=== PATIENT | male | born 1950 | race Caucasian/White ===

== ENCOUNTER 2017-07-04 05:55 | Inpatient (IN) | payer MEDICARE, BC ==
[2017-07-04] MEDS ORDERED: Albuterol/Ipratropium 3.0-0.5 MG/3 ML Neb Soln ONE (06:02)
[2017-07-04] MEDS ORDERED: methylPREDNISolone Sodium Succinate 125 MG/2 ML SDV ONE (06:06)
[2017-07-04] MEDS ORDERED: Albuterol/Ipratropium 3.0-0.5 MG/3 ML Neb Soln NEB PRN (06:07)
[2017-07-04] MEDS ORDERED: Piperacillin/Tazobactam 4.5 GM Vial ONE (06:15)
[2017-07-04] MEDS ORDERED: Vancomycin 1 GM SDV ONE (06:15)
[2017-07-04] MEDS: methylPREDNISolone Sodium Succinate 125 MG/2 ML SDV IV ONE ×2 (06:15→08:27)
[2017-07-04] MEDS ORDERED: Piperacillin/Tazobactam 4.5 GM in Sodium Chloride 0.9% 100 ML IV SCH (06:15)
[2017-07-04] MEDS ORDERED: Sodium Chloride 0.9% 1,000 ML IV STA (06:16)
[2017-07-04] MEDS ORDERED: Acetaminophen 500 MG Tab ONE (06:16)
--- NOTE | 2017-07-04 06:18 | EDM.PDOC ---
ED HPI GENERAL MEDICAL PROBLEM - General Chief Complaint: Respiratory Problem Stated Complaint: MEDICAL Time Seen by Provider: 07/04/17 06:07 Source of Information: Reports: Patient History Limitations: Reports: Altered Mental Status, Respiratory Distress - History of Present Illness INITIAL COMMENTS - FREE TEXT/NARRATIVE: 67 years old male patient with past medical history of emphysema, CHF, diabetes , hypertension and other medical problem. Patient drove himself to the ER. He was on respiratory distress on arrival. History limited by respiratory distress. Patient stated that he has been fighting a bug since Tuesday. Cough, productive. Fever and chills. He had a temp of 101.8 on arrival. Denies any chest pain. Denies any head injury or trauma. Never been a smoker. Denies any abdominal pain diarrhea or constipation. Denies any urinary symptoms. Generalized Pain Score (Numeric/FACES): 10 - Related Data Allergies Allergy/AdvReac Type Severity Reaction Status Date / Time No Known Allergies Allergy Verified 11/06/13 11:24 Home Meds: Home Meds ARIPiprazole [Abilify] 5 mg PO DAILY 08/23/14 [History] Arformoterol [Brovana] 1 dose NEB BID 08/23/14 [History] Aspirin [Halfprin] 81 mg PO DAILY 08/23/14 [History] Cholecalciferol (Vitamin D3) [Vitamin D-3] 2,000 unit PO DAILY 08/23/14 [History ] Cyclobenzaprine [Flexeril] 10 mg PO TID PRN 08/23/14 [History] Escitalopram [Lexapro] 20 mg PO DAILY 08/23/14 [History] Folic Acid 1 mg PO DAILY 08/23/14 [History] Furosemide [Lasix] 120 mg PO DAILY 08/23/14 [History] Hydrocodone/Acetaminophen [Vicodin 5-300 mg Tablet] 5 - 300 each PO BID PRN 01/30 [History] Insulin Glarg,Human.Rec.Analog [LantUS] 50 unit SUBCUT DAILY 08/23/14 [History] Insulin Lispro [HumaLOG] 90 units SUBCUT DAILY 08/23/14 [History] Omeprazole 40 mg PO DAILY 08/23/14 [History] Ramipril [Altace] 10 mg PO DAILY 08/23/14 [History] Spironolactone [Aldactone] 25 mg PO DAILY 08/23/14 [History] Tamsulosin [Tamsulosin 24 Hr] 0.4 mg PO DAILY 08/23/14 [History] Temazepam [Restoril] 15 - 30 mg PO BEDTIME PRN 08/23/14 [History] Tiotropium [Spiriva] 18 mcg INH DAILY 08/23/14 [History] Vitamin B Complex 1 each PO DAILY 08/23/14 [History] atorvaSTATin [Lipitor] 2 mg PO BEDTIME 08/23/14 [History] traZODone 100 mg PO BEDTIME 08/23/14 [History] ED ROS GENERAL - Review of Systems Review Of Systems: ROS reveals no pertinent complaints other than HPI. Constitutional: Reports: Fever, Chills Respiratory: Reports: Cough ED EXAM, GENERAL - Physical Exam Exam: See Below Exam Limited By: No Limitations (Skin ET is a 1 ASHIA) General Appearance: Lethargic, Severe Distress Eye Exam: Bilateral Eye: EOMI, Normal Inspection, PERRL Nose: Normal Inspection, Nasal Flaring Head: Atraumatic, Normocephalic Neck: Normal Inspection, Supple, Non-Tender, Full Range of Motion Respiratory/Chest: Respiratory Distress, Decreased Breath Sounds, Crackles, Rhonchi, Wheezing, Accessory Muscle Use, Retractions, Prolonged Expiration Cardiovascular: Normal Peripheral Pulses, No Murmur, Tachycardia GI/Abdominal: Normal Bowel Sounds, Soft, Non-Tender, No Organomegaly, No Distention, No Abnormal Bruit, No Mass, Other (Abdominal scar from previous surgery). No: Distended, Guarding, Rebound, Tender, Hernia, Mass Back Exam: Normal Inspection, Full Range of Motion, NT Extremities: Normal Inspection, Normal Range of Motion, Non-Tender, Normal Capillary Refill, Pedal Edema Neurological: Alert, Oriented, CN II-XII Intact, Normal Cognition, No Motor/ Sensory Deficits Psychiatric: Anxious Skin Exam: Warm, Dry, Intact, Normal Color, No Rash Course - Vital Signs Last Recorded V/S: Last Vital Signs Temp 39.2 C H 07/04/17 06:00 Pulse 88 07/04/17 06:41 Resp 31 H 07/04/17 06:41 BP 104/64 07/04/17 06:41 Pulse Ox 88 L 07/04/17 06:41 - Orders/Labs/Meds Orders: Active Orders 24 hr Category Date Time Status EKG Documentation Completion [RC] ASDIRECTED Care 07/04/17 06:16 Active RT Aerosol Therapy [RC] ASDIRECTED Care 07/04/17 06:08 Active Chest 1V Frontal [CR] Stat Exams 07/04/17 07:15 Taken Chest 1V Frontal [CR] Urgent Exams 07/04/17 06:09 Taken CULTURE BLOOD [BC] Routine Lab 07/04/17 06:43 Received CULTURE BLOOD [BC] Routine Lab 07/04/17 06:43 Received UA W/MICROSCOPIC [URIN] Stat Lab 07/04/17 07:56 Ordered Albuterol/Ipratropium [DuoNeb 3.0-0.5 MG/3 ML] Med 07/04/17 06:07 Active 3 ml NEB Q1H PRN HYDROmorphone [Dilaudid] Med 07/04/17 08:10 Once 0.5 mg .ROUTE .STK-MED ONE Levofloxacin/Dextrose 5%-Water [Levaquin in D5W 750 MG/ Med 07/04/17 07:30 Active 150 ML] 750 mg Premix Bag 1 bag IV ONETIME Norepinephrine [Levophed] 4 mg Med 07/04/17 07:15 Active Dextrose 5% in Water 246 ml IV TITRATE Piperacillin/Tazobactam [Zosyn] 4.5 gm Med 07/04/17 06:15 Active Sodium Chloride 0.9% [Normal Saline] 100 ml IV Q6H Blood Culture x2 Reflex Set [OM.PC] Urgent Oth 07/04/17 06:09 Ordered EKG 12 Lead [EK] Urgent Ther 07/04/17 06:16 Ordered Medication Orders Albuterol/Ipratropium (Duoneb 3.0-0.5 Mg/3 Ml) 3 ml NEB Q1H PRN PRN Reason: Shortness of Breath Last Admin: 07/04/17 06:05 Dose: 3 ml Piperacillin Sod/Tazobactam (Sod 4.5 gm/ Sodium Chloride) 100 mls @ 200 mls/hr IV Q6H YOAN Last Admin: 07/04/17 06:54 Dose: 200 mls/hr Norepinephrine Bitartrate 4 mg (/ Dextrose/Water) 250 mls @ 7.5 mls/hr IV TITRATE YOAN; 2 MCG/MIN PRN Reason: Protocol Levofloxacin/Dextrose 750 mg/ (Premix) 150 mls @ 100 mls/hr IV ONETIME ONE Stop: 07/04/17 08:59 Labs: Laboratory Tests 07/04/17 07/04/17 07/04/17 Range/Units 06:09 06:18 06:18 WBC 9.0 (4.5-11.0) K/uL RBC 4.86 (4.30-5.90) M/uL Hgb 13.4 (12.0-15.0) g/dL Hct 43.0 (40.0-54.0) % MCV 89 (80-98) fL MCH 28 (27-31) pg MCHC 31 L (32-36) % Plt Count 377 (150-400) K/uL Neut % (Auto) 59 (36-66) % Lymph % (Auto) 23 L (24-44) % [place] % (Auto) 17 H (2-6) % Eos % (Auto) 0 L (2-4) % Baso % (Auto) 0 (0-1) % Puncture Site Rt radial ABG pH 7.395 (7.350-7.450) ABG pCO2 61.4 H (35.0-42.0) mmHg ABG pO2 67.0 L (75.0-100.0) mmHg ABG HCO3 36.8 H (22.0-26.0) mmol/L ABG Total CO2 32.7 H (23.0-27.0) mmol/L ABG O2 Saturation 92.9 L (95.0-98.0) % ABG O2 Content 17.4 (15.0-23.0) %vol ABG Base Excess 9.9 mm/L ABG Hemoglobin 13.6 (13.5-18.0) g/dL ABG Oxyhemoglobin 90.7 % ABG Carboxyhemoglobin 1.6 (0.0-1.6) % ABG Methemoglobin 0.8 % Jesús Test Passed O2 Delivery Device Bipap Oxygen Flow Rate L Sodium 142 (140-148) mmol/L Potassium 4.4 (3.6-5.2) mmol/L Chloride 98 L (100-108) mmol/L Carbon Dioxide 38 H (21-32) mmol/L Anion Gap 10.4 (5.0-14.0) mmol/L BUN 41 H (7-18) mg/dL Creatinine 2.8 H D (0.8-1.3) mg/dL Est Cr Clr Drug Dosing TNP Estimated GFR (MDRD) 23 L (>60) Glucose 110 H (74-106) mg/dL Lactic Acid (0.4-2.0) mmol/L Calcium 9.2 (8.5-10.1) mg/dL Magnesium 2.2 (1.8-2.4) mg/dL Total Bilirubin 0.6 (0.2-1.0) mg/dL AST 73 H (15-37) U/L ALT 47 (12-78) U/L Alkaline Phosphatase 216 H (46-116) U/L Troponin I 0.149 H* (0.000-0.056) ng/mL NT-Pro-B Natriuret Pep (5-125) pg/mL Total Protein 7.3 (6.4-8.2) g/dL Albumin 2.9 L (3.4-5.0) g/dL Globulin 4.4 H (2.3-3.5) g/dL Albumin/Globulin Ratio 0.7 L (1.2-2.2) 07/04/17 07/04/17 07/04/17 Range/Units 06:18 06:43 06:50 WBC (4.5-11.0) K/uL RBC (4.30-5.90) M/uL Hgb (12.0-15.0) g/dL Hct (40.0-54.0) % MCV (80-98) fL MCH (27-31) pg MCHC (32-36) % Plt Count (150-400) K/uL Neut % (Auto) (36-66) % Lymph % (Auto) (24-44) % [place] % (Auto) (2-6) % Eos % (Auto) (2-4) % Baso % (Auto) (0-1) % Puncture Site Lt radial ABG pH 7.356 (7.350-7.450) ABG pCO2 68.2 H (35.0-42.0) mmHg ABG pO2 50.2 L (75.0-100.0) mmHg ABG HCO3 37.3 H (22.0-26.0) mmol/L ABG Total CO2 33.5 H (23.0-27.0) mmol/L ABG O2 Saturation 82.7 L (95.0-98.0) % ABG O2 Content 15.4 (15.0-23.0) %vol ABG Base Excess 9.4 mm/L ABG Hemoglobin 13.6 (13.5-18.0) g/dL ABG Oxyhemoglobin 80.9 % ABG Carboxyhemoglobin 1.4 (0.0-1.6) % ABG Methemoglobin 0.8 % Jesús Test Passed O2 Delivery Device Cpap Oxygen Flow Rate 8 L Sodium (140-148) mmol/L Potassium (3.6-5.2) mmol/L Chloride (100-108) mmol/L Carbon Dioxide (21-32) mmol/L Anion Gap (5.0-14.0) mmol/L BUN (7-18) mg/dL Creatinine (0.8-1.3) mg/dL Est Cr Clr Drug Dosing Estimated GFR (MDRD) (>60) Glucose (74-106) mg/dL Lactic Acid 1.8 (0.4-2.0) mmol/L Calcium (8.5-10.1) mg/dL Magnesium (1.8-2.4) mg/dL Total Bilirubin (0.2-1.0) mg/dL AST (15-37) U/L ALT (12-78) U/L Alkaline Phosphatase (46-116) U/L Troponin I (0.000-0.056) ng/mL NT-Pro-B Natriuret Pep 3941 H (5-125) pg/mL Total Protein (6.4-8.2) g/dL Albumin (3.4-5.0) g/dL Globulin (2.3-3.5) g/dL Albumin/Globulin Ratio (1.2-2.2) 07/04/17 Range/Units 07:40 WBC (4.5-11.0) K/uL RBC (4.30-5.90) M/uL Hgb (12.0-15.0) g/dL Hct (40.0-54.0) % MCV (80-98) fL MCH (27-31) pg MCHC (32-36) % Plt Count (150-400) K/uL Neut % (Auto) (36-66) % Lymph % (Auto) (24-44) % [place] % (Auto) (2-6) % Eos % (Auto) (2-4) % Baso % (Auto) (0-1) % Puncture Site Rt radial ABG pH 7.244 L (7.350-7.450) ABG pCO2 84.0 H* (35.0-42.0) mmHg ABG pO2 106.0 H (75.0-100.0) mmHg ABG HCO3 35.0 H (22.0-26.0) mmol/L ABG Total CO2 32.4 H (23.0-27.0) mmol/L ABG O2 Saturation 96.5 (95.0-98.0) % ABG O2 Content 17.8 (15.0-23.0) %vol ABG Base Excess 5.0 mm/L ABG Hemoglobin 13.3 L (13.5-18.0) g/dL ABG Oxyhemoglobin 95.1 % ABG Carboxyhemoglobin 0.7 (0.0-1.6) % ABG Methemoglobin 0.8 % Jesús Test Passeed O2 Delivery Device Resuscitation bag Oxygen Flow Rate 15 L Sodium (140-148) mmol/L Potassium (3.6-5.2) mmol/L Chloride (100-108) mmol/L Carbon Dioxide (21-32) mmol/L Anion Gap (5.0-14.0) mmol/L BUN (7-18) mg/dL Creatinine (0.8-1.3) mg/dL Est Cr Clr Drug Dosing Estimated GFR (MDRD) (>60) Glucose (74-106) mg/dL Lactic Acid (0.4-2.0) mmol/L Calcium (8.5-10.1) mg/dL Magnesium (1.8-2.4) mg/dL Total Bilirubin (0.2-1.0) mg/dL AST (15-37) U/L ALT (12-78) U/L Alkaline Phosphatase (46-116) U/L Troponin I (0.000-0.056) ng/mL NT-Pro-B Natriuret Pep (5-125) pg/mL Total Protein (6.4-8.2) g/dL Albumin (3.4-5.0) g/dL Globulin (2.3-3.5) g/dL Albumin/Globulin Ratio (1.2-2.2) Meds: Medications Generic Name Dose Route Start Last Admin Trade Name Sara PRN Reason Stop Dose Admin Albuterol/Ipratropium 3 ml 07/04/17 06:07 07/04/17 06:05 Duoneb 3.0-0.5 Mg/3 Ml NEB 3 ml Q1H PRN Administration Shortness of Breath Piperacillin Sod/Tazobactam 100 mls @ 200 mls/hr 07/04/17 06:15 07/04/17 06: 54 Sod 4.5 gm/ Sodium Chloride IV 200 mls/hr Q6H YOAN Administration Norepinephrine Bitartrate 4 mg 250 mls @ 7.5 mls/hr 07/04/17 07:15 / Dextrose/Water IV TITRATE YOAN Protocol 2 MCG/MIN Levofloxacin/Dextrose 750 mg/ 150 mls @ 100 mls/hr 07/04/17 07:30 Premix IV 07/04/17 08:59 ONETIME ONE Discontinued Medications Generic Name Dose Route Start Last Admin Trade Name Sara PRN Reason Stop Dose Admin Acetaminophen Confirm 07/04/17 06:16 Tylenol Extra Strength Administered 07/04/17 06:17 Dose 1,000 mg .ROUTE .STK-MED ONE Albuterol/Ipratropium Confirm 07/04/17 06:02 Duoneb 3.0-0.5 Mg/3 Ml Administered 07/04/17 06:03 Dose 3 ml .ROUTE .STK-MED ONE Diphenhydramine HCl 50 mg 07/04/17 07:08 Benadryl IVPUSH 07/04/17 07:09 ONETIME ONE Epinephrine HCl 0.3 mg 07/04/17 07:06 Adrenalin 1:1000 IM 07/04/17 07:07 ONETIME ONE Etomidate 20 mg 07/04/17 07:07 Amidate IVPUSH 07/04/17 07:08 ONETIME ONE Famotidine Confirm 07/04/17 06:49 Pepcid Administered 07/04/17 06:50 Dose 40 mg .ROUTE .STK-MED ONE Famotidine 20 mg 07/04/17 07:05 Pepcid IVPUSH 07/04/17 07:06 ONETIME ONE Vancomycin HCl 1,000 mg/ 250 mls @ 167 mls/hr 07/04/17 06:15 07/04/17 06:30 Dextrose/Water IV 07/04/17 07:44 167 mls/hr ONETIME ONE Administration Sodium Chloride 1,000 mls @ 999 mls/hr 07/04/17 06:16 07/04/17 06:30 Normal Saline IV 07/04/17 07:16 999 mls/hr .BOLUS STA Administration Acetaminophen Confirm 07/04/17 06:30 Ofirmev Administered 07/04/17 06:31 Dose 100 mls @ as directed IV .STK-MED ONE Dextrose/Water Confirm 07/04/17 06:55 Dextrose 5% In Water Administered 07/04/17 06:56 Dose 250 mls @ as directed .ROUTE .STK-MED ONE Ketamine HCl Confirm 07/04/17 06:47 Ketalar Administered 07/04/17 06:48 Dose 500 mg .ROUTE .STK-MED ONE Methylprednisolone Sodium Succinate 125 mg 07/04/17 06:07 07/04/17 06:15 Solu-Medrol IV 07/04/17 06:08 125 mg ONETIME ONE Administration Methylprednisolone Sodium Succinate Confirm 07/04/17 06:06 Solu-Medrol Administered 07/04/17 06:07 Dose 125 mg .ROUTE .STK-MED ONE Midazolam HCl Confirm 07/04/17 07:37 Versed 1 Mg/Ml Administered 07/04/17 07:38 Dose 5 mg .ROUTE .STK-MED ONE Midazolam HCl 5 mg 07/04/17 07:44 Versed 1 Mg/Ml IVPUSH 07/04/17 07:45 ONETIME ONE Piperacillin Sod/Tazobactam Sod Confirm 07/04/17 06:15 Zosyn Administered 07/04/17 06:16 Dose 4.5 gm .ROUTE .STK-MED ONE Rocuronium Kaufman Confirm 07/04/17 07:12 Zemuron Administered 07/04/17 07:13 Dose 50 mg .ROUTE .STK-MED ONE Succinylcholine Chloride Confirm 07/04/17 06:42 Quelicin Administered 07/04/17 06:43 Dose 200 mg .ROUTE .STK-MED ONE Vancomycin HCl Confirm 07/04/17 06:15 Vancomycin Administered 07/04/17 06:16 Dose 1 gm .ROUTE .STK-MED ONE - Re-Assessments/Exams Free Text/Narrative Re-Assessment/Exam: 07/04/17 08:19 Patient was seen and examined immediately on arrival. He was or respiratory distress. Was started on oxygen by nonrebreather mask. Given a DuoNeb. Started on the quality assurance monitor. IV inserted and was given one 25 mg IV Solu-Medrol. Lactic acid and blood culture was drawn. Was given 1 L normal saline bolus. 1 g of Tylenol was given fever. Lab and imaging was ordered. Patient's meets criteria for severe sepsis most likely secondary to pneumonia. The patient was started on vancomycin and Zosyn. I did order 4.5 mg Zosyn and 1 g of vancomycin. Patient reacted to the vancomycin and developed a skin rash and dropped his blood pressure from 100 systolic down to 75 ystolic. This is most likely anaphylactic shock to vancomycin on top of her septic shock secondary to pneumonia. Vancomycin was discontinued immediately. I did give him 0.3 IM epinephrine, 50 mg IV Benadryl, 20 mg IV Pepcid. I did order another liter of normal saline by pressure bag. And his blood pressure was still low. At this point the patient is likely fighting a combination of septic shock and anaphylactic shock secondary to vancomycin.. I did started home on Levophed 5 g. At this point decision was made for intubation. I did rapid sequence intubation. Patient was given 30 of etomidate initially and we continued to bag him by Ambu bag then etomidate was wearing off and patient was given 60 of ketamine and 180 of succinylcholine. Successful intubation from the first attempt. 7.5 size ET tube using a gleidoscope. Tube at 24 cm at the lip. Equal breath sounds initially. Chest x-ray shows the tip of the tube on the right bronchus. Tube was drawn back 2 cm. [address]acement confirmed by another x-ray. Initial chest x-ray shows bilateral diffuse pulmonary infiltrates. Blood pressure improved and he was weaned off the Levophed within 15-20 minutes. Patient was then started on Levaquin 750 mg. ABG 3 was done throughout the course of resuscitation. Lab and imaging was reviewed. Troponin is mildly elevated 0.14. Most likely demand ischemia. An EKG shows no sign of acute ischemia or arrhythmia. Patient was also given 20 mg off rocker name and 5 mg of IV Versed. Patient received at least 3 L of IV fluid bolus at this point about 30 Milberger kilogram for resuscitation. Blood pressure stabilized. Jung catheter inserted. The patient currently stabilized. Case was discussed with Dr. Irwin hospitalist strand and binder controller he accepted the admission for further management. Stable for admission. 07/04/17 08:32 Departure - Departure Time of Disposition: 08:33 Disposition: DC/Tfer to Hospice - Home 50 Condition: Critical Clinical Impression: Septic shock, Anaphylactic shock, Elevated troponin, Acute kidney injury, Acute respiratory failure - Discharge Information Referrals: PCP,None [Primary Care Provider] - Forms: ED Department Discharge - My Orders Last 24 Hours: My Active Orders 07/04/17 06:07 Albuterol/Ipratropium [DuoNeb 3.0-0.5 MG/3 ML] 3 ml NEB Q1H PRN 07/04/17 06:08 RT Aerosol Therapy [RC] ASDIRECTED 07/04/17 06:09 Chest 1V Frontal [CR] Urgent Blood Culture x2 Reflex Set [OM.PC] Urgent 07/04/17 06:15 Piperacillin/Tazobactam [Zosyn] 4.5 gm Sodium Chloride 0.9% [Normal Saline] 100 ml IV Q6H 07/04/17 06:16 EKG Documentation Completion [RC] ASDIRECTED EKG 12 Lead [EK] Urgent 07/04/17 06:43 CULTURE BLOOD [BC] Routine CULTURE BLOOD [BC] Routine 07/04/17 07:15 Chest 1V Frontal [CR] Stat Norepinephrine [Levophed] 4 mg Dextrose 5% in Water 246 ml IV TITRATE 07/04/17 07:30 Levofloxacin/Dextrose 5%-Water [Levaquin in D5W 750 MG/150 ML] 750 mg Premix Bag 1 bag IV ONETIME 07/04/17 07:56 UA W/MICROSCOPIC [URIN] Stat - Assessment/Plan Last 24 Hours: My Active Orders 07/04/17 06:07 Albuterol/Ipratropium [DuoNeb 3.0-0.5 MG/3 ML] 3 ml NEB Q1H PRN 07/04/17 06:08 RT Aerosol Therapy [RC] ASDIRECTED 07/04/17 06:09 Chest 1V Frontal [CR] Urgent Blood Culture x2 Reflex Set [OM.PC] Urgent 07/04/17 06:15 Piperacillin/Tazobactam [Zosyn] 4.5 gm Sodium Chloride 0.9% [Normal Saline] 100 ml IV Q6H 07/04/17 06:16 EKG Documentation Completion [RC] ASDIRECTED EKG 12 Lead [EK] Urgent 07/04/17 06:43 CULTURE BLOOD [BC] Routine CULTURE BLOOD [BC] Routine 07/04/17 07:15 Chest 1V Frontal [CR] Stat Norepinephrine [Levophed] 4 mg Dextrose 5% in Water 246 ml IV TITRATE 07/04/17 07:30 Levofloxacin/Dextrose 5%-Water [Levaquin in D5W 750 MG/150 ML] 750 mg Premix Bag 1 bag IV ONETIME 07/04/17 07:56 UA W/MICROSCOPIC [URIN] Stat Plan: Admission to the ICU to Dr. Rocha
[2017-07-04] MEDS ORDERED: Acetaminophen 1,000 MG in Premix Bag 1 BAG IV ONE (06:30)
[2017-07-04] MEDS ORDERED: Succinylcholine 200 MG/10 ML MDV ONE (06:42)
[2017-07-04] MEDS ORDERED: Ketamine 500 MG/5 ML MDV ONE (06:47)
[2017-07-04] MEDS ORDERED: Famotidine 20 MG/2 ML SDV ONE (06:49)
[2017-07-04] MEDS ORDERED: Sodium Chloride 0.9% 1,000 ML IV ONE (06:51)
[2017-07-04] MEDS ORDERED: Dextrose 5% in Water 250 ML ONE (06:55)
[2017-07-04] MEDS ORDERED: Ketamine 500 MG/5 ML MDV IV STA (07:03)
[2017-07-04] MEDS ORDERED: Succinylcholine 200 MG/10 ML MDV IV STA (07:04)
[2017-07-04] MEDS ORDERED: Famotidine 20 MG/2 ML SDV IVPUSH ONE (07:05)
[2017-07-04] MEDS ORDERED: EPINEPHrine 1 MG/ML SDV IM ONE (07:06)
[2017-07-04] MEDS ORDERED: Etomidate 2 MG/ML 10 ML SDV IVPUSH ONE (07:07)
[2017-07-04] MEDS ORDERED: diphenhydrAMINE 50 MG/ML SDV IVPUSH ONE (07:08)
[2017-07-04] MEDS ORDERED: Rocuronium 50 MG/5 ML Vial ONE (07:12)
[2017-07-04] MEDS ORDERED: Norepinephrine 4 MG in Dextrose 5% in Water 246 ML IV SCH ×2 (07:15)
[2017-07-04] MEDS ORDERED: Levofloxacin/Dextrose 5%-Water 750 MG in Premix Bag 1 BAG IV ONE (07:30)
[2017-07-04] MEDS ORDERED: Midazolam 1 MG/ML 5 ML SDV ONE (07:37)
[2017-07-04] MEDS ORDERED: Midazolam 1 MG/ML 5 ML SDV IVPUSH ONE (07:44)
[2017-07-04] MEDS ORDERED: HYDROmorphone 0.5 MG/0.5 ML Syringe ONE (08:10)
[2017-07-04] MEDS ORDERED: HYDROmorphone 0.5 MG/0.5 ML Syringe IVPUSH ONE (08:19)
[2017-07-04] MEDS ORDERED: Rocuronium 50 MG/5 ML Vial IV ONE (08:36)
[2017-07-04] MEDS ORDERED: 50% Dextrose in Water 50 ML Syringe IV PRN (08:45)
[2017-07-04] MEDS ORDERED: Levofloxacin/Dextrose 5%-Water 750 MG in Premix Bag 1 BAG IV SCH (08:45)
[2017-07-04] MEDS ORDERED: Glucose Gel 15 GM in 37.5 GM Tube PO PRN (08:45)
[2017-07-04] MEDS ORDERED: Ondansetron 4 MG/2 ML SDV IV PRN (08:45)
[2017-07-04] MEDS ORDERED: Albuterol/Ipratropium 3.0-0.5 MG/3 ML Neb Soln NEB SCH ×2 (08:45→10:00)
[2017-07-04] MEDS ORDERED: methylPREDNISolone Sodium Succinate 125 MG/2 ML SDV IVPUSH SCH (08:45)
[2017-07-04] MEDS ORDERED: Piperacillin/Tazobactam 3.375 GM in Sodium Chloride 0.9% 50 ML IV SCH (08:45)
[2017-07-04] MEDS ORDERED: Heparin Sodium 5,000 Units/ML Vial ONE (09:30)
--- NOTE | 2017-07-04 09:51 | PCM.HP ---
H&P History of Present Illness - General Date of Service: 07/04/17 Admit Problem/Dx: Admission Diagnosis/Problem Admission Diagnosis/Problem Respiratory failure Source of Information: Provider, RN Notes Reviewed History Limitations: Reports: Altered Mental Status, Respiratory Distress - History of Present Illness Initial Comments - Free Text/Narative: Mr. Kruse is a 67-year-old gentleman who is admitted through the emergency department with acute on chronic respiratory failure, left lung pneumonia, sepsis, and anaphylaxis secondary to vancomycin. He drove himself into the emergency department this morning and when he arrived had significant respiratory compromise. Initially was placed on BiPAP for respiratory support. Blood pressure was borderline he was tachycardic and febrile, chest x-ray showed evidence of left lung infiltrate. He was given IV fluids for suspected sepsis, as well as transient norepinephrine because of hypotension. He was started on broad-spectrum IV antibiotics but had an apparent anaphylactic reaction to the vancomycin. This was treated with IV steroids, epinephrine, and Benadryl. Because of persistent respiratory compromise despite use of noninvasive positive pressure ventilation he was intubated and placed on mechanical ventilation. Pressures have stabilized following IV fluid resuscitation and he is currently off of the IV norepinephrine. Blood gases show persistent CO2 retention with a moderate respiratory acidosis. Patient is unable to provide further information concerning recent symptoms or events because of his current intubated state and sedation. No family is available to provide further information. Generalized Pain Score (Numeric/FACES): 10 - Related Data Allergies/Adverse Reactions: Allergies Allergy/AdvReac Type Severity Reaction Status Date / Time No Known Allergies Allergy Verified 11/06/13 11:24 Home Medications: Home Meds ARIPiprazole [Abilify] 5 mg PO DAILY 08/23/14 [History] Arformoterol [Brovana] 1 dose NEB BID 08/23/14 [History] Aspirin [Halfprin] 81 mg PO DAILY 08/23/14 [History] Cholecalciferol (Vitamin D3) [Vitamin D-3] 2,000 unit PO DAILY 08/23/14 [History ] Cyclobenzaprine [Flexeril] 10 mg PO TID PRN 08/23/14 [History] Escitalopram [Lexapro] 20 mg PO DAILY 08/23/14 [History] Folic Acid 1 mg PO DAILY 08/23/14 [History] Furosemide [Lasix] 120 mg PO DAILY 08/23/14 [History] Hydrocodone/Acetaminophen [Vicodin 5-300 mg Tablet] 5 - 300 each PO BID PRN 01/30 [History] Insulin Glarg,Human.Rec.Analog [LantUS] 50 unit SUBCUT DAILY 08/23/14 [History] Insulin Lispro [HumaLOG] 90 units SUBCUT DAILY 08/23/14 [History] Omeprazole 40 mg PO DAILY 08/23/14 [History] Ramipril [Altace] 10 mg PO DAILY 08/23/14 [History] Spironolactone [Aldactone] 25 mg PO DAILY 08/23/14 [History] Tamsulosin [Tamsulosin 24 Hr] 0.4 mg PO DAILY 08/23/14 [History] Temazepam [Restoril] 15 - 30 mg PO BEDTIME PRN 08/23/14 [History] Tiotropium [Spiriva] 18 mcg INH DAILY 08/23/14 [History] Vitamin B Complex 1 each PO DAILY 08/23/14 [History] atorvaSTATin [Lipitor] 2 mg PO BEDTIME 08/23/14 [History] traZODone 100 mg PO BEDTIME 08/23/14 [History] Social & Family History - Tobacco Use Smoking Status *Q: Unknown Ever Smoked H&P Review of Systems - Review of Systems: Review Of Systems: Unable To Obtain General: Reports: ROS unobtainable (Currently intubated and sedated) Exam - Exam Exam: See Below - Vital Signs Vital Signs: Last Vital Signs Temp 100.8 F H 07/04/17 07:29 Pulse 67 07/04/17 08:45 Resp 13 07/04/17 08:14 BP 93/54 L 07/04/17 08:45 Pulse Ox 95 07/04/17 08:45 Weight: 220 lb 7.396 oz - Exam Quality Assessment: Urinary Catheter, DVT Prophylaxis, Other (Ventilator) General: Sedated, Lethargic HEENT: Conjunctiva Clear, Mucosa Moist & Embden, Normal Nasal Septum, Pupils Equal Neck: Supple, Trachea Midline, +2 Carotid Pulse wo Bruit Lungs: Decreased Breath Sounds, Rhonchi, Wheezing. No: Crackles, Rales, Rub, Stridor Cardiovascular: Regular Rate, Regular Rhythm, Normal S1, Normal S2. No: Irregular Rhythm, Bradycardia, Tachycardia, Systolic Murmur, Diastolic Murmur GI/Abdominal Exam: Normal Bowel Sounds, Soft, Non-Tender, No Distention Extremities: Non-Tender, Pedal Edema Skin: Warm, Dry, Intact - Patient Data Lab Results Last 24 hrs: Laboratory Results - last 24 hr 07/04/17 Range/Units 09:00 Puncture Site Rt radial ABG pH 7.266 L (7.350-7.450) ABG pCO2 77.2 H* (35.0-42.0) mmHg ABG pO2 67.5 L (75.0-100.0) mmHg ABG HCO3 33.9 H (22.0-26.0) mmol/L ABG Total CO2 31.4 H (23.0-27.0) mmol/L ABG O2 Saturation 90.0 L (95.0-98.0) % ABG O2 Content 16.3 (15.0-23.0) %vol ABG Base Excess 4.8 mm/L ABG Hemoglobin 13.0 L (13.5-18.0) g/dL ABG Oxyhemoglobin 88.7 % ABG Carboxyhemoglobin 0.6 (0.0-1.6) % ABG Methemoglobin 0.8 % Jesús Test Passed O2 Delivery Device Ventilator Oxygen Flow Rate L Result Diagrams: 07/04/17 06:18 07/04/17 06:18 *Q Meaningful Use (ADM) - VTE *Q VTE Criteria *Q: - VTE Risk Assess *Q Each Risk Factor Represents 1 Point: Obesity ( BMI > 25 kg/m2), Sepsis, Serious lung disease including pneumonia, Abnormal Pulmonary Function (COPD), Medical Patient Currently on Bedrest Total Score 1 Point Risk Factors: 5 Each Risk Factor Represents 2 Points: Age 60 - 74 Years Total Score 2 Point Risk Factors: 2 Each Risk Factor Represents 3 Points: None Total Score 3 Point Risk Factors: 0 Each Risk Factor Represents 5 Points: None Total Score 5 Point Risk Factors: 0 Venous Thromboembolism Risk Factor Score *Q: 7 - Stroke *Q Stroke Criteria *Q: - AMI *Q AMI Criteria *Q: Problem List Initiated/Reviewed/Updated: Yes Orders Last 24hrs: Active Orders 24 hr Category Date Time Status Patient Status [ADT] Routine ADT 07/04/17 08:45 Active Blood Glucose Check, Bedside [RC] QIDACANDBED Care 07/04/17 08:45 Active Cardiac Monitoring [RC] .As Directed Care 07/04/17 08:45 Active Communication Order [RC] ASDIRECTED Care 07/04/17 08:45 Active Diabetes Education [RC] Click to Edit Care 07/04/17 08:45 Active Initiate Restraint Protocol [RC] BID Care 07/04/17 08:45 Active Intake and Output [RC] QSHIFT Care 07/04/17 08:45 Active Notify Provider Vital Signs [RC] ASDIRECTED Care 07/04/17 08:45 Active Notify Provider [RC] PRN Care 07/04/17 08:45 Active Oxygen Therapy [RC] PRN Care 07/04/17 08:45 Active Peripheral IV Care [RC] . DIRECTED Care 07/04/17 08:45 Active Pulse Oximetry [RC] CONTINUOUS Care 07/04/17 08:45 Active RASS Sedation Scale [RC] ASDIRECTED Care 07/04/17 08:45 Active RT Aerosol Therapy [RC] ASDIRECTED Care 07/04/17 08:45 Active RT Ventilator, Adult [RC] ASDIRECTED Care 07/04/17 08:45 Active Up With Assistance [RC] ASDIRECTED Care 07/04/17 08:45 Active VTE/DVT Education [RC] Per Unit Routine Care 07/04/17 08:45 Active Vital Signs [RC] Q4H Care 07/04/17 08:45 Active Nothing per Oral Now Diet [DIET] Diet 07/04/17 Breakfast Active Chest 1V Frontal [CR] DAILY Exams 07/05/17 05:00 Ordered Chest 1V Frontal [CR] DAILY Exams 07/06/17 05:00 Ordered Chest 1V Frontal [CR] DAILY Exams 07/07/17 05:00 Ordered Chest 1V Frontal [CR] DAILY Exams 07/08/17 05:00 Ordered Chest 1V Frontal [CR] DAILY Exams 07/09/17 05:00 Ordered Chest 1V Frontal [CR] DAILY Exams 07/10/17 05:00 Ordered Echo Comp wo Cont [US] Urgent Exams 07/04/17 08:45 Ordered BASIC METABOLIC PANEL,BMP [CHEM] Stat Lab 07/04/17 17:00 Ordered BLOOD GAS ARTERIAL [BG] Stat Lab 07/04/17 17:00 Ordered CBC WITH AUTO DIFF [HEME] Stat Lab 07/04/17 17:00 Ordered CULTURE RESPIRATORY + SMEAR [RM] Stat Lab 07/04/17 09:44 Received GLUCOSE POC LAB TO COLLECT [POC] QIDACANDBED Lab 07/04/17 11:30 Ordered GLUCOSE POC LAB TO COLLECT [POC] QIDACANDBED Lab 07/04/17 16:30 Ordered GLUCOSE POC LAB TO COLLECT [POC] QIDACANDBED Lab 07/04/17 21:00 Ordered GLUCOSE POC LAB TO COLLECT [POC] QIDACANDBED Lab 07/05/17 07:30 Ordered GLUCOSE POC LAB TO COLLECT [POC] QIDACANDBED Lab 07/05/17 11:30 Ordered GLUCOSE POC LAB TO COLLECT [POC] QIDACANDBED Lab 07/05/17 16:30 Ordered GLUCOSE POC LAB TO COLLECT [POC] QIDACANDBED Lab 07/05/17 21:00 Ordered GLUCOSE POC LAB TO COLLECT [POC] QIDACANDBED Lab 07/06/17 07:30 Ordered GLUCOSE POC LAB TO COLLECT [POC] QIDACANDBED Lab 07/06/17 11:30 Ordered GLUCOSE POC LAB TO COLLECT [POC] QIDACANDBED Lab 07/06/17 16:30 Ordered GLUCOSE POC LAB TO COLLECT [POC] QIDACANDBED Lab 07/06/17 21:00 Ordered GLUCOSE POC LAB TO COLLECT [POC] QIDACANDBED Lab 07/07/17 07:30 Ordered GLUCOSE POC LAB TO COLLECT [POC] QIDACANDBED Lab 07/07/17 11:30 Ordered GLUCOSE POC LAB TO COLLECT [POC] QIDACANDBED Lab 07/07/17 16:30 Ordered GLUCOSE POC LAB TO COLLECT [POC] QIDACANDBED Lab 07/07/17 21:00 Ordered GLUCOSE POC LAB TO COLLECT [POC] QIDACANDBED Lab 07/08/17 07:30 Ordered GLUCOSE POC LAB TO COLLECT [POC] QIDACANDBED Lab 07/08/17 11:30 Ordered GLUCOSE POC LAB TO COLLECT [POC] QIDACANDBED Lab 07/08/17 16:30 Ordered GLUCOSE POC LAB TO COLLECT [POC] QIDACANDBED Lab 07/08/17 21:00 Ordered GLUCOSE POC LAB TO COLLECT [POC] QIDACANDBED Lab 07/09/17 07:30 Ordered GLUCOSE POC LAB TO COLLECT [POC] QIDACANDBED Lab 07/09/17 11:30 Ordered GLUCOSE POC LAB TO COLLECT [POC] QIDACANDBED Lab 07/09/17 16:30 Ordered GLUCOSE POC LAB TO COLLECT [POC] QIDACANDBED Lab 07/09/17 21:00 Ordered GLUCOSE POC LAB TO COLLECT [POC] QIDACANDBED Lab 07/10/17 07:30 Ordered GLUCOSE POC LAB TO COLLECT [POC] QIDACANDBED Lab 07/10/17 11:30 Ordered GLUCOSE POC LAB TO COLLECT [POC] QIDACANDBED Lab 07/10/17 16:30 Ordered GLUCOSE POC LAB TO COLLECT [POC] QIDACANDBED Lab 07/10/17 21:00 Ordered GLUCOSE POC LAB TO COLLECT [POC] QIDACANDBED Lab 07/11/17 07:30 Ordered GLUCOSE POC LAB TO COLLECT [POC] QIDACANDBED Lab 07/11/17 11:30 Ordered GLUCOSE POC LAB TO COLLECT [POC] QIDACANDBED Lab 07/11/17 16:30 Ordered GLUCOSE POC LAB TO COLLECT [POC] QIDACANDBED Lab 07/11/17 21:00 Ordered GLUCOSE POC LAB TO COLLECT [POC] QIDACANDBED Lab 07/12/17 07:30 Ordered GLUCOSE POC LAB TO COLLECT [POC] QIDACANDBED Lab 07/12/17 11:30 Ordered GLUCOSE POC LAB TO COLLECT [POC] QIDACANDBED Lab 07/12/17 16:30 Ordered GLUCOSE POC LAB TO COLLECT [POC] QIDACANDBED Lab 07/12/17 21:00 Ordered GLUCOSE POC LAB TO COLLECT [POC] QIDACANDBED Lab 07/13/17 07:30 Ordered GLUCOSE POC LAB TO COLLECT [POC] QIDACANDBED Lab 07/13/17 11:30 Ordered GLUCOSE POC LAB TO COLLECT [POC] QIDACANDBED Lab 07/13/17 16:30 Ordered GLUCOSE POC LAB TO COLLECT [POC] QIDACANDBED Lab 07/13/17 21:00 Ordered GLUCOSE POC LAB TO COLLECT [POC] QIDACANDBED Lab 07/14/17 07:30 Ordered GLUCOSE POC LAB TO COLLECT [POC] QIDACANDBED Lab 07/14/17 11:30 Ordered GLUCOSE POC LAB TO COLLECT [POC] QIDACANDBED Lab 07/14/17 16:30 Ordered GLUCOSE POC LAB TO COLLECT [POC] QIDACANDBED Lab 07/14/17 21:00 Ordered GLUCOSE POC LAB TO COLLECT [POC] QIDACANDBED Lab 07/15/17 07:30 Ordered TROPONIN I [CHEM] Stat Lab 07/04/17 12:00 Ordered TROPONIN I [CHEM] Stat Lab 07/04/17 17:00 Ordered Albuterol [Proventil Neb Soln] Med 07/04/17 08:45 Active 2.5 mg NEB Q4H PRN Albuterol/Ipratropium [DuoNeb 3.0-0.5 MG/3 ML] Med 07/04/17 10:00 Active 3 ml NEB Q6H Dextrose 50% in Water Med 07/04/17 08:45 Active 50 ml IV ONETIME PRN Dextrose [Glutose 15] Med 07/04/17 08:45 Active 15 gm PO ONETIME PRN Docusate Sodium [Colace] Med 07/04/17 08:45 Active 100 mg PO BID PRN Enoxaparin [Lovenox] Med 07/04/17 09:00 Active 30 mg SUBCUT DAILY HYDROmorphone [Dilaudid] Med 07/04/17 08:45 Active 0.5 mg IVPUSH Q1H PRN Insulin Aspart [NovoLOG] Med 07/04/17 11:00 Active See Protocol SUBCUT QIDACANDBED Insulin Detemir [Levemir] Med 07/04/17 21:00 Active 30 unit SUBCUT BEDTIME Lactated Ringers [Ringers, Lactated] 1,000 ml Med 07/04/17 08:45 Active IV ASDIRECTED Levofloxacin/Dextrose 5%-Water [Levaquin in D5W 750 MG/ Med 07/05/17 09:00 Active 150 ML] 750 mg Premix Bag 1 bag IV Q24H Magnesium Hydroxide [Milk of Magnesia] Med 07/04/17 08:45 Active 30 ml PO Q12H PRN Ondansetron [Zofran] Med 07/04/17 08:45 Active 4 mg IV Q4H PRN Pantoprazole [ProTONIX IV] Med 07/04/17 09:00 Active 40 mg IVPUSH DAILY Piperacillin/Tazobactam/Dext [Zosyn in Dextrose Iso- Med 07/04/17 12:00 Active Osmotic 3.375 GM] 3.375 gm Premix Bag 1 bag IV Q6H Polyethylene Glycol 3350 [MiraLAX] Med 07/04/17 08:45 Active 17 gm PO DAILY PRN Sodium Chloride 0.9% [Saline Flush] Med 07/04/17 08:45 Active 10 ml FLUSH ASDIRECTED PRN methylPREDNISolone Sod Succ [Solu-MEDROL] Med 07/04/17 12:00 Active 125 mg IVPUSH Q6H Peripheral IV Insertion Adult [OM.PC] Routine Oth 07/04/17 08:45 Ordered Restraint Initiate Non-VIOL/Non-SD [OM.PC] Stat Oth 07/04/17 08:45 Ordered Restraint Monitoring Non-VIOL/Non-SD [OM.PC] Daily Oth 07/04/17 08:45 Ordered Restraint Monitoring Non-VIOL/Non-SD [OM.PC] Daily Oth 07/05/17 08:45 Ordered Resuscitation Status Routine Resus Stat 07/04/17 08:22 Ordered Medication Orders Albuterol (Proventil Neb Soln) 2.5 mg NEB Q4H PRN PRN Reason: Shortness Of Breath/wheezing Albuterol/Ipratropium (Duoneb 3.0-0.5 Mg/3 Ml) 3 ml NEB Q6H YOAN Arformoterol Tartrate (Brovana) 15 mcg NEB BIDRT YOAN Dextrose (Glutose 15) 15 gm PO ONETIME PRN PRN Reason: Hypoglycemia Dextrose/Water (Dextrose 50% In Water) 50 ml IV ONETIME PRN PRN Reason: Hypoglycemia Docusate Sodium (Colace) 100 mg PO BID PRN PRN Reason: Constipation Enoxaparin Sodium (Lovenox) 30 mg SUBCUT DAILY YOAN Hydromorphone HCl (Dilaudid) 0.5 mg IVPUSH Q1H PRN PRN Reason: Pain Lactated Ringer's (Ringers, Lactated) 1,000 mls @ 125 mls/hr IV ASDIRECTED YOAN Levofloxacin/Dextrose 750 mg/ (Premix) 150 mls @ 100 mls/hr IV Q24H YOAN Piperacillin/Tazobactam/ (Dextrose 3.375 gm/ Premix) 50 mls @ 100 mls/hr IV Q6H YOAN Insulin Aspart (Novolog) 0 unit SUBCUT QIDACANDBED YOAN PRN Reason: Protocol Insulin Detemir (Levemir) 30 unit SUBCUT BEDTIME YOAN Magnesium Hydroxide (Milk Of Magnesia) 30 ml PO Q12H PRN PRN Reason: Constipation Methylprednisolone Sodium Succinate (Solu-Medrol) 125 mg IVPUSH Q6H YOAN Ondansetron HCl (Zofran) 4 mg IV Q4H PRN PRN Reason: Nausea/Vomiting Pantoprazole Sodium (Protonix Iv) 40 mg IVPUSH DAILY YOAN Polyethylene Glycol (Miralax) 17 gm PO DAILY PRN PRN Reason: Constipation Sodium Chloride (Saline Flush) 10 ml FLUSH ASDIRECTED PRN PRN Reason: Keep Vein Open Assessment/Plan Comment:: ASSESSMENT AND PLAN ACUTE ON CHRONIC HYPOXIC AND HYPERCAPNIC RESPIRATORY FAILURE-patient currently unable to provide history, prior to intubation he reported that he had symptoms of respiratory tract infection over the past week with progressive shortness of breath. He failed a trial of noninvasive positive pressure ventilation in the emergency department, because of ongoing respiratory compromise was intubated and now has been transferred to the intensive care unit on mechanical ventilation. -Mechanical ventilation; assist-control with a rate of 20, tidal volume of 550, FiO2 of 70%, PEEP of 5 -Daily spontaneous breathing trial -Daily chest x-ray while intubated -Solu-Medrol 125 mg IV every 6 hours -Nebulizer therapy with albuterol and duo nebs -Management of pneumonia as below -Analgesic sedation LEFT LUNG PNEUMONIA WITH SEPSIS-likely causing respiratory failure as noted above. -Blood and sputum cultures pending -IV antibiotic therapy with Zosyn and levofloxacin, pending culture results VANCOMYCIN ANAPHYLAXIS-treated with epinephrine, Solu-Medrol, and Benadryl in the emergency department ACUTE ON CHRONIC KIDNEY DISEASE -IV fluids for hydration and management of sepsis -Closely monitor urine output and renal function TYPE 2 DIABETES MELLITUS -Levemir insulin 30 units subcutaneous at at bedtime -4 times a day glucometers -Moderate dose sliding scale NovoLog MAINTENANCE ISSUES -DVT prophylaxis; Lovenox 30 mg subcutaneous daily -GI prophylaxis; Protonix 40 mg IV daily -Jung catheter; to monitor urine output -Nutrition; nothing by mouth -Nicotine dependence; not required CODE STATUS-FULL CODE ADMISSION STATUS-patient will be admitted to inpatient status, expect at least a 2 night hospital stay for evaluation and management of problems as outlined above. At the time of this admission I do not reasonably expected evaluation and management of this problem will require more than a 96 hour hospital stay. DISPOSITION-anticipate discharge to home after the hospital stay. PRIMARY CARE PROVIDER-
[2017-07-04] MEDS: Arformoterol 15 MCG/2 ML Neb Soln NEB SCH ×2 (09:56→21:11)
[2017-07-04] MEDS: HYDROmorphone 0.5 MG/0.5 ML Syringe IVPUSH PRN ×5 (10:12→22:59)
[2017-07-04] MEDS: Pantoprazole 40 MG Vial IVPUSH SCH (10:13)
[2017-07-04] MEDS: Enoxaparin 30 MG/0.3 ML Syringe SUBCUT SCH (10:14)
[2017-07-04] MEDS: Heparin Sodium 5,000 UNITS in Sodium Chloride 0.9% 500 ML IV SCH (10:19)
--- NOTE | 2017-07-04 11:01 | CR ---
Chest 1V Frontal INDICATION: intubation FINDINGS: ETT in place with tip 1.7 cm above the tracy. Dense infiltrate throughout the left lung rogers s increased since prior exam earlier today. Right lung remains clear. Probable tiny pleural effusions .
--- NOTE | 2017-07-04 11:01 | CR ---
Chest 1V Frontal INDICATION: resp distress FINDINGS: Comparison 08/31/2016. Increased consolidation left mid and lower lung. Shallow inspiration . Chest otherwise negative.
[2017-07-04] MEDS: Insulin Aspart 100 Units/ML 3 ML Pen SUBCUT SCH ×3 (11:41→21:04)
[2017-07-04] MEDS: Piperacillin/Tazobactam/Dext 3.375 GM in Premix Bag 1 BAG IV SCH ×2 (11:41→17:29)
[2017-07-04] MEDS: methylPREDNISolone Sodium Succinate 125 MG/2 ML SDV IVPUSH SCH ×2 (11:56→17:29)
--- NOTE | 2017-07-04 13:19 | ANES ---
DATE OF SERVICE: 07/04/2017 Lamont is a 67-year-old male patient of Dr. Joseph Irwin. This gentleman is in our intensive care unit, was intubated in the emergency room this morning. I was requested by Dr. Irwin to assess the patient for A-line placement. Upon arrival, I found no contraindications for A-line placement. I localized the left radial artery surface and placed a 20-gauge arterial catheter to the left radial artery. The catheter was secured with the suture as well as taped in a sterile fashion. He tolerated the procedure quite well. Adequate blood return and no change in vital signs. Reported off to a nurse in the room and to Dr. Irwin, found no questions. Again tolerated the procedure quite well. Joseph Garcia CRNA /[id number]
[2017-07-04] MEDS: Lactated Ringers 1,000 ML IV SCH ×2 (14:36→23:02)
[2017-07-04] MEDS: Albuterol/Ipratropium 3.0-0.5 MG/3 ML Neb Soln NEB SCH ×2 (15:04→21:09)
[2017-07-04] MEDS: Insulin Detemir 100 Units/ML 3 ML Pen SUBCUT SCH (21:04)
[2017-07-05] MEDS: methylPREDNISolone Sodium Succinate 125 MG/2 ML SDV IVPUSH SCH ×2 (00:15→05:59)
[2017-07-05] MEDS: Piperacillin/Tazobactam/Dext 3.375 GM in Premix Bag 1 BAG IV SCH ×4 (00:16→17:38)
[2017-07-05] MEDS: HYDROmorphone 0.5 MG/0.5 ML Syringe IVPUSH PRN ×9 (01:33→09:31)
[2017-07-05] MEDS: Albuterol/Ipratropium 3.0-0.5 MG/3 ML Neb Soln NEB SCH ×4 (02:47→20:39)
[2017-07-05] MEDS: Insulin Aspart 100 Units/ML 3 ML Pen SUBCUT SCH ×4 (07:11→20:57)
[2017-07-05] MEDS: Arformoterol 15 MCG/2 ML Neb Soln NEB SCH ×2 (07:11→20:39)
[2017-07-05] MEDS: Enoxaparin 30 MG/0.3 ML Syringe SUBCUT SCH (08:40)
[2017-07-05] MEDS: Pantoprazole 40 MG Vial IVPUSH SCH (08:40)
[2017-07-05] MEDS: Lactated Ringers 1,000 ML IV SCH (08:46)
--- NOTE | 2017-07-05 09:01 | CR ---
Portable chest Comparison: Previous day. Findings: The endotracheal tube is unchanged in position. There has been placement of a nasogastric t ube with the tip visualized in the stomach. There is cardiac enlargement with vascular engorgement. B ilateral interstitial infiltrates are demonstrated. There is more dense consolidation in the left mike g base. The left effusion cannot be excluded. Depression: 1. Endotracheal tube and nasogastric tube in good position. 2. CHF with pulmonary edema. 3. Left lower lobe infiltrate unchanged.
[2017-07-05] MEDS ORDERED: Lactated Ringers 1,000 ML IV SCH (09:15)
[2017-07-05] MEDS: Levofloxacin/Dextrose 5%-Water 750 MG in Premix Bag 1 BAG IV SCH (09:27)
[2017-07-05] MEDS: Bumetanide 1 MG/4 ML MDV IVPUSH SCH ×2 (09:28→20:38)
--- NOTE | 2017-07-05 09:44 | PCM.PN ---
- General Info Date of Service: 07/05/17 - Review of Systems Pulmonary: Reports: Shortness of Breath. Denies: Sputum, Wheezing Cardiovascular: Reports: Edema Gastrointestinal: Reports: No Symptoms Genitourinary: Reports: Other (Jung catheter) Systems Review Comment:: This patient has been stable since admission yesterday, continues to require relatively high level of supplemental oxygen on the ventilator. Not yet ready to participate in spontaneous weaning trial. Is uncomfortable because of the endotracheal tube. Vital signs have been stable and he has been afebrile since admission. Chest x-ray this morning shows evidence of pulmonary edema, in addition to left lung infiltrate. - Patient Data Vitals - Most Recent: Last Vital Signs Temp 97.0 F 07/05/17 07:49 Pulse 79 07/05/17 09:06 Resp 20 07/05/17 09:00 BP 122/65 07/05/17 09:00 Pulse Ox 88 L 07/05/17 09:00 Weight - Most Recent: 286 lb 9.615 oz I&O - Last 24 Hours: Intake & Output 07/04/17 07/05/17 07/05/17 22:59 06:59 14:59 Intake Total 1340 1727 Output Total 670 969 Balance 670 758 Lab Results Last 24 Hours: Laboratory Results - last 24 hr 07/04/17 07/04/17 07/04/17 Range/Units 11:57 16:59 16:59 WBC 8.7 (4.5-11.0) K/uL RBC 4.90 (4.30-5.90) M/uL Hgb 13.6 (12.0-15.0) g/dL Hct 43.2 (40.0-54.0) % MCV 88 (80-98) fL MCH 28 (27-31) pg MCHC 32 (32-36) % Plt Count 374 (150-400) K/uL Neut % (Auto) 89 H (36-66) % Lymph % (Auto) 9 L (24-44) % Fleming % (Auto) 2 (2-6) % Eos % (Auto) 0 L (2-4) % Baso % (Auto) 0 (0-1) % Puncture Site ABG pH (7.350-7.450) ABG pCO2 (35.0-42.0) mmHg ABG pO2 (75.0-100.0) mmHg ABG HCO3 (22.0-26.0) mmol/L ABG Total CO2 (23.0-27.0) mmol/L ABG O2 Saturation (95.0-98.0) % ABG O2 Content (15.0-23.0) %vol ABG Base Excess mm/L ABG Hemoglobin (13.5-18.0) g/dL ABG Oxyhemoglobin % ABG Carboxyhemoglobin (0.0-1.6) % ABG Methemoglobin % Jesús Test O2 Delivery Device Oxygen Flow Rate L Sodium 140 (140-148) mmol/L Potassium 4.5 (3.6-5.2) mmol/L Chloride 100 (100-108) mmol/L Carbon Dioxide 32 (21-32) mmol/L Anion Gap 7.8 (5.0-14.0) mmol/L BUN 45 H (7-18) mg/dL Creatinine 2.5 H (0.8-1.3) mg/dL Est Cr Clr Drug Dosing 31.95 mL/min Estimated GFR (MDRD) 26 L (>60) Glucose 192 H (74-106) mg/dL Calcium 8.7 (8.5-10.1) mg/dL Magnesium (1.8-2.4) mg/dL Total Bilirubin (0.2-1.0) mg/dL AST (15-37) U/L ALT (12-78) U/L Alkaline Phosphatase (46-116) U/L Troponin I 0.146 H* 0.103 H* (0.000-0.056) ng/mL Total Protein (6.4-8.2) g/dL Albumin (3.4-5.0) g/dL Globulin (2.3-3.5) g/dL Albumin/Globulin Ratio (1.2-2.2) 07/04/17 07/05/17 07/05/17 Range/Units 17:00 04:30 04:30 WBC 6.6 (4.5-11.0) K/uL RBC 5.01 (4.30-5.90) M/uL Hgb 13.7 (12.0-15.0) g/dL Hct 43.7 (40.0-54.0) % MCV 87 (80-98) fL MCH 27 (27-31) pg MCHC 31 L (32-36) % Plt Count 374 (150-400) K/uL Neut % (Auto) 83 H (36-66) % Lymph % (Auto) 10 L (24-44) % Fleming % (Auto) 7 H (2-6) % Eos % (Auto) 0 L (2-4) % Baso % (Auto) 0 (0-1) % Puncture Site A-line Line ABG pH 7.408 7.425 (7.350-7.450) ABG pCO2 50.3 H 47.4 H (35.0-42.0) mmHg ABG pO2 62.6 L 64.8 L (75.0-100.0) mmHg ABG HCO3 31.1 H 30.6 H (22.0-26.0) mmol/L ABG Total CO2 27.6 H 26.8 (23.0-27.0) mmol/L ABG O2 Saturation 92.2 L 92.7 L (95.0-98.0) % ABG O2 Content 17.3 17.8 (15.0-23.0) %vol ABG Base Excess 5.7 5.6 mm/L ABG Hemoglobin 13.5 13.9 (13.5-18.0) g/dL ABG Oxyhemoglobin 90.9 91.1 % ABG Carboxyhemoglobin 0.8 0.9 (0.0-1.6) % ABG Methemoglobin 0.6 0.8 % Jesús Test A-line O2 Delivery Device Ventilator Ventilator Oxygen Flow Rate L Sodium (140-148) mmol/L Potassium (3.6-5.2) mmol/L Chloride (100-108) mmol/L Carbon Dioxide (21-32) mmol/L Anion Gap (5.0-14.0) mmol/L BUN (7-18) mg/dL Creatinine (0.8-1.3) mg/dL Est Cr Clr Drug Dosing mL/min Estimated GFR (MDRD) (>60) Glucose (74-106) mg/dL Calcium (8.5-10.1) mg/dL Magnesium (1.8-2.4) mg/dL Total Bilirubin (0.2-1.0) mg/dL AST (15-37) U/L ALT (12-78) U/L Alkaline Phosphatase (46-116) U/L Troponin I (0.000-0.056) ng/mL Total Protein (6.4-8.2) g/dL Albumin (3.4-5.0) g/dL Globulin (2.3-3.5) g/dL Albumin/Globulin Ratio (1.2-2.2) 07/05/17 Range/Units 04:30 WBC (4.5-11.0) K/uL RBC (4.30-5.90) M/uL Hgb (12.0-15.0) g/dL Hct (40.0-54.0) % MCV (80-98) fL MCH (27-31) pg MCHC (32-36) % Plt Count (150-400) K/uL Neut % (Auto) (36-66) % Lymph % (Auto) (24-44) % Fleming % (Auto) (2-6) % Eos % (Auto) (2-4) % Baso % (Auto) (0-1) % Puncture Site ABG pH (7.350-7.450) ABG pCO2 (35.0-42.0) mmHg ABG pO2 (75.0-100.0) mmHg ABG HCO3 (22.0-26.0) mmol/L ABG Total CO2 (23.0-27.0) mmol/L ABG O2 Saturation (95.0-98.0) % ABG O2 Content (15.0-23.0) %vol ABG Base Excess mm/L ABG Hemoglobin (13.5-18.0) g/dL ABG Oxyhemoglobin % ABG Carboxyhemoglobin (0.0-1.6) % ABG Methemoglobin % Jesús Test O2 Delivery Device Oxygen Flow Rate L Sodium 139 L (140-148) mmol/L Potassium 4.1 (3.6-5.2) mmol/L Chloride 100 (100-108) mmol/L Carbon Dioxide 31 (21-32) mmol/L Anion Gap 12.1 (5.0-14.0) mmol/L BUN 48 H (7-18) mg/dL Creatinine 2.4 H (0.8-1.3) mg/dL Est Cr Clr Drug Dosing 33.28 mL/min Estimated GFR (MDRD) 27 L (>60) Glucose 287 H (74-106) mg/dL Calcium 8.3 L (8.5-10.1) mg/dL Magnesium 2.2 (1.8-2.4) mg/dL Total Bilirubin 0.5 (0.2-1.0) mg/dL AST 49 H (15-37) U/L ALT 35 (12-78) U/L Alkaline Phosphatase 183 H (46-116) U/L Troponin I (0.000-0.056) ng/mL Total Protein 6.6 (6.4-8.2) g/dL Albumin 2.4 L (3.4-5.0) g/dL Globulin 4.2 H (2.3-3.5) g/dL Albumin/Globulin Ratio 0.6 L (1.2-2.2) Zac Results Last 24 Hours: Microbiology 07/04/17 09:44 Gram Stain - Final Endotracheal Respiratory Culture - Preliminary REDUCED NORMAL RESPIRATORY BUCK Med Orders - Current: Current Medications Albuterol (Proventil Neb Soln) 2.5 mg NEB Q4H PRN PRN Reason: Shortness Of Breath/wheezing Albuterol/Ipratropium (Duoneb 3.0-0.5 Mg/3 Ml) 3 ml NEB Q6H [facility] Last Admin: 07/05/17 09:05 Dose: 3 ml Arformoterol Tartrate (Brovana) 15 mcg NEB BIDRT [facility] Last Admin: 07/05/17 07:11 Dose: 15 mcg Bumetanide (Bumex) 2 mg IVPUSH Q12H [facility] Last Admin: 07/05/17 09:28 Dose: 2 mg Dextrose (Glutose 15) 15 gm PO ONETIME PRN PRN Reason: Hypoglycemia Dextrose/Water (Dextrose 50% In Water) 50 ml IV ONETIME PRN PRN Reason: Hypoglycemia Docusate Sodium (Colace) 100 mg PO BID PRN PRN Reason: Constipation Enoxaparin Sodium (Lovenox) 30 mg SUBCUT DAILY [facility] Last Admin: 07/05/17 08:40 Dose: 30 mg Hydromorphone HCl (Dilaudid) 1 mg IVPUSH Q1H PRN PRN Reason: Pain Levofloxacin/Dextrose 750 mg/ (Premix) 150 mls @ 100 mls/hr IV Q24H [facility] Last Admin: 07/05/17 09:27 Dose: 100 mls/hr Piperacillin/Tazobactam/ (Dextrose 3.375 gm/ Premix) 50 mls @ 100 mls/hr IV Q6H [facility] Last Admin: 07/05/17 06:02 Dose: 100 mls/hr Heparin Sodium (Porcine) 5,000 (units/ Sodium Chloride) 501 mls @ 0 mls/hr IV ASDIRECTED [facility] PRN Reason: KVO Last Admin: 07/04/17 10:19 Dose: 2 mls/hr Lactated Ringer's (Ringers, Lactated) 1,000 mls @ 15 mls/hr IV ASDIRECTED [facility] Insulin Aspart (Novolog) 0 unit SUBCUT QIDACANDBED [facility] PRN Reason: Protocol Last Admin: 07/05/17 07:11 Dose: 6 units Insulin Detemir (Levemir) 30 unit SUBCUT BEDTIME [facility] Last Admin: 07/04/17 21:04 Dose: 30 units Magnesium Hydroxide (Milk Of Magnesia) 30 ml PO Q12H PRN PRN Reason: Constipation Methylprednisolone Sodium Succinate (Solu-Medrol) 125 mg IVPUSH Q6H [facility] Last Admin: 07/05/17 05:59 Dose: 125 mg Ondansetron HCl (Zofran) 4 mg IV Q4H PRN PRN Reason: Nausea/Vomiting Pantoprazole Sodium (Protonix Iv) 40 mg IVPUSH DAILY [facility] Last Admin: 07/05/17 08:40 Dose: 40 mg Polyethylene Glycol (Miralax) 17 gm PO DAILY PRN PRN Reason: Constipation Sodium Chloride (Saline Flush) 10 ml FLUSH ASDIRECTED PRN PRN Reason: Keep Vein Open Discontinued Medications Acetaminophen (Tylenol Extra Strength) Confirm Administered Dose 1,000 mg .ROUTE .STK-MED ONE Stop: 07/04/17 06:17 Last Admin: 07/04/17 08:32 Dose: Not Given Albuterol/Ipratropium (Duoneb 3.0-0.5 Mg/3 Ml) 3 ml NEB Q1H PRN PRN Reason: Shortness of Breath Last Admin: 07/04/17 06:05 Dose: 3 ml Albuterol/Ipratropium (Duoneb 3.0-0.5 Mg/3 Ml) Confirm Administered Dose 3 ml .ROUTE .STK-MED ONE Stop: 07/04/17 06:03 Last Admin: 07/04/17 08:17 Dose: Not Given Albuterol/Ipratropium (Duoneb 3.0-0.5 Mg/3 Ml) 3 ml NEB Q6H [facility] Albuterol/Ipratropium (Duoneb 3.0-0.5 Mg/3 Ml) 3 ml NEB Q6H [facility] Last Admin: 07/04/17 09:56 Dose: 3 ml Diphenhydramine HCl (Benadryl) 50 mg IVPUSH ONETIME ONE Stop: 07/04/17 07:09 Last Admin: 07/04/17 06:41 Dose: 50 mg Epinephrine HCl (Adrenalin 1:1000) 0.3 mg IM ONETIME ONE Stop: 07/04/17 07:07 Last Admin: 07/04/17 06:38 Dose: 0.3 mg Etomidate (Amidate) 20 mg IVPUSH ONETIME ONE Stop: 07/04/17 07:08 Last Admin: 07/04/17 06:42 Dose: 20 mg Famotidine (Pepcid) Confirm Administered Dose 40 mg .ROUTE .STK-MED ONE Stop: 07/04/17 06:50 Last Admin: 07/04/17 08:25 Dose: Not Given Famotidine (Pepcid) 20 mg IVPUSH ONETIME ONE Stop: 07/04/17 07:06 Last Admin: 07/04/17 06:49 Dose: 20 mg Heparin Sodium (Porcine) (Heparin Sodium) Confirm Administered Dose 5,000 units .ROUTE .STK-MED ONE Stop: 07/04/17 09:31 Last Admin: 07/04/17 10:23 Dose: Not Given Hydromorphone HCl (Dilaudid) Confirm Administered Dose 0.5 mg .ROUTE .STK-MED ONE Stop: 07/04/17 08:11 Last Admin: 07/04/17 08:21 Dose: Not Given Hydromorphone HCl (Dilaudid) 0.5 mg IVPUSH ONETIME ONE Stop: 07/04/17 08:20 Last Admin: 07/04/17 08:22 Dose: 0.5 mg Hydromorphone HCl (Dilaudid) 0.5 mg IVPUSH Q1H PRN PRN Reason: Pain Last Admin: 07/05/17 09:31 Dose: 0.5 mg Piperacillin Sod/Tazobactam (Sod 4.5 gm/ Sodium Chloride) 100 mls @ 200 mls/hr IV Q6H [facility] Last Admin: 07/04/17 06:54 Dose: 200 mls/hr Vancomycin HCl 1,000 mg/ (Dextrose/Water) 250 mls @ 167 mls/hr IV ONETIME ONE Stop: 07/04/17 07:44 Last Admin: 07/04/17 06:30 Dose: 167 mls/hr Sodium Chloride (Normal Saline) 1,000 mls @ 999 mls/hr IV .BOLUS STA Stop: 07/04/17 07:16 Last Admin: 07/04/17 06:30 Dose: 999 mls/hr Acetaminophen (Ofirmev) Confirm Administered Dose 100 mls @ as directed IV .STK- MED ONE Stop: 07/04/17 06:31 Last Admin: 07/04/17 09:15 Dose: Not Given Dextrose/Water (Dextrose 5% In Water) Confirm Administered Dose 250 mls @ as directed .ROUTE .STK-MED ONE Stop: 07/04/17 06:56 Last Admin: 07/04/17 08:21 Dose: Not Given Norepinephrine Bitartrate 4 mg (/ Dextrose/Water) 250 mls @ 7.5 mls/hr IV TITRATE [facility]; 2 MCG/MIN PRN Reason: Protocol Last Titration: 07/04/17 07:21 Dose: 0 mcg/min, 0 mls/hr Levofloxacin/Dextrose 750 mg/ (Premix) 150 mls @ 100 mls/hr IV ONETIME ONE Stop: 07/04/17 08:59 Last Admin: 07/04/17 07:30 Dose: 100 mls/hr Lactated Ringer's (Ringers, Lactated) 1,000 mls @ 125 mls/hr IV ASDIRECTED [facility] Last Admin: 07/05/17 08:46 Dose: 125 mls/hr Acetaminophen 1,000 mg/ Premix 100 mls @ 400 mls/hr IV NOW ONE Stop: 07/04/17 06:44 Last Admin: 07/04/17 06:40 Dose: 400 mls/hr Ketamine HCl (Ketalar) Confirm Administered Dose 500 mg .ROUTE .STK-MED ONE Stop: 07/04/17 06:48 Last Admin: 07/04/17 08:40 Dose: Not Given Ketamine HCl (Ketalar) 60 mg IV NOW STA Stop: 07/04/17 07:04 Last Admin: 07/04/17 07:03 Dose: 60 mg Lidocaine HCl (Xylocaine-Mpf 1%) Confirm Administered Dose 5 ml .ROUTE .STK-MED ONE Stop: 07/04/17 09:34 Last Admin: 07/04/17 10:16 Dose: Not Given Lidocaine HCl (Xylocaine-Mpf 1%) 5 ml INJECT ONETIME ONE Stop: 07/04/17 10:31 Last Admin: 07/04/17 10:16 Dose: 5 ml Methylprednisolone Sodium Succinate (Solu-Medrol) 125 mg IV ONETIME ONE Stop: 07/04/17 06:08 Last Admin: 07/04/17 08:27 Dose: Not Given Methylprednisolone Sodium Succinate (Solu-Medrol) Confirm Administered Dose 125 mg .ROUTE .STK-MED ONE Stop: 07/04/17 06:07 Last Admin: 07/04/17 08:18 Dose: Not Given Midazolam HCl (Versed 1 Mg/Ml) Confirm Administered Dose 5 mg .ROUTE .STK-MED ONE Stop: 07/04/17 07:38 Last Admin: 07/04/17 08:22 Dose: Not Given Midazolam HCl (Versed 1 Mg/Ml) 5 mg IVPUSH ONETIME ONE Stop: 07/04/17 07:45 Last Admin: 07/04/17 07:45 Dose: 5 mg Piperacillin Sod/Tazobactam Sod (Zosyn) Confirm Administered Dose 4.5 gm .ROUTE .STK-MED ONE Stop: 07/04/17 06:16 Last Admin: 07/04/17 08:16 Dose: Not Given Rocuronium [place] (Zemuron) Confirm Administered Dose 50 mg .ROUTE .STK-MED ONE Stop: 07/04/17 07:13 Last Admin: 07/04/17 08:40 Dose: Not Given Rocuronium [place] (Zemuron) 20 mg IV ONETIME ONE Stop: 07/04/17 08:37 Last Admin: 07/04/17 07:10 Dose: 20 mg Succinylcholine Chloride (Quelicin) Confirm Administered Dose 200 mg .ROUTE .STK -MED ONE Stop: 07/04/17 06:43 Last Admin: 07/04/17 08:39 Dose: Not Given Succinylcholine Chloride (Quelicin) 180 mg IV NOW STA Stop: 07/04/17 07:05 Last Admin: 07/04/17 07:03 Dose: 180 mg Vancomycin HCl (Vancomycin) Confirm Administered Dose 1 gm .ROUTE .STK-MED ONE Stop: 07/04/17 06:16 Last Admin: 07/04/17 08:22 Dose: Not Given - Exam Quality Assessment: Urine Catheter, DVT Prophylaxis General: Alert, Cooperative, Moderate Distress Lungs: Decreased Breath Sounds, Rales. No: Crackles, Rhonchi, Rub, Stridor, Wheezing Cardiovascular: Regular Rate, Regular Rhythm, No Murmurs GI/Abdominal Exam: Normal Bowel Sounds, Soft, Non-Tender, No Organomegaly, No Distention Extremities: Non-Tender, Pedal Edema Skin: Warm, Dry, Intact - Problem List Review Problem List Initiated/Reviewed/Updated: Yes - My Orders Last 24 Hours: My Active Orders 07/04/17 08:45 Patient Status [ADT] Routine Blood Glucose Check, Bedside [RC] QIDACANDBED Cardiac Monitoring [RC] Q6H Communication Order [RC] ASDIRECTED Diabetes Education [RC] Click to Edit Intake and Output [RC] QSHIFT Notify Provider Vital Signs [RC] ASDIRECTED Notify Provider [RC] PRN Oxygen Therapy [RC] Q12H Peripheral IV Care [RC] Q6H RASS Sedation Scale [RC] ASDIRECTED RT Aerosol Therapy [RC] ASDIRECTED RT Ventilator, Adult [RC] Q2H Up With Assistance [RC] ASDIRECTED VTE/DVT Education [RC] Per Unit Routine Vital Signs [RC] Q2H Echo Comp wo Cont [US] Urgent Albuterol [Proventil Neb Soln] 2.5 mg NEB Q4H PRN Dextrose 50% in Water 50 ml IV ONETIME PRN Dextrose [Glutose 15] 15 gm PO ONETIME PRN Docusate Sodium [Colace] 100 mg PO BID PRN Magnesium Hydroxide [Milk of Magnesia] 30 ml PO Q12H PRN Ondansetron [Zofran] 4 mg IV Q4H PRN Polyethylene Glycol 3350 [MiraLAX] 17 gm PO DAILY PRN Sodium Chloride 0.9% [Saline Flush] 10 ml FLUSH ASDIRECTED PRN Peripheral IV Insertion Adult [OM.PC] Routine Restraint Initiate Non-VIOL/Non-SD [OM.PC] Stat Restraint Monitoring Non-VIOL/Non-SD [OM.PC] Daily 07/04/17 09:00 Enoxaparin [Lovenox] 30 mg SUBCUT DAILY Pantoprazole [ProTONIX IV] 40 mg IVPUSH DAILY 07/04/17 09:44 CULTURE RESPIRATORY + SMEAR [RM] Stat 07/04/17 10:01 Consult to PICC Team [CONS] Routine Central Venous Line Insertion [OM.PC] Routine 07/04/17 10:15 Heparin Sodium 5,000 units Sodium Chloride 0.9% [Normal Saline] 500 ml IV ASDIRECTED 07/04/17 11:00 Insulin Aspart [NovoLOG] See Protocol SUBCUT QIDACANDBED 07/04/17 12:00 Piperacillin/Tazobactam/Dext [Zosyn in Dextrose Iso-Osmotic 3.375 GM] 3.375 gm Premix Bag 1 bag IV Q6H methylPREDNISolone Sod Succ [Solu-MEDROL] 125 mg IVPUSH Q6H 07/04/17 14:02 OR PCXR-No Charge-PICC/Central [CR] Routine 07/04/17 14:14 OR PCXR-No Charge-PICC/Central [CR] Routine 07/04/17 14:26 OR PCXR-No Charge-PICC/Central [CR] Routine 07/04/17 15:00 Albuterol/Ipratropium [DuoNeb 3.0-0.5 MG/3 ML] 3 ml NEB Q6H 07/04/17 21:00 Insulin Detemir [Levemir] 30 unit SUBCUT BEDTIME 07/05/17 08:45 Restraint Monitoring Non-VIOL/Non-SD [OM.PC] Daily 07/05/17 09:00 Bumetanide [Bumex] 2 mg IVPUSH Q12H Levofloxacin/Dextrose 5%-Water [Levaquin in D5W 750 MG/150 ML] 750 mg Premix Bag 1 bag IV Q24H 07/05/17 09:15 Lactated Ringers [Ringers, Lactated] 1,000 ml IV ASDIRECTED 07/05/17 09:36 HYDROmorphone [Dilaudid] 1 mg IVPUSH Q1H PRN 07/06/17 05:00 Chest 1V Frontal [CR] DAILY BLOOD GAS ARTERIAL [BG] Timed CBC WITH AUTO DIFF [HEME] Timed COMPREHENSIVE METABOLIC PN,CMP [CHEM] Timed MAGNESIUM [CHEM] Timed 07/06/17 07:30 GLUCOSE POC LAB TO COLLECT [POC] QIDACANDBED 07/06/17 11:30 GLUCOSE POC LAB TO COLLECT [POC] QIDACANDBED 07/06/17 16:30 GLUCOSE POC LAB TO COLLECT [POC] QIDACANDBED 07/06/17 21:00 GLUCOSE POC LAB TO COLLECT [POC] QIDACANDBED 07/07/17 05:00 Chest 1V Frontal [CR] DAILY 07/07/17 07:30 GLUCOSE POC LAB TO COLLECT [POC] QIDACANDBED 07/07/17 11:30 GLUCOSE POC LAB TO COLLECT [POC] QIDACANDBED 07/07/17 16:30 GLUCOSE POC LAB TO COLLECT [POC] QIDACANDBED 07/07/17 21:00 GLUCOSE POC LAB TO COLLECT [POC] QIDACANDBED 07/08/17 05:00 Chest 1V Frontal [CR] DAILY 07/08/17 07:30 GLUCOSE POC LAB TO COLLECT [POC] QIDACANDBED 07/08/17 11:30 GLUCOSE POC LAB TO COLLECT [POC] QIDACANDBED 07/08/17 16:30 GLUCOSE POC LAB TO COLLECT [POC] QIDACANDBED 07/08/17 21:00 GLUCOSE POC LAB TO COLLECT [POC] QIDACANDBED 07/09/17 05:00 Chest 1V Frontal [CR] DAILY 07/09/17 07:30 GLUCOSE POC LAB TO COLLECT [POC] QIDACANDBED 07/09/17 11:30 GLUCOSE POC LAB TO COLLECT [POC] QIDACANDBED 07/09/17 16:30 GLUCOSE POC LAB TO COLLECT [POC] QIDACANDBED 07/09/17 21:00 GLUCOSE POC LAB TO COLLECT [POC] QIDACANDBED 07/10/17 05:00 Chest 1V Frontal [CR] DAILY 07/10/17 07:30 GLUCOSE POC LAB TO COLLECT [POC] QIDACANDBED 07/10/17 11:30 GLUCOSE POC LAB TO COLLECT [POC] QIDACANDBED 07/10/17 16:30 GLUCOSE POC LAB TO COLLECT [POC] QIDACANDBED 07/10/17 21:00 GLUCOSE POC LAB TO COLLECT [POC] QIDACANDBED 07/11/17 07:30 GLUCOSE POC LAB TO COLLECT [POC] QIDACANDBED 07/11/17 11:30 GLUCOSE POC LAB TO COLLECT [POC] QIDACANDBED 07/11/17 16:30 GLUCOSE POC LAB TO COLLECT [POC] QIDACANDBED 07/11/17 21:00 GLUCOSE POC LAB TO COLLECT [POC] QIDACANDBED 07/12/17 07:30 GLUCOSE POC LAB TO COLLECT [POC] QIDACANDBED 07/12/17 11:30 GLUCOSE POC LAB TO COLLECT [POC] QIDACANDBED 07/12/17 16:30 GLUCOSE POC LAB TO COLLECT [POC] QIDACANDBED 07/12/17 21:00 GLUCOSE POC LAB TO COLLECT [POC] QIDACANDBED 07/13/17 07:30 GLUCOSE POC LAB TO COLLECT [POC] QIDACANDBED 07/13/17 11:30 GLUCOSE POC LAB TO COLLECT [POC] QIDACANDBED 07/13/17 16:30 GLUCOSE POC LAB TO COLLECT [POC] QIDACANDBED 07/13/17 21:00 GLUCOSE POC LAB TO COLLECT [POC] QIDACANDBED 07/14/17 07:30 GLUCOSE POC LAB TO COLLECT [POC] QIDACANDBED 07/14/17 11:30 GLUCOSE POC LAB TO COLLECT [POC] QIDACANDBED 07/14/17 16:30 GLUCOSE POC LAB TO COLLECT [POC] QIDACANDBED 07/14/17 21:00 GLUCOSE POC LAB TO COLLECT [POC] QIDACANDBED 07/15/17 07:30 GLUCOSE POC LAB TO COLLECT [POC] QIDACANDBED - Plan Plan:: ASSESSMENT AND PLAN ACUTE ON CHRONIC HYPOXIC AND HYPERCAPNIC RESPIRATORY FAILURE-patient currently unable to provide history, prior to intubation he reported that he had symptoms of respiratory tract infection over the past week with progressive shortness of breath. He failed a trial of noninvasive positive pressure ventilation in the emergency department, because of ongoing respiratory compromise was intubated and now has been transferred to the intensive care unit on mechanical ventilation. Continues to require relatively high level of supplemental oxygen through the ventilator. -Mechanical ventilation; assist-control with a rate of 20, tidal volume of 550, FiO2 of 85%, PEEP of 5 -Daily spontaneous breathing trial, when oxygen requirements decrease -Daily chest x-ray while intubated -Solu-Medrol 40 mg IV every 6 hours -Nebulizer therapy with albuterol and duo nebs -Management of pneumonia as below -Analgesic sedation LEFT LUNG PNEUMONIA WITH SEPSIS-likely causing respiratory failure as noted above. -Blood and sputum cultures pending -IV antibiotic therapy with Zosyn and levofloxacin, pending culture results VANCOMYCIN ANAPHYLAXIS-treated with epinephrine, Solu-Medrol, and Benadryl in the emergency department ACUTE ON CHRONIC KIDNEY DISEASE -IV fluids for hydration and management of sepsis -Closely monitor urine output and renal function TYPE 2 DIABETES MELLITUS -Levemir insulin 30 units subcutaneous at at bedtime -4 times a day glucometers -Moderate dose sliding scale NovoLog MAINTENANCE ISSUES -DVT prophylaxis; Lovenox 30 mg subcutaneous daily -GI prophylaxis; Protonix 40 mg IV daily -Jung catheter; to monitor urine output -Nutrition; nothing by mouth -Nicotine dependence; not required CODE STATUS-FULL CODE ADMISSION STATUS-patient will be admitted to inpatient status, expect at least a 2 night hospital stay for evaluation and management of problems as outlined above. At the time of this admission I do not reasonably expected evaluation and management of this problem will require more than a 96 hour hospital stay. DISPOSITION-anticipate discharge to home after the hospital stay. PRIMARY CARE PROVIDER-
[2017-07-05] MEDS: HYDROmorphone 1 MG/ML Syringe IVPUSH PRN ×3 (10:37→12:42)
[2017-07-05] MEDS: methylPREDNISolone Sodium Succinate 40 MG/1 ML SDV IVPUSH SCH ×2 (12:42→17:38)
[2017-07-05] MEDS: Insulin Detemir 100 Units/ML 3 ML Pen SUBCUT SCH (20:56)
[2017-07-06] MEDS: methylPREDNISolone Sodium Succinate 40 MG/1 ML SDV IVPUSH SCH ×4 (00:04→20:55)
[2017-07-06] MEDS: Piperacillin/Tazobactam/Dext 3.375 GM in Premix Bag 1 BAG IV SCH ×5 (00:04→23:35)
[2017-07-06] MEDS: Albuterol/Ipratropium 3.0-0.5 MG/3 ML Neb Soln NEB SCH ×4 (04:30→20:40)
[2017-07-06] MEDS: Arformoterol 15 MCG/2 ML Neb Soln NEB SCH ×2 (07:16→20:55)
[2017-07-06] MEDS: Insulin Aspart 100 Units/ML 3 ML Pen SUBCUT SCH ×4 (07:48→19:31)
[2017-07-06] MEDS: Levofloxacin/Dextrose 5%-Water 750 MG in Premix Bag 1 BAG IV SCH (08:08)
[2017-07-06] MEDS: Bumetanide 1 MG/4 ML MDV IVPUSH SCH ×3 (08:14→20:55)
[2017-07-06] MEDS: Enoxaparin 30 MG/0.3 ML Syringe SUBCUT SCH (08:24)
[2017-07-06] MEDS: Pantoprazole 40 MG Vial IVPUSH SCH (08:24)
--- NOTE | 2017-07-06 09:04 | PCM.PN ---
- General Info Date of Service: 07/06/17 Functional Status: Reports: Pain Controlled, Other (Currently intubated and on the ventilator) - Review of Systems General: Reports: Weakness. Denies: Fever, Chills Systems Review Comment:: This patient has shown further improvement over the past 24 hours, requiring decreased respiratory rate and tolerating decrease in FiO2. Remains intermittently agitated and has required use of IV propofol for sedation, having failed analgesic sedation. FiO2 remains about 40% so were not yet able to proceed with a weaning trial. He did have an excellent diuresis yesterday with use of IV Bumex. - Patient Data Vitals - Most Recent: Last Vital Signs Temp 96.8 F 07/06/17 05:00 Pulse 84 07/06/17 07:23 Resp 21 H 07/06/17 07:00 BP 120/75 07/06/17 08:14 Pulse Ox 94 L 07/06/17 07:00 Weight - Most Recent: 287 lb 0.67 oz I&O - Last 24 Hours: Intake & Output 07/05/17 07/06/17 07/06/17 22:59 06:59 14:59 Intake Total 811 640 150 Output Total 1450 3100 150 Balance -639 -2460 0 Lab Results Last 24 Hours: Laboratory Results - last 24 hr 07/06/17 07/06/17 07/06/17 Range/Units 04:14 04:14 04:14 WBC 12.5 H (4.5-11.0) K/uL RBC 5.28 (4.30-5.90) M/uL Hgb 14.6 (12.0-15.0) g/dL Hct 45.5 (40.0-54.0) % MCV 86 (80-98) fL MCH 28 (27-31) pg MCHC 32 (32-36) % Plt Count 390 (150-400) K/uL Neut % (Auto) 86 H (36-66) % Lymph % (Auto) 7 L (24-44) % [place] % (Auto) 7 H (2-6) % Eos % (Auto) 0 L (2-4) % Baso % (Auto) 0 (0-1) % Puncture Site Line ABG pH 7.424 (7.350-7.450) ABG pCO2 55.3 H (35.0-42.0) mmHg ABG pO2 70.1 L (75.0-100.0) mmHg ABG HCO3 35.5 H (22.0-26.0) mmol/L ABG Total CO2 30.7 H (23.0-27.0) mmol/L ABG O2 Saturation 93.7 L (95.0-98.0) % ABG O2 Content 19.6 (15.0-23.0) %vol ABG Base Excess 9.2 mm/L ABG Hemoglobin 15.1 (13.5-18.0) g/dL ABG Oxyhemoglobin 92.2 % ABG Carboxyhemoglobin 0.8 (0.0-1.6) % ABG Methemoglobin 0.8 % O2 Delivery Device Ventilator Oxygen Flow Rate L Sodium 142 (140-148) mmol/L Potassium 3.3 L (3.6-5.2) mmol/L Chloride 100 (100-108) mmol/L Carbon Dioxide 35 H (21-32) mmol/L Anion Gap 10.3 (5.0-14.0) mmol/L BUN 46 H (7-18) mg/dL Creatinine 1.9 H (0.8-1.3) mg/dL Est Cr Clr Drug Dosing 42.04 mL/min Estimated GFR (MDRD) 36 L (>60) Glucose 245 H (74-106) mg/dL Calcium 8.6 (8.5-10.1) mg/dL Magnesium 2.0 (1.8-2.4) mg/dL Total Bilirubin 0.5 (0.2-1.0) mg/dL AST 41 H (15-37) U/L ALT 28 (12-78) U/L Alkaline Phosphatase 161 H (46-116) U/L Total Protein 6.9 (6.4-8.2) g/dL Albumin 2.5 L (3.4-5.0) g/dL Globulin 4.4 H (2.3-3.5) g/dL Albumin/Globulin Ratio 0.6 L (1.2-2.2) Zac Results Last 24 Hours: Microbiology 07/04/17 09:44 Gram Stain - Final Endotracheal Respiratory Culture - Final REDUCED NORMAL RESPIRATORY BUCK Med Orders - Current: Current Medications Albuterol (Proventil Neb Soln) 2.5 mg NEB Q4H PRN PRN Reason: Shortness Of Breath/wheezing Albuterol/Ipratropium (Duoneb 3.0-0.5 Mg/3 Ml) 3 ml NEB Q6H [facility] Last Admin: 07/06/17 04:30 Dose: 3 ml Arformoterol Tartrate (Brovana) 15 mcg NEB BIDRT YOAN Last Admin: 07/06/17 07:16 Dose: 15 mcg Bumetanide (Bumex) 1 mg IVPUSH Q12H YOAN Dextrose (Glutose 15) 15 gm PO ONETIME PRN PRN Reason: Hypoglycemia Dextrose/Water (Dextrose 50% In Water) 50 ml IV ONETIME PRN PRN Reason: Hypoglycemia Docusate Sodium (Colace) 100 mg PO BID PRN PRN Reason: Constipation Enoxaparin Sodium (Lovenox) 30 mg SUBCUT DAILY [facility] Last Admin: 07/06/17 08:24 Dose: 30 mg Hydromorphone HCl (Dilaudid) 1 mg IVPUSH Q1H PRN PRN Reason: Pain Last Admin: 07/05/17 12:42 Dose: 1 mg Levofloxacin/Dextrose 750 mg/ (Premix) 150 mls @ 100 mls/hr IV Q24H [facility] Last Admin: 07/06/17 08:08 Dose: 100 mls/hr Piperacillin/Tazobactam/ (Dextrose 3.375 gm/ Premix) 50 mls @ 100 mls/hr IV Q6H [facility] Last Admin: 07/06/17 05:45 Dose: 100 mls/hr Heparin Sodium (Porcine) 5,000 (units/ Sodium Chloride) 501 mls @ 0 mls/hr IV ASDIRECTED YOAN PRN Reason: KVO Last Admin: 07/04/17 10:19 Dose: 2 mls/hr Lactated Ringer's (Ringers, Lactated) 1,000 mls @ 15 mls/hr IV ASDIRECTED YOAN Propofol (Diprivan 100 Ml) 100 mls @ 0 mls/hr IV TITRATE YOAN; 20 MCG/KG/MIN PRN Reason: Protocol Last Admin: 07/06/17 08:58 Dose: 59.9 mcg/kg/min, 46.8 mls/hr Potassium Chloride 20 meq/Lidocaine HCl 2 ml/ Sodium Chloride 112 mls @ 56 mls/ hr IV Q2H [facility] Stop: 07/06/17 13:59 Insulin Aspart (Novolog) 0 unit SUBCUT QIDACANDBED [facility] PRN Reason: Protocol Last Admin: 07/06/17 07:48 Dose: 4 units Insulin Detemir (Levemir) 30 unit SUBCUT BEDTIME [facility] Last Admin: 07/05/17 20:56 Dose: 30 units Magnesium Hydroxide (Milk Of Magnesia) 30 ml PO Q12H PRN PRN Reason: Constipation Methylprednisolone Sodium Succinate (Solu-Medrol) 40 mg IVPUSH Q12H [facility] Ondansetron HCl (Zofran) 4 mg IV Q4H PRN PRN Reason: Nausea/Vomiting Pantoprazole Sodium (Protonix Iv) 40 mg IVPUSH DAILY [facility] Last Admin: 07/06/17 08:24 Dose: 40 mg Polyethylene Glycol (Miralax) 17 gm PO DAILY PRN PRN Reason: Constipation Sodium Chloride (Saline Flush) 10 ml FLUSH ASDIRECTED PRN PRN Reason: Keep Vein Open Discontinued Medications Acetaminophen (Tylenol Extra Strength) Confirm Administered Dose 1,000 mg .ROUTE .STK-MED ONE Stop: 07/04/17 06:17 Last Admin: 07/04/17 08:32 Dose: Not Given Albuterol/Ipratropium (Duoneb 3.0-0.5 Mg/3 Ml) 3 ml NEB Q1H PRN PRN Reason: Shortness of Breath Last Admin: 07/04/17 06:05 Dose: 3 ml Albuterol/Ipratropium (Duoneb 3.0-0.5 Mg/3 Ml) Confirm Administered Dose 3 ml .ROUTE .STK-MED ONE Stop: 07/04/17 06:03 Last Admin: 07/04/17 08:17 Dose: Not Given Albuterol/Ipratropium (Duoneb 3.0-0.5 Mg/3 Ml) 3 ml NEB Q6H YOAN Albuterol/Ipratropium (Duoneb 3.0-0.5 Mg/3 Ml) 3 ml NEB Q6H [facility] Last Admin: 07/04/17 09:56 Dose: 3 ml Bumetanide (Bumex) 2 mg IVPUSH Q12H [facility] Last Admin: 07/06/17 08:14 Dose: 2 mg Diphenhydramine HCl (Benadryl) 50 mg IVPUSH ONETIME ONE Stop: 07/04/17 07:09 Last Admin: 07/04/17 06:41 Dose: 50 mg Epinephrine HCl (Adrenalin 1:1000) 0.3 mg IM ONETIME ONE Stop: 07/04/17 07:07 Last Admin: 07/04/17 06:38 Dose: 0.3 mg Etomidate (Amidate) 20 mg IVPUSH ONETIME ONE Stop: 07/04/17 07:08 Last Admin: 07/04/17 06:42 Dose: 20 mg Famotidine (Pepcid) Confirm Administered Dose 40 mg .ROUTE .STK-MED ONE Stop: 07/04/17 06:50 Last Admin: 07/04/17 08:25 Dose: Not Given Famotidine (Pepcid) 20 mg IVPUSH ONETIME ONE Stop: 07/04/17 07:06 Last Admin: 07/04/17 06:49 Dose: 20 mg Heparin Sodium (Porcine) (Heparin Sodium) Confirm Administered Dose 5,000 units .ROUTE .STK-MED ONE Stop: 07/04/17 09:31 Last Admin: 07/04/17 10:23 Dose: Not Given Hydromorphone HCl (Dilaudid) Confirm Administered Dose 0.5 mg .ROUTE .STK-MED ONE Stop: 07/04/17 08:11 Last Admin: 07/04/17 08:21 Dose: Not Given Hydromorphone HCl (Dilaudid) 0.5 mg IVPUSH ONETIME ONE Stop: 07/04/17 08:20 Last Admin: 07/04/17 08:22 Dose: 0.5 mg Hydromorphone HCl (Dilaudid) 0.5 mg IVPUSH Q1H PRN PRN Reason: Pain Last Admin: 07/05/17 09:31 Dose: 0.5 mg Piperacillin Sod/Tazobactam (Sod 4.5 gm/ Sodium Chloride) 100 mls @ 200 mls/hr IV Q6H [facility]OAN Last Admin: 07/04/17 06:54 Dose: 200 mls/hr Vancomycin HCl 1,000 mg/ (Dextrose/Water) 250 mls @ 167 mls/hr IV ONETIME ONE Stop: 07/04/17 07:44 Last Admin: 07/04/17 06:30 Dose: 167 mls/hr Sodium Chloride (Normal Saline) 1,000 mls @ 999 mls/hr IV .BOLUS STA Stop: 07/04/17 07:16 Last Admin: 07/04/17 06:30 Dose: 999 mls/hr Acetaminophen (Ofirmev) Confirm Administered Dose 100 mls @ as directed IV .STK- MED ONE Stop: 07/04/17 06:31 Last Admin: 07/04/17 09:15 Dose: Not Given Dextrose/Water (Dextrose 5% In Water) Confirm Administered Dose 250 mls @ as directed .ROUTE .STK-MED ONE Stop: 07/04/17 06:56 Last Admin: 07/04/17 08:21 Dose: Not Given Norepinephrine Bitartrate 4 mg (/ Dextrose/Water) 250 mls @ 7.5 mls/hr IV TITRATE YOAN; 2 MCG/MIN PRN Reason: Protocol Last Titration: 07/04/17 07:21 Dose: 0 mcg/min, 0 mls/hr Levofloxacin/Dextrose 750 mg/ (Premix) 150 mls @ 100 mls/hr IV ONETIME ONE Stop: 07/04/17 08:59 Last Admin: 07/04/17 07:30 Dose: 100 mls/hr Lactated Ringer's (Ringers, Lactated) 1,000 mls @ 125 mls/hr IV ASDIRECTED YOAN Last Admin: 07/05/17 08:46 Dose: 125 mls/hr Acetaminophen 1,000 mg/ Premix 100 mls @ 400 mls/hr IV NOW ONE Stop: 07/04/17 06:44 Last Admin: 07/04/17 06:40 Dose: 400 mls/hr Ketamine HCl (Ketalar) Confirm Administered Dose 500 mg .ROUTE .STK-MED ONE Stop: 07/04/17 06:48 Last Admin: 07/04/17 08:40 Dose: Not Given Ketamine HCl (Ketalar) 60 mg IV NOW STA Stop: 07/04/17 07:04 Last Admin: 07/04/17 07:03 Dose: 60 mg Lidocaine HCl (Xylocaine-Mpf 1%) Confirm Administered Dose 5 ml .ROUTE .STK-MED ONE Stop: 07/04/17 09:34 Last Admin: 07/04/17 10:16 Dose: Not Given Lidocaine HCl (Xylocaine-Mpf 1%) 5 ml INJECT ONETIME ONE Stop: 07/04/17 10:31 Last Admin: 07/04/17 10:16 Dose: 5 ml Methylprednisolone Sodium Succinate (Solu-Medrol) 125 mg IV ONETIME ONE Stop: 07/04/17 06:08 Last Admin: 07/04/17 08:27 Dose: Not Given Methylprednisolone Sodium Succinate (Solu-Medrol) Confirm Administered Dose 125 mg .ROUTE .STK-MED ONE Stop: 07/04/17 06:07 Last Admin: 07/04/17 08:18 Dose: Not Given Methylprednisolone Sodium Succinate (Solu-Medrol) 125 mg IVPUSH Q6H [facility] Last Admin: 07/05/17 05:59 Dose: 125 mg Methylprednisolone Sodium Succinate (Solu-Medrol) 40 mg IVPUSH Q6H [facility] Last Admin: 07/06/17 05:46 Dose: 40 mg Midazolam HCl (Versed 1 Mg/Ml) Confirm Administered Dose 5 mg .ROUTE .STK-MED ONE Stop: 07/04/17 07:38 Last Admin: 07/04/17 08:22 Dose: Not Given Midazolam HCl (Versed 1 Mg/Ml) 5 mg IVPUSH ONETIME ONE Stop: 07/04/17 07:45 Last Admin: 07/04/17 07:45 Dose: 5 mg Piperacillin Sod/Tazobactam Sod (Zosyn) Confirm Administered Dose 4.5 gm .ROUTE .STK-MED ONE Stop: 07/04/17 06:16 Last Admin: 07/04/17 08:16 Dose: Not Given Rocuronium [place] (Zemuron) Confirm Administered Dose 50 mg .ROUTE .STK-MED ONE Stop: 07/04/17 07:13 Last Admin: 07/04/17 08:40 Dose: Not Given Rocuronium [place] (Zemuron) 20 mg IV ONETIME ONE Stop: 07/04/17 08:37 Last Admin: 07/04/17 07:10 Dose: 20 mg Succinylcholine Chloride (Quelicin) Confirm Administered Dose 200 mg .ROUTE .STK -MED ONE Stop: 07/04/17 06:43 Last Admin: 07/04/17 08:39 Dose: Not Given Succinylcholine Chloride (Quelicin) 180 mg IV NOW STA Stop: 07/04/17 07:05 Last Admin: 07/04/17 07:03 Dose: 180 mg Vancomycin HCl (Vancomycin) Confirm Administered Dose 1 gm .ROUTE .STK-MED ONE Stop: 07/04/17 06:16 Last Admin: 07/04/17 08:22 Dose: Not Given - Exam Quality Assessment: DVT Prophylaxis, Restraints General: Moderate Distress Lungs: Decreased Breath Sounds, Rhonchi. No: Crackles, Rales, Rub, Stridor, Wheezing Cardiovascular: Regular Rate, Regular Rhythm, No Murmurs GI/Abdominal Exam: Normal Bowel Sounds, Soft, Non-Tender, No Distention Extremities: Non-Tender, Pedal Edema Skin: Warm, Dry, Intact - Problem List Review Problem List Initiated/Reviewed/Updated: Yes - My Orders Last 24 Hours: My Active Orders 07/05/17 08:45 Restraint Monitoring Non-VIOL/Non-SD [OM.PC] Daily 07/05/17 09:00 Levofloxacin/Dextrose 5%-Water [Levaquin in D5W 750 MG/150 ML] 750 mg Premix Bag 1 bag IV Q24H 07/05/17 09:15 Lactated Ringers [Ringers, Lactated] 1,000 ml IV ASDIRECTED 07/05/17 09:36 HYDROmorphone [Dilaudid] 1 mg IVPUSH Q1H PRN 07/05/17 13:28 Desired Level of Sedation (RASS) [AST] Click to Edit 07/05/17 13:30 Propofol [Diprivan 100 ML] 100 ml IV TITRATE 07/06/17 05:00 Chest 1V Frontal [CR] DAILY 07/06/17 08:54 Bumetanide [Bumex] 1 mg IVPUSH Q12H 07/06/17 09:00 methylPREDNISolone Sod Succ [Solu-MEDROL] 40 mg IVPUSH Q12H 07/06/17 10:00 Potassium Chloride 20 meq Lidocaine 1% [Xylocaine 1%] 2 ml Sodium Chloride 0.9 % [Normal Saline] 100 ml IV Q2H 07/07/17 05:00 Chest 1V Frontal [CR] DAILY BASIC METABOLIC PANEL,BMP [CHEM] Timed BLOOD GAS ARTERIAL [BG] Timed CBC WITH AUTO DIFF [HEME] Timed MAGNESIUM [CHEM] Timed 07/07/17 07:30 GLUCOSE POC LAB TO COLLECT [POC] QIDACANDBED 07/07/17 11:30 GLUCOSE POC LAB TO COLLECT [POC] QIDACANDBED 07/07/17 16:30 GLUCOSE POC LAB TO COLLECT [POC] QIDACANDBED 07/07/17 21:00 GLUCOSE POC LAB TO COLLECT [POC] QIDACANDBED 07/08/17 05:00 Chest 1V Frontal [CR] DAILY 07/08/17 07:30 GLUCOSE POC LAB TO COLLECT [POC] QIDACANDBED 07/08/17 11:30 GLUCOSE POC LAB TO COLLECT [POC] QIDACANDBED 07/08/17 16:30 GLUCOSE POC LAB TO COLLECT [POC] QIDACANDBED 07/08/17 21:00 GLUCOSE POC LAB TO COLLECT [POC] QIDACANDBED 07/09/17 05:00 Chest 1V Frontal [CR] DAILY 07/09/17 07:30 GLUCOSE POC LAB TO COLLECT [POC] QIDACANDBED 07/09/17 11:30 GLUCOSE POC LAB TO COLLECT [POC] QIDACANDBED 07/09/17 16:30 GLUCOSE POC LAB TO COLLECT [POC] QIDACANDBED 07/09/17 21:00 GLUCOSE POC LAB TO COLLECT [POC] QIDACANDBED 07/10/17 05:00 Chest 1V Frontal [CR] DAILY 07/10/17 07:30 GLUCOSE POC LAB TO COLLECT [POC] QIDACANDBED 07/10/17 11:30 GLUCOSE POC LAB TO COLLECT [POC] QIDACANDBED 07/10/17 16:30 GLUCOSE POC LAB TO COLLECT [POC] QIDACANDBED 07/10/17 21:00 GLUCOSE POC LAB TO COLLECT [POC] QIDACANDBED 07/11/17 07:30 GLUCOSE POC LAB TO COLLECT [POC] QIDACANDBED 07/11/17 11:30 GLUCOSE POC LAB TO COLLECT [POC] QIDACANDBED 07/11/17 16:30 GLUCOSE POC LAB TO COLLECT [POC] QIDACANDBED 07/11/17 21:00 GLUCOSE POC LAB TO COLLECT [POC] QIDACANDBED 07/12/17 07:30 GLUCOSE POC LAB TO COLLECT [POC] QIDACANDBED 07/12/17 11:30 GLUCOSE POC LAB TO COLLECT [POC] QIDACANDBED 07/12/17 16:30 GLUCOSE POC LAB TO COLLECT [POC] QIDACANDBED 07/12/17 21:00 GLUCOSE POC LAB TO COLLECT [POC] QIDACANDBED 07/13/17 07:30 GLUCOSE POC LAB TO COLLECT [POC] QIDACANDBED 07/13/17 11:30 GLUCOSE POC LAB TO COLLECT [POC] QIDACANDBED 07/13/17 16:30 GLUCOSE POC LAB TO COLLECT [POC] QIDACANDBED 07/13/17 21:00 GLUCOSE POC LAB TO COLLECT [POC] QIDACANDBED 07/14/17 07:30 GLUCOSE POC LAB TO COLLECT [POC] QIDACANDBED 07/14/17 11:30 GLUCOSE POC LAB TO COLLECT [POC] QIDACANDBED 07/14/17 16:30 GLUCOSE POC LAB TO COLLECT [POC] QIDACANDBED 07/14/17 21:00 GLUCOSE POC LAB TO COLLECT [POC] QIDACANDBED 07/15/17 07:30 GLUCOSE POC LAB TO COLLECT [POC] QIDACANDBED - Plan Plan:: ASSESSMENT AND PLAN ACUTE ON CHRONIC HYPOXIC AND HYPERCAPNIC RESPIRATORY FAILURE-patient currently unable to provide history, prior to intubation he reported that he had symptoms of respiratory tract infection over the past week with progressive shortness of breath. He failed a trial of noninvasive positive pressure ventilation in the emergency department, because of ongoing respiratory compromise was intubated and now has been transferred to the intensive care unit on mechanical ventilation. Supplemental oxygen needs have decreased over the past 24 hours but remained above 40% so were not yet able to proceed with a spontaneous weaning trial -Mechanical ventilation; assist-control with a rate of 20, tidal volume of 550, FiO2 of 50%, PEEP of 5 -Daily spontaneous breathing trial, when oxygen requirements decrease -Daily chest x-ray while intubated -Solu-Medrol 40 mg IV every 12 hours -Nebulizer therapy with albuterol and duo nebs -Management of pneumonia as below -Analgesic sedation LEFT LUNG PNEUMONIA WITH SEPSIS-likely causing respiratory failure as noted above. He has remained afebrile, no significant growth from cultures -Blood and sputum cultures pending -IV antibiotic therapy with Zosyn and levofloxacin, pending culture results VANCOMYCIN ANAPHYLAXIS-treated with epinephrine, Solu-Medrol, and Benadryl in the emergency department ACUTE ON CHRONIC KIDNEY DISEASE-renal function has improved over the past few days but is not yet back to baseline -IV fluids for hydration and management of sepsis -Closely monitor urine output and renal function TYPE 2 DIABETES MELLITUS -Levemir insulin 30 units subcutaneous at at bedtime -4 times a day glucometers -Moderate dose sliding scale [employer] MAINTENANCE ISSUES -DVT prophylaxis; Lovenox 30 mg subcutaneous daily -GI prophylaxis; Protonix 40 mg IV daily -Jung catheter; to monitor urine output -Nutrition; nothing by mouth -Nicotine dependence; not required CODE STATUS-FULL CODE ADMISSION STATUS-patient will be admitted to inpatient status, expect at least a 2 night hospital stay for evaluation and management of problems as outlined above. At the time of this admission I do not reasonably expected evaluation and management of this problem will require more than a 96 hour hospital stay. DISPOSITION-anticipate discharge to home after the hospital stay. PRIMARY CARE PROVIDER-
[2017-07-06] MEDS: Potassium Chloride 20 MEQ, Lidocaine 1% 2 ML in Sodium Chloride 0.9% 100 ML IV SCH ×2 (10:05→12:07)
--- NOTE | 2017-07-06 10:51 | CR ---
Chest 1V Frontal INDICATION: Respiratory failure FINDINGS: Comparison 07/05/2017. ETT and enteric tubes in place. Cardiac enlargement with vascular en gorgement. Bilateral interstitial infiltrates, unchanged. Consolidation left lung base. Small bilater al pleural effusions. There has been little change since yesterday.
[2017-07-06] MEDS: Insulin Detemir 100 Units/ML 3 ML Pen SUBCUT SCH (20:59)
[2017-07-07] MEDS: Albuterol/Ipratropium 3.0-0.5 MG/3 ML Neb Soln NEB SCH ×4 (03:35→21:27)
[2017-07-07] MEDS: Piperacillin/Tazobactam/Dext 3.375 GM in Premix Bag 1 BAG IV SCH ×3 (05:37→17:02)
[2017-07-07] MEDS: Insulin Aspart 100 Units/ML 3 ML Pen SUBCUT SCH ×4 (07:11→21:25)
[2017-07-07] MEDS: Arformoterol 15 MCG/2 ML Neb Soln NEB SCH ×2 (07:15→21:27)
[2017-07-07] MEDS ORDERED: Magnesium Sulfate/Water 2 GM in Premix Bag 1 BAG IV ONE (09:00)
--- NOTE | 2017-07-07 09:34 | PCM.PN ---
- General Info Date of Service: 07/07/17 Subjective Update: Review of systems unobtainable as patient is currently intubated - Review of Systems Systems Review Comment:: This patient has remained stable over the past 24 hours although has not experienced a significant improvement in respiratory status. Continues to require an FiO2 of 60% to maintain adequate oxygenation. He has had excellent diuresis again over the past 24 hours with 4 L out over intake. Because of agitation continues to receive IV sedation with propofol, having failed analgesic sedation. Vital signs have remained stable and he has been afebrile. White blood cell count modestly elevated likely secondary to glucocorticoid therapy. - Patient Data Vitals - Most Recent: Last Vital Signs Temp 96.9 F 07/07/17 04:00 Pulse 66 07/07/17 09:04 Resp 16 07/07/17 06:00 BP 151/77 H 07/07/17 06:00 Pulse Ox 94 L 07/07/17 07:16 Weight - Most Recent: 287 lb 0.67 oz I&O - Last 24 Hours: Intake & Output 07/06/17 07/07/17 07/07/17 22:59 06:59 14:59 Intake Total 735 1095 Output Total 1700 2550 Balance -965 -1455 Lab Results Last 24 Hours: Laboratory Results - last 24 hr 07/07/17 07/07/17 07/07/17 Range/Units 05:14 05:14 05:14 WBC 12.3 H (4.5-11.0) K/uL RBC 5.40 (4.30-5.90) M/uL Hgb 14.8 (12.0-15.0) g/dL Hct 46.4 (40.0-54.0) % MCV 86 (80-98) fL MCH 27 (27-31) pg MCHC 32 (32-36) % Plt Count 405 H (150-400) K/uL Neut % (Auto) 82 H (36-66) % Lymph % (Auto) 9 L (24-44) % Burnett % (Auto) 10 H (2-6) % Eos % (Auto) 0 L (2-4) % Baso % (Auto) 0 (0-1) % Puncture Site A-line ABG pH 7.461 H (7.350-7.450) ABG pCO2 54.6 H (35.0-42.0) mmHg ABG pO2 78.4 (75.0-100.0) mmHg ABG HCO3 38.4 H (22.0-26.0) mmol/L ABG Total CO2 32.9 H (23.0-27.0) mmol/L ABG O2 Saturation 95.7 (95.0-98.0) % ABG O2 Content 20.0 (15.0-23.0) %vol ABG Base Excess 12.2 mm/L ABG Hemoglobin 15.1 (13.5-18.0) g/dL ABG Oxyhemoglobin 94.5 % ABG Carboxyhemoglobin 0.6 (0.0-1.6) % ABG Methemoglobin 0.7 % Jesús Test A-line O2 Delivery Device Ventilator Sodium 143 (140-148) mmol/L Potassium 3.2 L (3.6-5.2) mmol/L Chloride 100 (100-108) mmol/L Carbon Dioxide 36 H (21-32) mmol/L Anion Gap 10.2 (5.0-14.0) mmol/L BUN 40 H (7-18) mg/dL Creatinine 1.7 H (0.8-1.3) mg/dL Est Cr Clr Drug Dosing 46.98 mL/min Estimated GFR (MDRD) 41 L (>60) Glucose 270 H (74-106) mg/dL Calcium 8.9 (8.5-10.1) mg/dL Magnesium 1.7 L (1.8-2.4) mg/dL Zac Results Last 24 Hours: Microbiology 07/04/17 09:44 Gram Stain - Final Endotracheal Respiratory Culture - Final REDUCED NORMAL RESPIRATORY BUCK Med Orders - Current: Current Medications Albuterol (Proventil Neb Soln) 2.5 mg NEB Q4H PRN PRN Reason: Shortness Of Breath/wheezing Albuterol/Ipratropium (Duoneb 3.0-0.5 Mg/3 Ml) 3 ml NEB Q6H [facility] Last Admin: 07/07/17 09:03 Dose: 3 ml Arformoterol Tartrate (Brovana) 15 mcg NEB BIDRT [facility] Last Admin: 07/07/17 07:15 Dose: 15 mcg Bumetanide (Bumex) 1 mg IVPUSH Q12H [facility] Last Admin: 07/06/17 20:55 Dose: 1 mg Dextrose (Glutose 15) 15 gm PO ONETIME PRN PRN Reason: Hypoglycemia Dextrose/Water (Dextrose 50% In Water) 50 ml IV ONETIME PRN PRN Reason: Hypoglycemia Docusate Sodium (Colace) 100 mg PO BID PRN PRN Reason: Constipation Enoxaparin Sodium (Lovenox) 30 mg SUBCUT DAILY YOAN Last Admin: 07/06/17 08:24 Dose: 30 mg Hydromorphone HCl (Dilaudid) 1 mg IVPUSH Q1H PRN PRN Reason: Pain Last Admin: 07/05/17 12:42 Dose: 1 mg Levofloxacin/Dextrose 750 mg/ (Premix) 150 mls @ 100 mls/hr IV Q24H YOAN Last Admin: 07/06/17 08:08 Dose: 100 mls/hr Piperacillin/Tazobactam/ (Dextrose 3.375 gm/ Premix) 50 mls @ 100 mls/hr IV Q6H YOAN Last Admin: 07/07/17 05:37 Dose: 100 mls/hr Heparin Sodium (Porcine) 5,000 (units/ Sodium Chloride) 501 mls @ 0 mls/hr IV ASDIRECTED YOAN PRN Reason: KVO Last Admin: 07/04/17 10:19 Dose: 2 mls/hr Lactated Ringer's (Ringers, Lactated) 1,000 mls @ 15 mls/hr IV ASDIRECTED YOAN Propofol (Diprivan 100 Ml) 100 mls @ 0 mls/hr IV TITRATE YOAN; 20 MCG/KG/MIN PRN Reason: Protocol Last Admin: 07/07/17 07:25 Dose: 69.89 mcg/kg/min, 54.6 mls/hr Magnesium Sulfate 2 gm/ Premix 50 mls @ 25 mls/hr IV ONETIME ONE Stop: 07/07/17 10:59 Potassium Chloride 20 meq/ (Premix) 100 mls @ 50 mls/hr IV Q2H YOAN Stop: 07/07/17 12:59 Insulin Aspart (Novolog) 0 unit SUBCUT QIDACANDBED YOAN PRN Reason: Protocol Last Admin: 07/07/17 07:11 Dose: 6 units Insulin Detemir (Levemir) 30 unit SUBCUT BEDTIME YOAN Last Admin: 07/06/17 20:59 Dose: 30 units Magnesium Hydroxide (Milk Of Magnesia) 30 ml PO Q12H PRN PRN Reason: Constipation Methylprednisolone Sodium Succinate (Solu-Medrol) 40 mg IVPUSH Q12H [facility] Last Admin: 07/06/17 20:55 Dose: 40 mg Ondansetron HCl (Zofran) 4 mg IV Q4H PRN PRN Reason: Nausea/Vomiting Pantoprazole Sodium (Protonix Iv) 40 mg IVPUSH DAILY [facility] Last Admin: 07/06/17 08:24 Dose: 40 mg Polyethylene Glycol (Miralax) 17 gm PO DAILY PRN PRN Reason: Constipation Sodium Chloride (Saline Flush) 10 ml FLUSH ASDIRECTED PRN PRN Reason: Keep Vein Open Discontinued Medications Acetaminophen (Tylenol Extra Strength) Confirm Administered Dose 1,000 mg .ROUTE .STK-MED ONE Stop: 07/04/17 06:17 Last Admin: 07/04/17 08:32 Dose: Not Given Albuterol/Ipratropium (Duoneb 3.0-0.5 Mg/3 Ml) 3 ml NEB Q1H PRN PRN Reason: Shortness of Breath Last Admin: 07/04/17 06:05 Dose: 3 ml Albuterol/Ipratropium (Duoneb 3.0-0.5 Mg/3 Ml) Confirm Administered Dose 3 ml .ROUTE .STK-MED ONE Stop: 07/04/17 06:03 Last Admin: 07/04/17 08:17 Dose: Not Given Albuterol/Ipratropium (Duoneb 3.0-0.5 Mg/3 Ml) 3 ml NEB Q6H YOAN Albuterol/Ipratropium (Duoneb 3.0-0.5 Mg/3 Ml) 3 ml NEB Q6H YOAN Last Admin: 07/04/17 09:56 Dose: 3 ml Bumetanide (Bumex) 2 mg IVPUSH Q12H [facility] Last Admin: 07/06/17 08:14 Dose: 2 mg Diphenhydramine HCl (Benadryl) 50 mg IVPUSH ONETIME ONE Stop: 07/04/17 07:09 Last Admin: 07/04/17 06:41 Dose: 50 mg Epinephrine HCl (Adrenalin 1:1000) 0.3 mg IM ONETIME ONE Stop: 07/04/17 07:07 Last Admin: 07/04/17 06:38 Dose: 0.3 mg Etomidate (Amidate) 20 mg IVPUSH ONETIME ONE Stop: 07/04/17 07:08 Last Admin: 07/04/17 06:42 Dose: 20 mg Famotidine (Pepcid) Confirm Administered Dose 40 mg .ROUTE .STK-MED ONE Stop: 07/04/17 06:50 Last Admin: 07/04/17 08:25 Dose: Not Given Famotidine (Pepcid) 20 mg IVPUSH ONETIME ONE Stop: 07/04/17 07:06 Last Admin: 07/04/17 06:49 Dose: 20 mg Heparin Sodium (Porcine) (Heparin Sodium) Confirm Administered Dose 5,000 units .ROUTE .STK-MED ONE Stop: 07/04/17 09:31 Last Admin: 07/04/17 10:23 Dose: Not Given Hydromorphone HCl (Dilaudid) Confirm Administered Dose 0.5 mg .ROUTE .STK-MED ONE Stop: 07/04/17 08:11 Last Admin: 07/04/17 08:21 Dose: Not Given Hydromorphone HCl (Dilaudid) 0.5 mg IVPUSH ONETIME ONE Stop: 07/04/17 08:20 Last Admin: 07/04/17 08:22 Dose: 0.5 mg Hydromorphone HCl (Dilaudid) 0.5 mg IVPUSH Q1H PRN PRN Reason: Pain Last Admin: 07/05/17 09:31 Dose: 0.5 mg Piperacillin Sod/Tazobactam (Sod 4.5 gm/ Sodium Chloride) 100 mls @ 200 mls/hr IV Q6H YOAN Last Admin: 07/04/17 06:54 Dose: 200 mls/hr Vancomycin HCl 1,000 mg/ (Dextrose/Water) 250 mls @ 167 mls/hr IV ONETIME ONE Stop: 07/04/17 07:44 Last Admin: 07/04/17 06:30 Dose: 167 mls/hr Sodium Chloride (Normal Saline) 1,000 mls @ 999 mls/hr IV .BOLUS STA Stop: 07/04/17 07:16 Last Admin: 07/04/17 06:30 Dose: 999 mls/hr Acetaminophen (Ofirmev) Confirm Administered Dose 100 mls @ as directed IV .STK- MED ONE Stop: 07/04/17 06:31 Last Admin: 07/04/17 09:15 Dose: Not Given Dextrose/Water (Dextrose 5% In Water) Confirm Administered Dose 250 mls @ as directed .ROUTE .STK-MED ONE Stop: 07/04/17 06:56 Last Admin: 07/04/17 08:21 Dose: Not Given Norepinephrine Bitartrate 4 mg (/ Dextrose/Water) 250 mls @ 7.5 mls/hr IV TITRATE YOAN; 2 MCG/MIN PRN Reason: Protocol Last Titration: 07/04/17 07:21 Dose: 0 mcg/min, 0 mls/hr Levofloxacin/Dextrose 750 mg/ (Premix) 150 mls @ 100 mls/hr IV ONETIME ONE Stop: 07/04/17 08:59 Last Admin: 07/04/17 07:30 Dose: 100 mls/hr Lactated Ringer's (Ringers, Lactated) 1,000 mls @ 125 mls/hr IV ASDIRECTED YOAN Last Admin: 07/05/17 08:46 Dose: 125 mls/hr Acetaminophen 1,000 mg/ Premix 100 mls @ 400 mls/hr IV NOW ONE Stop: 07/04/17 06:44 Last Admin: 07/04/17 06:40 Dose: 400 mls/hr Potassium Chloride 20 meq/Lidocaine HCl 2 ml/ Sodium Chloride 112 mls @ 56 mls/ hr IV Q2H YOAN Stop: 07/06/17 13:59 Last Admin: 07/06/17 12:07 Dose: 56 mls/hr Ketamine HCl (Ketalar) Confirm Administered Dose 500 mg .ROUTE .STK-MED ONE Stop: 07/04/17 06:48 Last Admin: 07/04/17 08:40 Dose: Not Given Ketamine HCl (Ketalar) 60 mg IV NOW STA Stop: 07/04/17 07:04 Last Admin: 07/04/17 07:03 Dose: 60 mg Lidocaine HCl (Xylocaine-Mpf 1%) Confirm Administered Dose 5 ml .ROUTE .STK-MED ONE Stop: 07/04/17 09:34 Last Admin: 07/04/17 10:16 Dose: Not Given Lidocaine HCl (Xylocaine-Mpf 1%) 5 ml INJECT ONETIME ONE Stop: 07/04/17 10:31 Last Admin: 07/04/17 10:16 Dose: 5 ml Methylprednisolone Sodium Succinate (Solu-Medrol) 125 mg IV ONETIME ONE Stop: 07/04/17 06:08 Last Admin: 07/04/17 08:27 Dose: Not Given Methylprednisolone Sodium Succinate (Solu-Medrol) Confirm Administered Dose 125 mg .ROUTE .STK-MED ONE Stop: 07/04/17 06:07 Last Admin: 07/04/17 08:18 Dose: Not Given Methylprednisolone Sodium Succinate (Solu-Medrol) 125 mg IVPUSH Q6H YOAN Last Admin: 07/05/17 05:59 Dose: 125 mg Methylprednisolone Sodium Succinate (Solu-Medrol) 40 mg IVPUSH Q6H [facility]AN Last Admin: 07/06/17 05:46 Dose: 40 mg Midazolam HCl (Versed 1 Mg/Ml) Confirm Administered Dose 5 mg .ROUTE .STK-MED ONE Stop: 07/04/17 07:38 Last Admin: 07/04/17 08:22 Dose: Not Given Midazolam HCl (Versed 1 Mg/Ml) 5 mg IVPUSH ONETIME ONE Stop: 07/04/17 07:45 Last Admin: 07/04/17 07:45 Dose: 5 mg Piperacillin Sod/Tazobactam Sod (Zosyn) Confirm Administered Dose 4.5 gm .ROUTE .STK-MED ONE Stop: 07/04/17 06:16 Last Admin: 07/04/17 08:16 Dose: Not Given Rocuronium [place] (Zemuron) Confirm Administered Dose 50 mg .ROUTE .STK-MED ONE Stop: 07/04/17 07:13 Last Admin: 07/04/17 08:40 Dose: Not Given Rocuronium [place] (Zemuron) 20 mg IV ONETIME ONE Stop: 07/04/17 08:37 Last Admin: 07/04/17 07:10 Dose: 20 mg Succinylcholine Chloride (Quelicin) Confirm Administered Dose 200 mg .ROUTE .STK -MED ONE Stop: 07/04/17 06:43 Last Admin: 07/04/17 08:39 Dose: Not Given Succinylcholine Chloride (Quelicin) 180 mg IV NOW STA Stop: 07/04/17 07:05 Last Admin: 07/04/17 07:03 Dose: 180 mg Vancomycin HCl (Vancomycin) Confirm Administered Dose 1 gm .ROUTE .STK-MED ONE Stop: 07/04/17 06:16 Last Admin: 07/04/17 08:22 Dose: Not Given - Exam Quality Assessment: Central Line/PICC, Urine Catheter, DVT Prophylaxis, Restraints General: Sedated, Lethargic Lungs: Decreased Breath Sounds, Wheezing. No: Crackles, Rales, Rhonchi, Rub, Stridor Cardiovascular: Regular Rate, Regular Rhythm, No Murmurs GI/Abdominal Exam: Normal Bowel Sounds, Soft, Non-Tender, No Organomegaly, No Distention Extremities: Non-Tender, No Pedal Edema Skin: Warm, Dry, Intact - Problem List Review Problem List Initiated/Reviewed/Updated: Yes - My Orders Last 24 Hours: My Active Orders 07/06/17 09:00 Bumetanide [Bumex] 1 mg IVPUSH Q12H methylPREDNISolone Sod Succ [Solu-MEDROL] 40 mg IVPUSH Q12H 07/07/17 05:00 Chest 1V Frontal [CR] DAILY 07/07/17 09:00 Magnesium Sulfate/Water [Magnesium Sulfate 2 GM in Water 50 ML] 2 gm Premix Bag 1 bag IV ONETIME Potassium Chloride [KCL 20 MEQ in Water 100 ML] 20 meq Premix Bag 1 bag IV Q2H 07/07/17 11:30 GLUCOSE POC LAB TO COLLECT [POC] QIDACANDBED 07/07/17 19:00 Potassium Chloride [KCL 40 MEQ in Water 100 ML] 40 meq Premix Bag 1 bag IV ONETIME 07/08/17 05:00 Chest 1V Frontal [CR] DAILY BASIC METABOLIC PANEL,BMP [CHEM] Timed BLOOD GAS ARTERIAL [BG] Timed CBC WITH AUTO DIFF [HEME] Timed MAGNESIUM [CHEM] Timed 07/08/17 07:30 GLUCOSE POC LAB TO COLLECT [POC] QIDACANDBED 07/08/17 11:30 GLUCOSE POC LAB TO COLLECT [POC] QIDACANDBED 07/08/17 16:30 GLUCOSE POC LAB TO COLLECT [POC] QIDACANDBED 07/08/17 21:00 GLUCOSE POC LAB TO COLLECT [POC] QIDACANDBED 07/09/17 05:00 Chest 1V Frontal [CR] DAILY 07/09/17 07:30 GLUCOSE POC LAB TO COLLECT [POC] QIDACANDBED 07/09/17 11:30 GLUCOSE POC LAB TO COLLECT [POC] QIDACANDBED 07/09/17 16:30 GLUCOSE POC LAB TO COLLECT [POC] QIDACANDBED 07/09/17 21:00 GLUCOSE POC LAB TO COLLECT [POC] QIDACANDBED 07/10/17 05:00 Chest 1V Frontal [CR] DAILY 07/10/17 07:30 GLUCOSE POC LAB TO COLLECT [POC] QIDACANDBED 07/10/17 11:30 GLUCOSE POC LAB TO COLLECT [POC] QIDACANDBED 07/10/17 16:30 GLUCOSE POC LAB TO COLLECT [POC] QIDACANDBED 07/10/17 21:00 GLUCOSE POC LAB TO COLLECT [POC] QIDACANDBED 07/11/17 07:30 GLUCOSE POC LAB TO COLLECT [POC] QIDACANDBED 07/11/17 11:30 GLUCOSE POC LAB TO COLLECT [POC] QIDACANDBED 07/11/17 16:30 GLUCOSE POC LAB TO COLLECT [POC] QIDACANDBED 07/11/17 21:00 GLUCOSE POC LAB TO COLLECT [POC] QIDACANDBED 07/12/17 07:30 GLUCOSE POC LAB TO COLLECT [POC] QIDACANDBED 07/12/17 11:30 GLUCOSE POC LAB TO COLLECT [POC] QIDACANDBED 07/12/17 16:30 GLUCOSE POC LAB TO COLLECT [POC] QIDACANDBED 07/12/17 21:00 GLUCOSE POC LAB TO COLLECT [POC] QIDACANDBED 07/13/17 07:30 GLUCOSE POC LAB TO COLLECT [POC] QIDACANDBED 07/13/17 11:30 GLUCOSE POC LAB TO COLLECT [POC] QIDACANDBED 07/13/17 16:30 GLUCOSE POC LAB TO COLLECT [POC] QIDACANDBED 07/13/17 21:00 GLUCOSE POC LAB TO COLLECT [POC] QIDACANDBED 07/14/17 07:30 GLUCOSE POC LAB TO COLLECT [POC] QIDACANDBED 07/14/17 11:30 GLUCOSE POC LAB TO COLLECT [POC] QIDACANDBED 07/14/17 16:30 GLUCOSE POC LAB TO COLLECT [POC] QIDACANDBED 07/14/17 21:00 GLUCOSE POC LAB TO COLLECT [POC] QIDACANDBED 07/15/17 07:30 GLUCOSE POC LAB TO COLLECT [POC] QIDACANDBED - Plan Plan:: ASSESSMENT AND PLAN ACUTE ON CHRONIC HYPOXIC AND HYPERCAPNIC RESPIRATORY FAILURE-patient currently unable to provide history, prior to intubation he reported that he had symptoms of respiratory tract infection over the past week with progressive shortness of breath. He failed a trial of noninvasive positive pressure ventilation in the emergency department, because of ongoing respiratory compromise was intubated and now has been transferred to the intensive care unit on mechanical ventilation. Supplemental oxygen needs have decreased over the past 24 hours but remained above 40% so were not yet able to proceed with a spontaneous weaning trial -Mechanical ventilation; assist-control with a rate of 16, tidal volume of 550, FiO2 of 50%, PEEP of 5 -Daily spontaneous breathing trial, when oxygen requirements decrease -Daily chest x-ray while intubated -Solu-Medrol 40 mg IV every 12 hours -Nebulizer therapy with albuterol and duo nebs -Management of pneumonia as below -Analgesic sedation LEFT LUNG PNEUMONIA WITH SEPSIS-likely causing respiratory failure as noted above. He has remained afebrile, no significant growth from cultures -Blood and sputum cultures pending -IV antibiotic therapy with Zosyn and levofloxacin, pending culture results VANCOMYCIN ANAPHYLAXIS-treated with epinephrine, Solu-Medrol, and Benadryl in the emergency department ACUTE ON CHRONIC KIDNEY renal function is been stable with current diuresis -Closely monitor urine output and renal function TYPE 2 DIABETES MELLITUS -Levemir insulin 40 units subcutaneous at at bedtime -4 times a day glucometers -Moderate dose sliding scale NovoLog MAINTENANCE ISSUES -DVT prophylaxis; Lovenox 30 mg subcutaneous daily -GI prophylaxis; Protonix 40 mg IV daily -Jung catheter; to monitor urine output -Nutrition; nothing by mouth -Nicotine dependence; not required CODE STATUS-FULL CODE ADMISSION STATUS-patient will be admitted to inpatient status, expect at least a 2 night hospital stay for evaluation and management of problems as outlined above. At the time of this admission I do not reasonably expected evaluation and management of this problem will require more than a 96 hour hospital stay. DISPOSITION-anticipate discharge to home after the hospital stay. PRIMARY CARE PROVIDER-
[2017-07-07] MEDS: Potassium Chloride 20 MEQ in Premix Bag 1 BAG IV SCH ×2 (09:35→11:36)
[2017-07-07] MEDS: Levofloxacin/Dextrose 5%-Water 750 MG in Premix Bag 1 BAG IV SCH (09:55)
[2017-07-07] MEDS: Bumetanide 1 MG/4 ML MDV IVPUSH SCH ×2 (10:00→20:23)
--- NOTE | 2017-07-07 10:05 | CR ---
Low lung volumes. Cardiomegaly. ET tube suspected just above the tracy. The NG tube is likely within the stomach. Airspace disease within the lung bases and pleural effusion left lung base. Similar com pared to prior.
[2017-07-07] MEDS: methylPREDNISolone Sodium Succinate 40 MG/1 ML SDV IVPUSH SCH ×2 (10:06→20:20)
[2017-07-07] MEDS: Pantoprazole 40 MG Vial IVPUSH SCH (10:10)
[2017-07-07] MEDS: Enoxaparin 30 MG/0.3 ML Syringe SUBCUT SCH (10:38)
[2017-07-07] MEDS ORDERED: Potassium Chloride 40 MEQ in Premix Bag 1 BAG IV ONE (20:00)
[2017-07-07] MEDS: Insulin Detemir 100 Units/ML 3 ML Pen SUBCUT SCH (21:26)
[2017-07-08] MEDS: Piperacillin/Tazobactam/Dext 3.375 GM in Premix Bag 1 BAG IV SCH ×4 (00:29→18:04)
[2017-07-08] MEDS: Albuterol/Ipratropium 3.0-0.5 MG/3 ML Neb Soln NEB SCH ×4 (03:20→21:06)
[2017-07-08] MEDS: Arformoterol 15 MCG/2 ML Neb Soln NEB SCH ×2 (07:22→20:11)
--- NOTE | 2017-07-08 07:45 | ECHO ---
REFERRING PRACTITIONER: 1. AO ROOT: 3.92. (NL = 2.0-3.7) 2. AORTIC VALVE EXCURSION: 3. LA: 5.14. CM (NL = 1.9-4.0) 4. RV: 4.97. (NL = .09-2.6) 5. LV MEEKS: 6.72. (NL = 3.5-5.7) 6. LV SYST: 5.60. (NL = 2.2-4.3) 7. FRACTIONAL SHORTENING: (2542) 8. EJECTION FRACTION: 40% to 50%. (5075) 9. IVS: 1.21 (NL = 0.6-1.1) 10. LVPW: 1.22 (NL = 0.6 1.1) INDICATION: Respiratory failure with hypoxia. By 2D echo, left ventricular function appears to be decreased consistent with estimated ejection fraction of 40% to 50%. There is global left ventricular hypokinesis and mild concentric left ventricular hypertrophy. There is no pericardial effusion noted on this study. Overall, this study is of poor technical quality limiting available information and compromising interpretation. There is right ventricular enlargement with preserved right ventricular function, left ventricular enlargement, and biatrial enlargement. The aortic root appears to be within normal range for size. The aortic valve appears to be structurally normal as is the mitral valve. Tricuspid and pulmonic valves appear to be structurally normal. By Doppler and color Doppler , there is no available assessment of right ventricular pressure. There is trace MR, TR, and PI. IMPRESSION: 1. Decreased left ventricular function. Estimated ejection fraction of 40% to 50%. 2. Study is of poor technical quality limiting available information and compromising interpretation. 3. Mild global hypokinesis of left ventricle with left ventricular enlargement. 4. Right ventricular enlargement with preserved right ventricular function. 5. Biatrial enlargement. 6. Mild concentric left ventricular hypertrophy. 7. Trace MR, TR, and pulmonic insufficiency. /[id number] MTDD
[2017-07-08] MEDS: Insulin Aspart 100 Units/ML 3 ML Pen SUBCUT SCH ×4 (08:31→21:07)
[2017-07-08] MEDS: Pantoprazole 40 MG Vial IVPUSH SCH (08:40)
[2017-07-08] MEDS: methylPREDNISolone Sodium Succinate 40 MG/1 ML SDV IVPUSH SCH ×2 (08:41→20:11)
[2017-07-08] MEDS: Bumetanide 1 MG/4 ML MDV IVPUSH SCH ×2 (08:51→20:11)
[2017-07-08] MEDS: Enoxaparin 40 MG/0.4 ML Syringe SUBCUT SCH (08:54)
[2017-07-08] MEDS: Levofloxacin/Dextrose 5%-Water 750 MG in Premix Bag 1 BAG IV SCH (08:57)
--- NOTE | 2017-07-08 08:58 | CR ---
ET tube above the tracy. NG tube within the expected stomach. Increased haziness within the right brayden ng base medially and left lung base can indicate developing infiltrate. There remains mild vascular c ongestion within the upper lobes as well. Probable small pleural effusion on the left.
--- NOTE | 2017-07-08 10:53 | PCM.PN ---
- General Info Date of Service: 07/08/17 Subjective Update: Remains on the ventilator and sedated, unable to provide review of systems information - Review of Systems Systems Review Comment:: This patient continues to require ventilatory support. We've been able to decrease his FiO2 down to 40% and did perform a spontaneous weaning trial this morning. He unfortunately failed with desaturation likely because of copious amount of secretions which required frequent suctioning. Will need to remain on the ventilator over the next 24 hours and plan for spontaneous weaning trial again tomorrow morning. Diuresis over the past 24 hours as it and been good and he is now down approximately 10 L of fluid from admission. - Patient Data Vitals - Most Recent: Last Vital Signs Temp 99.0 F 07/08/17 08:00 Pulse 66 07/08/17 08:53 Resp 16 07/08/17 08:00 BP 136/59 L 07/08/17 08:51 Pulse Ox 91 L 07/08/17 08:53 Weight - Most Recent: 277 lb 12.519 oz I&O - Last 24 Hours: Intake & Output 07/07/17 07/08/17 07/08/17 22:59 06:59 14:59 Intake Total 1308 875 Output Total 1150 1200 Balance 158 -325 Lab Results Last 24 Hours: Laboratory Results - last 24 hr 07/08/17 07/08/17 07/08/17 Range/Units 05:12 05:12 05:12 WBC 11.0 (4.5-11.0) K/uL RBC 5.64 (4.30-5.90) M/uL Hgb 15.4 H (12.0-15.0) g/dL Hct 48.1 (40.0-54.0) % MCV 85 (80-98) fL MCH 27 (27-31) pg MCHC 32 (32-36) % Plt Count 379 (150-400) K/uL Neut % (Auto) 73 H (36-66) % Lymph % (Auto) 16 L (24-44) % [place] % (Auto) 12 H (2-6) % Eos % (Auto) 0 L (2-4) % Baso % (Auto) 0 (0-1) % Puncture Site A-line ABG pH 7.502 H (7.350-7.450) ABG pCO2 47.2 H (35.0-42.0) mmHg ABG pO2 73.9 L (75.0-100.0) mmHg ABG HCO3 36.6 H (22.0-26.0) mmol/L ABG Total CO2 30.9 H (23.0-27.0) mmol/L ABG O2 Saturation 96.3 (95.0-98.0) % ABG O2 Content 20.5 (15.0-23.0) %vol ABG Base Excess 11.7 mm/L ABG Hemoglobin 15.5 (13.5-18.0) g/dL ABG Oxyhemoglobin 94.1 % ABG Carboxyhemoglobin 1.6 (0.0-1.6) % ABG Methemoglobin 0.7 % Jesús Test A-line O2 Delivery Device Ventilator Oxygen Flow Rate L Sodium 143 (140-148) mmol/L Potassium 3.6 (3.6-5.2) mmol/L Chloride 101 (100-108) mmol/L Carbon Dioxide 37 H (21-32) mmol/L Anion Gap 8.6 (5.0-14.0) mmol/L BUN 43 H (7-18) mg/dL Creatinine 1.6 H (0.8-1.3) mg/dL Est Cr Clr Drug Dosing 49.92 mL/min Estimated GFR (MDRD) 43 L (>60) Glucose 256 H (74-106) mg/dL Calcium 9.3 (8.5-10.1) mg/dL Magnesium 1.9 (1.8-2.4) mg/dL Med Orders - Current: Current Medications Albuterol (Proventil Neb Soln) 2.5 mg NEB Q4H PRN PRN Reason: Shortness Of Breath/wheezing Albuterol/Ipratropium (Duoneb 3.0-0.5 Mg/3 Ml) 3 ml NEB Q6H [facility] Last Admin: 07/08/17 08:52 Dose: 3 ml Arformoterol Tartrate (Brovana) 15 mcg NEB BIDRT [facility] Last Admin: 07/08/17 07:22 Dose: 15 mcg Bumetanide (Bumex) 1 mg IVPUSH Q12H [facility] Last Admin: 07/08/17 08:51 Dose: 1 mg Dextrose (Glutose 15) 15 gm PO ONETIME PRN PRN Reason: Hypoglycemia Dextrose/Water (Dextrose 50% In Water) 50 ml IV ONETIME PRN PRN Reason: Hypoglycemia Docusate Sodium (Colace) 100 mg PO BID PRN PRN Reason: Constipation Enoxaparin Sodium (Lovenox) 40 mg SUBCUT DAILY [facility] Last Admin: 07/08/17 08:54 Dose: 40 mg Heparin Sodium (Porcine) (Heparin Lock Flush 100 Units/Ml) 500 units IVPUSH ASDIRECTED PRN 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 Hydromorphone HCl (Dilaudid) 1 mg IVPUSH Q1H PRN PRN Reason: Pain Last Admin: 07/05/17 12:42 Dose: 1 mg Levofloxacin/Dextrose 750 mg/ (Premix) 150 mls @ 100 mls/hr IV Q24H [facility] Last Admin: 07/08/17 08:57 Dose: 100 mls/hr Piperacillin/Tazobactam/ (Dextrose 3.375 gm/ Premix) 50 mls @ 100 mls/hr IV Q6H [facility] Last Admin: 07/08/17 05:17 Dose: 100 mls/hr Heparin Sodium (Porcine) 5,000 (units/ Sodium Chloride) 501 mls @ 0 mls/hr IV ASDIRECTED YOAN PRN Reason: KVO Last Admin: 07/04/17 10:19 Dose: 2 mls/hr Lactated Ringer's (Ringers, Lactated) 1,000 mls @ 15 mls/hr IV ASDIRECTED YOAN Propofol (Diprivan 100 Ml) 100 mls @ 0 mls/hr IV TITRATE YOAN; 20 MCG/KG/MIN PRN Reason: Protocol Last Titration: 07/08/17 10:00 Dose: 44.31 mcg/kg/min, 33.5 mls/hr Magnesium Sulfate 2 gm/ Premix 50 mls @ 25 mls/hr IV ONETIME ONE Stop: 07/08/17 12:43 Potassium Chloride 40 meq/ (Premix) 100 mls @ 25 mls/hr IV ONETIME ONE Stop: 07/08/17 14:43 Insulin Aspart (Novolog) 0 unit SUBCUT QIDACANDBED YOAN PRN Reason: Protocol Last Admin: 07/08/17 08:31 Dose: 6 units Insulin Detemir (Levemir) 40 unit SUBCUT BEDTIME [facility] Last Admin: 07/07/17 21:26 Dose: 40 units Magnesium Hydroxide (Milk Of Magnesia) 30 ml PO Q12H PRN PRN Reason: Constipation Methylprednisolone Sodium Succinate (Solu-Medrol) 40 mg IVPUSH Q12H [facility] Last Admin: 07/08/17 08:41 Dose: 40 mg Ondansetron HCl (Zofran) 4 mg IV Q4H PRN PRN Reason: Nausea/Vomiting Pantoprazole Sodium (Protonix Iv) 40 mg IVPUSH DAILY [facility] Last Admin: 07/08/17 08:40 Dose: 40 mg Polyethylene Glycol (Miralax) 17 gm PO DAILY PRN PRN Reason: Constipation Sodium Chloride (Saline Flush) 10 ml FLUSH ASDIRECTED PRN PRN Reason: Keep Vein Open Discontinued Medications Acetaminophen (Tylenol Extra Strength) Confirm Administered Dose 1,000 mg .ROUTE .STK-MED ONE Stop: 07/04/17 06:17 Last Admin: 07/04/17 08:32 Dose: Not Given Albuterol/Ipratropium (Duoneb 3.0-0.5 Mg/3 Ml) 3 ml NEB Q1H PRN PRN Reason: Shortness of Breath Last Admin: 07/04/17 06:05 Dose: 3 ml Albuterol/Ipratropium (Duoneb 3.0-0.5 Mg/3 Ml) Confirm Administered Dose 3 ml .ROUTE .STK-MED ONE Stop: 07/04/17 06:03 Last Admin: 07/04/17 08:17 Dose: Not Given Albuterol/Ipratropium (Duoneb 3.0-0.5 Mg/3 Ml) 3 ml NEB Q6H [facility] Albuterol/Ipratropium (Duoneb 3.0-0.5 Mg/3 Ml) 3 ml NEB Q6H [facility] Last Admin: 07/04/17 09:56 Dose: 3 ml Bumetanide (Bumex) 2 mg IVPUSH Q12H [facility] Last Admin: 07/06/17 08:14 Dose: 2 mg Diphenhydramine HCl (Benadryl) 50 mg IVPUSH ONETIME ONE Stop: 07/04/17 07:09 Last Admin: 07/04/17 06:41 Dose: 50 mg Enoxaparin Sodium (Lovenox) 30 mg SUBCUT DAILY [facility] Last Admin: 07/07/17 10:38 Dose: 30 mg Epinephrine HCl (Adrenalin 1:1000) 0.3 mg IM ONETIME ONE Stop: 07/04/17 07:07 Last Admin: 07/04/17 06:38 Dose: 0.3 mg Etomidate (Amidate) 20 mg IVPUSH ONETIME ONE Stop: 07/04/17 07:08 Last Admin: 07/04/17 06:42 Dose: 20 mg Famotidine (Pepcid) Confirm Administered Dose 40 mg .ROUTE .STK-MED ONE Stop: 07/04/17 06:50 Last Admin: 07/04/17 08:25 Dose: Not Given Famotidine (Pepcid) 20 mg IVPUSH ONETIME ONE Stop: 07/04/17 07:06 Last Admin: 07/04/17 06:49 Dose: 20 mg Heparin Sodium (Porcine) (Heparin Sodium) Confirm Administered Dose 5,000 units .ROUTE .STK-MED ONE Stop: 07/04/17 09:31 Last Admin: 07/04/17 10:23 Dose: Not Given Hydromorphone HCl (Dilaudid) Confirm Administered Dose 0.5 mg .ROUTE .STK-MED ONE Stop: 07/04/17 08:11 Last Admin: 07/04/17 08:21 Dose: Not Given Hydromorphone HCl (Dilaudid) 0.5 mg IVPUSH ONETIME ONE Stop: 07/04/17 08:20 Last Admin: 07/04/17 08:22 Dose: 0.5 mg Hydromorphone HCl (Dilaudid) 0.5 mg IVPUSH Q1H PRN PRN Reason: Pain Last Admin: 07/05/17 09:31 Dose: 0.5 mg Piperacillin Sod/Tazobactam (Sod 4.5 gm/ Sodium Chloride) 100 mls @ 200 mls/hr IV Q6H [facility] Last Admin: 07/04/17 06:54 Dose: 200 mls/hr Vancomycin HCl 1,000 mg/ (Dextrose/Water) 250 mls @ 167 mls/hr IV ONETIME ONE Stop: 07/04/17 07:44 Last Admin: 07/04/17 06:30 Dose: 167 mls/hr Sodium Chloride (Normal Saline) 1,000 mls @ 999 mls/hr IV .BOLUS STA Stop: 07/04/17 07:16 Last Admin: 07/04/17 06:30 Dose: 999 mls/hr Acetaminophen (Ofirmev) Confirm Administered Dose 100 mls @ as directed IV .STK- MED ONE Stop: 07/04/17 06:31 Last Admin: 07/04/17 09:15 Dose: Not Given Dextrose/Water (Dextrose 5% In Water) Confirm Administered Dose 250 mls @ as directed .ROUTE .STK-MED ONE Stop: 07/04/17 06:56 Last Admin: 07/04/17 08:21 Dose: Not Given Norepinephrine Bitartrate 4 mg (/ Dextrose/Water) 250 mls @ 7.5 mls/hr IV TITRATE YOAN; 2 MCG/MIN PRN Reason: Protocol Last Titration: 07/04/17 07:21 Dose: 0 mcg/min, 0 mls/hr Levofloxacin/Dextrose 750 mg/ (Premix) 150 mls @ 100 mls/hr IV ONETIME ONE Stop: 07/04/17 08:59 Last Admin: 07/04/17 07:30 Dose: 100 mls/hr Lactated Ringer's (Ringers, Lactated) 1,000 mls @ 125 mls/hr IV ASDIRECTED [facility]OAN Last Admin: 07/05/17 08:46 Dose: 125 mls/hr Acetaminophen 1,000 mg/ Premix 100 mls @ 400 mls/hr IV NOW ONE Stop: 07/04/17 06:44 Last Admin: 07/04/17 06:40 Dose: 400 mls/hr Potassium Chloride 20 meq/Lidocaine HCl 2 ml/ Sodium Chloride 112 mls @ 56 mls/ hr IV Q2H [facility] Stop: 07/06/17 13:59 Last Admin: 07/06/17 12:07 Dose: 56 mls/hr Magnesium Sulfate 2 gm/ Premix 50 mls @ 25 mls/hr IV ONETIME ONE Stop: 07/07/17 10:59 Last Admin: 07/07/17 09:33 Dose: 25 mls/hr Potassium Chloride 20 meq/ (Premix) 100 mls @ 50 mls/hr IV Q2H [facility] Stop: 07/07/17 12:59 Last Admin: 07/07/17 11:36 Dose: 50 mls/hr Potassium Chloride 40 meq/ (Premix) 100 mls @ 25 mls/hr IV ONETIME ONE Stop: 07/07/17 23:59 Last Admin: 07/07/17 20:20 Dose: 25 mls/hr Insulin Detemir (Levemir) 30 unit SUBCUT BEDTIME [facility] Last Admin: 07/06/17 20:59 Dose: 30 units Ketamine HCl (Ketalar) Confirm Administered Dose 500 mg .ROUTE .STK-MED ONE Stop: 07/04/17 06:48 Last Admin: 07/04/17 08:40 Dose: Not Given Ketamine HCl (Ketalar) 60 mg IV NOW STA Stop: 07/04/17 07:04 Last Admin: 07/04/17 07:03 Dose: 60 mg Lidocaine HCl (Xylocaine-Mpf 1%) Confirm Administered Dose 5 ml .ROUTE .STK-MED ONE Stop: 07/04/17 09:34 Last Admin: 07/04/17 10:16 Dose: Not Given Lidocaine HCl (Xylocaine-Mpf 1%) 5 ml INJECT ONETIME ONE Stop: 07/04/17 10:31 Last Admin: 07/04/17 10:16 Dose: 5 ml Methylprednisolone Sodium Succinate (Solu-Medrol) 125 mg IV ONETIME ONE Stop: 07/04/17 06:08 Last Admin: 07/04/17 08:27 Dose: Not Given Methylprednisolone Sodium Succinate (Solu-Medrol) Confirm Administered Dose 125 mg .ROUTE .STK-MED ONE Stop: 07/04/17 06:07 Last Admin: 07/04/17 08:18 Dose: Not Given Methylprednisolone Sodium Succinate (Solu-Medrol) 125 mg IVPUSH Q6H [facility] Last Admin: 07/05/17 05:59 Dose: 125 mg Methylprednisolone Sodium Succinate (Solu-Medrol) 40 mg IVPUSH Q6H [facility] Last Admin: 07/06/17 05:46 Dose: 40 mg Midazolam HCl (Versed 1 Mg/Ml) Confirm Administered Dose 5 mg .ROUTE .STK-MED ONE Stop: 07/04/17 07:38 Last Admin: 07/04/17 08:22 Dose: Not Given Midazolam HCl (Versed 1 Mg/Ml) 5 mg IVPUSH ONETIME ONE Stop: 07/04/17 07:45 Last Admin: 07/04/17 07:45 Dose: 5 mg Piperacillin Sod/Tazobactam Sod (Zosyn) Confirm Administered Dose 4.5 gm .ROUTE .STK-MED ONE Stop: 07/04/17 06:16 Last Admin: 07/04/17 08:16 Dose: Not Given Rocuronium [place] (Zemuron) Confirm Administered Dose 50 mg .ROUTE .STK-MED ONE Stop: 07/04/17 07:13 Last Admin: 07/04/17 08:40 Dose: Not Given Rocuronium [place] (Zemuron) 20 mg IV ONETIME ONE Stop: 07/04/17 08:37 Last Admin: 07/04/17 07:10 Dose: 20 mg Succinylcholine Chloride (Quelicin) Confirm Administered Dose 200 mg .ROUTE .STK -MED ONE Stop: 07/04/17 06:43 Last Admin: 07/04/17 08:39 Dose: Not Given Succinylcholine Chloride (Quelicin) 180 mg IV NOW STA Stop: 07/04/17 07:05 Last Admin: 07/04/17 07:03 Dose: 180 mg Vancomycin HCl (Vancomycin) Confirm Administered Dose 1 gm .ROUTE .STK-MED ONE Stop: 07/04/17 06:16 Last Admin: 07/04/17 08:22 Dose: Not Given - Exam Quality Assessment: Supplemental Oxygen (Ventilator), Urine Catheter, DVT Prophylaxis General: Sedated Lungs: Decreased Breath Sounds, Rhonchi. No: Crackles, Rales, Wheezing Cardiovascular: Regular Rate, Regular Rhythm, No Murmurs GI/Abdominal Exam: Normal Bowel Sounds, Soft, Non-Tender, No Organomegaly, No Distention Extremities: Non-Tender, No Pedal Edema Skin: Warm, Dry, Intact - Problem List Review Problem List Initiated/Reviewed/Updated: Yes - My Orders Last 24 Hours: My Active Orders 07/07/17 14:07 Heparin Sodium [Heparin Lock Flush 100 Units/ML] 500 units IVPUSH ASDIRECTED PRN 07/07/17 21:00 Insulin Detemir [Levemir] 40 unit SUBCUT BEDTIME 07/08/17 09:00 Enoxaparin [Lovenox] 40 mg SUBCUT DAILY 07/08/17 10:44 Magnesium Sulfate/Water [Magnesium Sulfate 2 GM in Water 50 ML] 2 gm Premix Bag 1 bag IV ONETIME Potassium Chloride [KCL 40 MEQ in Water 100 ML] 40 meq Premix Bag 1 bag IV ONETIME 07/09/17 05:00 Chest 1V Frontal [CR] DAILY BLOOD GAS ARTERIAL [BG] Timed CBC WITH AUTO DIFF [HEME] Timed COMPREHENSIVE METABOLIC PN,CMP [CHEM] Timed MAGNESIUM [CHEM] Timed 07/09/17 07:30 GLUCOSE POC LAB TO COLLECT [POC] QIDACANDBED 07/09/17 11:30 GLUCOSE POC LAB TO COLLECT [POC] QIDACANDBED 07/09/17 16:30 GLUCOSE POC LAB TO COLLECT [POC] QIDACANDBED 07/09/17 21:00 GLUCOSE POC LAB TO COLLECT [POC] QIDACANDBED 07/10/17 05:00 Chest 1V Frontal [CR] DAILY 07/10/17 07:30 GLUCOSE POC LAB TO COLLECT [POC] QIDACANDBED 07/10/17 11:30 GLUCOSE POC LAB TO COLLECT [POC] QIDACANDBED 07/10/17 16:30 GLUCOSE POC LAB TO COLLECT [POC] QIDACANDBED 07/10/17 21:00 GLUCOSE POC LAB TO COLLECT [POC] QIDACANDBED 07/11/17 07:30 GLUCOSE POC LAB TO COLLECT [POC] QIDACANDBED 07/11/17 11:30 GLUCOSE POC LAB TO COLLECT [POC] QIDACANDBED 07/11/17 16:30 GLUCOSE POC LAB TO COLLECT [POC] QIDACANDBED 07/11/17 21:00 GLUCOSE POC LAB TO COLLECT [POC] QIDACANDBED 07/12/17 07:30 GLUCOSE POC LAB TO COLLECT [POC] QIDACANDBED 07/12/17 11:30 GLUCOSE POC LAB TO COLLECT [POC] QIDACANDBED 07/12/17 16:30 GLUCOSE POC LAB TO COLLECT [POC] QIDACANDBED 07/12/17 21:00 GLUCOSE POC LAB TO COLLECT [POC] QIDACANDBED 07/13/17 07:30 GLUCOSE POC LAB TO COLLECT [POC] QIDACANDBED 07/13/17 11:30 GLUCOSE POC LAB TO COLLECT [POC] QIDACANDBED 07/13/17 16:30 GLUCOSE POC LAB TO COLLECT [POC] QIDACANDBED 07/13/17 21:00 GLUCOSE POC LAB TO COLLECT [POC] QIDACANDBED 07/14/17 07:30 GLUCOSE POC LAB TO COLLECT [POC] QIDACANDBED 07/14/17 11:30 GLUCOSE POC LAB TO COLLECT [POC] QIDACANDBED 07/14/17 16:30 GLUCOSE POC LAB TO COLLECT [POC] QIDACANDBED 07/14/17 21:00 GLUCOSE POC LAB TO COLLECT [POC] QIDACANDBED 07/15/17 07:30 GLUCOSE POC LAB TO COLLECT [POC] QIDACANDBED - Plan Plan:: ASSESSMENT AND PLAN ACUTE ON CHRONIC HYPOXIC AND HYPERCAPNIC RESPIRATORY FAILURE-FiO2 down to 40% today and spontaneous weaning trial was performed. He failed the weaning trial because of increase in respiratory rate and decrease in oxygen saturation. Noted to have a frequent cough and large amount of secretions likely contributing to the failure. -Mechanical ventilation; assist-control with a rate of 16, tidal volume of 550, FiO2 of 50%, PEEP of 5 -Daily spontaneous breathing trial tomorrow morning -Daily chest x-ray while intubated -Solu-Medrol 20 mg IV every 12 hours -Nebulizer therapy with albuterol and duo nebs -Management of pneumonia as below -Analgesic sedation LEFT LUNG PNEUMONIA WITH SEPSIS-likely causing respiratory failure as noted above. He has remained afebrile, no significant growth from cultures -Blood and sputum cultures pending -IV antibiotic therapy with Zosyn and levofloxacin, pending culture results VANCOMYCIN ANAPHYLAXIS-treated with epinephrine, Solu-Medrol, and Benadryl in the emergency department ACUTE ON CHRONIC KIDNEY renal function is been stable with current diuresis -Closely monitor urine output and renal function TYPE 2 DIABETES MELLITUS -Levemir insulin 40 units subcutaneous at at bedtime -4 times a day glucometers -Moderate dose sliding scale [employer] MAINTENANCE ISSUES -DVT prophylaxis; Lovenox 30 mg subcutaneous daily -GI prophylaxis; Protonix 40 mg IV daily -Jung catheter; to monitor urine output -Nutrition; nothing by mouth -Nicotine dependence; not required CODE STATUS-FULL CODE ADMISSION STATUS-patient will be admitted to inpatient status, expect at least a 2 night hospital stay for evaluation and management of problems as outlined above. At the time of this admission I do not reasonably expected evaluation and management of this problem will require more than a 96 hour hospital stay. DISPOSITION-anticipate discharge to home after the hospital stay. PRIMARY CARE PROVIDER-
[2017-07-08] MEDS: Potassium Chloride 20 MEQ in Premix Bag 1 BAG IV SCH ×2 (11:31→13:29)
[2017-07-08] MEDS ORDERED: Magnesium Sulfate/Water 2 GM in Premix Bag 1 BAG IV ONE (12:00)
[2017-07-08] MEDS: Heparin Sodium 5,000 UNITS in Sodium Chloride 0.9% 500 ML IV SCH (12:40)
[2017-07-08] MEDS: Insulin Detemir 100 Units/ML 3 ML Pen SUBCUT SCH (21:06)
[2017-07-09] MEDS: Piperacillin/Tazobactam/Dext 3.375 GM in Premix Bag 1 BAG IV SCH ×4 (00:29→19:04)
[2017-07-09] MEDS: Albuterol/Ipratropium 3.0-0.5 MG/3 ML Neb Soln NEB SCH ×4 (02:49→21:12)
[2017-07-09] MEDS: Arformoterol 15 MCG/2 ML Neb Soln NEB SCH ×2 (07:06→21:12)
[2017-07-09] MEDS: Insulin Aspart 100 Units/ML 3 ML Pen SUBCUT SCH ×4 (08:55→21:14)
[2017-07-09] MEDS: methylPREDNISolone Sodium Succinate 40 MG/1 ML SDV IVPUSH SCH (08:58)
[2017-07-09] MEDS: Bumetanide 1 MG/4 ML MDV IVPUSH SCH (09:22)
[2017-07-09] MEDS ORDERED: HYDROmorphone 1 MG/ML Syringe IVPUSH PRN (09:24)
[2017-07-09] MEDS: acetaZOLAMIDE 500 MG Vial IVPUSH SCH ×3 (09:25→21:12)
[2017-07-09] MEDS: Pantoprazole 40 MG Vial IVPUSH SCH (09:29)
--- NOTE | 2017-07-09 09:29 | PCM.PN ---
- General Info Date of Service: 07/09/17 Subjective Update: This patient has improved over the past 24 hours and did tolerate a spontaneous breathing trial for 1 hour this morning. He has been extubated and is currently on BiPAP for respiratory support. Continued excellent diuresis although his creatinine is up slightly today so we will back away and decrease the diuretic dosing. Vital signs have remained stable and he has been afebrile. Chest x-ray shows improvement when compared to yesterday. Functional Status: Reports: Pain Controlled - Review of Systems General: Reports: Weakness. Denies: Fever, Chills - Patient Data Vitals - Most Recent: Last Vital Signs Temp 98.8 F 07/09/17 02:00 Pulse 80 07/09/17 07:07 Resp 18 07/09/17 09:10 BP 154/83 H 07/09/17 09:22 Pulse Ox 91 L 07/09/17 06:00 Weight - Most Recent: 268 lb 1.314 oz I&O - Last 24 Hours: Intake & Output 07/08/17 07/09/17 07/09/17 22:59 06:59 14:59 Intake Total 987 716 Output Total 1950 Balance 987 -1234 Lab Results Last 24 Hours: Laboratory Results - last 24 hr 07/09/17 07/09/17 07/09/17 Range/Units 05:04 05:04 05:04 WBC 12.1 H (4.5-11.0) K/uL RBC 5.78 (4.30-5.90) M/uL Hgb 15.7 H (12.0-15.0) g/dL Hct 49.2 (40.0-54.0) % MCV 85 (80-98) fL MCH 27 (27-31) pg MCHC 32 (32-36) % Plt Count 335 (150-400) K/uL Neut % (Auto) 64 (36-66) % Lymph % (Auto) 23 L (24-44) % Pickett % (Auto) 13 H (2-6) % Eos % (Auto) 0 L (2-4) % Baso % (Auto) 1 (0-1) % Puncture Site Line ABG pH 7.519 H (7.350-7.450) ABG pCO2 45.2 H (35.0-42.0) mmHg ABG pO2 67.2 L (75.0-100.0) mmHg ABG HCO3 36.6 H (22.0-26.0) mmol/L ABG Total CO2 30.5 H (23.0-27.0) mmol/L ABG O2 Saturation 94.3 L (95.0-98.0) % ABG O2 Content 21.0 (15.0-23.0) %vol ABG Base Excess 12.0 mm/L ABG Hemoglobin 16.2 (13.5-18.0) g/dL ABG Oxyhemoglobin 92.3 % ABG Carboxyhemoglobin 1.4 (0.0-1.6) % ABG Methemoglobin 0.7 % O2 Delivery Device Ventilator Oxygen Flow Rate L Sodium 146 (140-148) mmol/L Potassium 3.5 L (3.6-5.2) mmol/L Chloride 103 (100-108) mmol/L Carbon Dioxide 35 H (21-32) mmol/L Anion Gap 11.5 (5.0-14.0) mmol/L BUN 45 H (7-18) mg/dL Creatinine 1.7 H (0.8-1.3) mg/dL Est Cr Clr Drug Dosing 46.98 mL/min Estimated GFR (MDRD) 41 L (>60) Glucose 203 H (74-106) mg/dL Calcium 9.1 (8.5-10.1) mg/dL Magnesium 1.9 (1.8-2.4) mg/dL Total Bilirubin 0.7 (0.2-1.0) mg/dL AST 77 H D (15-37) U/L ALT 26 (12-78) U/L Alkaline Phosphatase 114 (46-116) U/L Total Protein 6.8 (6.4-8.2) g/dL Albumin 2.6 L (3.4-5.0) g/dL Globulin 4.2 H (2.3-3.5) g/dL Albumin/Globulin Ratio 0.6 L (1.2-2.2) Med Orders - Current: Current Medications Acetazolamide (Diamox) 250 mg IVPUSH Q6H YOAN Stop: 07/09/17 21:01 Albuterol (Proventil Neb Soln) 2.5 mg NEB Q4H PRN PRN Reason: Shortness Of Breath/wheezing Albuterol/Ipratropium (Duoneb 3.0-0.5 Mg/3 Ml) 3 ml NEB Q6H [facility] [place] Last Admin: 07/09/17 09:08 Dose: 3 ml Arformoterol Tartrate (Brovana) 15 mcg NEB BIDRT [facility] [place] Last Admin: 07/09/17 07:06 Dose: 15 mcg Bumetanide (Bumex) 1 mg IVPUSH Q24H [facility] [place] Last Admin: 07/09/17 09:22 Dose: 1 mg Dextrose (Glutose 15) 15 gm PO ONETIME PRN PRN Reason: Hypoglycemia Dextrose/Water (Dextrose 50% In Water) 50 ml IV ONETIME PRN PRN Reason: Hypoglycemia Docusate Sodium (Colace) 100 mg PO BID PRN PRN Reason: Constipation Enoxaparin Sodium (Lovenox) 40 mg SUBCUT DAILY [facility] [place] Last Admin: 07/08/17 08:54 Dose: 40 mg Heparin Sodium (Porcine) (Heparin Lock Flush 100 Units/Ml) 500 units IVPUSH ASDIRECTED PRN 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 Last Admin: 07/08/17 16:55 Dose: 500 units Levofloxacin/Dextrose 750 mg/ (Premix) 150 mls @ 100 mls/hr IV Q24H [facility] [place] Last Admin: 07/08/17 08:57 Dose: 100 mls/hr Piperacillin/Tazobactam/ (Dextrose 3.375 gm/ Premix) 50 mls @ 100 mls/hr IV Q6H [facility] [place] Last Admin: 07/09/17 05:18 Dose: 100 mls/hr Heparin Sodium (Porcine) 5,000 (units/ Sodium Chloride) 501 mls @ 0 mls/hr IV ASDIRECTED [facility] [place] PRN Reason: KVO Last Admin: 07/08/17 12:40 Dose: 2 mls/hr Lactated Ringer's (Ringers, Lactated) 1,000 mls @ 15 mls/hr IV ASDIRECTED [facility] [place] Potassium Chloride 40 meq/ (Premix) 100 mls @ 25 mls/hr IV ONETIME ONE Stop: 07/09/17 13:59 Last Admin: 07/09/17 09:23 Dose: 25 mls/hr Insulin Aspart (Novolog) 0 unit SUBCUT QIDACANDBED [facility] [place] PRN Reason: Protocol Last Admin: 07/09/17 08:55 Dose: 4 units Insulin Detemir (Levemir) 40 unit SUBCUT BEDTIME [facility] [place] Last Admin: 07/08/17 21:06 Dose: 40 units Magnesium Hydroxide (Milk Of Magnesia) 30 ml PO Q12H PRN PRN Reason: Constipation Ondansetron HCl (Zofran) 4 mg IV Q4H PRN PRN Reason: Nausea/Vomiting Pantoprazole Sodium (Protonix Iv) 40 mg IVPUSH DAILY [facility] [place] Last Admin: 07/08/17 08:40 Dose: 40 mg Polyethylene Glycol (Miralax) 17 gm PO DAILY PRN PRN Reason: Constipation Sodium Chloride (Saline Flush) 10 ml FLUSH ASDIRECTED PRN PRN Reason: Keep Vein Open Discontinued Medications Acetaminophen (Tylenol Extra Strength) Confirm Administered Dose 1,000 mg .ROUTE .STK-MED ONE Stop: 07/04/17 06:17 Last Admin: 07/04/17 08:32 Dose: Not Given Albuterol/Ipratropium (Duoneb 3.0-0.5 Mg/3 Ml) 3 ml NEB Q1H PRN PRN Reason: Shortness of Breath Last Admin: 07/04/17 06:05 Dose: 3 ml Albuterol/Ipratropium (Duoneb 3.0-0.5 Mg/3 Ml) Confirm Administered Dose 3 ml .ROUTE .STK-MED ONE Stop: 07/04/17 06:03 Last Admin: 07/04/17 08:17 Dose: Not Given Albuterol/Ipratropium (Duoneb 3.0-0.5 Mg/3 Ml) 3 ml NEB Q6H YOAN Albuterol/Ipratropium (Duoneb 3.0-0.5 Mg/3 Ml) 3 ml NEB Q6H [facility] Last Admin: 07/04/17 09:56 Dose: 3 ml Bumetanide (Bumex) 2 mg IVPUSH Q12H [facility] [place] Last Admin: 07/06/17 08:14 Dose: 2 mg Bumetanide (Bumex) 1 mg IVPUSH Q12H [facility] Last Admin: 07/08/17 20:11 Dose: 1 mg Diphenhydramine HCl (Benadryl) 50 mg IVPUSH ONETIME ONE Stop: 07/04/17 07:09 Last Admin: 07/04/17 06:41 Dose: 50 mg Enoxaparin Sodium (Lovenox) 30 mg SUBCUT DAILY [facility] [place] Last Admin: 07/07/17 10:38 Dose: 30 mg Epinephrine HCl (Adrenalin 1:1000) 0.3 mg IM ONETIME ONE Stop: 07/04/17 07:07 Last Admin: 07/04/17 06:38 Dose: 0.3 mg Etomidate (Amidate) 20 mg IVPUSH ONETIME ONE Stop: 07/04/17 07:08 Last Admin: 07/04/17 06:42 Dose: 20 mg Famotidine (Pepcid) Confirm Administered Dose 40 mg .ROUTE .STK-MED ONE Stop: 07/04/17 06:50 Last Admin: 07/04/17 08:25 Dose: Not Given Famotidine (Pepcid) 20 mg IVPUSH ONETIME ONE Stop: 07/04/17 07:06 Last Admin: 07/04/17 06:49 Dose: 20 mg Heparin Sodium (Porcine) (Heparin Sodium) Confirm Administered Dose 5,000 units .ROUTE .STK-MED ONE Stop: 07/04/17 09:31 Last Admin: 07/04/17 10:23 Dose: Not Given Hydromorphone HCl (Dilaudid) Confirm Administered Dose 0.5 mg .ROUTE .STK-MED ONE Stop: 07/04/17 08:11 Last Admin: 07/04/17 08:21 Dose: Not Given Hydromorphone HCl (Dilaudid) 0.5 mg IVPUSH ONETIME ONE Stop: 07/04/17 08:20 Last Admin: 07/04/17 08:22 Dose: 0.5 mg Hydromorphone HCl (Dilaudid) 0.5 mg IVPUSH Q1H PRN PRN Reason: Pain Last Admin: 07/05/17 09:31 Dose: 0.5 mg Hydromorphone HCl (Dilaudid) 1 mg IVPUSH Q1H PRN PRN Reason: Pain Last Admin: 07/05/17 12:42 Dose: 1 mg Piperacillin Sod/Tazobactam (Sod 4.5 gm/ Sodium Chloride) 100 mls @ 200 mls/hr IV Q6H YOAN Last Admin: 07/04/17 06:54 Dose: 200 mls/hr Vancomycin HCl 1,000 mg/ (Dextrose/Water) 250 mls @ 167 mls/hr IV ONETIME ONE Stop: 07/04/17 07:44 Last Admin: 07/04/17 06:30 Dose: 167 mls/hr Sodium Chloride (Normal Saline) 1,000 mls @ 999 mls/hr IV .BOLUS STA Stop: 07/04/17 07:16 Last Admin: 07/04/17 06:30 Dose: 999 mls/hr Acetaminophen (Ofirmev) Confirm Administered Dose 100 mls @ as directed IV .STK- MED ONE Stop: 07/04/17 06:31 Last Admin: 07/04/17 09:15 Dose: Not Given Dextrose/Water (Dextrose 5% In Water) Confirm Administered Dose 250 mls @ as directed .ROUTE .STK-MED ONE Stop: 07/04/17 06:56 Last Admin: 07/04/17 08:21 Dose: Not Given Norepinephrine Bitartrate 4 mg (/ Dextrose/Water) 250 mls @ 7.5 mls/hr IV TITRATE YOAN; 2 MCG/MIN PRN Reason: Protocol Last Titration: 07/04/17 07:21 Dose: 0 mcg/min, 0 mls/hr Levofloxacin/Dextrose 750 mg/ (Premix) 150 mls @ 100 mls/hr IV ONETIME ONE Stop: 07/04/17 08:59 Last Admin: 07/04/17 07:30 Dose: 100 mls/hr Lactated Ringer's (Ringers, Lactated) 1,000 mls @ 125 mls/hr IV ASDIRECTED YOAN Last Admin: 07/05/17 08:46 Dose: 125 mls/hr Acetaminophen 1,000 mg/ Premix 100 mls @ 400 mls/hr IV NOW ONE Stop: 07/04/17 06:44 Last Admin: 07/04/17 06:40 Dose: 400 mls/hr Propofol (Diprivan 100 Ml) 100 mls @ 0 mls/hr IV TITRATE YOAN; 20 MCG/KG/MIN PRN Reason: Protocol Last Admin: 07/09/17 06:06 Dose: 34.39 mcg/kg/min, 26 mls/hr Potassium Chloride 20 meq/Lidocaine HCl 2 ml/ Sodium Chloride 112 mls @ 56 mls/ hr IV Q2H YOAN Stop: 07/06/17 13:59 Last Admin: 07/06/17 12:07 Dose: 56 mls/hr Magnesium Sulfate 2 gm/ Premix 50 mls @ 25 mls/hr IV ONETIME ONE Stop: 07/07/17 10:59 Last Admin: 07/07/17 09:33 Dose: 25 mls/hr Potassium Chloride 20 meq/ (Premix) 100 mls @ 50 mls/hr IV Q2H YOAN Stop: 07/07/17 12:59 Last Admin: 07/07/17 11:36 Dose: 50 mls/hr Potassium Chloride 40 meq/ (Premix) 100 mls @ 25 mls/hr IV ONETIME ONE Stop: 07/07/17 23:59 Last Admin: 07/07/17 20:20 Dose: 25 mls/hr Magnesium Sulfate 2 gm/ Premix 50 mls @ 25 mls/hr IV ONETIME ONE Stop: 07/08/17 13:59 Last Admin: 07/08/17 11:31 Dose: 25 mls/hr Potassium Chloride 20 meq/ (Premix) 100 mls @ 50 mls/hr IV Q2H YOAN Stop: 07/08/17 15:59 Last Admin: 07/08/17 13:29 Dose: 50 mls/hr Sodium Chloride (Normal Saline) 1,000 mls @ 999 mls/hr IV ONETIME ONE Stop: 07/04/17 07:51 Last Admin: 07/04/17 06:51 Dose: 999 mls/hr Insulin Detemir (Levemir) 30 unit SUBCUT BEDTIME [facility] [place] Last Admin: 07/06/17 20:59 Dose: 30 units Ketamine HCl (Ketalar) Confirm Administered Dose 500 mg .ROUTE .STK-MED ONE Stop: 07/04/17 06:48 Last Admin: 07/04/17 08:40 Dose: Not Given Ketamine HCl (Ketalar) 60 mg IV NOW STA Stop: 07/04/17 07:04 Last Admin: 07/04/17 07:03 Dose: 60 mg Lidocaine HCl (Xylocaine-Mpf 1%) Confirm Administered Dose 5 ml .ROUTE .STK-MED ONE Stop: 07/04/17 09:34 Last Admin: 07/04/17 10:16 Dose: Not Given Lidocaine HCl (Xylocaine-Mpf 1%) 5 ml INJECT ONETIME ONE Stop: 07/04/17 10:31 Last Admin: 07/04/17 10:16 Dose: 5 ml Methylprednisolone Sodium Succinate (Solu-Medrol) 125 mg IV ONETIME ONE Stop: 07/04/17 06:08 Last Admin: 07/04/17 08:27 Dose: Not Given Methylprednisolone Sodium Succinate (Solu-Medrol) Confirm Administered Dose 125 mg .ROUTE .STK-MED ONE Stop: 07/04/17 06:07 Last Admin: 07/04/17 08:18 Dose: Not Given Methylprednisolone Sodium Succinate (Solu-Medrol) 125 mg IVPUSH Q6H [facility] [place] Last Admin: 07/05/17 05:59 Dose: 125 mg Methylprednisolone Sodium Succinate (Solu-Medrol) 40 mg IVPUSH Q6H [facility] [place] Last Admin: 07/06/17 05:46 Dose: 40 mg Methylprednisolone Sodium Succinate (Solu-Medrol) 40 mg IVPUSH Q12H [facility] [place] Last Admin: 07/08/17 08:41 Dose: 40 mg Methylprednisolone Sodium Succinate (Solu-Medrol) 20 mg IVPUSH Q12H [facility] [place] Last Admin: 07/09/17 08:58 Dose: 20 mg Midazolam HCl (Versed 1 Mg/Ml) Confirm Administered Dose 5 mg .ROUTE .STK-MED ONE Stop: 07/04/17 07:38 Last Admin: 07/04/17 08:22 Dose: Not Given Midazolam HCl (Versed 1 Mg/Ml) 5 mg IVPUSH ONETIME ONE Stop: 07/04/17 07:45 Last Admin: 07/04/17 07:45 Dose: 5 mg Piperacillin Sod/Tazobactam Sod (Zosyn) Confirm Administered Dose 4.5 gm .ROUTE .STK-MED ONE Stop: 07/04/17 06:16 Last Admin: 07/04/17 08:16 Dose: Not Given Rocuronium Roca (Zemuron) Confirm Administered Dose 50 mg .ROUTE .STK-MED ONE Stop: 07/04/17 07:13 Last Admin: 07/04/17 08:40 Dose: Not Given Rocuronium Roca (Zemuron) 20 mg IV ONETIME ONE Stop: 07/04/17 08:37 Last Admin: 07/04/17 07:10 Dose: 20 mg Succinylcholine Chloride (Quelicin) Confirm Administered Dose 200 mg .ROUTE .STK -MED ONE Stop: 07/04/17 06:43 Last Admin: 07/04/17 08:39 Dose: Not Given Succinylcholine Chloride (Quelicin) 180 mg IV NOW STA Stop: 07/04/17 07:05 Last Admin: 07/04/17 07:03 Dose: 180 mg Vancomycin HCl (Vancomycin) Confirm Administered Dose 1 gm .ROUTE .STK-MED ONE Stop: 07/04/17 06:16 Last Admin: 07/04/17 08:22 Dose: Not Given - Exam Quality Assessment: Supplemental Oxygen (BiPAP), Central Line/PICC, Urine Catheter, DVT Prophylaxis General: No Acute Distress, Lethargic Lungs: Decreased Breath Sounds. No: Crackles, Rales, Rhonchi, Wheezing Cardiovascular: Regular Rate, Regular Rhythm, No Murmurs GI/Abdominal Exam: Normal Bowel Sounds, Soft, Non-Tender, No Organomegaly, No Distention Extremities: Non-Tender, No Pedal Edema Skin: Warm, Dry, Intact - Problem List Review Problem List Initiated/Reviewed/Updated: Yes - My Orders Last 24 Hours: My Active Orders 07/08/17 09:00 Enoxaparin [Lovenox] 40 mg SUBCUT DAILY 07/09/17 05:00 Chest 1V Frontal [CR] DAILY 07/09/17 09:00 Bumetanide [Bumex] 1 mg IVPUSH Q24H acetaZOLAMIDE [Diamox] 250 mg IVPUSH Q6H 07/09/17 09:24 HYDROmorphone [Dilaudid] 0.5 mg IVPUSH Q2H PRN 07/09/17 10:00 BLOOD GAS ARTERIAL [BG] Stat Potassium Chloride [KCL 40 MEQ in Water 100 ML] 40 meq Premix Bag 1 bag IV ONETIME 07/09/17 Lunch Clear Liquid Diet [DIET] 07/10/17 05:00 Chest 1V Frontal [CR] DAILY BLOOD GAS ARTERIAL [BG] Timed CBC WITH AUTO DIFF [HEME] Timed COMPREHENSIVE METABOLIC PN,CMP [CHEM] Timed MAGNESIUM [CHEM] Timed 07/10/17 07:30 GLUCOSE POC LAB TO COLLECT [POC] QIDACANDBED 07/10/17 11:30 GLUCOSE POC LAB TO COLLECT [POC] QIDACANDBED 07/10/17 16:30 GLUCOSE POC LAB TO COLLECT [POC] QIDACANDBED 07/10/17 21:00 GLUCOSE POC LAB TO COLLECT [POC] QIDACANDBED 07/11/17 07:30 GLUCOSE POC LAB TO COLLECT [POC] QIDACANDBED 07/11/17 11:30 GLUCOSE POC LAB TO COLLECT [POC] QIDACANDBED 07/11/17 16:30 GLUCOSE POC LAB TO COLLECT [POC] QIDACANDBED 07/11/17 21:00 GLUCOSE POC LAB TO COLLECT [POC] QIDACANDBED 07/12/17 07:30 GLUCOSE POC LAB TO COLLECT [POC] QIDACANDBED 07/12/17 11:30 GLUCOSE POC LAB TO COLLECT [POC] QIDACANDBED 07/12/17 16:30 GLUCOSE POC LAB TO COLLECT [POC] QIDACANDBED 07/12/17 21:00 GLUCOSE POC LAB TO COLLECT [POC] QIDACANDBED 07/13/17 07:30 GLUCOSE POC LAB TO COLLECT [POC] QIDACANDBED 07/13/17 11:30 GLUCOSE POC LAB TO COLLECT [POC] QIDACANDBED 07/13/17 16:30 GLUCOSE POC LAB TO COLLECT [POC] QIDACANDBED 07/13/17 21:00 GLUCOSE POC LAB TO COLLECT [POC] QIDACANDBED 07/14/17 07:30 GLUCOSE POC LAB TO COLLECT [POC] QIDACANDBED 07/14/17 11:30 GLUCOSE POC LAB TO COLLECT [POC] QIDACANDBED 07/14/17 16:30 GLUCOSE POC LAB TO COLLECT [POC] QIDACANDBED 07/14/17 21:00 GLUCOSE POC LAB TO COLLECT [POC] QIDACANDBED 07/15/17 07:30 GLUCOSE POC LAB TO COLLECT [POC] QIDACANDBED - Plan Plan:: ASSESSMENT AND PLAN ACUTE ON CHRONIC HYPOXIC AND HYPERCAPNIC RESPIRATORY FAILURE-FiO2 down to 40% today and spontaneous weaning trial was performed. He has passed one hour weaning trial was spontaneous breathing and has been extubated. -Noninvasive positive pressure ventilation -Arterial blood gases in one hour and again in a.m. -Daily chest x-ray -Discontinue Solu-Medrol -Nebulizer therapy with albuterol and duo nebs -Management of pneumonia as below -Decrease Bumex to 1 mg IV daily LEFT LUNG PNEUMONIA WITH SEPSIS-likely causing respiratory failure as noted above. He has remained afebrile, no significant growth from cultures -Blood and sputum cultures pending -IV antibiotic therapy with Zosyn and levofloxacin, pending culture results VANCOMYCIN ANAPHYLAXIS-treated with epinephrine, Solu-Medrol, and Benadryl in the emergency department ACUTE ON CHRONIC KIDNEY renal function is been stable with current diuresis -Closely monitor urine output and renal function TYPE 2 DIABETES MELLITUS -Levemir insulin 40 units subcutaneous at at bedtime -4 times a day glucometers -Moderate dose sliding scale NovoLog MAINTENANCE ISSUES -DVT prophylaxis; Lovenox 40 mg subcutaneous daily -GI prophylaxis; Protonix 40 mg IV daily -Jung catheter; to monitor urine output -Nutrition; clear liquid diet -Nicotine dependence; not required CODE STATUS-FULL CODE ADMISSION STATUS-patient will be admitted to inpatient status, expect at least a 2 night hospital stay for evaluation and management of problems as outlined above. At the time of this admission I do not reasonably expected evaluation and management of this problem will require more than a 96 hour hospital stay. DISPOSITION-anticipate discharge to home after the hospital stay. PRIMARY CARE PROVIDER-
[2017-07-09] MEDS: Enoxaparin 40 MG/0.4 ML Syringe SUBCUT SCH (09:31)
[2017-07-09] MEDS: Levofloxacin/Dextrose 5%-Water 750 MG in Premix Bag 1 BAG IV SCH (09:32)
[2017-07-09] MEDS: Magnesium Hydroxide 400 MG/5 ML Susp 30 ML Cup PO PRN (09:56)
[2017-07-09] MEDS ORDERED: Potassium Chloride 40 MEQ in Premix Bag 1 BAG IV ONE (10:00)
[2017-07-09] MEDS: Insulin Detemir 100 Units/ML 3 ML Pen SUBCUT SCH (21:13)
[2017-07-10] MEDS: Piperacillin/Tazobactam/Dext 3.375 GM in Premix Bag 1 BAG IV SCH ×2 (00:35→05:29)
[2017-07-10] MEDS: Albuterol/Ipratropium 3.0-0.5 MG/3 ML Neb Soln NEB SCH ×4 (05:04→21:35)
[2017-07-10] MEDS: Arformoterol 15 MCG/2 ML Neb Soln NEB SCH ×2 (07:25→21:35)
[2017-07-10] MEDS: Insulin Aspart 100 Units/ML 3 ML Pen SUBCUT SCH ×4 (08:00→21:35)
[2017-07-10] MEDS: Bumetanide 1 MG/4 ML MDV IVPUSH SCH (08:31)
[2017-07-10] MEDS: Levofloxacin/Dextrose 5%-Water 750 MG in Premix Bag 1 BAG IV SCH (08:32)
[2017-07-10] MEDS: Pantoprazole 40 MG Vial IVPUSH SCH (08:32)
[2017-07-10] MEDS: Enoxaparin 40 MG/0.4 ML Syringe SUBCUT SCH (08:37)
[2017-07-10] MEDS ORDERED: Potassium Chloride 20 MEQ Tab.ER PO ONE (09:00)
[2017-07-10] MEDS: Albuterol 0.083% 2.5 MG/3 ML Neb Soln NEB PRN (09:12)
[2017-07-10] MEDS: acetaZOLAMIDE 500 MG Vial IVPUSH SCH ×3 (09:34→21:39)
[2017-07-10] MEDS ORDERED: Potassium Chloride 40 MEQ in Premix Bag 1 BAG IV ONE (10:00)
--- NOTE | 2017-07-10 11:19 | PCM.PN ---
- General Info Date of Service: 07/10/17 Functional Status: Reports: Tolerating Diet - Review of Systems General: Reports: Weakness. Denies: Fever, Chills Pulmonary: Reports: Shortness of Breath, Cough. Denies: Pleuritic Chest Pain, Hemoptysis, Wheezing Cardiovascular: Denies: Chest Pain, Palpitations, Dyspnea on Exertion, Orthopnea , PND, Edema Gastrointestinal: Reports: No Symptoms Systems Review Comment:: Mr. Kruse is been stable since extubation yesterday, he is use BiPAP intermittently, this morning is doing well with a nasal cannula. He is tolerated a clear liquid diet and has remained afebrile. White blood cell count is up modestly today, but he has remained afebrile. Vital signs have been stable , intake was over output for the first time in several days. - Patient Data Vitals - Most Recent: Last Vital Signs Temp 97.6 F 07/10/17 08:00 Pulse 86 07/10/17 09:14 Resp 23 H 07/10/17 08:00 BP 124/81 07/10/17 08:31 Pulse Ox 89 L 07/10/17 09:14 Weight - Most Recent: 265 lb 6.985 oz I&O - Last 24 Hours: Intake & Output 07/09/17 07/10/17 07/10/17 22:59 06:59 14:59 Intake Total 2830 965 Output Total 275 725 Balance 2555 240 Lab Results Last 24 Hours: Laboratory Results - last 24 hr 07/10/17 07/10/17 07/10/17 Range/Units 04:43 04:43 04:43 WBC 14.3 H (4.5-11.0) K/uL RBC 5.56 (4.30-5.90) M/uL Hgb 15.3 H (12.0-15.0) g/dL Hct 48.2 (40.0-54.0) % MCV 87 (80-98) fL MCH 28 (27-31) pg MCHC 32 (32-36) % Plt Count 316 (150-400) K/uL Neut % (Auto) 64 (36-66) % Lymph % (Auto) 21 L (24-44) % Lyman % (Auto) 12 H (2-6) % Eos % (Auto) 2 (2-4) % Baso % (Auto) 0 (0-1) % Puncture Site Line ABG pH 7.443 (7.350-7.450) ABG pCO2 53.9 H (35.0-42.0) mmHg ABG pO2 75.4 (75.0-100.0) mmHg ABG HCO3 36.2 H (22.0-26.0) mmol/L ABG Total CO2 30.9 H (23.0-27.0) mmol/L ABG O2 Saturation 95.3 (95.0-98.0) % ABG O2 Content 20.3 (15.0-23.0) %vol ABG Base Excess 10.2 mm/L ABG Hemoglobin 15.5 (13.5-18.0) g/dL ABG Oxyhemoglobin 93.0 % ABG Carboxyhemoglobin 1.7 H (0.0-1.6) % ABG Methemoglobin 0.7 % O2 Delivery Device Bipap Oxygen Flow Rate L Sodium 145 (140-148) mmol/L Potassium 3.2 L (3.6-5.2) mmol/L Chloride 104 (100-108) mmol/L Carbon Dioxide 37 H (21-32) mmol/L Anion Gap 7.2 (5.0-14.0) mmol/L BUN 46 H (7-18) mg/dL Creatinine 1.7 H (0.8-1.3) mg/dL Est Cr Clr Drug Dosing 46.98 mL/min Estimated GFR (MDRD) 41 L (>60) Glucose 165 H (74-106) mg/dL Calcium 9.0 (8.5-10.1) mg/dL Magnesium 2.3 (1.8-2.4) mg/dL Total Bilirubin 0.8 (0.2-1.0) mg/dL AST 202 H D (15-37) U/L ALT 87 H (12-78) U/L Alkaline Phosphatase 132 H (46-116) U/L Total Protein 6.7 (6.4-8.2) g/dL Albumin 2.5 L (3.4-5.0) g/dL Globulin 4.2 H (2.3-3.5) g/dL Albumin/Globulin Ratio 0.6 L (1.2-2.2) Med Orders - Current: Current Medications Acetazolamide (Diamox) 500 mg IVPUSH Q6H YOAN Stop: 07/10/17 21:01 Last Admin: 07/10/17 09:34 Dose: 500 mg Albuterol (Proventil Neb Soln) 2.5 mg NEB Q4H PRN PRN Reason: Shortness Of Breath/wheezing Last Admin: 07/10/17 09:12 Dose: 2.5 mg Albuterol/Ipratropium (Duoneb 3.0-0.5 Mg/3 Ml) 3 ml NEB Q6H YOAN Last Admin: 07/10/17 09:11 Dose: Not Given Arformoterol Tartrate (Brovana) 15 mcg NEB BIDRT YOAN Last Admin: 07/10/17 07:25 Dose: 15 mcg Bumetanide (Bumex) 1 mg IVPUSH Q24H [facility] Last Admin: 07/10/17 08:31 Dose: 1 mg Dextrose (Glutose 15) 15 gm PO ONETIME PRN PRN Reason: Hypoglycemia Dextrose/Water (Dextrose 50% In Water) 50 ml IV ONETIME PRN PRN Reason: Hypoglycemia Docusate Sodium (Colace) 100 mg PO BID PRN PRN Reason: Constipation Enoxaparin Sodium (Lovenox) 40 mg SUBCUT DAILY [facility] Last Admin: 07/10/17 08:37 Dose: 40 mg Heparin Sodium (Porcine) (Heparin Lock Flush 100 Units/Ml) 500 units IVPUSH ASDIRECTED PRN 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 Last Admin: 07/09/17 13:39 Dose: 500 units Hydromorphone HCl (Dilaudid) 0.5 mg IVPUSH Q2H PRN PRN Reason: Pain Last Admin: 07/09/17 10:14 Dose: 0.5 mg Levofloxacin/Dextrose 750 mg/ (Premix) 150 mls @ 100 mls/hr IV Q24H YOAN Last Admin: 07/10/17 08:32 Dose: 100 mls/hr Heparin Sodium (Porcine) 5,000 (units/ Sodium Chloride) 501 mls @ 0 mls/hr IV ASDIRECTED YOAN PRN Reason: KVO Last Admin: 07/08/17 12:40 Dose: 2 mls/hr Potassium Chloride 40 meq/ (Premix) 100 mls @ 25 mls/hr IV ONETIME ONE Stop: 07/10/17 13:59 Insulin Aspart (Novolog) 0 unit SUBCUT QIDACANDBED YOAN PRN Reason: Protocol Last Admin: 07/10/17 08:00 Dose: Not Given Insulin Detemir (Levemir) 40 unit SUBCUT BEDTIME [facility] Last Admin: 07/09/17 21:13 Dose: 40 units Magnesium Hydroxide (Milk Of Magnesia) 30 ml PO Q12H PRN PRN Reason: Constipation Last Admin: 07/09/17 09:56 Dose: 30 ml Ondansetron HCl (Zofran) 4 mg IV Q4H PRN PRN Reason: Nausea/Vomiting Pantoprazole Sodium (Protonix) 40 mg PO ACBREAKFAST [facility] Polyethylene Glycol (Miralax) 17 gm PO DAILY PRN PRN Reason: Constipation Sodium Chloride (Saline Flush) 10 ml FLUSH ASDIRECTED PRN PRN Reason: Keep Vein Open Tamsulosin HCl (Flomax) 0.4 mg PO PCBREAKFAST [facility] Discontinued Medications Acetaminophen (Tylenol Extra Strength) Confirm Administered Dose 1,000 mg .ROUTE .STK-MED ONE Stop: 07/04/17 06:17 Last Admin: 07/04/17 08:32 Dose: Not Given Acetazolamide (Diamox) 250 mg IVPUSH Q6H YOAN Stop: 07/09/17 21:01 Last Admin: 07/09/17 21:12 Dose: 250 mg Albuterol/Ipratropium (Duoneb 3.0-0.5 Mg/3 Ml) 3 ml NEB Q1H PRN PRN Reason: Shortness of Breath Last Admin: 07/04/17 06:05 Dose: 3 ml Albuterol/Ipratropium (Duoneb 3.0-0.5 Mg/3 Ml) Confirm Administered Dose 3 ml .ROUTE .STK-MED ONE Stop: 07/04/17 06:03 Last Admin: 07/04/17 08:17 Dose: Not Given Albuterol/Ipratropium (Duoneb 3.0-0.5 Mg/3 Ml) 3 ml NEB Q6H YOAN Albuterol/Ipratropium (Duoneb 3.0-0.5 Mg/3 Ml) 3 ml NEB Q6H YOAN Last Admin: 07/04/17 09:56 Dose: 3 ml Bumetanide (Bumex) 2 mg IVPUSH Q12H [facility] Last Admin: 07/06/17 08:14 Dose: 2 mg Bumetanide (Bumex) 1 mg IVPUSH Q12H [facility] Last Admin: 07/08/17 20:11 Dose: 1 mg Diphenhydramine HCl (Benadryl) 50 mg IVPUSH ONETIME ONE Stop: 07/04/17 07:09 Last Admin: 07/04/17 06:41 Dose: 50 mg Enoxaparin Sodium (Lovenox) 30 mg SUBCUT DAILY [facility] Last Admin: 07/07/17 10:38 Dose: 30 mg Epinephrine HCl (Adrenalin 1:1000) 0.3 mg IM ONETIME ONE Stop: 07/04/17 07:07 Last Admin: 07/04/17 06:38 Dose: 0.3 mg Etomidate (Amidate) 20 mg IVPUSH ONETIME ONE Stop: 07/04/17 07:08 Last Admin: 07/04/17 06:42 Dose: 20 mg Famotidine (Pepcid) Confirm Administered Dose 40 mg .ROUTE .STK-MED ONE Stop: 07/04/17 06:50 Last Admin: 07/04/17 08:25 Dose: Not Given Famotidine (Pepcid) 20 mg IVPUSH ONETIME ONE Stop: 07/04/17 07:06 Last Admin: 07/04/17 06:49 Dose: 20 mg Heparin Sodium (Porcine) (Heparin Sodium) Confirm Administered Dose 5,000 units .ROUTE .STK-MED ONE Stop: 07/04/17 09:31 Last Admin: 07/04/17 10:23 Dose: Not Given Hydromorphone HCl (Dilaudid) Confirm Administered Dose 0.5 mg .ROUTE .STK-MED ONE Stop: 07/04/17 08:11 Last Admin: 07/04/17 08:21 Dose: Not Given Hydromorphone HCl (Dilaudid) 0.5 mg IVPUSH ONETIME ONE Stop: 07/04/17 08:20 Last Admin: 07/04/17 08:22 Dose: 0.5 mg Hydromorphone HCl (Dilaudid) 0.5 mg IVPUSH Q1H PRN PRN Reason: Pain Last Admin: 07/05/17 09:31 Dose: 0.5 mg Hydromorphone HCl (Dilaudid) 1 mg IVPUSH Q1H PRN PRN Reason: Pain Last Admin: 07/05/17 12:42 Dose: 1 mg Piperacillin Sod/Tazobactam (Sod 4.5 gm/ Sodium Chloride) 100 mls @ 200 mls/hr IV Q6H YOAN Last Admin: 07/04/17 06:54 Dose: 200 mls/hr Vancomycin HCl 1,000 mg/ (Dextrose/Water) 250 mls @ 167 mls/hr IV ONETIME ONE Stop: 07/04/17 07:44 Last Admin: 07/04/17 06:30 Dose: 167 mls/hr Sodium Chloride (Normal Saline) 1,000 mls @ 999 mls/hr IV .BOLUS STA Stop: 07/04/17 07:16 Last Admin: 07/04/17 06:30 Dose: 999 mls/hr Acetaminophen (Ofirmev) Confirm Administered Dose 100 mls @ as directed IV .STK- MED ONE Stop: 07/04/17 06:31 Last Admin: 07/04/17 09:15 Dose: Not Given Dextrose/Water (Dextrose 5% In Water) Confirm Administered Dose 250 mls @ as directed .ROUTE .STK-MED ONE Stop: 07/04/17 06:56 Last Admin: 07/04/17 08:21 Dose: Not Given Norepinephrine Bitartrate 4 mg (/ Dextrose/Water) 250 mls @ 7.5 mls/hr IV TITRATE YOAN; 2 MCG/MIN PRN Reason: Protocol Last Titration: 07/04/17 07:21 Dose: 0 mcg/min, 0 mls/hr Levofloxacin/Dextrose 750 mg/ (Premix) 150 mls @ 100 mls/hr IV ONETIME ONE Stop: 07/04/17 08:59 Last Admin: 07/04/17 07:30 Dose: 100 mls/hr Lactated Ringer's (Ringers, Lactated) 1,000 mls @ 125 mls/hr IV ASDIRECTED YOAN Last Admin: 07/05/17 08:46 Dose: 125 mls/hr Piperacillin/Tazobactam/ (Dextrose 3.375 gm/ Premix) 50 mls @ 100 mls/hr IV Q6H YOAN Last Admin: 07/10/17 05:29 Dose: 100 mls/hr Acetaminophen 1,000 mg/ Premix 100 mls @ 400 mls/hr IV NOW ONE Stop: 07/04/17 06:44 Last Admin: 07/04/17 06:40 Dose: 400 mls/hr Lactated Ringer's (Ringers, Lactated) 1,000 mls @ 15 mls/hr IV ASDIRECTED YOAN Last Admin: 07/10/17 05:31 Dose: 15 mls/hr Propofol (Diprivan 100 Ml) 100 mls @ 0 mls/hr IV TITRATE YOAN; 20 MCG/KG/MIN PRN Reason: Protocol Last Admin: 07/09/17 06:06 Dose: 34.39 mcg/kg/min, 26 mls/hr Potassium Chloride 20 meq/Lidocaine HCl 2 ml/ Sodium Chloride 112 mls @ 56 mls/ hr IV Q2H YOAN Stop: 07/06/17 13:59 Last Admin: 07/06/17 12:07 Dose: 56 mls/hr Magnesium Sulfate 2 gm/ Premix 50 mls @ 25 mls/hr IV ONETIME ONE Stop: 07/07/17 10:59 Last Admin: 07/07/17 09:33 Dose: 25 mls/hr Potassium Chloride 20 meq/ (Premix) 100 mls @ 50 mls/hr IV Q2H YOAN Stop: 07/07/17 12:59 Last Admin: 07/07/17 11:36 Dose: 50 mls/hr Potassium Chloride 40 meq/ (Premix) 100 mls @ 25 mls/hr IV ONETIME ONE Stop: 07/07/17 23:59 Last Admin: 07/07/17 20:20 Dose: 25 mls/hr Magnesium Sulfate 2 gm/ Premix 50 mls @ 25 mls/hr IV ONETIME ONE Stop: 07/08/17 13:59 Last Admin: 07/08/17 11:31 Dose: 25 mls/hr Potassium Chloride 20 meq/ (Premix) 100 mls @ 50 mls/hr IV Q2H YOAN Stop: 07/08/17 15:59 Last Admin: 07/08/17 13:29 Dose: 50 mls/hr Sodium Chloride (Normal Saline) 1,000 mls @ 999 mls/hr IV ONETIME ONE Stop: 07/04/17 07:51 Last Admin: 07/04/17 06:51 Dose: 999 mls/hr Potassium Chloride 40 meq/ (Premix) 100 mls @ 25 mls/hr IV ONETIME ONE Stop: 07/09/17 13:59 Last Admin: 07/09/17 09:23 Dose: 25 mls/hr Insulin Detemir (Levemir) 30 unit SUBCUT BEDTIME YOAN Last Admin: 07/06/17 20:59 Dose: 30 units Ketamine HCl (Ketalar) Confirm Administered Dose 500 mg .ROUTE .STK-MED ONE Stop: 07/04/17 06:48 Last Admin: 07/04/17 08:40 Dose: Not Given Ketamine HCl (Ketalar) 60 mg IV NOW STA Stop: 07/04/17 07:04 Last Admin: 07/04/17 07:03 Dose: 60 mg Lidocaine HCl (Xylocaine-Mpf 1%) Confirm Administered Dose 5 ml .ROUTE .STK-MED ONE Stop: 07/04/17 09:34 Last Admin: 07/04/17 10:16 Dose: Not Given Lidocaine HCl (Xylocaine-Mpf 1%) 5 ml INJECT ONETIME ONE Stop: 07/04/17 10:31 Last Admin: 07/04/17 10:16 Dose: 5 ml Methylprednisolone Sodium Succinate (Solu-Medrol) 125 mg IV ONETIME ONE Stop: 07/04/17 06:08 Last Admin: 07/04/17 08:27 Dose: Not Given Methylprednisolone Sodium Succinate (Solu-Medrol) Confirm Administered Dose 125 mg .ROUTE .STK-MED ONE Stop: 07/04/17 06:07 Last Admin: 07/04/17 08:18 Dose: Not Given Methylprednisolone Sodium Succinate (Solu-Medrol) 125 mg IVPUSH Q6H YOAN Last Admin: 07/05/17 05:59 Dose: 125 mg Methylprednisolone Sodium Succinate (Solu-Medrol) 40 mg IVPUSH Q6H YOAN Last Admin: 07/06/17 05:46 Dose: 40 mg Methylprednisolone Sodium Succinate (Solu-Medrol) 40 mg IVPUSH Q12H YOAN Last Admin: 07/08/17 08:41 Dose: 40 mg Methylprednisolone Sodium Succinate (Solu-Medrol) 20 mg IVPUSH Q12H YOAN Last Admin: 07/09/17 08:58 Dose: 20 mg Midazolam HCl (Versed 1 Mg/Ml) Confirm Administered Dose 5 mg .ROUTE .STK-MED ONE Stop: 07/04/17 07:38 Last Admin: 07/04/17 08:22 Dose: Not Given Midazolam HCl (Versed 1 Mg/Ml) 5 mg IVPUSH ONETIME ONE Stop: 07/04/17 07:45 Last Admin: 07/04/17 07:45 Dose: 5 mg Pantoprazole Sodium (Protonix Iv) 40 mg IVPUSH DAILY YOAN Last Admin: 07/10/17 08:32 Dose: 40 mg Piperacillin Sod/Tazobactam Sod (Zosyn) Confirm Administered Dose 4.5 gm .ROUTE .STK-MED ONE Stop: 07/04/17 06:16 Last Admin: 07/04/17 08:16 Dose: Not Given Potassium Chloride (Klor-Con M20) 40 meq PO ONETIME ONE Stop: 07/10/17 09:01 Last Admin: 07/10/17 09:34 Dose: 40 meq Rocuronium Pelican (Zemuron) Confirm Administered Dose 50 mg .ROUTE .STK-MED ONE Stop: 07/04/17 07:13 Last Admin: 07/04/17 08:40 Dose: Not Given Rocuronium Pelican (Zemuron) 20 mg IV ONETIME ONE Stop: 07/04/17 08:37 Last Admin: 07/04/17 07:10 Dose: 20 mg Succinylcholine Chloride (Quelicin) Confirm Administered Dose 200 mg .ROUTE .STK -MED ONE Stop: 07/04/17 06:43 Last Admin: 07/04/17 08:39 Dose: Not Given Succinylcholine Chloride (Quelicin) 180 mg IV NOW STA Stop: 07/04/17 07:05 Last Admin: 07/04/17 07:03 Dose: 180 mg Vancomycin HCl (Vancomycin) Confirm Administered Dose 1 gm .ROUTE .STK-MED ONE Stop: 07/04/17 06:16 Last Admin: 07/04/17 08:22 Dose: Not Given - Exam General: Alert, Oriented, Cooperative, No Acute Distress Lungs: Clear to Auscultation, Normal Respiratory Effort Cardiovascular: Regular Rate, Regular Rhythm, No Murmurs GI/Abdominal Exam: Normal Bowel Sounds, Soft, Non-Tender, No Organomegaly, No Distention Extremities: Non-Tender, No Pedal Edema Skin: Warm, Dry, Intact - Problem List Review Problem List Initiated/Reviewed/Updated: Yes - My Orders Last 24 Hours: My Active Orders 07/10/17 05:00 Chest 1V Frontal [CR] DAILY 07/10/17 09:00 acetaZOLAMIDE [Diamox] 500 mg IVPUSH Q6H 07/10/17 10:00 Potassium Chloride [KCL 40 MEQ in Water 100 ML] 40 meq Premix Bag 1 bag IV ONETIME 07/10/17 10:34 Convert IV to Saline Lock [OM.PC] Routine 07/10/17 10:40 Remove Jung Catheter [Urinary Catheter Removal] [RC] Per Unit Routine Arterial Line Discontinue [OM.PC] Routine 07/10/17 10:45 Tamsulosin [Flomax] 0.4 mg PO PCBREAKFAST 07/10/17 Lunch Consistent Carbohydrate Diet [DIET] 07/11/17 05:00 Chest 1V Frontal [CR] Timed CBC WITH AUTO DIFF [HEME] Timed COMPREHENSIVE METABOLIC PN,CMP [CHEM] Timed 07/11/17 07:30 GLUCOSE POC LAB TO COLLECT [POC] QIDACANDBED 07/11/17 09:00 Pantoprazole [ProTONIX] 40 mg PO DAILY 07/11/17 11:30 GLUCOSE POC LAB TO COLLECT [POC] QIDACANDBED 07/11/17 16:30 GLUCOSE POC LAB TO COLLECT [POC] QIDACANDBED 07/11/17 21:00 GLUCOSE POC LAB TO COLLECT [POC] QIDACANDBED 07/12/17 07:30 GLUCOSE POC LAB TO COLLECT [POC] QIDACANDBED 07/12/17 11:30 GLUCOSE POC LAB TO COLLECT [POC] QIDACANDBED 07/12/17 16:30 GLUCOSE POC LAB TO COLLECT [POC] QIDACANDBED 07/12/17 21:00 GLUCOSE POC LAB TO COLLECT [POC] QIDACANDBED 07/13/17 07:30 GLUCOSE POC LAB TO COLLECT [POC] QIDACANDBED 07/13/17 11:30 GLUCOSE POC LAB TO COLLECT [POC] QIDACANDBED 07/13/17 16:30 GLUCOSE POC LAB TO COLLECT [POC] QIDACANDBED 07/13/17 21:00 GLUCOSE POC LAB TO COLLECT [POC] QIDACANDBED 07/14/17 07:30 GLUCOSE POC LAB TO COLLECT [POC] QIDACANDBED 07/14/17 11:30 GLUCOSE POC LAB TO COLLECT [POC] QIDACANDBED 07/14/17 16:30 GLUCOSE POC LAB TO COLLECT [POC] QIDACANDBED 07/14/17 21:00 GLUCOSE POC LAB TO COLLECT [POC] QIDACANDBED 07/15/17 07:30 GLUCOSE POC LAB TO COLLECT [POC] QIDACANDBED - Plan Plan:: ASSESSMENT AND PLAN ACUTE ON CHRONIC HYPOXIC AND HYPERCAPNIC RESPIRATORY FAILURE-stable since extubation yesterday, no significant respiratory compromise at the present time. Intake was over output during the past 24 hours, will plan to increase Bumex to twice daily -Noninvasive positive pressure ventilation as needed -Repeat chest x-ray in a.m. -Nebulizer therapy with albuterol and duo nebs -Management of pneumonia as below -Bumex 1 mg IV every 12 hours LEFT LUNG PNEUMONIA WITH SEPSIS-likely causing respiratory failure as noted above. He has remained afebrile, no significant growth from cultures -Blood and sputum cultures negative thus far -Continue IV levofloxacin, discontinue Zosyn VANCOMYCIN ANAPHYLAXIS-treated with epinephrine, Solu-Medrol, and Benadryl in the emergency department ACUTE ON CHRONIC KIDNEY renal function is been stable with current diuresis -Closely monitor urine output and renal function TYPE 2 DIABETES MELLITUS -Levemir insulin 40 units subcutaneous at at bedtime -4 times a day glucometers -Moderate dose sliding scale NovoLog MAINTENANCE ISSUES -DVT prophylaxis; Lovenox 40 mg subcutaneous daily -GI prophylaxis; Protonix 40 mg IV daily -Jung catheter; to monitor urine output -Nutrition; clear liquid diet -Nicotine dependence; not required CODE STATUS-FULL CODE ADMISSION STATUS-patient will be admitted to inpatient status, expect at least a 2 night hospital stay for evaluation and management of problems as outlined above. At the time of this admission I do not reasonably expected evaluation and management of this problem will require more than a 96 hour hospital stay. DISPOSITION-anticipate discharge to home after the hospital stay. PRIMARY CARE PROVIDER-
[2017-07-10] MEDS: Tamsulosin 0.4 MG Cap.ER PO SCH (13:50)
[2017-07-10] MEDS: Polyethylene Glycol 3350 Powder 17 GM Packet PO PRN (17:13)
[2017-07-10] MEDS: Docusate Sodium 100 MG Cap PO PRN (17:13)
[2017-07-10] MEDS: Insulin Detemir 100 Units/ML 3 ML Pen SUBCUT SCH (21:35)
[2017-07-11] MEDS: Albuterol/Ipratropium 3.0-0.5 MG/3 ML Neb Soln NEB SCH ×5 (03:29→21:16)
[2017-07-11] MEDS: Arformoterol 15 MCG/2 ML Neb Soln NEB SCH ×2 (07:26→21:21)
[2017-07-11] MEDS: Insulin Aspart 100 Units/ML 3 ML Pen SUBCUT SCH ×4 (07:37→21:59)
[2017-07-11] MEDS: Pantoprazole 40 MG Tab.CR PO SCH (07:41)
--- NOTE | 2017-07-11 09:01 | CR ---
Portable chest Comparison: Previous day. The endotracheal and nasogastric tubes are unchanged. There are shallow lung findings. There is pulmo nary vascular engorgement. There is no interval change of a left pleural effusion. Impression: CHF with pulmonary edema.
--- NOTE | 2017-07-11 09:02 | CR ---
Portable chest Comparison: 2 days prior. Findings: There has been interval removal of the endotracheal tube and nasogastric tube. There contin ues to be vascular engorgement. A small left pleural effusion is unchanged. Impression: 1. Interval removal of endotracheal and nasogastric tubes. 2. CHF.
[2017-07-11] MEDS: Tamsulosin 0.4 MG Cap.ER PO SCH (09:11)
[2017-07-11] MEDS: Levofloxacin/Dextrose 5%-Water 750 MG in Premix Bag 1 BAG IV SCH (09:11)
[2017-07-11] MEDS: Bumetanide 1 MG/4 ML MDV IVPUSH SCH ×2 (09:11→15:40)
[2017-07-11] MEDS: Enoxaparin 40 MG/0.4 ML Syringe SUBCUT SCH (09:11)
--- NOTE | 2017-07-11 09:47 | PCM.PN ---
- General Info Date of Service: 07/11/17 Functional Status: Reports: Pain Controlled, Tolerating Diet - Review of Systems General: Reports: Weakness Pulmonary: Reports: Shortness of Breath, Cough Systems Review Comment:: No acute events overnight. Ongoing requirement for noninvasive ventilation overnight but he is off the NIPPV this morning. Oxygen saturations are holding with 4 L of supplemental oxygen. He has a loose but nonproductive cough. No complaints of chest pain or abdominal pain. He does not feel he is sleeping well and would like to go home today. We reviewed his current situation and with his significant oxygen requirement I don't believe he is anywhere close to being safe at home at this time. He has not been having any fevers. - Patient Data Vitals - Most Recent: Last Vital Signs Temp 36.6 C 07/11/17 08:00 Pulse 95 07/11/17 08:37 Resp 22 H 07/11/17 08:00 BP 118/69 07/11/17 09:11 Pulse Ox 94 L 07/11/17 08:37 Weight - Most Recent: 118 kg I&O - Last 24 Hours: Intake & Output 07/10/17 07/11/17 07/11/17 22:59 06:59 14:59 Intake Total 2480 500 Output Total 300 150 600 Balance 2180 -150 -100 Lab Results Last 24 Hours: Laboratory Results - last 24 hr 07/11/17 07/11/17 Range/Units 05:55 05:55 WBC 16.9 H (4.5-11.0) K/uL RBC 5.47 (4.30-5.90) M/uL Hgb 15.0 (12.0-15.0) g/dL Hct 47.6 (40.0-54.0) % MCV 87 (80-98) fL MCH 27 (27-31) pg MCHC 32 (32-36) % Plt Count 244 (150-400) K/uL Neut % (Auto) 73 H (36-66) % Lymph % (Auto) 13 L (24-44) % Irwin % (Auto) 11 H (2-6) % Eos % (Auto) 3 (2-4) % Baso % (Auto) 0 (0-1) % Sodium 142 (140-148) mmol/L Potassium 5.0 (3.6-5.2) mmol/L Chloride 104 (100-108) mmol/L Carbon Dioxide 32 (21-32) mmol/L Anion Gap 6.2 (5.0-14.0) mmol/L BUN 47 H (7-18) mg/dL Creatinine 1.8 H (0.8-1.3) mg/dL Est Cr Clr Drug Dosing 44.37 mL/min Estimated GFR (MDRD) 38 L (>60) Glucose 266 H (74-106) mg/dL Calcium 9.2 (8.5-10.1) mg/dL Total Bilirubin 0.8 (0.2-1.0) mg/dL AST 114 H (15-37) U/L ALT 66 (12-78) U/L Alkaline Phosphatase 123 H (46-116) U/L Total Protein 7.0 (6.4-8.2) g/dL Albumin 2.5 L (3.4-5.0) g/dL Globulin 4.5 H (2.3-3.5) g/dL Albumin/Globulin Ratio 0.6 L (1.2-2.2) Med Orders - Current: Current Medications Albuterol (Proventil Neb Soln) 2.5 mg NEB Q4H PRN PRN Reason: Shortness Of Breath/wheezing Last Admin: 07/10/17 09:12 Dose: 2.5 mg Arformoterol Tartrate (Brovana) 15 mcg NEB BIDRT [facility] Last Admin: 07/11/17 07:26 Dose: 15 mcg Dextrose (Glutose 15) 15 gm PO ONETIME PRN PRN Reason: Hypoglycemia Dextrose/Water (Dextrose 50% In Water) 50 ml IV ONETIME PRN PRN Reason: Hypoglycemia Docusate Sodium (Colace) 100 mg PO BID PRN PRN Reason: Constipation Last Admin: 07/10/17 17:13 Dose: 100 mg Enoxaparin Sodium (Lovenox) 40 mg SUBCUT DAILY [facility] Last Admin: 07/11/17 09:11 Dose: 40 mg Hydromorphone HCl (Dilaudid) 0.5 mg IVPUSH Q2H PRN PRN Reason: Pain Last Admin: 07/09/17 10:14 Dose: 0.5 mg Levofloxacin/Dextrose 750 mg/ (Premix) 150 mls @ 100 mls/hr IV Q24H [facility] Last Admin: 07/11/17 09:11 Dose: 100 mls/hr Insulin Aspart (Novolog) 0 unit SUBCUT QIDACANDBED [facility] PRN Reason: Protocol Last Admin: 07/11/17 07:37 Dose: 6 units Insulin Detemir (Levemir) 40 unit SUBCUT BEDTIME [facility] Last Admin: 07/10/17 21:35 Dose: 40 units Magnesium Hydroxide (Milk Of Magnesia) 30 ml PO Q12H PRN PRN Reason: Constipation Last Admin: 07/09/17 09:56 Dose: 30 ml Ondansetron HCl (Zofran) 4 mg IV Q4H PRN PRN Reason: Nausea/Vomiting Pantoprazole Sodium (Protonix) 40 mg PO ACBREAKFAST [facility] Last Admin: 07/11/17 07:41 Dose: 40 mg Polyethylene Glycol (Miralax) 17 gm PO DAILY PRN PRN Reason: Constipation Last Admin: 07/10/17 17:13 Dose: 17 gm Sodium Chloride (Saline Flush) 10 ml FLUSH ASDIRECTED PRN PRN Reason: Keep Vein Open Tamsulosin HCl (Flomax) 0.4 mg PO PCBREAKFAST [facility] Last Admin: 07/11/17 09:11 Dose: 0.4 mg Discontinued Medications Acetaminophen (Tylenol Extra Strength) Confirm Administered Dose 1,000 mg .ROUTE .STK-MED ONE Stop: 07/04/17 06:17 Last Admin: 07/04/17 08:32 Dose: Not Given Acetazolamide (Diamox) 250 mg IVPUSH Q6H [facility] Stop: 07/09/17 21:01 Last Admin: 07/09/17 21:12 Dose: 250 mg Acetazolamide (Diamox) 500 mg IVPUSH Q6H [facility] Stop: 07/10/17 21:01 Last Admin: 07/10/17 21:39 Dose: 500 mg Albuterol/Ipratropium (Duoneb 3.0-0.5 Mg/3 Ml) 3 ml NEB Q1H PRN PRN Reason: Shortness of Breath Last Admin: 07/04/17 06:05 Dose: 3 ml Albuterol/Ipratropium (Duoneb 3.0-0.5 Mg/3 Ml) Confirm Administered Dose 3 ml .ROUTE .STK-MED ONE Stop: 07/04/17 06:03 Last Admin: 07/04/17 08:17 Dose: Not Given Albuterol/Ipratropium (Duoneb 3.0-0.5 Mg/3 Ml) 3 ml NEB Q6H [facility] Albuterol/Ipratropium (Duoneb 3.0-0.5 Mg/3 Ml) 3 ml NEB Q6H [facility] Last Admin: 07/04/17 09:56 Dose: 3 ml Albuterol/Ipratropium (Duoneb 3.0-0.5 Mg/3 Ml) 3 ml NEB Q6H [facility] Last Admin: 07/11/17 08:37 Dose: 3 ml Bumetanide (Bumex) 2 mg IVPUSH Q12H [facility] Last Admin: 07/06/17 08:14 Dose: 2 mg Bumetanide (Bumex) 1 mg IVPUSH Q12H [facility] Last Admin: 07/08/17 20:11 Dose: 1 mg Bumetanide (Bumex) 1 mg IVPUSH Q24H [facility] Last Admin: 07/11/17 09:11 Dose: 1 mg Diphenhydramine HCl (Benadryl) 50 mg IVPUSH ONETIME ONE Stop: 07/04/17 07:09 Last Admin: 07/04/17 06:41 Dose: 50 mg Enoxaparin Sodium (Lovenox) 30 mg SUBCUT DAILY [facility] Last Admin: 07/07/17 10:38 Dose: 30 mg Epinephrine HCl (Adrenalin 1:1000) 0.3 mg IM ONETIME ONE Stop: 07/04/17 07:07 Last Admin: 07/04/17 06:38 Dose: 0.3 mg Etomidate (Amidate) 20 mg IVPUSH ONETIME ONE Stop: 07/04/17 07:08 Last Admin: 07/04/17 06:42 Dose: 20 mg Famotidine (Pepcid) Confirm Administered Dose 40 mg .ROUTE .STK-MED ONE Stop: 07/04/17 06:50 Last Admin: 07/04/17 08:25 Dose: Not Given Famotidine (Pepcid) 20 mg IVPUSH ONETIME ONE Stop: 07/04/17 07:06 Last Admin: 07/04/17 06:49 Dose: 20 mg Heparin Sodium (Porcine) (Heparin Sodium) Confirm Administered Dose 5,000 units .ROUTE .STK-MED ONE Stop: 07/04/17 09:31 Last Admin: 07/04/17 10:23 Dose: Not Given Heparin Sodium (Porcine) (Heparin Lock Flush 100 Units/Ml) 500 units IVPUSH ASDIRECTED PRN 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 Last Admin: 07/09/17 13:39 Dose: 500 units Hydromorphone HCl (Dilaudid) Confirm Administered Dose 0.5 mg .ROUTE .STK-MED ONE Stop: 07/04/17 08:11 Last Admin: 07/04/17 08:21 Dose: Not Given Hydromorphone HCl (Dilaudid) 0.5 mg IVPUSH ONETIME ONE Stop: 07/04/17 08:20 Last Admin: 07/04/17 08:22 Dose: 0.5 mg Hydromorphone HCl (Dilaudid) 0.5 mg IVPUSH Q1H PRN PRN Reason: Pain Last Admin: 07/05/17 09:31 Dose: 0.5 mg Hydromorphone HCl (Dilaudid) 1 mg IVPUSH Q1H PRN PRN Reason: Pain Last Admin: 07/05/17 12:42 Dose: 1 mg Piperacillin Sod/Tazobactam (Sod 4.5 gm/ Sodium Chloride) 100 mls @ 200 mls/hr IV Q6H [facility] Last Admin: 07/04/17 06:54 Dose: 200 mls/hr Vancomycin HCl 1,000 mg/ (Dextrose/Water) 250 mls @ 167 mls/hr IV ONETIME ONE Stop: 07/04/17 07:44 Last Admin: 07/04/17 06:30 Dose: 167 mls/hr Sodium Chloride (Normal Saline) 1,000 mls @ 999 mls/hr IV .BOLUS STA Stop: 07/04/17 07:16 Last Admin: 07/04/17 06:30 Dose: 999 mls/hr Acetaminophen (Ofirmev) Confirm Administered Dose 100 mls @ as directed IV .STK- MED ONE Stop: 07/04/17 06:31 Last Admin: 07/04/17 09:15 Dose: Not Given Dextrose/Water (Dextrose 5% In Water) Confirm Administered Dose 250 mls @ as directed .ROUTE .STK-MED ONE Stop: 07/04/17 06:56 Last Admin: 07/04/17 08:21 Dose: Not Given Norepinephrine Bitartrate 4 mg (/ Dextrose/Water) 250 mls @ 7.5 mls/hr IV TITRATE [facility]OAN; 2 MCG/MIN PRN Reason: Protocol Last Titration: 07/04/17 07:21 Dose: 0 mcg/min, 0 mls/hr Levofloxacin/Dextrose 750 mg/ (Premix) 150 mls @ 100 mls/hr IV ONETIME ONE Stop: 07/04/17 08:59 Last Admin: 07/04/17 07:30 Dose: 100 mls/hr Lactated Ringer's (Ringers, Lactated) 1,000 mls @ 125 mls/hr IV ASDIRECTED [facility] Last Admin: 07/05/17 08:46 Dose: 125 mls/hr Piperacillin/Tazobactam/ (Dextrose 3.375 gm/ Premix) 50 mls @ 100 mls/hr IV Q6H [facility] Last Admin: 07/10/17 05:29 Dose: 100 mls/hr Acetaminophen 1,000 mg/ Premix 100 mls @ 400 mls/hr IV NOW ONE Stop: 07/04/17 06:44 Last Admin: 07/04/17 06:40 Dose: 400 mls/hr Heparin Sodium (Porcine) 5,000 (units/ Sodium Chloride) 501 mls @ 0 mls/hr IV ASDIRECTED [facility] PRN Reason: KVO Last Admin: 07/08/17 12:40 Dose: 2 mls/hr Lactated Ringer's (Ringers, Lactated) 1,000 mls @ 15 mls/hr IV ASDIRECTED [facility] Last Admin: 07/10/17 05:31 Dose: 15 mls/hr Propofol (Diprivan 100 Ml) 100 mls @ 0 mls/hr IV TITRATE [facility]OAN; 20 MCG/KG/MIN PRN Reason: Protocol Last Admin: 07/09/17 06:06 Dose: 34.39 mcg/kg/min, 26 mls/hr Potassium Chloride 20 meq/Lidocaine HCl 2 ml/ Sodium Chloride 112 mls @ 56 mls/ hr IV Q2H [facility] Stop: 07/06/17 13:59 Last Admin: 07/06/17 12:07 Dose: 56 mls/hr Magnesium Sulfate 2 gm/ Premix 50 mls @ 25 mls/hr IV ONETIME ONE Stop: 07/07/17 10:59 Last Admin: 07/07/17 09:33 Dose: 25 mls/hr Potassium Chloride 20 meq/ (Premix) 100 mls @ 50 mls/hr IV Q2H [facility] Stop: 07/07/17 12:59 Last Admin: 07/07/17 11:36 Dose: 50 mls/hr Potassium Chloride 40 meq/ (Premix) 100 mls @ 25 mls/hr IV ONETIME ONE Stop: 07/07/17 23:59 Last Admin: 07/07/17 20:20 Dose: 25 mls/hr Magnesium Sulfate 2 gm/ Premix 50 mls @ 25 mls/hr IV ONETIME ONE Stop: 07/08/17 13:59 Last Admin: 07/08/17 11:31 Dose: 25 mls/hr Potassium Chloride 20 meq/ (Premix) 100 mls @ 50 mls/hr IV Q2H [facility] Stop: 07/08/17 15:59 Last Admin: 07/08/17 13:29 Dose: 50 mls/hr Sodium Chloride (Normal Saline) 1,000 mls @ 999 mls/hr IV ONETIME ONE Stop: 07/04/17 07:51 Last Admin: 07/04/17 06:51 Dose: 999 mls/hr Potassium Chloride 40 meq/ (Premix) 100 mls @ 25 mls/hr IV ONETIME ONE Stop: 07/09/17 13:59 Last Admin: 07/09/17 09:23 Dose: 25 mls/hr Potassium Chloride 40 meq/ (Premix) 100 mls @ 25 mls/hr IV ONETIME ONE Stop: 07/10/17 13:59 Last Admin: 07/10/17 11:30 Dose: 25 mls/hr Insulin Detemir (Levemir) 30 unit SUBCUT BEDTIME [facility] Last Admin: 07/06/17 20:59 Dose: 30 units Ketamine HCl (Ketalar) Confirm Administered Dose 500 mg .ROUTE .STK-MED ONE Stop: 07/04/17 06:48 Last Admin: 07/04/17 08:40 Dose: Not Given Ketamine HCl (Ketalar) 60 mg IV NOW STA Stop: 07/04/17 07:04 Last Admin: 07/04/17 07:03 Dose: 60 mg Lidocaine HCl (Xylocaine-Mpf 1%) Confirm Administered Dose 5 ml .ROUTE .STK-MED ONE Stop: 07/04/17 09:34 Last Admin: 07/04/17 10:16 Dose: Not Given Lidocaine HCl (Xylocaine-Mpf 1%) 5 ml INJECT ONETIME ONE Stop: 07/04/17 10:31 Last Admin: 07/04/17 10:16 Dose: 5 ml Methylprednisolone Sodium Succinate (Solu-Medrol) 125 mg IV ONETIME ONE Stop: 07/04/17 06:08 Last Admin: 07/04/17 08:27 Dose: Not Given Methylprednisolone Sodium Succinate (Solu-Medrol) Confirm Administered Dose 125 mg .ROUTE .STK-MED ONE Stop: 07/04/17 06:07 Last Admin: 07/04/17 08:18 Dose: Not Given Methylprednisolone Sodium Succinate (Solu-Medrol) 125 mg IVPUSH Q6H [facility] Last Admin: 07/05/17 05:59 Dose: 125 mg Methylprednisolone Sodium Succinate (Solu-Medrol) 40 mg IVPUSH Q6H [facility] Last Admin: 07/06/17 05:46 Dose: 40 mg Methylprednisolone Sodium Succinate (Solu-Medrol) 40 mg IVPUSH Q12H [facility] Last Admin: 07/08/17 08:41 Dose: 40 mg Methylprednisolone Sodium Succinate (Solu-Medrol) 20 mg IVPUSH Q12H [facility] Last Admin: 07/09/17 08:58 Dose: 20 mg Midazolam HCl (Versed 1 Mg/Ml) Confirm Administered Dose 5 mg .ROUTE .STK-MED ONE Stop: 07/04/17 07:38 Last Admin: 07/04/17 08:22 Dose: Not Given Midazolam HCl (Versed 1 Mg/Ml) 5 mg IVPUSH ONETIME ONE Stop: 07/04/17 07:45 Last Admin: 07/04/17 07:45 Dose: 5 mg Pantoprazole Sodium (Protonix Iv) 40 mg IVPUSH DAILY [facility] Last Admin: 07/10/17 08:32 Dose: 40 mg Piperacillin Sod/Tazobactam Sod (Zosyn) Confirm Administered Dose 4.5 gm .ROUTE .STK-MED ONE Stop: 07/04/17 06:16 Last Admin: 07/04/17 08:16 Dose: Not Given Potassium Chloride (Klor-Con M20) 40 meq PO ONETIME ONE Stop: 07/10/17 09:01 Last Admin: 07/10/17 09:34 Dose: 40 meq Rocuronium [place] (Zemuron) Confirm Administered Dose 50 mg .ROUTE .STK-MED ONE Stop: 07/04/17 07:13 Last Admin: 07/04/17 08:40 Dose: Not Given Rocuronium [place] (Zemuron) 20 mg IV ONETIME ONE Stop: 07/04/17 08:37 Last Admin: 07/04/17 07:10 Dose: 20 mg Succinylcholine Chloride (Quelicin) Confirm Administered Dose 200 mg .ROUTE .STK -MED ONE Stop: 07/04/17 06:43 Last Admin: 07/04/17 08:39 Dose: Not Given Succinylcholine Chloride (Quelicin) 180 mg IV NOW STA Stop: 07/04/17 07:05 Last Admin: 07/04/17 07:03 Dose: 180 mg Vancomycin HCl (Vancomycin) Confirm Administered Dose 1 gm .ROUTE .STK-MED ONE Stop: 07/04/17 06:16 Last Admin: 07/04/17 08:22 Dose: Not Given - Exam Quality Assessment: Supplemental Oxygen General: Alert, Oriented, Cooperative, No Acute Distress Neck: Supple Lungs: Normal Respiratory Effort, Crackles (left lung base and left mid lung). No: Wheezing Cardiovascular: Regular Rate, Regular Rhythm GI/Abdominal Exam: Soft, No Distention Extremities: Pedal Edema (mild bilateral ankle edema). No: Increased Warmth Skin: Warm, Dry Psy/Mental Status: Alert, Anxious - Problem List Review Problem List Initiated/Reviewed/Updated: Yes - My Orders Last 24 Hours: My Active Orders 07/11/17 09:39 PT Evaluation and Treatment [CONS] Routine 07/11/17 09:42 Dextromethorphan/guaiFENesin [Robitussin DM] 10 ml PO Q4H PRN 07/11/17 09:43 Transfer Patient (Change bed) [ADT] Routine 07/11/17 09:45 ARIPiprazole [Abilify] 15 mg PO DAILY Escitalopram [Lexapro] 20 mg PO DAILY Folic Acid 1 mg PO DAILY 07/11/17 10:00 Albuterol/Ipratropium [DuoNeb 3.0-0.5 MG/3 ML] 3 ml NEB QID 07/11/17 15:00 Bumetanide [Bumex] 1 mg IVPUSH BIDDIURETIC 07/11/17 21:00 Melatonin 9 mg PO BEDTIME traZODone [traZODone] 100 mg PO BEDTIME 07/12/17 05:00 BASIC METABOLIC PANEL,BMP [CHEM] Timed CBC W/O DIFF,HEMOGRAM [HEME] Timed (1) 07/12/17 09:00 Aspirin [Halfprin] 81 mg PO DAILY Metoprolol Succinate [Toprol XL] 25 mg PO DAILY - Plan Plan:: ASSESSMENT AND PLAN ACUTE ON CHRONIC HYPOXIC AND HYPERCAPNIC RESPIRATORY FAILURE - stable since extubation but still requiring noninvasive ventilation, at least overnight. Doing well today off of the noninvasive ventilation. Chest x-ray stable with ongoing consolidation of the left lung. Still has a modest oxygen requirement. No fevers. -Noninvasive positive pressure ventilation at night if needed -Supplement oxygen -Nebulizer therapy with albuterol and duo nebs -Management of pneumonia as below -Bumex 1 mg IV bidd LEFT LUNG PNEUMONIA WITH SEPSIS - likely causing respiratory failure as noted above. Sepsis has resolved. Still hypoxic but otherwise stable. -Blood and sputum cultures negative thus far -Continue IV levofloxacin VANCOMYCIN ANAPHYLAXIS - treated with epinephrine, Solu-Medrol, and Benadryl in the emergency department. Resolved with no recurrence ACUTE ON CHRONIC KIDNEY - renal function is been stable with current diuresis. -Closely monitor urine output and renal function TYPE 2 DIABETES MELLITUS - sugars acceptable but mildly elevated. -Levemir insulin 40 units subcutaneous at at bedtime -4 times a day glucometers -Moderate dose sliding scale NovoLog MAINTENANCE ISSUES -DVT prophylaxis; enoxaparin 40 mg subcutaneous daily -GI prophylaxis; PPI -Jung catheter; to monitor urine output -Nutrition; regular DISPOSITION - anticipate discharge to home after the hospital stay. Patient is weak and physical therapy will be initiated today. Florin Bauer M.D.
[2017-07-11] MEDS: guaiFENesin/Dextromethorphan 100-10 MG/5 ML Soln 10 ML Cup PO PRN ×2 (10:14→19:22)
[2017-07-11] MEDS: Folic Acid 1 MG Tab PO SCH (10:15)
[2017-07-11] MEDS: ARIPiprazole 10 MG Tab PO SCH (10:15)
[2017-07-11] MEDS: Escitalopram 20 MG Tab PO SCH (10:15)
[2017-07-11] MEDS: LORazepam 1 MG Tab PO PRN ×2 (16:38→21:09)
[2017-07-11] MEDS: Haloperidol Lactate 5 MG/ML SDV IVPUSH PRN ×2 (17:31→19:45)
[2017-07-11] MEDS: Albuterol 0.083% 2.5 MG/3 ML Neb Soln NEB PRN (19:45)
[2017-07-11] MEDS: traZODone 50 MG Tab PO SCH (21:10)
[2017-07-11] MEDS: Docusate Sodium 100 MG Cap PO PRN (21:10)
[2017-07-11] MEDS: Melatonin 3 MG Tab PO SCH (21:10)
[2017-07-11] MEDS: Insulin Detemir 100 Units/ML 3 ML Pen SUBCUT SCH (21:59)
[2017-07-12] MEDS: Haloperidol Lactate 5 MG/ML SDV IVPUSH PRN ×4 (00:04→20:18)
--- NOTE | 2017-07-12 03:00 | PCM.SN ---
- Free Text/Narrative Note: 07/11/17 at 2151 Call from 2 N. nursing patient's blood glucose is 376 Assessment hyperglycemia Plan give NovoLog 10 units subcut now continue with present on a care but usually but I
[2017-07-12] MEDS ORDERED: Dimethicone 20%/Zinc Oxide 25% 56 GM Spray Bottle TOP PRN (03:40)
[2017-07-12] MEDS: Arformoterol 15 MCG/2 ML Neb Soln NEB SCH ×2 (07:15→20:14)
[2017-07-12] MEDS: Insulin Aspart 100 Units/ML 3 ML Pen SUBCUT SCH ×4 (07:59→21:20)
[2017-07-12] MEDS: Pantoprazole 40 MG Tab.CR PO SCH (08:04)
[2017-07-12] MEDS: ARIPiprazole 10 MG Tab PO SCH (08:06)
[2017-07-12] MEDS: Folic Acid 1 MG Tab PO SCH (08:07)
[2017-07-12] MEDS: Aspirin 81 MG Tab.EC PO SCH (08:07)
[2017-07-12] MEDS: Escitalopram 20 MG Tab PO SCH (08:07)
[2017-07-12] MEDS: Tamsulosin 0.4 MG Cap.ER PO SCH (08:07)
[2017-07-12] MEDS: Enoxaparin 40 MG/0.4 ML Syringe SUBCUT SCH (08:09)
[2017-07-12] MEDS ORDERED: Albuterol/Ipratropium 3.0-0.5 MG/3 ML Neb Soln ONE (09:04)
[2017-07-12] MEDS: Albuterol/Ipratropium 3.0-0.5 MG/3 ML Neb Soln NEB SCH ×4 (09:08→20:18)
[2017-07-12] MEDS: Metoprolol Succinate 25 MG Tab.ER PO SCH (09:42)
[2017-07-12] MEDS: Bumetanide 1 MG/4 ML MDV IVPUSH SCH (09:42)
[2017-07-12] MEDS: Levofloxacin/Dextrose 5%-Water 750 MG in Premix Bag 1 BAG IV SCH (09:42)
--- NOTE | 2017-07-12 10:27 | PCM.PN ---
- General Info Date of Service: 07/12/17 Functional Status: Reports: Pain Controlled, Tolerating Diet - Review of Systems General: Reports: Weakness. Denies: Fever Pulmonary: Reports: Cough Systems Review Comment:: Some difficulty with anxiety and agitation through the day yesterday afternoon. Did a little better at night. Still requiring supplemental oxygen but down to 3 L this morning. Extremely weak and requires the strong assistance of 2 people to get out of bed. No complaints of chest pain or abdominal pain. Still coughing but this seems a little better today. He has not had any fevers. Continue to require noninvasive ventilation at night. - Patient Data Vitals - Most Recent: Last Vital Signs Temp 36.0 C 07/12/17 07:00 Pulse 78 07/12/17 09:42 Resp 12 07/12/17 07:00 BP 112/66 07/12/17 09:42 Pulse Ox 93 L 07/12/17 07:00 Weight - Most Recent: 119.703 kg I&O - Last 24 Hours: Intake & Output 07/11/17 07/12/17 07/12/17 22:59 06:59 14:59 Intake Total 500 Output Total 300 Balance -300 500 Lab Results Last 24 Hours: Laboratory Results - last 24 hr 07/12/17 07/12/17 Range/Units 04:45 04:45 WBC 18.8 H (4.5-11.0) K/uL RBC 5.42 (4.30-5.90) M/uL Hgb 14.6 (12.0-15.0) g/dL Hct 45.8 (40.0-54.0) % MCV 85 (80-98) fL MCH 27 (27-31) pg MCHC 32 (32-36) % Plt Count 267 (150-400) K/uL Sodium 140 (140-148) mmol/L Potassium 3.1 L (3.6-5.2) mmol/L Chloride 102 (100-108) mmol/L Carbon Dioxide 32 (21-32) mmol/L Anion Gap 9.1 (5.0-14.0) mmol/L BUN 50 H (7-18) mg/dL Creatinine 1.8 H (0.8-1.3) mg/dL Est Cr Clr Drug Dosing 44.37 mL/min Estimated GFR (MDRD) 38 L (>60) Glucose 196 H (74-106) mg/dL Calcium 9.7 (8.5-10.1) mg/dL Med Orders - Current: Current Medications Albuterol (Proventil Neb Soln) 2.5 mg NEB Q4H PRN PRN Reason: Shortness Of Breath/wheezing Last Admin: 07/11/17 19:45 Dose: 2.5 mg Albuterol/Ipratropium (Duoneb 3.0-0.5 Mg/3 Ml) 3 ml NEB QIDRT [facility] Last Admin: 07/12/17 09:08 Dose: Not Given Arformoterol Tartrate (Brovana) 15 mcg NEB BIDRT [facility] Last Admin: 07/12/17 07:15 Dose: 15 mcg Aripiprazole (Abilify) 15 mg PO DAILY [facility] Last Admin: 07/12/17 08:06 Dose: 15 mg Aspirin (Halfprin) 81 mg PO DAILY [facility] Last Admin: 07/12/17 08:07 Dose: 81 mg Bumetanide (Bumex) 1 mg IVPUSH BIDDIURETIC [facility] Last Admin: 07/12/17 09:42 Dose: 1 mg Dextrose (Glutose 15) 15 gm PO ONETIME PRN PRN Reason: Hypoglycemia Dextrose/Water (Dextrose 50% In Water) 50 ml IV ONETIME PRN PRN Reason: Hypoglycemia Dimethicone/Zinc Oxide (Rash Relief-Zinc Oxide Presho) 1 gm TOP ASDIRECTED PRN PRN Reason: Rash Docusate Sodium (Colace) 100 mg PO BID PRN PRN Reason: Constipation Last Admin: 07/11/17 21:10 Dose: 100 mg Enoxaparin Sodium (Lovenox) 40 mg SUBCUT DAILY [facility] Last Admin: 07/12/17 08:09 Dose: 40 mg Escitalopram Oxalate (Lexapro) 20 mg PO DAILY [facility] Last Admin: 07/12/17 08:07 Dose: 20 mg Folic Acid (Folic Acid) 1 mg PO DAILY [facility] Last Admin: 07/12/17 08:07 Dose: 1 mg Guaifenesin/Dextromethorphan (Robitussin Dm) 10 ml PO Q4H PRN PRN Reason: Cough Last Admin: 07/11/17 19:22 Dose: 10 ml Haloperidol Lactate (Haldol) 2 mg IVPUSH Q2H PRN PRN Reason: Agitation Last Admin: 07/12/17 05:33 Dose: 2 mg Hydromorphone HCl (Dilaudid) 0.5 mg IVPUSH Q2H PRN PRN Reason: Pain Last Admin: 07/09/17 10:14 Dose: 0.5 mg Levofloxacin/Dextrose 750 mg/ (Premix) 150 mls @ 100 mls/hr IV Q24H [facility] Last Admin: 07/12/17 09:42 Dose: 100 mls/hr Insulin Aspart (Novolog) 0 unit SUBCUT QIDACANDBED [facility] PRN Reason: Protocol Last Admin: 07/12/17 07:59 Dose: 4 units Insulin Detemir (Levemir) 40 unit SUBCUT BEDTIME [facility] Last Admin: 07/11/17 21:59 Dose: 40 units Lorazepam (Ativan) 1 mg PO Q4H PRN PRN Reason: Anxiety Last Admin: 07/11/17 21:09 Dose: 1 mg Magnesium Hydroxide (Milk Of Magnesia) 30 ml PO Q12H PRN PRN Reason: Constipation Last Admin: 07/09/17 09:56 Dose: 30 ml Melatonin (Melatonin) 9 mg PO BEDTIME [facility] Last Admin: 07/11/17 21:10 Dose: 9 mg Metoprolol Succinate (Toprol Xl) 25 mg PO DAILY [facility] Last Admin: 07/12/17 09:42 Dose: 25 mg Ondansetron HCl (Zofran) 4 mg IV Q4H PRN PRN Reason: Nausea/Vomiting Pantoprazole Sodium (Protonix) 40 mg PO ACBREAKFAST [facility] Last Admin: 07/12/17 08:04 Dose: 40 mg Polyethylene Glycol (Miralax) 17 gm PO DAILY PRN PRN Reason: Constipation Last Admin: 07/10/17 17:13 Dose: 17 gm Sodium Chloride (Saline Flush) 10 ml FLUSH ASDIRECTED PRN PRN Reason: Keep Vein Open Tamsulosin HCl (Flomax) 0.4 mg PO PCBREAKFAST [facility] Last Admin: 07/12/17 08:07 Dose: 0.4 mg Trazodone HCl (Trazodone) 100 mg PO BEDTIME [facility] Last Admin: 07/11/17 21:10 Dose: 100 mg Discontinued Medications Acetaminophen (Tylenol Extra Strength) Confirm Administered Dose 1,000 mg .ROUTE .STK-MED ONE Stop: 07/04/17 06:17 Last Admin: 07/04/17 08:32 Dose: Not Given Acetazolamide (Diamox) 250 mg IVPUSH Q6H [facility] Stop: 07/09/17 21:01 Last Admin: 07/09/17 21:12 Dose: 250 mg Acetazolamide (Diamox) 500 mg IVPUSH Q6H [facility] Stop: 07/10/17 21:01 Last Admin: 07/10/17 21:39 Dose: 500 mg Albuterol/Ipratropium (Duoneb 3.0-0.5 Mg/3 Ml) 3 ml NEB Q1H PRN PRN Reason: Shortness of Breath Last Admin: 07/04/17 06:05 Dose: 3 ml Albuterol/Ipratropium (Duoneb 3.0-0.5 Mg/3 Ml) Confirm Administered Dose 3 ml .ROUTE .STK-MED ONE Stop: 07/04/17 06:03 Last Admin: 07/04/17 08:17 Dose: Not Given Albuterol/Ipratropium (Duoneb 3.0-0.5 Mg/3 Ml) 3 ml NEB Q6H [facility] Albuterol/Ipratropium (Duoneb 3.0-0.5 Mg/3 Ml) 3 ml NEB Q6H [facility] Last Admin: 07/04/17 09:56 Dose: 3 ml Albuterol/Ipratropium (Duoneb 3.0-0.5 Mg/3 Ml) 3 ml NEB Q6H [facility] Last Admin: 07/11/17 08:37 Dose: 3 ml Albuterol/Ipratropium (Duoneb 3.0-0.5 Mg/3 Ml) Confirm Administered Dose 3 ml .ROUTE .STK-MED ONE Stop: 07/12/17 09:05 Bumetanide (Bumex) 2 mg IVPUSH Q12H [facility] Last Admin: 07/06/17 08:14 Dose: 2 mg Bumetanide (Bumex) 1 mg IVPUSH Q12H [facility] Last Admin: 07/08/17 20:11 Dose: 1 mg Bumetanide (Bumex) 1 mg IVPUSH Q24H [facility] Last Admin: 07/11/17 09:11 Dose: 1 mg Diphenhydramine HCl (Benadryl) 50 mg IVPUSH ONETIME ONE Stop: 07/04/17 07:09 Last Admin: 07/04/17 06:41 Dose: 50 mg Enoxaparin Sodium (Lovenox) 30 mg SUBCUT DAILY [facility] Last Admin: 07/07/17 10:38 Dose: 30 mg Epinephrine HCl (Adrenalin 1:1000) 0.3 mg IM ONETIME ONE Stop: 07/04/17 07:07 Last Admin: 07/04/17 06:38 Dose: 0.3 mg Etomidate (Amidate) 20 mg IVPUSH ONETIME ONE Stop: 07/04/17 07:08 Last Admin: 07/04/17 06:42 Dose: 20 mg Famotidine (Pepcid) Confirm Administered Dose 40 mg .ROUTE .STK-MED ONE Stop: 07/04/17 06:50 Last Admin: 07/04/17 08:25 Dose: Not Given Famotidine (Pepcid) 20 mg IVPUSH ONETIME ONE Stop: 07/04/17 07:06 Last Admin: 07/04/17 06:49 Dose: 20 mg Heparin Sodium (Porcine) (Heparin Sodium) Confirm Administered Dose 5,000 units .ROUTE .STK-MED ONE Stop: 07/04/17 09:31 Last Admin: 07/04/17 10:23 Dose: Not Given Heparin Sodium (Porcine) (Heparin Lock Flush 100 Units/Ml) 500 units IVPUSH ASDIRECTED PRN 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 Last Admin: 07/09/17 13:39 Dose: 500 units Hydromorphone HCl (Dilaudid) Confirm Administered Dose 0.5 mg .ROUTE .STK-MED ONE Stop: 07/04/17 08:11 Last Admin: 07/04/17 08:21 Dose: Not Given Hydromorphone HCl (Dilaudid) 0.5 mg IVPUSH ONETIME ONE Stop: 07/04/17 08:20 Last Admin: 07/04/17 08:22 Dose: 0.5 mg Hydromorphone HCl (Dilaudid) 0.5 mg IVPUSH Q1H PRN PRN Reason: Pain Last Admin: 07/05/17 09:31 Dose: 0.5 mg Hydromorphone HCl (Dilaudid) 1 mg IVPUSH Q1H PRN PRN Reason: Pain Last Admin: 07/05/17 12:42 Dose: 1 mg Piperacillin Sod/Tazobactam (Sod 4.5 gm/ Sodium Chloride) 100 mls @ 200 mls/hr IV Q6H [facility] Last Admin: 07/04/17 06:54 Dose: 200 mls/hr Vancomycin HCl 1,000 mg/ (Dextrose/Water) 250 mls @ 167 mls/hr IV ONETIME ONE Stop: 07/04/17 07:44 Last Admin: 07/04/17 06:30 Dose: 167 mls/hr Sodium Chloride (Normal Saline) 1,000 mls @ 999 mls/hr IV .BOLUS STA Stop: 07/04/17 07:16 Last Admin: 07/04/17 06:30 Dose: 999 mls/hr Acetaminophen (Ofirmev) Confirm Administered Dose 100 mls @ as directed IV .STK- MED ONE Stop: 07/04/17 06:31 Last Admin: 07/04/17 09:15 Dose: Not Given Dextrose/Water (Dextrose 5% In Water) Confirm Administered Dose 250 mls @ as directed .ROUTE .STK-MED ONE Stop: 07/04/17 06:56 Last Admin: 07/04/17 08:21 Dose: Not Given Norepinephrine Bitartrate 4 mg (/ Dextrose/Water) 250 mls @ 7.5 mls/hr IV TITRATE [facility]; 2 MCG/MIN PRN Reason: Protocol Last Titration: 07/04/17 07:21 Dose: 0 mcg/min, 0 mls/hr Levofloxacin/Dextrose 750 mg/ (Premix) 150 mls @ 100 mls/hr IV ONETIME ONE Stop: 07/04/17 08:59 Last Admin: 07/04/17 07:30 Dose: 100 mls/hr Lactated Ringer's (Ringers, Lactated) 1,000 mls @ 125 mls/hr IV ASDIRECTED [facility] Last Admin: 07/05/17 08:46 Dose: 125 mls/hr Piperacillin/Tazobactam/ (Dextrose 3.375 gm/ Premix) 50 mls @ 100 mls/hr IV Q6H [facility] Last Admin: 07/10/17 05:29 Dose: 100 mls/hr Acetaminophen 1,000 mg/ Premix 100 mls @ 400 mls/hr IV NOW ONE Stop: 07/04/17 06:44 Last Admin: 07/04/17 06:40 Dose: 400 mls/hr Heparin Sodium (Porcine) 5,000 (units/ Sodium Chloride) 501 mls @ 0 mls/hr IV ASDIRECTED [facility] PRN Reason: KVO Last Admin: 07/08/17 12:40 Dose: 2 mls/hr Lactated Ringer's (Ringers, Lactated) 1,000 mls @ 15 mls/hr IV ASDIRECTED [facility] Last Admin: 07/10/17 05:31 Dose: 15 mls/hr Propofol (Diprivan 100 Ml) 100 mls @ 0 mls/hr IV TITRATE [facility]; 20 MCG/KG/MIN PRN Reason: Protocol Last Admin: 07/09/17 06:06 Dose: 34.39 mcg/kg/min, 26 mls/hr Potassium Chloride 20 meq/Lidocaine HCl 2 ml/ Sodium Chloride 112 mls @ 56 mls/ hr IV Q2H [facility] Stop: 07/06/17 13:59 Last Admin: 07/06/17 12:07 Dose: 56 mls/hr Magnesium Sulfate 2 gm/ Premix 50 mls @ 25 mls/hr IV ONETIME ONE Stop: 07/07/17 10:59 Last Admin: 07/07/17 09:33 Dose: 25 mls/hr Potassium Chloride 20 meq/ (Premix) 100 mls @ 50 mls/hr IV Q2H [facility] Stop: 07/07/17 12:59 Last Admin: 07/07/17 11:36 Dose: 50 mls/hr Potassium Chloride 40 meq/ (Premix) 100 mls @ 25 mls/hr IV ONETIME ONE Stop: 07/07/17 23:59 Last Admin: 07/07/17 20:20 Dose: 25 mls/hr Magnesium Sulfate 2 gm/ Premix 50 mls @ 25 mls/hr IV ONETIME ONE Stop: 07/08/17 13:59 Last Admin: 07/08/17 11:31 Dose: 25 mls/hr Potassium Chloride 20 meq/ (Premix) 100 mls @ 50 mls/hr IV Q2H [facility] Stop: 07/08/17 15:59 Last Admin: 07/08/17 13:29 Dose: 50 mls/hr Sodium Chloride (Normal Saline) 1,000 mls @ 999 mls/hr IV ONETIME ONE Stop: 07/04/17 07:51 Last Admin: 07/04/17 06:51 Dose: 999 mls/hr Potassium Chloride 40 meq/ (Premix) 100 mls @ 25 mls/hr IV ONETIME ONE Stop: 07/09/17 13:59 Last Admin: 07/09/17 09:23 Dose: 25 mls/hr Potassium Chloride 40 meq/ (Premix) 100 mls @ 25 mls/hr IV ONETIME ONE Stop: 07/10/17 13:59 Last Admin: 07/10/17 11:30 Dose: 25 mls/hr Insulin Detemir (Levemir) 30 unit SUBCUT BEDTIME [facility] Last Admin: 07/06/17 20:59 Dose: 30 units Ketamine HCl (Ketalar) Confirm Administered Dose 500 mg .ROUTE .STK-MED ONE Stop: 07/04/17 06:48 Last Admin: 07/04/17 08:40 Dose: Not Given Ketamine HCl (Ketalar) 60 mg IV NOW STA Stop: 07/04/17 07:04 Last Admin: 07/04/17 07:03 Dose: 60 mg Lidocaine HCl (Xylocaine-Mpf 1%) Confirm Administered Dose 5 ml .ROUTE .STK-MED ONE Stop: 07/04/17 09:34 Last Admin: 07/04/17 10:16 Dose: Not Given Lidocaine HCl (Xylocaine-Mpf 1%) 5 ml INJECT ONETIME ONE Stop: 07/04/17 10:31 Last Admin: 07/04/17 10:16 Dose: 5 ml Methylprednisolone Sodium Succinate (Solu-Medrol) 125 mg IV ONETIME ONE Stop: 07/04/17 06:08 Last Admin: 07/04/17 08:27 Dose: Not Given Methylprednisolone Sodium Succinate (Solu-Medrol) Confirm Administered Dose 125 mg .ROUTE .STK-MED ONE Stop: 07/04/17 06:07 Last Admin: 07/04/17 08:18 Dose: Not Given Methylprednisolone Sodium Succinate (Solu-Medrol) 125 mg IVPUSH Q6H [facility] Last Admin: 07/05/17 05:59 Dose: 125 mg Methylprednisolone Sodium Succinate (Solu-Medrol) 40 mg IVPUSH Q6H [facility] Last Admin: 07/06/17 05:46 Dose: 40 mg Methylprednisolone Sodium Succinate (Solu-Medrol) 40 mg IVPUSH Q12H [facility] Last Admin: 07/08/17 08:41 Dose: 40 mg Methylprednisolone Sodium Succinate (Solu-Medrol) 20 mg IVPUSH Q12H [facility] Last Admin: 07/09/17 08:58 Dose: 20 mg Midazolam HCl (Versed 1 Mg/Ml) Confirm Administered Dose 5 mg .ROUTE .STK-MED ONE Stop: 07/04/17 07:38 Last Admin: 07/04/17 08:22 Dose: Not Given Midazolam HCl (Versed 1 Mg/Ml) 5 mg IVPUSH ONETIME ONE Stop: 07/04/17 07:45 Last Admin: 07/04/17 07:45 Dose: 5 mg Pantoprazole Sodium (Protonix Iv) 40 mg IVPUSH DAILY [facility] Last Admin: 07/10/17 08:32 Dose: 40 mg Piperacillin Sod/Tazobactam Sod (Zosyn) Confirm Administered Dose 4.5 gm .ROUTE .STK-MED ONE Stop: 07/04/17 06:16 Last Admin: 07/04/17 08:16 Dose: Not Given Potassium Chloride (Klor-Con M20) 40 meq PO ONETIME ONE Stop: 07/10/17 09:01 Last Admin: 07/10/17 09:34 Dose: 40 meq Rocuronium [place] (Zemuron) Confirm Administered Dose 50 mg .ROUTE .STK-MED ONE Stop: 07/04/17 07:13 Last Admin: 07/04/17 08:40 Dose: Not Given Rocuronium [place] (Zemuron) 20 mg IV ONETIME ONE Stop: 07/04/17 08:37 Last Admin: 07/04/17 07:10 Dose: 20 mg Succinylcholine Chloride (Quelicin) Confirm Administered Dose 200 mg .ROUTE .STK -MED ONE Stop: 07/04/17 06:43 Last Admin: 07/04/17 08:39 Dose: Not Given Succinylcholine Chloride (Quelicin) 180 mg IV NOW STA Stop: 07/04/17 07:05 Last Admin: 07/04/17 07:03 Dose: 180 mg Vancomycin HCl (Vancomycin) Confirm Administered Dose 1 gm .ROUTE .STK-MED ONE Stop: 07/04/17 06:16 Last Admin: 07/04/17 08:22 Dose: Not Given - Exam Quality Assessment: Supplemental Oxygen General: Alert, Cooperative, No Acute Distress Neck: Supple Lungs: Normal Respiratory Effort, Decreased Breath Sounds (left lung base), Crackles (left lung base) Cardiovascular: Regular Rate, Regular Rhythm GI/Abdominal Exam: Normal Bowel Sounds, Soft, No Distention Extremities: No Pedal Edema. No: Increased Warmth Skin: Warm, Dry Psy/Mental Status: Alert, Anxious - Problem List Review Problem List Initiated/Reviewed/Updated: Yes - My Orders Last 24 Hours: My Active Orders 07/11/17 09:39 PT Evaluation and Treatment [CONS] Routine 07/11/17 09:42 Dextromethorphan/guaiFENesin [Robitussin DM] 10 ml PO Q4H PRN 07/11/17 09:43 Transfer Patient (Change bed) [ADT] Routine 07/11/17 09:45 ARIPiprazole [Abilify] 15 mg PO DAILY Escitalopram [Lexapro] 20 mg PO DAILY Folic Acid 1 mg PO DAILY 07/11/17 11:00 Albuterol/Ipratropium [DuoNeb 3.0-0.5 MG/3 ML] 3 ml NEB QIDRT 07/11/17 15:00 Bumetanide [Bumex] 1 mg IVPUSH BIDDIURETIC 07/11/17 15:29 Pulse Oximetry Continuous Monitoring [OM.PC] Routine 07/11/17 16:28 LORazepam [Ativan] 1 mg PO Q4H PRN 07/11/17 17:20 Haloperidol Lactate [Haldol] 2 mg IVPUSH Q2H PRN 07/11/17 21:00 Melatonin 9 mg PO BEDTIME traZODone 100 mg PO BEDTIME 07/12/17 03:40 Dimethicone/Zinc Oxide [Rash Relief-Zinc Oxide Presho] 1 gm TOP ASDIRECTED PRN 07/12/17 09:00 Aspirin [Halfprin] 81 mg PO DAILY Metoprolol Succinate [Toprol XL] 25 mg PO DAILY 07/12/17 10:30 Potassium Chloride [Klor-Con M20] 40 meq PO BEDTIME 07/13/17 05:00 BASIC METABOLIC PANEL,BMP [CHEM] Timed CBC W/O DIFF,HEMOGRAM [HEME] Timed (1) MAGNESIUM [CHEM] Timed 07/13/17 09:00 Bumetanide [Bumex] 1 mg IVPUSH DAILY Levofloxacin [Levaquin] 250 mg PO Q24H Levofloxacin [Levaquin] 500 mg PO Q24H - Plan Plan:: ASSESSMENT AND PLAN ACUTE ON CHRONIC HYPOXIC AND HYPERCAPNIC RESPIRATORY FAILURE - stable since extubation but still requiring noninvasive ventilation at night. Doing well today off the noninvasive ventilation again today. Supplemental oxygen requirement decreasing slightly. -Noninvasive positive pressure ventilation at night if needed -Supplement oxygen -Nebulizer therapy with albuterol and duo nebs -Management of pneumonia as below -Bumex 1 mg PO BIDD LEFT LUNG PNEUMONIA WITH SEPSIS - likely causing respiratory failure as noted above. Sepsis has resolved. Still hypoxic but otherwise stable. White count has been rising but he has not had any fevers. -Blood and sputum cultures negative thus far -Continue levofloxacin but change to by mouth VANCOMYCIN ANAPHYLAXIS - treated with epinephrine, Solu-Medrol, and Benadryl in the emergency department. Resolved with no recurrence ACUTE ON CHRONIC KIDNEY - renal function is been stable with current diuresis. -Closely monitor urine output and renal function TYPE 2 DIABETES MELLITUS - sugars have remained acceptable but mildly elevated. -Levemir insulin 40 units subcutaneous at at bedtime -4 times a day glucometers -Moderate dose sliding scale Nov[employer]Log MAINTENANCE ISSUES -DVT prophylaxis; enoxaparin 40 mg subcutaneous daily -GI prophylaxis; PPI -Jung catheter; to monitor urine output -Nutrition; regular DISPOSITION - anticipate discharge to alf home after the hospital stay with impressive weakness. Patient is weak and physical therapy was initiated . Florin Bauer M.D.
[2017-07-12] MEDS: Potassium Chloride 20 MEQ Tab.ER PO SCH ×2 (10:44→20:15)
[2017-07-12] MEDS: Sodium Chloride 0.9% 10 ML Syringe FLUSH PRN (14:00)
[2017-07-12] MEDS: Bumetanide 1 MG Tab PO SCH (15:22)
[2017-07-12] MEDS: Melatonin 3 MG Tab PO SCH (20:14)
[2017-07-12] MEDS: traZODone 50 MG Tab PO SCH (20:14)
[2017-07-12] MEDS: Docusate Sodium 100 MG Cap PO PRN (20:18)
[2017-07-12] MEDS: Insulin Detemir 100 Units/ML 3 ML Pen SUBCUT SCH (21:21)
[2017-07-13] MEDS: LORazepam 1 MG Tab PO PRN ×2 (00:16→17:52)
[2017-07-13] MEDS: Haloperidol Lactate 5 MG/ML SDV IVPUSH PRN ×3 (01:24→19:29)
[2017-07-13] MEDS: Magnesium Hydroxide 400 MG/5 ML Susp 30 ML Cup PO PRN (04:09)
[2017-07-13] MEDS: guaiFENesin/Dextromethorphan 100-10 MG/5 ML Soln 10 ML Cup PO PRN (04:09)
[2017-07-13] MEDS: Polyethylene Glycol 3350 Powder 17 GM Packet PO PRN (04:09)
[2017-07-13] MEDS: Arformoterol 15 MCG/2 ML Neb Soln NEB SCH ×2 (07:16→21:14)
[2017-07-13] MEDS: Albuterol/Ipratropium 3.0-0.5 MG/3 ML Neb Soln NEB SCH ×4 (07:16→21:36)
[2017-07-13] MEDS: Insulin Aspart 100 Units/ML 3 ML Pen SUBCUT SCH ×4 (08:02→21:13)
[2017-07-13] MEDS: Bumetanide 1 MG Tab PO SCH (08:07)
[2017-07-13] MEDS: Pantoprazole 40 MG Tab.CR PO SCH (08:08)
[2017-07-13] MEDS ORDERED: Bumetanide 1 MG/4 ML MDV IVPUSH SCH (09:00)
[2017-07-13] MEDS ORDERED: Levofloxacin 500 MG Tab PO SCH (09:00)
[2017-07-13] MEDS ORDERED: Levofloxacin 250 MG Tab PO SCH (09:00)
[2017-07-13] MEDS: ARIPiprazole 10 MG Tab PO SCH (09:14)
[2017-07-13] MEDS: Metoprolol Succinate 25 MG Tab.ER PO SCH (09:15)
[2017-07-13] MEDS: Folic Acid 1 MG Tab PO SCH (09:15)
[2017-07-13] MEDS: Escitalopram 20 MG Tab PO SCH (09:18)
[2017-07-13] MEDS: Tamsulosin 0.4 MG Cap.ER PO SCH (09:19)
[2017-07-13] MEDS: Aspirin 81 MG Tab.EC PO SCH (09:20)
[2017-07-13] MEDS: Enoxaparin 40 MG/0.4 ML Syringe SUBCUT SCH (09:20)
[2017-07-13] MEDS: Sodium Chloride 0.9% 10 ML Syringe FLUSH PRN (09:24)
[2017-07-13] MEDS: Doxycycline 100 MG Cap PO SCH ×2 (09:33→21:15)
[2017-07-13] MEDS: Meropenem 1 GM in Sodium Chloride 0.9% 100 ML IV SCH ×2 (10:59→17:16)
[2017-07-13] MEDS: Potassium Chloride 20 MEQ Tab.ER PO SCH (14:33)
--- NOTE | 2017-07-13 14:38 | PCM.PN ---
- General Info Date of Service: 07/13/17 Functional Status: Reports: Pain Controlled - Review of Systems General: Reports: Weakness. Denies: Fever Pulmonary: Reports: Cough Neurological: Reports: Confusion Systems Review Comment:: No acute events overnight other than some agitation. He continues to insist that he wants to go home but hethat he is far too weak to do so. He is oriented mostly to person at this time. He has not had any fevers but white count remains elevated though it is stable compared to yesterday. He continues to need 3+ liters of supplemental oxygen. Still has a loose but nonproductive cough. He is very weak and requires significant assistance to get into and out of bed. - Patient Data Vitals - Most Recent: Last Vital Signs Temp 37.2 C 07/13/17 11:00 Pulse 110 H 07/13/17 11:00 Resp 20 07/13/17 11:00 BP 122/71 07/13/17 11:00 Pulse Ox 90 L 07/13/17 11:00 Weight - Most Recent: 120.565 kg I&O - Last 24 Hours: Intake & Output 07/12/17 07/13/17 07/13/17 22:59 06:59 14:59 Intake Total 840 600 Output Total 111 246 3106 Balance -750 615 -2100 Lab Results Last 24 Hours: Laboratory Results - last 24 hr 07/13/17 07/13/17 Range/Units 04:30 04:30 WBC 18.7 H (4.5-11.0) K/uL RBC 5.60 (4.30-5.90) M/uL Hgb 15.4 H (12.0-15.0) g/dL Hct 46.0 (40.0-54.0) % MCV 82 (80-98) fL MCH 28 (27-31) pg MCHC 34 (32-36) % Plt Count 231 (150-400) K/uL Sodium 139 L (140-148) mmol/L Potassium 3.6 (3.6-5.2) mmol/L Chloride 103 (100-108) mmol/L Carbon Dioxide 30 (21-32) mmol/L Anion Gap 9.6 (5.0-14.0) mmol/L BUN 50 H (7-18) mg/dL Creatinine 1.9 H (0.8-1.3) mg/dL Est Cr Clr Drug Dosing 42.04 mL/min Estimated GFR (MDRD) 36 L (>60) Glucose 97 (74-106) mg/dL Calcium 10.4 H (8.5-10.1) mg/dL Magnesium 2.4 (1.8-2.4) mg/dL Med Orders - Current: Current Medications Albuterol (Proventil Neb Soln) 2.5 mg NEB Q4H PRN PRN Reason: Shortness Of Breath/wheezing Last Admin: 07/11/17 19:45 Dose: 2.5 mg Albuterol/Ipratropium (Duoneb 3.0-0.5 Mg/3 Ml) 3 ml NEB QIDRT [facility] Last Admin: 07/13/17 10:52 Dose: 3 ml Arformoterol Tartrate (Brovana) 15 mcg NEB BIDRT [facility] Last Admin: 07/13/17 07:16 Dose: 15 mcg Aripiprazole (Abilify) 15 mg PO DAILY [facility] Last Admin: 07/13/17 09:14 Dose: 15 mg Aspirin (Halfprin) 81 mg PO DAILY [facility] Last Admin: 07/13/17 09:20 Dose: 81 mg Bumetanide (Bumex) 1 mg PO DAILY [facility] Dextrose (Glutose 15) 15 gm PO ONETIME PRN PRN Reason: Hypoglycemia Dextrose/Water (Dextrose 50% In Water) 50 ml IV ONETIME PRN PRN Reason: Hypoglycemia Dimethicone/Zinc Oxide (Rash Relief-Zinc Oxide [place]) 1 gm TOP ASDIRECTED PRN PRN Reason: Rash Last Admin: 07/13/17 04:11 Dose: 1 applic Docusate Sodium (Colace) 100 mg PO BID PRN PRN Reason: Constipation Last Admin: 07/12/17 20:18 Dose: 100 mg Doxycycline Hyclate (Vibramycin) 100 mg PO BID [facility] Last Admin: 07/13/17 09:33 Dose: 100 mg Enoxaparin Sodium (Lovenox) 40 mg SUBCUT DAILY [facility] Last Admin: 07/13/17 09:20 Dose: 40 mg Escitalopram Oxalate (Lexapro) 20 mg PO DAILY [facility] Last Admin: 07/13/17 09:18 Dose: 20 mg Folic Acid (Folic Acid) 1 mg PO DAILY [facility] Last Admin: 07/13/17 09:15 Dose: 1 mg Guaifenesin/Dextromethorphan (Robitussin Dm) 10 ml PO Q4H PRN PRN Reason: Cough Last Admin: 07/13/17 04:09 Dose: 10 ml Haloperidol Lactate (Haldol) 2 mg IVPUSH Q2H PRN PRN Reason: Agitation Last Admin: 07/13/17 04:09 Dose: 2 mg Hydromorphone HCl (Dilaudid) 0.5 mg IVPUSH Q2H PRN PRN Reason: Pain Last Admin: 07/09/17 10:14 Dose: 0.5 mg Meropenem 1 gm/ Sodium (Chloride) 100 mls @ 200 mls/hr IV Q8H [facility] Last Admin: 07/13/17 10:59 Dose: 200 mls/hr Insulin Aspart (Novolog) 0 unit SUBCUT QIDACANDBED [facility] PRN Reason: Protocol Last Admin: 07/13/17 14:36 Dose: Not Given Insulin Detemir (Levemir) 40 unit SUBCUT BEDTIME [facility] Last Admin: 07/12/17 21:21 Dose: 40 units Lorazepam (Ativan) 1 mg PO Q4H PRN PRN Reason: Anxiety Last Admin: 07/13/17 00:16 Dose: 1 mg Magnesium Hydroxide (Milk Of Magnesia) 30 ml PO Q12H PRN PRN Reason: Constipation Last Admin: 07/13/17 04:09 Dose: 30 ml Melatonin (Melatonin) 9 mg PO BEDTIME [facility] Last Admin: 07/12/17 20:14 Dose: 9 mg Metoprolol Succinate (Toprol Xl) 25 mg PO DAILY [facility] Last Admin: 07/13/17 09:15 Dose: 25 mg Ondansetron HCl (Zofran) 4 mg IV Q4H PRN PRN Reason: Nausea/Vomiting Pantoprazole Sodium (Protonix) 40 mg PO ACBREAKFAST [facility] Last Admin: 07/13/17 08:08 Dose: 40 mg Polyethylene Glycol (Miralax) 17 gm PO DAILY PRN PRN Reason: Constipation Last Admin: 07/13/17 04:09 Dose: 17 gm Potassium Chloride (Klor-Con M20) 40 meq PO ACLUNCH [facility] Last Admin: 07/13/17 14:33 Dose: 40 meq Sodium Chloride (Saline Flush) 10 ml FLUSH ASDIRECTED PRN PRN Reason: Keep Vein Open Last Admin: 07/13/17 09:24 Dose: 10 ml Tamsulosin HCl (Flomax) 0.4 mg PO PCBREAKFAST [facility] Last Admin: 07/13/17 09:19 Dose: 0.4 mg Trazodone HCl (Trazodone) 100 mg PO BEDTIME [facility] Last Admin: 07/12/17 20:14 Dose: 100 mg Discontinued Medications Acetaminophen (Tylenol Extra Strength) Confirm Administered Dose 1,000 mg .ROUTE .STK-MED ONE Stop: 07/04/17 06:17 Last Admin: 07/04/17 08:32 Dose: Not Given Acetazolamide (Diamox) 250 mg IVPUSH Q6H [facility] Stop: 07/09/17 21:01 Last Admin: 07/09/17 21:12 Dose: 250 mg Acetazolamide (Diamox) 500 mg IVPUSH Q6H [facility] Stop: 07/10/17 21:01 Last Admin: 07/10/17 21:39 Dose: 500 mg Albuterol/Ipratropium (Duoneb 3.0-0.5 Mg/3 Ml) 3 ml NEB Q1H PRN PRN Reason: Shortness of Breath Last Admin: 07/04/17 06:05 Dose: 3 ml Albuterol/Ipratropium (Duoneb 3.0-0.5 Mg/3 Ml) Confirm Administered Dose 3 ml .ROUTE .STK-MED ONE Stop: 07/04/17 06:03 Last Admin: 07/04/17 08:17 Dose: Not Given Albuterol/Ipratropium (Duoneb 3.0-0.5 Mg/3 Ml) 3 ml NEB Q6H YOAN Albuterol/Ipratropium (Duoneb 3.0-0.5 Mg/3 Ml) 3 ml NEB Q6H YOAN Last Admin: 07/04/17 09:56 Dose: 3 ml Albuterol/Ipratropium (Duoneb 3.0-0.5 Mg/3 Ml) 3 ml NEB Q6H YOAN Last Admin: 07/11/17 08:37 Dose: 3 ml Albuterol/Ipratropium (Duoneb 3.0-0.5 Mg/3 Ml) Confirm Administered Dose 3 ml .ROUTE .STK-MED ONE Stop: 07/12/17 09:05 Last Admin: 07/12/17 10:32 Dose: Not Given Bumetanide (Bumex) 2 mg IVPUSH Q12H [facility] Last Admin: 07/06/17 08:14 Dose: 2 mg Bumetanide (Bumex) 1 mg IVPUSH Q12H [facility] Last Admin: 07/08/17 20:11 Dose: 1 mg Bumetanide (Bumex) 1 mg IVPUSH Q24H [facility] Last Admin: 07/11/17 09:11 Dose: 1 mg Bumetanide (Bumex) 1 mg IVPUSH BIDDIURETIC YOAN Last Admin: 07/12/17 09:42 Dose: 1 mg Bumetanide (Bumex) 1 mg IVPUSH DAILY [facility] Bumetanide (Bumex) 1 mg PO BIDDIURETIC [facility] Last Admin: 07/13/17 08:07 Dose: 1 mg Diphenhydramine HCl (Benadryl) 50 mg IVPUSH ONETIME ONE Stop: 07/04/17 07:09 Last Admin: 07/04/17 06:41 Dose: 50 mg Enoxaparin Sodium (Lovenox) 30 mg SUBCUT DAILY [facility] Last Admin: 07/07/17 10:38 Dose: 30 mg Epinephrine HCl (Adrenalin 1:1000) 0.3 mg IM ONETIME ONE Stop: 07/04/17 07:07 Last Admin: 07/04/17 06:38 Dose: 0.3 mg Etomidate (Amidate) 20 mg IVPUSH ONETIME ONE Stop: 07/04/17 07:08 Last Admin: 07/04/17 06:42 Dose: 20 mg Famotidine (Pepcid) Confirm Administered Dose 40 mg .ROUTE .STK-MED ONE Stop: 07/04/17 06:50 Last Admin: 07/04/17 08:25 Dose: Not Given Famotidine (Pepcid) 20 mg IVPUSH ONETIME ONE Stop: 07/04/17 07:06 Last Admin: 07/04/17 06:49 Dose: 20 mg Heparin Sodium (Porcine) (Heparin Sodium) Confirm Administered Dose 5,000 units .ROUTE .STK-MED ONE Stop: 07/04/17 09:31 Last Admin: 07/04/17 10:23 Dose: Not Given Heparin Sodium (Porcine) (Heparin Lock Flush 100 Units/Ml) 500 units IVPUSH ASDIRECTED PRN 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 Last Admin: 07/09/17 13:39 Dose: 500 units Hydromorphone HCl (Dilaudid) Confirm Administered Dose 0.5 mg .ROUTE .STK-MED ONE Stop: 07/04/17 08:11 Last Admin: 07/04/17 08:21 Dose: Not Given Hydromorphone HCl (Dilaudid) 0.5 mg IVPUSH ONETIME ONE Stop: 07/04/17 08:20 Last Admin: 07/04/17 08:22 Dose: 0.5 mg Hydromorphone HCl (Dilaudid) 0.5 mg IVPUSH Q1H PRN PRN Reason: Pain Last Admin: 07/05/17 09:31 Dose: 0.5 mg Hydromorphone HCl (Dilaudid) 1 mg IVPUSH Q1H PRN PRN Reason: Pain Last Admin: 07/05/17 12:42 Dose: 1 mg Piperacillin Sod/Tazobactam (Sod 4.5 gm/ Sodium Chloride) 100 mls @ 200 mls/hr IV Q6H YOAN Last Admin: 07/04/17 06:54 Dose: 200 mls/hr Vancomycin HCl 1,000 mg/ (Dextrose/Water) 250 mls @ 167 mls/hr IV ONETIME ONE Stop: 07/04/17 07:44 Last Admin: 07/04/17 06:30 Dose: 167 mls/hr Sodium Chloride (Normal Saline) 1,000 mls @ 999 mls/hr IV .BOLUS STA Stop: 07/04/17 07:16 Last Admin: 07/04/17 06:30 Dose: 999 mls/hr Acetaminophen (Ofirmev) Confirm Administered Dose 100 mls @ as directed IV .STK- MED ONE Stop: 07/04/17 06:31 Last Admin: 07/04/17 09:15 Dose: Not Given Dextrose/Water (Dextrose 5% In Water) Confirm Administered Dose 250 mls @ as directed .ROUTE .STK-MED ONE Stop: 07/04/17 06:56 Last Admin: 07/04/17 08:21 Dose: Not Given Norepinephrine Bitartrate 4 mg (/ Dextrose/Water) 250 mls @ 7.5 mls/hr IV TITRATE YOAN; 2 MCG/MIN PRN Reason: Protocol Last Titration: 07/04/17 07:21 Dose: 0 mcg/min, 0 mls/hr Levofloxacin/Dextrose 750 mg/ (Premix) 150 mls @ 100 mls/hr IV ONETIME ONE Stop: 07/04/17 08:59 Last Admin: 07/04/17 07:30 Dose: 100 mls/hr Lactated Ringer's (Ringers, Lactated) 1,000 mls @ 125 mls/hr IV ASDIRECTED YOAN Last Admin: 07/05/17 08:46 Dose: 125 mls/hr Levofloxacin/Dextrose 750 mg/ (Premix) 150 mls @ 100 mls/hr IV Q24H YOAN Last Admin: 07/12/17 09:42 Dose: 100 mls/hr Piperacillin/Tazobactam/ (Dextrose 3.375 gm/ Premix) 50 mls @ 100 mls/hr IV Q6H YOAN Last Admin: 07/10/17 05:29 Dose: 100 mls/hr Acetaminophen 1,000 mg/ Premix 100 mls @ 400 mls/hr IV NOW ONE Stop: 07/04/17 06:44 Last Admin: 07/04/17 06:40 Dose: 400 mls/hr Heparin Sodium (Porcine) 5,000 (units/ Sodium Chloride) 501 mls @ 0 mls/hr IV ASDIRECTED YOAN PRN Reason: KVO Last Admin: 07/08/17 12:40 Dose: 2 mls/hr Lactated Ringer's (Ringers, Lactated) 1,000 mls @ 15 mls/hr IV ASDIRECTED YOAN Last Admin: 07/10/17 05:31 Dose: 15 mls/hr Propofol (Diprivan 100 Ml) 100 mls @ 0 mls/hr IV TITRATE YOAN; 20 MCG/KG/MIN PRN Reason: Protocol Last Admin: 07/09/17 06:06 Dose: 34.39 mcg/kg/min, 26 mls/hr Potassium Chloride 20 meq/Lidocaine HCl 2 ml/ Sodium Chloride 112 mls @ 56 mls/ hr IV Q2H YOAN Stop: 07/06/17 13:59 Last Admin: 07/06/17 12:07 Dose: 56 mls/hr Magnesium Sulfate 2 gm/ Premix 50 mls @ 25 mls/hr IV ONETIME ONE Stop: 07/07/17 10:59 Last Admin: 07/07/17 09:33 Dose: 25 mls/hr Potassium Chloride 20 meq/ (Premix) 100 mls @ 50 mls/hr IV Q2H YOAN Stop: 07/07/17 12:59 Last Admin: 07/07/17 11:36 Dose: 50 mls/hr Potassium Chloride 40 meq/ (Premix) 100 mls @ 25 mls/hr IV ONETIME ONE Stop: 07/07/17 23:59 Last Admin: 07/07/17 20:20 Dose: 25 mls/hr Magnesium Sulfate 2 gm/ Premix 50 mls @ 25 mls/hr IV ONETIME ONE Stop: 07/08/17 13:59 Last Admin: 07/08/17 11:31 Dose: 25 mls/hr Potassium Chloride 20 meq/ (Premix) 100 mls @ 50 mls/hr IV Q2H YOAN Stop: 07/08/17 15:59 Last Admin: 07/08/17 13:29 Dose: 50 mls/hr Sodium Chloride (Normal Saline) 1,000 mls @ 999 mls/hr IV ONETIME ONE Stop: 07/04/17 07:51 Last Admin: 07/04/17 06:51 Dose: 999 mls/hr Potassium Chloride 40 meq/ (Premix) 100 mls @ 25 mls/hr IV ONETIME ONE Stop: 07/09/17 13:59 Last Admin: 07/09/17 09:23 Dose: 25 mls/hr Potassium Chloride 40 meq/ (Premix) 100 mls @ 25 mls/hr IV ONETIME ONE Stop: 07/10/17 13:59 Last Admin: 07/10/17 11:30 Dose: 25 mls/hr Insulin Detemir (Levemir) 30 unit SUBCUT BEDTIME [facility] Last Admin: 07/06/17 20:59 Dose: 30 units Ketamine HCl (Ketalar) Confirm Administered Dose 500 mg .ROUTE .STK-MED ONE Stop: 07/04/17 06:48 Last Admin: 07/04/17 08:40 Dose: Not Given Ketamine HCl (Ketalar) 60 mg IV NOW STA Stop: 07/04/17 07:04 Last Admin: 07/04/17 07:03 Dose: 60 mg Levofloxacin (Levaquin) 250 mg PO Q24H YOAN Levofloxacin (Levaquin) 500 mg PO Q24H [facility] Lidocaine HCl (Xylocaine-Mpf 1%) Confirm Administered Dose 5 ml .ROUTE .STK-MED ONE Stop: 07/04/17 09:34 Last Admin: 07/04/17 10:16 Dose: Not Given Lidocaine HCl (Xylocaine-Mpf 1%) 5 ml INJECT ONETIME ONE Stop: 07/04/17 10:31 Last Admin: 07/04/17 10:16 Dose: 5 ml Methylprednisolone Sodium Succinate (Solu-Medrol) 125 mg IV ONETIME ONE Stop: 07/04/17 06:08 Last Admin: 07/04/17 08:27 Dose: Not Given Methylprednisolone Sodium Succinate (Solu-Medrol) Confirm Administered Dose 125 mg .ROUTE .STK-MED ONE Stop: 07/04/17 06:07 Last Admin: 07/04/17 08:18 Dose: Not Given Methylprednisolone Sodium Succinate (Solu-Medrol) 125 mg IVPUSH Q6H [facility] Last Admin: 07/05/17 05:59 Dose: 125 mg Methylprednisolone Sodium Succinate (Solu-Medrol) 40 mg IVPUSH Q6H [facility] Last Admin: 07/06/17 05:46 Dose: 40 mg Methylprednisolone Sodium Succinate (Solu-Medrol) 40 mg IVPUSH Q12H [facility] Last Admin: 07/08/17 08:41 Dose: 40 mg Methylprednisolone Sodium Succinate (Solu-Medrol) 20 mg IVPUSH Q12H [facility] Last Admin: 07/09/17 08:58 Dose: 20 mg Midazolam HCl (Versed 1 Mg/Ml) Confirm Administered Dose 5 mg .ROUTE .STK-MED ONE Stop: 07/04/17 07:38 Last Admin: 07/04/17 08:22 Dose: Not Given Midazolam HCl (Versed 1 Mg/Ml) 5 mg IVPUSH ONETIME ONE Stop: 07/04/17 07:45 Last Admin: 07/04/17 07:45 Dose: 5 mg Pantoprazole Sodium (Protonix Iv) 40 mg IVPUSH DAILY [facility] Last Admin: 07/10/17 08:32 Dose: 40 mg Piperacillin Sod/Tazobactam Sod (Zosyn) Confirm Administered Dose 4.5 gm .ROUTE .STK-MED ONE Stop: 07/04/17 06:16 Last Admin: 07/04/17 08:16 Dose: Not Given Potassium Chloride (Klor-Con M20) 40 meq PO ONETIME ONE Stop: 07/10/17 09:01 Last Admin: 07/10/17 09:34 Dose: 40 meq Potassium Chloride (Klor-Con M20) 40 meq PO BEDTIME YOAN Last Admin: 07/12/17 20:15 Dose: 40 meq Rocuronium [place] (Zemuron) Confirm Administered Dose 50 mg .ROUTE .STK-MED ONE Stop: 07/04/17 07:13 Last Admin: 07/04/17 08:40 Dose: Not Given Rocuronium [place] (Zemuron) 20 mg IV ONETIME ONE Stop: 07/04/17 08:37 Last Admin: 07/04/17 07:10 Dose: 20 mg Succinylcholine Chloride (Quelicin) Confirm Administered Dose 200 mg .ROUTE .STK -MED ONE Stop: 07/04/17 06:43 Last Admin: 07/04/17 08:39 Dose: Not Given Succinylcholine Chloride (Quelicin) 180 mg IV NOW STA Stop: 07/04/17 07:05 Last Admin: 07/04/17 07:03 Dose: 180 mg Vancomycin HCl (Vancomycin) Confirm Administered Dose 1 gm .ROUTE .STK-MED ONE Stop: 07/04/17 06:16 Last Admin: 07/04/17 08:22 Dose: Not Given - Exam Quality Assessment: Supplemental Oxygen General: Alert, Cooperative, Mild Distress. No: Oriented Neck: Supple Lungs: Normal Respiratory Effort, Decreased Breath Sounds (left lung base), Crackles (left lung base) Cardiovascular: Regular Rate, Regular Rhythm GI/Abdominal Exam: Soft, No Distention Extremities: Pedal Edema (mild bilateral ankle edema). No: Increased Warmth Skin: Warm, Dry Psy/Mental Status: Alert, Anxious - Problem List Review Problem List Initiated/Reviewed/Updated: Yes - My Orders Last 24 Hours: My Active Orders 07/13/17 09:00 Doxycycline [Vibramycin] 100 mg PO BID 07/13/17 10:00 Meropenem [Merrem] 1 gm Sodium Chloride 0.9% [Normal Saline] 100 ml IV Q8H 07/13/17 12:00 Potassium Chloride [Klor-Con M20] 40 meq PO ACLUNCH 07/14/17 05:00 Chest 1V Frontal [CR] Timed CBC W/O DIFF,HEMOGRAM [HEME] Timed (1) COMPREHENSIVE METABOLIC PN,CMP [CHEM] Timed MAGNESIUM [CHEM] Timed 07/14/17 09:00 Bumetanide [Bumex] 1 mg PO DAILY - Plan Plan:: ASSESSMENT AND PLAN ACUTE ON CHRONIC HYPOXIC AND HYPERCAPNIC RESPIRATORY FAILURE - not tolerating noninvasive ventilation very well so he has been using it minimally. Still has significant hypoxia and does not improving as quickly as I would have expected. No significant evidence for volume overload at this time. -Noninvasive positive pressure ventilation at night if needed -Supplement oxygen -Nebulizer therapy with albuterol and duo nebs -Management of pneumonia as below -Bumex 1 mg PO DAILY LEFT LUNG PNEUMONIA WITH SEPSIS - likely causing respiratory failure as noted above. Sepsis has resolved. Still hypoxic and not improving like I would expect. He has been afebrile but white blood cell count has been rising and clinically he is not improving and could potentially be getting worse. -Blood and sputum cultures negative thus far -Change antibiotics to doxycycline and meropenem VANCOMYCIN ANAPHYLAXIS - treated with epinephrine, Solu-Medrol, and Benadryl in the emergency department. Resolved with no recurrence ACUTE ON CHRONIC KIDNEY - renal function is been stable with current diuresis. -Closely monitor urine output and renal function TYPE 2 DIABETES MELLITUS - sugars have remained acceptable but mildly elevated. -Levemir insulin 40 units subcutaneous at at bedtime -4 times a day glucometers -Moderate dose sliding scale Nov[employer] MAINTENANCE ISSUES -DVT prophylaxis; enoxaparin 40 mg subcutaneous daily -GI prophylaxis; PPI -Jung catheter; to monitor urine output -Nutrition; regular DISPOSITION - anticipate [facility] to [facility] home after the hospital stay with impressive weakness. Patient is weak and physical therapy was initiated . Florin Bauer M.D.
[2017-07-13] MEDS ORDERED: Sodium Chloride 0.9% 500 ML IV SCH ×2 (16:30→17:30)
--- NOTE | 2017-07-13 20:00 | PCM.SN ---
- Free Text/Narrative Note: time; 19:57; call from [address] [place] [address] Mr. Cranium is agitated and restless, bladder scan >999ml in bladder a; urinary retention p; insert indwelling morejon cath over night, then remove in am, monitor for further urinary symptoms
[2017-07-13] MEDS: Insulin Detemir 100 Units/ML 3 ML Pen SUBCUT SCH (21:14)
[2017-07-13] MEDS: Melatonin 3 MG Tab PO SCH (21:15)
[2017-07-13] MEDS: traZODone 50 MG Tab PO SCH (21:15)
[2017-07-14] MEDS: Meropenem 1 GM in Sodium Chloride 0.9% 100 ML IV SCH ×3 (03:19→17:53)
[2017-07-14] MEDS: Albuterol/Ipratropium 3.0-0.5 MG/3 ML Neb Soln NEB SCH ×4 (07:22→21:13)
[2017-07-14] MEDS: Insulin Aspart 100 Units/ML 3 ML Pen SUBCUT SCH ×4 (08:14→21:21)
[2017-07-14] MEDS: Pantoprazole 40 MG Tab.CR PO SCH (08:22)
[2017-07-14] MEDS: ARIPiprazole 10 MG Tab PO SCH (09:02)
[2017-07-14] MEDS: Bumetanide 1 MG Tab PO SCH (09:04)
[2017-07-14] MEDS: Tamsulosin 0.4 MG Cap.ER PO SCH (09:04)
[2017-07-14] MEDS: Folic Acid 1 MG Tab PO SCH (09:04)
[2017-07-14] MEDS: Aspirin 81 MG Tab.EC PO SCH (09:04)
[2017-07-14] MEDS: Enoxaparin 40 MG/0.4 ML Syringe SUBCUT SCH (09:05)
[2017-07-14] MEDS: Escitalopram 20 MG Tab PO SCH (09:05)
[2017-07-14] MEDS: Metoprolol Succinate 25 MG Tab.ER PO SCH (09:06)
[2017-07-14] MEDS: Doxycycline 100 MG Cap PO SCH ×2 (09:07→21:23)
[2017-07-14] MEDS: Arformoterol 15 MCG/2 ML Neb Soln NEB SCH ×2 (09:26→21:13)
--- NOTE | 2017-07-14 09:29 | CR ---
Portable chest Comparison: 2 days prior. Findings: There is cardiac enlargement. There is pulmonary vascular engorgement. These findings are u nchanged. Density of the left lung base is unchanged as well. There is likely a small effusion. Impression: 1. Continued findings of mild CHF.
[2017-07-14] MEDS: Nystatin Topical Powder 15 GM Bottle TOP SCH ×3 (12:39→21:23)
[2017-07-14] MEDS: Potassium Chloride 20 MEQ Tab.ER PO SCH (12:40)
--- NOTE | 2017-07-14 13:45 | PCM.PN ---
- General Info Date of Service: 07/14/17 Functional Status: Reports: Pain Controlled, Tolerating Diet - Review of Systems General: Reports: Weakness. Denies: Fever Pulmonary: Reports: Cough Neurological: Reports: Confusion Systems Review Comment:: Difficulty with mild agitation overnight. Also noted to have urinary retention with more than 1 L in his bladder. Agitation and urinary retention both improved once a catheter was placed. He has been stable since that time. Respiratory status seems a little better today with a mild decrease in his supplemental oxygen. His white blood cell count is down from 18 to 15,000. He seems more clear and more alert today. He has not had any fevers. Blood sugars have been well controlled. - Patient Data Vitals - Most Recent: Last Vital Signs Temp 36.6 C 07/14/17 11:20 Pulse 80 07/14/17 11:20 Resp 20 07/14/17 11:20 BP 131/70 07/14/17 11:20 Pulse Ox 93 L 07/14/17 11:20 Weight - Most Recent: 119.295 kg I&O - Last 24 Hours: Intake & Output 07/13/17 07/14/17 07/14/17 22:59 06:59 14:59 Intake Total 1660 350 Output Total 1325 400 Balance 335 -50 Lab Results Last 24 Hours: Laboratory Results - last 24 hr 07/14/17 07/14/17 Range/Units 04:02 04:02 WBC 15.7 H (4.5-11.0) K/uL RBC 4.81 (4.30-5.90) M/uL Hgb 12.9 D (12.0-15.0) g/dL Hct 40.6 (40.0-54.0) % MCV 84 (80-98) fL MCH 27 (27-31) pg MCHC 32 (32-36) % Plt Count 257 (150-400) K/uL Sodium 140 (140-148) mmol/L Potassium 4.7 (3.6-5.2) mmol/L Chloride 102 (100-108) mmol/L Carbon Dioxide 31 (21-32) mmol/L Anion Gap 7.5 (5.0-14.0) mmol/L BUN 45 H (7-18) mg/dL Creatinine 1.6 H (0.8-1.3) mg/dL Est Cr Clr Drug Dosing 49.92 mL/min Estimated GFR (MDRD) 43 L (>60) Glucose 149 H (74-106) mg/dL Calcium 9.4 (8.5-10.1) mg/dL Magnesium 2.4 (1.8-2.4) mg/dL Total Bilirubin 0.9 (0.2-1.0) mg/dL AST 40 H (15-37) U/L ALT 34 (12-78) U/L Alkaline Phosphatase 94 (46-116) U/L Total Protein 6.5 (6.4-8.2) g/dL Albumin 2.0 L (3.4-5.0) g/dL Globulin 4.5 H (2.3-3.5) g/dL Albumin/Globulin Ratio 0.4 L (1.2-2.2) Med Orders - Current: Current Medications Albuterol (Proventil Neb Soln) 2.5 mg NEB Q4H PRN PRN Reason: Shortness Of Breath/wheezing Last Admin: 07/11/17 19:45 Dose: 2.5 mg Albuterol/Ipratropium (Duoneb 3.0-0.5 Mg/3 Ml) 3 ml NEB QIDRT [facility] Last Admin: 07/14/17 10:37 Dose: 3 ml Arformoterol Tartrate (Brovana) 15 mcg NEB BIDRT [facility] Last Admin: 07/14/17 09:26 Dose: 15 mcg Aripiprazole (Abilify) 15 mg PO DAILY [facility] Last Admin: 07/14/17 09:02 Dose: 15 mg Aspirin (Halfprin) 81 mg PO DAILY [facility] Last Admin: 07/14/17 09:04 Dose: 81 mg Bumetanide (Bumex) 1 mg PO DAILY [facility] Last Admin: 07/14/17 09:04 Dose: 1 mg Dextrose (Glutose 15) 15 gm PO ONETIME PRN PRN Reason: Hypoglycemia Dextrose/Water (Dextrose 50% In Water) 50 ml IV ONETIME PRN PRN Reason: Hypoglycemia Dimethicone/Zinc Oxide (Rash Relief-Zinc Oxide [place]) 1 gm TOP ASDIRECTED PRN PRN Reason: Rash Last Admin: 07/13/17 04:11 Dose: 1 applic Docusate Sodium (Colace) 100 mg PO BID PRN PRN Reason: Constipation Last Admin: 07/12/17 20:18 Dose: 100 mg Doxycycline Hyclate (Vibramycin) 100 mg PO BID [facility] Last Admin: 07/14/17 09:07 Dose: 100 mg Enoxaparin Sodium (Lovenox) 40 mg SUBCUT DAILY [facility] Last Admin: 07/14/17 09:05 Dose: 40 mg Escitalopram Oxalate (Lexapro) 20 mg PO DAILY [facility] Last Admin: 07/14/17 09:05 Dose: 20 mg Folic Acid (Folic Acid) 1 mg PO DAILY [facility] Last Admin: 07/14/17 09:04 Dose: 1 mg Guaifenesin/Dextromethorphan (Robitussin Dm) 10 ml PO Q4H PRN PRN Reason: Cough Last Admin: 07/13/17 04:09 Dose: 10 ml Haloperidol Lactate (Haldol) 2 mg IVPUSH Q2H PRN PRN Reason: Agitation Last Admin: 07/13/17 19:29 Dose: 2 mg Hydromorphone HCl (Dilaudid) 0.5 mg IVPUSH Q2H PRN PRN Reason: Pain Last Admin: 07/09/17 10:14 Dose: 0.5 mg Meropenem 1 gm/ Sodium (Chloride) 100 mls @ 200 mls/hr IV Q8H [facility] Last Admin: 07/14/17 10:40 Dose: 200 mls/hr Sodium Chloride (Normal Saline) 500 mls @ 500 mls/hr IV ASDIRECTED [facility] Last Admin: 07/13/17 17:31 Dose: 500 mls/hr Insulin Aspart (Novolog) 0 unit SUBCUT QIDACANDBED [facility] PRN Reason: Protocol Last Admin: 07/14/17 12:40 Dose: 8 units Insulin Detemir (Levemir) 40 unit SUBCUT BEDTIME [facility] Last Admin: 07/13/17 21:14 Dose: 40 units Lorazepam (Ativan) 1 mg PO Q4H PRN PRN Reason: Anxiety Last Admin: 07/13/17 17:52 Dose: 1 mg Magnesium Hydroxide (Milk Of Magnesia) 30 ml PO Q12H PRN PRN Reason: Constipation Last Admin: 07/13/17 04:09 Dose: 30 ml Melatonin (Melatonin) 9 mg PO BEDTIME [facility] Last Admin: 07/13/17 21:15 Dose: 9 mg Metoprolol Succinate (Toprol Xl) 25 mg PO DAILY [facility] Last Admin: 07/14/17 09:06 Dose: 25 mg Nystatin (Nystop) 0 gm TOP TID [facility] Last Admin: 07/14/17 12:39 Dose: Not Given Ondansetron HCl (Zofran) 4 mg IV Q4H PRN PRN Reason: Nausea/Vomiting Pantoprazole Sodium (Protonix) 40 mg PO ACBREAKFAST [facility] Last Admin: 07/14/17 08:22 Dose: 40 mg Polyethylene Glycol (Miralax) 17 gm PO DAILY PRN PRN Reason: Constipation Last Admin: 07/13/17 04:09 Dose: 17 gm Potassium Chloride (Klor-Con M20) 40 meq PO ACLUNCH [facility] Last Admin: 07/14/17 12:40 Dose: 40 meq Sodium Chloride (Saline Flush) 10 ml FLUSH ASDIRECTED PRN PRN Reason: Keep Vein Open Last Admin: 07/13/17 09:24 Dose: 10 ml Tamsulosin HCl (Flomax) 0.4 mg PO PCBREAKFAST [facility] Last Admin: 07/14/17 09:04 Dose: 0.4 mg Trazodone HCl (Trazodone) 100 mg PO BEDTIME [facility] Last Admin: 07/13/17 21:15 Dose: 100 mg Discontinued Medications Acetaminophen (Tylenol Extra Strength) Confirm Administered Dose 1,000 mg .ROUTE .STK-MED ONE Stop: 07/04/17 06:17 Last Admin: 07/04/17 08:32 Dose: Not Given Acetazolamide (Diamox) 250 mg IVPUSH Q6H [facility] Stop: 07/09/17 21:01 Last Admin: 07/09/17 21:12 Dose: 250 mg Acetazolamide (Diamox) 500 mg IVPUSH Q6H [facility] Stop: 07/10/17 21:01 Last Admin: 07/10/17 21:39 Dose: 500 mg Albuterol/Ipratropium (Duoneb 3.0-0.5 Mg/3 Ml) 3 ml NEB Q1H PRN PRN Reason: Shortness of Breath Last Admin: 07/04/17 06:05 Dose: 3 ml Albuterol/Ipratropium (Duoneb 3.0-0.5 Mg/3 Ml) Confirm Administered Dose 3 ml .ROUTE .STK-MED ONE Stop: 07/04/17 06:03 Last Admin: 07/04/17 08:17 Dose: Not Given Albuterol/Ipratropium (Duoneb 3.0-0.5 Mg/3 Ml) 3 ml NEB Q6H [facility] Albuterol/Ipratropium (Duoneb 3.0-0.5 Mg/3 Ml) 3 ml NEB Q6H [facility] Last Admin: 07/04/17 09:56 Dose: 3 ml Albuterol/Ipratropium (Duoneb 3.0-0.5 Mg/3 Ml) 3 ml NEB Q6H [facility] Last Admin: 07/11/17 08:37 Dose: 3 ml Albuterol/Ipratropium (Duoneb 3.0-0.5 Mg/3 Ml) Confirm Administered Dose 3 ml .ROUTE .STK-MED ONE Stop: 07/12/17 09:05 Last Admin: 07/12/17 10:32 Dose: Not Given Bumetanide (Bumex) 2 mg IVPUSH Q12H [facility] Last Admin: 07/06/17 08:14 Dose: 2 mg Bumetanide (Bumex) 1 mg IVPUSH Q12H [facility] Last Admin: 07/08/17 20:11 Dose: 1 mg Bumetanide (Bumex) 1 mg IVPUSH Q24H [facility] Last Admin: 07/11/17 09:11 Dose: 1 mg Bumetanide (Bumex) 1 mg IVPUSH BIDDIURETIC [facility] Last Admin: 07/12/17 09:42 Dose: 1 mg Bumetanide (Bumex) 1 mg IVPUSH DAILY [facility] Bumetanide (Bumex) 1 mg PO BIDDIURETIC [facility] Last Admin: 07/13/17 08:07 Dose: 1 mg Diphenhydramine HCl (Benadryl) 50 mg IVPUSH ONETIME ONE Stop: 07/04/17 07:09 Last Admin: 07/04/17 06:41 Dose: 50 mg Enoxaparin Sodium (Lovenox) 30 mg SUBCUT DAILY [facility] Last Admin: 07/07/17 10:38 Dose: 30 mg Epinephrine HCl (Adrenalin 1:1000) 0.3 mg IM ONETIME ONE Stop: 07/04/17 07:07 Last Admin: 07/04/17 06:38 Dose: 0.3 mg Etomidate (Amidate) 20 mg IVPUSH ONETIME ONE Stop: 07/04/17 07:08 Last Admin: 07/04/17 06:42 Dose: 20 mg Famotidine (Pepcid) Confirm Administered Dose 40 mg .ROUTE .STK-MED ONE Stop: 07/04/17 06:50 Last Admin: 07/04/17 08:25 Dose: Not Given Famotidine (Pepcid) 20 mg IVPUSH ONETIME ONE Stop: 07/04/17 07:06 Last Admin: 07/04/17 06:49 Dose: 20 mg Heparin Sodium (Porcine) (Heparin Sodium) Confirm Administered Dose 5,000 units .ROUTE .STK-MED ONE Stop: 07/04/17 09:31 Last Admin: 07/04/17 10:23 Dose: Not Given Heparin Sodium (Porcine) (Heparin Lock Flush 100 Units/Ml) 500 units IVPUSH ASDIRECTED PRN 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 Last Admin: 07/09/17 13:39 Dose: 500 units Hydromorphone HCl (Dilaudid) Confirm Administered Dose 0.5 mg .ROUTE .STK-MED ONE Stop: 07/04/17 08:11 Last Admin: 07/04/17 08:21 Dose: Not Given Hydromorphone HCl (Dilaudid) 0.5 mg IVPUSH ONETIME ONE Stop: 07/04/17 08:20 Last Admin: 07/04/17 08:22 Dose: 0.5 mg Hydromorphone HCl (Dilaudid) 0.5 mg IVPUSH Q1H PRN PRN Reason: Pain Last Admin: 07/05/17 09:31 Dose: 0.5 mg Hydromorphone HCl (Dilaudid) 1 mg IVPUSH Q1H PRN PRN Reason: Pain Last Admin: 07/05/17 12:42 Dose: 1 mg Piperacillin Sod/Tazobactam (Sod 4.5 gm/ Sodium Chloride) 100 mls @ 200 mls/hr IV Q6H [facility] Last Admin: 07/04/17 06:54 Dose: 200 mls/hr Vancomycin HCl 1,000 mg/ (Dextrose/Water) 250 mls @ 167 mls/hr IV ONETIME ONE Stop: 07/04/17 07:44 Last Admin: 07/04/17 06:30 Dose: 167 mls/hr Sodium Chloride (Normal Saline) 1,000 mls @ 999 mls/hr IV .BOLUS STA Stop: 07/04/17 07:16 Last Admin: 07/04/17 06:30 Dose: 999 mls/hr Acetaminophen (Ofirmev) Confirm Administered Dose 100 mls @ as directed IV .STK- MED ONE Stop: 07/04/17 06:31 Last Admin: 07/04/17 09:15 Dose: Not Given Dextrose/Water (Dextrose 5% In Water) Confirm Administered Dose 250 mls @ as directed .ROUTE .STK-MED ONE Stop: 07/04/17 06:56 Last Admin: 07/04/17 08:21 Dose: Not Given Norepinephrine Bitartrate 4 mg (/ Dextrose/Water) 250 mls @ 7.5 mls/hr IV TITRATE [facility]; 2 MCG/MIN PRN Reason: Protocol Last Titration: 07/04/17 07:21 Dose: 0 mcg/min, 0 mls/hr Levofloxacin/Dextrose 750 mg/ (Premix) 150 mls @ 100 mls/hr IV ONETIME ONE Stop: 07/04/17 08:59 Last Admin: 07/04/17 07:30 Dose: 100 mls/hr Lactated Ringer's (Ringers, Lactated) 1,000 mls @ 125 mls/hr IV ASDIRECTED [facility] Last Admin: 07/05/17 08:46 Dose: 125 mls/hr Levofloxacin/Dextrose 750 mg/ (Premix) 150 mls @ 100 mls/hr IV Q24H [facility] Last Admin: 07/12/17 09:42 Dose: 100 mls/hr Piperacillin/Tazobactam/ (Dextrose 3.375 gm/ Premix) 50 mls @ 100 mls/hr IV Q6H [facility] Last Admin: 07/10/17 05:29 Dose: 100 mls/hr Acetaminophen 1,000 mg/ Premix 100 mls @ 400 mls/hr IV NOW ONE Stop: 07/04/17 06:44 Last Admin: 07/04/17 06:40 Dose: 400 mls/hr Heparin Sodium (Porcine) 5,000 (units/ Sodium Chloride) 501 mls @ 0 mls/hr IV ASDIRECTED [facility] PRN Reason: KVO Last Admin: 07/08/17 12:40 Dose: 2 mls/hr Lactated Ringer's (Ringers, Lactated) 1,000 mls @ 15 mls/hr IV ASDIRECTED [facility] Last Admin: 07/10/17 05:31 Dose: 15 mls/hr Propofol (Diprivan 100 Ml) 100 mls @ 0 mls/hr IV TITRATE [facility]; 20 MCG/KG/MIN PRN Reason: Protocol Last Admin: 07/09/17 06:06 Dose: 34.39 mcg/kg/min, 26 mls/hr Potassium Chloride 20 meq/Lidocaine HCl 2 ml/ Sodium Chloride 112 mls @ 56 mls/ hr IV Q2H [facility] Stop: 07/06/17 13:59 Last Admin: 07/06/17 12:07 Dose: 56 mls/hr Magnesium Sulfate 2 gm/ Premix 50 mls @ 25 mls/hr IV ONETIME ONE Stop: 07/07/17 10:59 Last Admin: 07/07/17 09:33 Dose: 25 mls/hr Potassium Chloride 20 meq/ (Premix) 100 mls @ 50 mls/hr IV Q2H [facility] Stop: 07/07/17 12:59 Last Admin: 07/07/17 11:36 Dose: 50 mls/hr Potassium Chloride 40 meq/ (Premix) 100 mls @ 25 mls/hr IV ONETIME ONE Stop: 07/07/17 23:59 Last Admin: 07/07/17 20:20 Dose: 25 mls/hr Magnesium Sulfate 2 gm/ Premix 50 mls @ 25 mls/hr IV ONETIME ONE Stop: 07/08/17 13:59 Last Admin: 07/08/17 11:31 Dose: 25 mls/hr Potassium Chloride 20 meq/ (Premix) 100 mls @ 50 mls/hr IV Q2H [facility] Stop: 07/08/17 15:59 Last Admin: 07/08/17 13:29 Dose: 50 mls/hr Sodium Chloride (Normal Saline) 1,000 mls @ 999 mls/hr IV ONETIME ONE Stop: 07/04/17 07:51 Last Admin: 07/04/17 06:51 Dose: 999 mls/hr Potassium Chloride 40 meq/ (Premix) 100 mls @ 25 mls/hr IV ONETIME ONE Stop: 07/09/17 13:59 Last Admin: 07/09/17 09:23 Dose: 25 mls/hr Potassium Chloride 40 meq/ (Premix) 100 mls @ 25 mls/hr IV ONETIME ONE Stop: 07/10/17 13:59 Last Admin: 07/10/17 11:30 Dose: 25 mls/hr Sodium Chloride (Normal Saline) 500 mls @ 500 mls/hr IV ASDIRECTED [facility] Stop: 07/13/17 17:31 Insulin Detemir (Levemir) 30 unit SUBCUT BEDTIME [facility] Last Admin: 07/06/17 20:59 Dose: 30 units Ketamine HCl (Ketalar) Confirm Administered Dose 500 mg .ROUTE .STK-MED ONE Stop: 07/04/17 06:48 Last Admin: 07/04/17 08:40 Dose: Not Given Ketamine HCl (Ketalar) 60 mg IV NOW STA Stop: 07/04/17 07:04 Last Admin: 07/04/17 07:03 Dose: 60 mg Levofloxacin (Levaquin) 250 mg PO Q24H [facility] Levofloxacin (Levaquin) 500 mg PO Q24H [facility] Lidocaine HCl (Xylocaine-Mpf 1%) Confirm Administered Dose 5 ml .ROUTE .STK-MED ONE Stop: 07/04/17 09:34 Last Admin: 07/04/17 10:16 Dose: Not Given Lidocaine HCl (Xylocaine-Mpf 1%) 5 ml INJECT ONETIME ONE Stop: 07/04/17 10:31 Last Admin: 07/04/17 10:16 Dose: 5 ml Methylprednisolone Sodium Succinate (Solu-Medrol) 125 mg IV ONETIME ONE Stop: 07/04/17 06:08 Last Admin: 07/04/17 08:27 Dose: Not Given Methylprednisolone Sodium Succinate (Solu-Medrol) Confirm Administered Dose 125 mg .ROUTE .STK-MED ONE Stop: 07/04/17 06:07 Last Admin: 07/04/17 08:18 Dose: Not Given Methylprednisolone Sodium Succinate (Solu-Medrol) 125 mg IVPUSH Q6H [facility] Last Admin: 07/05/17 05:59 Dose: 125 mg Methylprednisolone Sodium Succinate (Solu-Medrol) 40 mg IVPUSH Q6H [facility] Last Admin: 07/06/17 05:46 Dose: 40 mg Methylprednisolone Sodium Succinate (Solu-Medrol) 40 mg IVPUSH Q12H [facility] Last Admin: 07/08/17 08:41 Dose: 40 mg Methylprednisolone Sodium Succinate (Solu-Medrol) 20 mg IVPUSH Q12H [facility] Last Admin: 07/09/17 08:58 Dose: 20 mg Midazolam HCl (Versed 1 Mg/Ml) Confirm Administered Dose 5 mg .ROUTE .STK-MED ONE Stop: 07/04/17 07:38 Last Admin: 07/04/17 08:22 Dose: Not Given Midazolam HCl (Versed 1 Mg/Ml) 5 mg IVPUSH ONETIME ONE Stop: 07/04/17 07:45 Last Admin: 07/04/17 07:45 Dose: 5 mg Pantoprazole Sodium (Protonix Iv) 40 mg IVPUSH DAILY [facility] Last Admin: 07/10/17 08:32 Dose: 40 mg Piperacillin Sod/Tazobactam Sod (Zosyn) Confirm Administered Dose 4.5 gm .ROUTE .STK-MED ONE Stop: 07/04/17 06:16 Last Admin: 07/04/17 08:16 Dose: Not Given Potassium Chloride (Klor-Con M20) 40 meq PO ONETIME ONE Stop: 07/10/17 09:01 Last Admin: 07/10/17 09:34 Dose: 40 meq Potassium Chloride (Klor-Con M20) 40 meq PO BEDTIME [facility] Last Admin: 07/12/17 20:15 Dose: 40 meq Rocuronium [place] (Zemuron) Confirm Administered Dose 50 mg .ROUTE .STK-MED ONE Stop: 07/04/17 07:13 Last Admin: 07/04/17 08:40 Dose: Not Given Rocuronium [place] (Zemuron) 20 mg IV ONETIME ONE Stop: 07/04/17 08:37 Last Admin: 07/04/17 07:10 Dose: 20 mg Succinylcholine Chloride (Quelicin) Confirm Administered Dose 200 mg .ROUTE .STK -MED ONE Stop: 07/04/17 06:43 Last Admin: 07/04/17 08:39 Dose: Not Given Succinylcholine Chloride (Quelicin) 180 mg IV NOW STA Stop: 07/04/17 07:05 Last Admin: 07/04/17 07:03 Dose: 180 mg Vancomycin HCl (Vancomycin) Confirm Administered Dose 1 gm .ROUTE .STK-MED ONE Stop: 07/04/17 06:16 Last Admin: 07/04/17 08:22 Dose: Not Given - Exam Quality Assessment: Supplemental Oxygen General: Alert, Oriented, Cooperative, No Acute Distress Neck: Supple Lungs: Normal Respiratory Effort, Decreased Breath Sounds (left lung base), Crackles (left lung base) Cardiovascular: Regular Rate, Regular Rhythm GI/Abdominal Exam: Normal Bowel Sounds, Soft, No Distention Extremities: Pedal Edema (mild bilateral ankle edema). No: Increased Warmth Skin: Warm, Dry Psy/Mental Status: Alert, Normal Affect - Problem List Review Problem List Initiated/Reviewed/Updated: Yes - My Orders Last 24 Hours: My Active Orders 07/13/17 17:30 Sodium Chloride 0.9% [Normal Saline] 500 ml IV ASDIRECTED 07/14/17 09:00 Bumetanide [Bumex] 1 mg PO DAILY 07/14/17 10:00 Nystatin [Nystop] 0 gm TOP TID 07/15/17 05:00 BASIC METABOLIC PANEL,BMP [CHEM] Timed CBC W/O DIFF,HEMOGRAM [HEME] Timed (1) - Plan Plan:: ASSESSMENT AND PLAN ACUTE ON CHRONIC HYPOXIC AND HYPERCAPNIC RESPIRATORY FAILURE - did use noninvasive ventilation overnight for short while. No significant evidence for volume overload at this time. Clinically doing better with recent antibiotic changes. -Noninvasive positive pressure ventilation at night if needed -Supplement oxygen -Nebulizer therapy with albuterol and duo nebs -Management of pneumonia as below -Bumex 1 mg PO DAILY LEFT LUNG PNEUMONIA WITH SEPSIS - likely causing respiratory failure as noted above. Sepsis has resolved. seems to be doing better with recent antibiotic changes. Supplemental oxygen requirements slightly less and mental status seems to be clearing. -Blood and sputum cultures remain negative -Continue doxycycline and meropenem VANCOMYCIN ANAPHYLAXIS - treated with epinephrine, Solu-Medrol, and Benadryl in the emergency department. Resolved with no recurrence. ACUTE ON CHRONIC KIDNEY - renal function had had recent slow decrease but has improved with a small fluid challenge yesterday. -Repeat labs in the morning TYPE 2 DIABETES MELLITUS - sugars have remained acceptable but mildly elevated. -Levemir insulin 40 units subcutaneous at at bedtime -4 times a day glucometers -Moderate dose sliding scale [employer] MAINTENANCE ISSUES -DVT prophylaxis; enoxaparin 40 mg subcutaneous daily -GI prophylaxis; PPI -Jung catheter; placed 07/13 secondary to urinary retention. -Nutrition; regular DISPOSITION - anticipate discharge to [facility] after the hospital stay with impressive weakness. still requiring the assist of 2. Patient is weak and physical therapy was initiated 07/11. Florin Bauer M.D.
[2017-07-14] MEDS: Magnesium Hydroxide 400 MG/5 ML Susp 30 ML Cup PO PRN (18:10)
[2017-07-14] MEDS: Insulin Detemir 100 Units/ML 3 ML Pen SUBCUT SCH (21:22)
[2017-07-14] MEDS: traZODone 50 MG Tab PO SCH (21:23)
[2017-07-14] MEDS: Melatonin 3 MG Tab PO SCH (21:23)
[2017-07-15] MEDS: Meropenem 1 GM in Sodium Chloride 0.9% 100 ML IV SCH ×3 (02:21→18:01)
[2017-07-15] MEDS: Albuterol/Ipratropium 3.0-0.5 MG/3 ML Neb Soln NEB SCH ×4 (07:19→20:12)
[2017-07-15] MEDS: Arformoterol 15 MCG/2 ML Neb Soln NEB SCH ×2 (07:19→20:08)
[2017-07-15] MEDS: Pantoprazole 40 MG Tab.CR PO SCH (07:27)
[2017-07-15] MEDS: Insulin Aspart 100 Units/ML 3 ML Pen SUBCUT SCH ×4 (07:30→20:41)
[2017-07-15] MEDS: Doxycycline 100 MG Cap PO SCH ×2 (09:23→20:06)
[2017-07-15] MEDS: Aspirin 81 MG Tab.EC PO SCH (09:23)
[2017-07-15] MEDS: ARIPiprazole 10 MG Tab PO SCH (09:23)
[2017-07-15] MEDS: Metoprolol Succinate 25 MG Tab.ER PO SCH (09:24)
[2017-07-15] MEDS: Folic Acid 1 MG Tab PO SCH (09:28)
[2017-07-15] MEDS: Tamsulosin 0.4 MG Cap.ER PO SCH (09:28)
[2017-07-15] MEDS: Bumetanide 1 MG Tab PO SCH (09:28)
[2017-07-15] MEDS: Escitalopram 20 MG Tab PO SCH (09:28)
[2017-07-15] MEDS: Enoxaparin 40 MG/0.4 ML Syringe SUBCUT SCH (09:29)
[2017-07-15] MEDS: Nystatin Topical Powder 15 GM Bottle TOP SCH ×3 (09:30→20:07)
[2017-07-15] MEDS: Potassium Chloride 20 MEQ Tab.ER PO SCH (11:50)
--- NOTE | 2017-07-15 12:30 | PCM.PN ---
- General Info Date of Service: 07/15/17 Functional Status: Reports: Pain Controlled, Tolerating Diet, Ambulating - Review of Systems General: Reports: Weakness. Denies: Fever Pulmonary: Reports: Shortness of Breath, Cough Systems Review Comment:: No acute events overnight. Patient is more alert and interactive today. Respiratory status improving with a decrease in his supplemental oxygen requirement. He has a loose cough but feels less short of breath today. No complaints of chest pain or abdominal pain. He does have mild lower extremity edema. He has not been having any fevers. White blood cell count is only increased compared to yesterday but less than 2 days ago. - Patient Data Vitals - Most Recent: Last Vital Signs Temp 36.6 C 07/15/17 12:00 Pulse 99 07/15/17 12:00 Resp 16 07/15/17 12:00 BP 103/63 07/15/17 12:00 Pulse Ox 89 L 07/15/17 12:00 Weight - Most Recent: 119.295 kg I&O - Last 24 Hours: Intake & Output 07/14/17 07/15/17 07/15/17 22:59 06:59 14:59 Intake Total 1100 960 Output Total 1000 250 Balance 100 960 -250 Lab Results Last 24 Hours: Laboratory Results - last 24 hr 07/15/17 07/15/17 Range/Units 05:45 05:45 WBC 17.4 H (4.5-11.0) K/uL RBC 4.87 (4.30-5.90) M/uL Hgb 13.4 (12.0-15.0) g/dL Hct 40.8 (40.0-54.0) % MCV 84 (80-98) fL MCH 28 (27-31) pg MCHC 33 (32-36) % Plt Count 307 (150-400) K/uL Sodium 136 L (140-148) mmol/L Potassium 4.0 (3.6-5.2) mmol/L Chloride 100 (100-108) mmol/L Carbon Dioxide 29 (21-32) mmol/L Anion Gap 11.0 (5.0-14.0) mmol/L BUN 45 H (7-18) mg/dL Creatinine 1.5 H (0.8-1.3) mg/dL Est Cr Clr Drug Dosing 53.24 mL/min Estimated GFR (MDRD) 47 L (>60) Glucose 122 H (74-106) mg/dL Calcium 9.6 (8.5-10.1) mg/dL Med Orders - Current: Current Medications Albuterol (Proventil Neb Soln) 2.5 mg NEB Q4H PRN PRN Reason: Shortness Of Breath/wheezing Last Admin: 07/11/17 19:45 Dose: 2.5 mg Albuterol/Ipratropium (Duoneb 3.0-0.5 Mg/3 Ml) 3 ml NEB QIDRT [facility] Last Admin: 07/15/17 11:03 Dose: 3 ml Arformoterol Tartrate (Brovana) 15 mcg NEB BIDRT [facility] Last Admin: 07/15/17 07:19 Dose: 15 mcg Aripiprazole (Abilify) 15 mg PO DAILY [facility] Last Admin: 07/15/17 09:23 Dose: 15 mg Aspirin (Halfprin) 81 mg PO DAILY [facility] Last Admin: 07/15/17 09:23 Dose: 81 mg Bumetanide (Bumex) 1 mg PO DAILY [facility] Last Admin: 07/15/17 09:28 Dose: 1 mg Dextrose (Glutose 15) 15 gm PO ONETIME PRN PRN Reason: Hypoglycemia Dextrose/Water (Dextrose 50% In Water) 50 ml IV ONETIME PRN PRN Reason: Hypoglycemia Dimethicone/Zinc Oxide (Rash Relief-Zinc Oxide [place]) 1 gm TOP ASDIRECTED PRN PRN Reason: Rash Last Admin: 07/13/17 04:11 Dose: 1 applic Docusate Sodium (Colace) 100 mg PO BID PRN PRN Reason: Constipation Last Admin: 07/12/17 20:18 Dose: 100 mg Doxycycline Hyclate (Vibramycin) 100 mg PO BID [facility] Last Admin: 07/15/17 09:23 Dose: 100 mg Enoxaparin Sodium (Lovenox) 40 mg SUBCUT DAILY [facility] Last Admin: 07/15/17 09:29 Dose: 40 mg Escitalopram Oxalate (Lexapro) 20 mg PO DAILY [facility] Last Admin: 07/15/17 09:28 Dose: 20 mg Folic Acid (Folic Acid) 1 mg PO DAILY [facility] Last Admin: 07/15/17 09:28 Dose: 1 mg Guaifenesin/Dextromethorphan (Robitussin Dm) 10 ml PO Q4H PRN PRN Reason: Cough Last Admin: 07/13/17 04:09 Dose: 10 ml Meropenem 1 gm/ Sodium (Chloride) 100 mls @ 200 mls/hr IV Q8H [facility] Last Admin: 07/15/17 10:26 Dose: 200 mls/hr Insulin Aspart (Novolog) 0 unit SUBCUT QIDACANDBED [facility] PRN Reason: Protocol Last Admin: 07/15/17 11:51 Dose: 6 units Insulin Detemir (Levemir) 40 unit SUBCUT BEDTIME [facility] Last Admin: 07/14/17 21:22 Dose: 40 units Lorazepam (Ativan) 1 mg PO Q4H PRN PRN Reason: Anxiety Last Admin: 07/13/17 17:52 Dose: 1 mg Magnesium Hydroxide (Milk Of Magnesia) 30 ml PO Q12H PRN PRN Reason: Constipation Last Admin: 07/14/17 18:10 Dose: 30 ml Melatonin (Melatonin) 9 mg PO BEDTIME [facility] Last Admin: 07/14/17 21:23 Dose: 9 mg Metoprolol Succinate (Toprol Xl) 25 mg PO DAILY [facility] Last Admin: 07/15/17 09:24 Dose: 25 mg Nystatin (Nystop) 0 gm TOP TID [facility] Last Admin: 07/15/17 09:30 Dose: 1 applic Ondansetron HCl (Zofran) 4 mg IV Q4H PRN PRN Reason: Nausea/Vomiting Pantoprazole Sodium (Protonix) 40 mg PO ACBREAKFAST [facility] Last Admin: 07/15/17 07:27 Dose: 40 mg Polyethylene Glycol (Miralax) 17 gm PO DAILY PRN PRN Reason: Constipation Last Admin: 07/13/17 04:09 Dose: 17 gm Potassium Chloride (Klor-Con M20) 40 meq PO ACLUNCH [facility] Last Admin: 07/15/17 11:50 Dose: 40 meq Sodium Chloride (Saline Flush) 10 ml FLUSH ASDIRECTED PRN PRN Reason: Keep Vein Open Last Admin: 07/13/17 09:24 Dose: 10 ml Tamsulosin HCl (Flomax) 0.4 mg PO PCBREAKFAST [facility] Last Admin: 07/15/17 09:28 Dose: 0.4 mg Trazodone HCl (Trazodone) 100 mg PO BEDTIME [facility] Last Admin: 07/14/17 21:23 Dose: 100 mg Discontinued Medications Acetaminophen (Tylenol Extra Strength) Confirm Administered Dose 1,000 mg .ROUTE .STK-MED ONE Stop: 07/04/17 06:17 Last Admin: 07/04/17 08:32 Dose: Not Given Acetazolamide (Diamox) 250 mg IVPUSH Q6H YOAN Stop: 07/09/17 21:01 Last Admin: 07/09/17 21:12 Dose: 250 mg Acetazolamide (Diamox) 500 mg IVPUSH Q6H [facility] Stop: 07/10/17 21:01 Last Admin: 07/10/17 21:39 Dose: 500 mg Albuterol/Ipratropium (Duoneb 3.0-0.5 Mg/3 Ml) 3 ml NEB Q1H PRN PRN Reason: Shortness of Breath Last Admin: 07/04/17 06:05 Dose: 3 ml Albuterol/Ipratropium (Duoneb 3.0-0.5 Mg/3 Ml) Confirm Administered Dose 3 ml .ROUTE .STK-MED ONE Stop: 07/04/17 06:03 Last Admin: 07/04/17 08:17 Dose: Not Given Albuterol/Ipratropium (Duoneb 3.0-0.5 Mg/3 Ml) 3 ml NEB Q6H YOAN Albuterol/Ipratropium (Duoneb 3.0-0.5 Mg/3 Ml) 3 ml NEB Q6H YOAN Last Admin: 07/04/17 09:56 Dose: 3 ml Albuterol/Ipratropium (Duoneb 3.0-0.5 Mg/3 Ml) 3 ml NEB Q6H YOAN Last Admin: 07/11/17 08:37 Dose: 3 ml Albuterol/Ipratropium (Duoneb 3.0-0.5 Mg/3 Ml) Confirm Administered Dose 3 ml .ROUTE .STK-MED ONE Stop: 07/12/17 09:05 Last Admin: 07/12/17 10:32 Dose: Not Given Bumetanide (Bumex) 2 mg IVPUSH Q12H [facility] Last Admin: 07/06/17 08:14 Dose: 2 mg Bumetanide (Bumex) 1 mg IVPUSH Q12H [facility] Last Admin: 07/08/17 20:11 Dose: 1 mg Bumetanide (Bumex) 1 mg IVPUSH Q24H YOAN Last Admin: 07/11/17 09:11 Dose: 1 mg Bumetanide (Bumex) 1 mg IVPUSH BIDDIURETIC YOAN Last Admin: 07/12/17 09:42 Dose: 1 mg Bumetanide (Bumex) 1 mg IVPUSH DAILY YOAN Bumetanide (Bumex) 1 mg PO BIDDIURETIC YOAN Last Admin: 07/13/17 08:07 Dose: 1 mg Diphenhydramine HCl (Benadryl) 50 mg IVPUSH ONETIME ONE Stop: 07/04/17 07:09 Last Admin: 07/04/17 06:41 Dose: 50 mg Enoxaparin Sodium (Lovenox) 30 mg SUBCUT DAILY [facility] Last Admin: 07/07/17 10:38 Dose: 30 mg Epinephrine HCl (Adrenalin 1:1000) 0.3 mg IM ONETIME ONE Stop: 07/04/17 07:07 Last Admin: 07/04/17 06:38 Dose: 0.3 mg Etomidate (Amidate) 20 mg IVPUSH ONETIME ONE Stop: 07/04/17 07:08 Last Admin: 07/04/17 06:42 Dose: 20 mg Famotidine (Pepcid) Confirm Administered Dose 40 mg .ROUTE .STK-MED ONE Stop: 07/04/17 06:50 Last Admin: 07/04/17 08:25 Dose: Not Given Famotidine (Pepcid) 20 mg IVPUSH ONETIME ONE Stop: 07/04/17 07:06 Last Admin: 07/04/17 06:49 Dose: 20 mg Haloperidol Lactate (Haldol) 2 mg IVPUSH Q2H PRN PRN Reason: Agitation Last Admin: 07/13/17 19:29 Dose: 2 mg Heparin Sodium (Porcine) (Heparin Sodium) Confirm Administered Dose 5,000 units .ROUTE .STK-MED ONE Stop: 07/04/17 09:31 Last Admin: 07/04/17 10:23 Dose: Not Given Heparin Sodium (Porcine) (Heparin Lock Flush 100 Units/Ml) 500 units IVPUSH ASDIRECTED PRN 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 Last Admin: 07/09/17 13:39 Dose: 500 units Hydromorphone HCl (Dilaudid) Confirm Administered Dose 0.5 mg .ROUTE .STK-MED ONE Stop: 07/04/17 08:11 Last Admin: 07/04/17 08:21 Dose: Not Given Hydromorphone HCl (Dilaudid) 0.5 mg IVPUSH ONETIME ONE Stop: 07/04/17 08:20 Last Admin: 07/04/17 08:22 Dose: 0.5 mg Hydromorphone HCl (Dilaudid) 0.5 mg IVPUSH Q1H PRN PRN Reason: Pain Last Admin: 07/05/17 09:31 Dose: 0.5 mg Hydromorphone HCl (Dilaudid) 1 mg IVPUSH Q1H PRN PRN Reason: Pain Last Admin: 07/05/17 12:42 Dose: 1 mg Hydromorphone HCl (Dilaudid) 0.5 mg IVPUSH Q2H PRN PRN Reason: Pain Last Admin: 07/09/17 10:14 Dose: 0.5 mg Piperacillin Sod/Tazobactam (Sod 4.5 gm/ Sodium Chloride) 100 mls @ 200 mls/hr IV Q6H YOAN Last Admin: 07/04/17 06:54 Dose: 200 mls/hr Vancomycin HCl 1,000 mg/ (Dextrose/Water) 250 mls @ 167 mls/hr IV ONETIME ONE Stop: 07/04/17 07:44 Last Admin: 07/04/17 06:30 Dose: 167 mls/hr Sodium Chloride (Normal Saline) 1,000 mls @ 999 mls/hr IV .BOLUS STA Stop: 07/04/17 07:16 Last Admin: 07/04/17 06:30 Dose: 999 mls/hr Acetaminophen (Ofirmev) Confirm Administered Dose 100 mls @ as directed IV .STK- MED ONE Stop: 07/04/17 06:31 Last Admin: 07/04/17 09:15 Dose: Not Given Dextrose/Water (Dextrose 5% In Water) Confirm Administered Dose 250 mls @ as directed .ROUTE .STK-MED ONE Stop: 07/04/17 06:56 Last Admin: 07/04/17 08:21 Dose: Not Given Norepinephrine Bitartrate 4 mg (/ Dextrose/Water) 250 mls @ 7.5 mls/hr IV TITRATE YOAN; 2 MCG/MIN PRN Reason: Protocol Last Titration: 07/04/17 07:21 Dose: 0 mcg/min, 0 mls/hr Levofloxacin/Dextrose 750 mg/ (Premix) 150 mls @ 100 mls/hr IV ONETIME ONE Stop: 07/04/17 08:59 Last Admin: 07/04/17 07:30 Dose: 100 mls/hr Lactated Ringer's (Ringers, Lactated) 1,000 mls @ 125 mls/hr IV ASDIRECTED YOAN Last Admin: 07/05/17 08:46 Dose: 125 mls/hr Levofloxacin/Dextrose 750 mg/ (Premix) 150 mls @ 100 mls/hr IV Q24H [facility] Last Admin: 07/12/17 09:42 Dose: 100 mls/hr Piperacillin/Tazobactam/ (Dextrose 3.375 gm/ Premix) 50 mls @ 100 mls/hr IV Q6H YOAN Last Admin: 07/10/17 05:29 Dose: 100 mls/hr Acetaminophen 1,000 mg/ Premix 100 mls @ 400 mls/hr IV NOW ONE Stop: 07/04/17 06:44 Last Admin: 07/04/17 06:40 Dose: 400 mls/hr Heparin Sodium (Porcine) 5,000 (units/ Sodium Chloride) 501 mls @ 0 mls/hr IV ASDIRECTED YOAN PRN Reason: KVO Last Admin: 07/08/17 12:40 Dose: 2 mls/hr Lactated Ringer's (Ringers, Lactated) 1,000 mls @ 15 mls/hr IV ASDIRECTED YOAN Last Admin: 07/10/17 05:31 Dose: 15 mls/hr Propofol (Diprivan 100 Ml) 100 mls @ 0 mls/hr IV TITRATE YOAN; 20 MCG/KG/MIN PRN Reason: Protocol Last Admin: 07/09/17 06:06 Dose: 34.39 mcg/kg/min, 26 mls/hr Potassium Chloride 20 meq/Lidocaine HCl 2 ml/ Sodium Chloride 112 mls @ 56 mls/ hr IV Q2H YOAN Stop: 07/06/17 13:59 Last Admin: 07/06/17 12:07 Dose: 56 mls/hr Magnesium Sulfate 2 gm/ Premix 50 mls @ 25 mls/hr IV ONETIME ONE Stop: 07/07/17 10:59 Last Admin: 07/07/17 09:33 Dose: 25 mls/hr Potassium Chloride 20 meq/ (Premix) 100 mls @ 50 mls/hr IV Q2H YOAN Stop: 07/07/17 12:59 Last Admin: 07/07/17 11:36 Dose: 50 mls/hr Potassium Chloride 40 meq/ (Premix) 100 mls @ 25 mls/hr IV ONETIME ONE Stop: 07/07/17 23:59 Last Admin: 07/07/17 20:20 Dose: 25 mls/hr Magnesium Sulfate 2 gm/ Premix 50 mls @ 25 mls/hr IV ONETIME ONE Stop: 07/08/17 13:59 Last Admin: 07/08/17 11:31 Dose: 25 mls/hr Potassium Chloride 20 meq/ (Premix) 100 mls @ 50 mls/hr IV Q2H YOAN Stop: 07/08/17 15:59 Last Admin: 07/08/17 13:29 Dose: 50 mls/hr Sodium Chloride (Normal Saline) 1,000 mls @ 999 mls/hr IV ONETIME ONE Stop: 07/04/17 07:51 Last Admin: 07/04/17 06:51 Dose: 999 mls/hr Potassium Chloride 40 meq/ (Premix) 100 mls @ 25 mls/hr IV ONETIME ONE Stop: 07/09/17 13:59 Last Admin: 07/09/17 09:23 Dose: 25 mls/hr Potassium Chloride 40 meq/ (Premix) 100 mls @ 25 mls/hr IV ONETIME ONE Stop: 07/10/17 13:59 Last Admin: 07/10/17 11:30 Dose: 25 mls/hr Sodium Chloride (Normal Saline) 500 mls @ 500 mls/hr IV ASDIRECTED YOAN Stop: 07/13/17 17:31 Sodium Chloride (Normal Saline) 500 mls @ 500 mls/hr IV ASDIRECTED YOAN Last Admin: 07/13/17 17:31 Dose: 500 mls/hr Insulin Detemir (Levemir) 30 unit SUBCUT BEDTIME [facility] Last Admin: 07/06/17 20:59 Dose: 30 units Ketamine HCl (Ketalar) Confirm Administered Dose 500 mg .ROUTE .[facility] ONE Stop: 07/04/17 06:48 Last Admin: 07/04/17 08:40 Dose: Not Given Ketamine HCl (Ketalar) 60 mg IV NOW STA Stop: 07/04/17 07:04 Last Admin: 07/04/17 07:03 Dose: 60 mg Levofloxacin (Levaquin) 250 mg PO Q24H YOAN Levofloxacin (Levaquin) 500 mg PO Q24H YOAN Lidocaine HCl (Xylocaine-Mpf 1%) Confirm Administered Dose 5 ml .ROUTE .STK-MED ONE Stop: 07/04/17 09:34 Last Admin: 07/04/17 10:16 Dose: Not Given Lidocaine HCl (Xylocaine-Mpf 1%) 5 ml INJECT ONETIME ONE Stop: 07/04/17 10:31 Last Admin: 07/04/17 10:16 Dose: 5 ml Methylprednisolone Sodium Succinate (Solu-Medrol) 125 mg IV ONETIME ONE Stop: 07/04/17 06:08 Last Admin: 07/04/17 08:27 Dose: Not Given Methylprednisolone Sodium Succinate (Solu-Medrol) Confirm Administered Dose 125 mg .ROUTE .STK-MED ONE Stop: 07/04/17 06:07 Last Admin: 07/04/17 08:18 Dose: Not Given Methylprednisolone Sodium Succinate (Solu-Medrol) 125 mg IVPUSH Q6H [facility] Last Admin: 07/05/17 05:59 Dose: 125 mg Methylprednisolone Sodium Succinate (Solu-Medrol) 40 mg IVPUSH Q6H [facility] Last Admin: 07/06/17 05:46 Dose: 40 mg Methylprednisolone Sodium Succinate (Solu-Medrol) 40 mg IVPUSH Q12H [facility] Last Admin: 07/08/17 08:41 Dose: 40 mg Methylprednisolone Sodium Succinate (Solu-Medrol) 20 mg IVPUSH Q12H [facility] Last Admin: 07/09/17 08:58 Dose: 20 mg Midazolam HCl (Versed 1 Mg/Ml) Confirm Administered Dose 5 mg .ROUTE .STK-MED ONE Stop: 07/04/17 07:38 Last Admin: 07/04/17 08:22 Dose: Not Given Midazolam HCl (Versed 1 Mg/Ml) 5 mg IVPUSH ONETIME ONE Stop: 07/04/17 07:45 Last Admin: 07/04/17 07:45 Dose: 5 mg Pantoprazole Sodium (Protonix Iv) 40 mg IVPUSH DAILY YOAN Last Admin: 07/10/17 08:32 Dose: 40 mg Piperacillin Sod/Tazobactam Sod (Zosyn) Confirm Administered Dose 4.5 gm .ROUTE .STK-MED ONE Stop: 07/04/17 06:16 Last Admin: 07/04/17 08:16 Dose: Not Given Potassium Chloride (Klor-Con M20) 40 meq PO ONETIME ONE Stop: 07/10/17 09:01 Last Admin: 07/10/17 09:34 Dose: 40 meq Potassium Chloride (Klor-Con M20) 40 meq PO BEDTIME YOAN Last Admin: 07/12/17 20:15 Dose: 40 meq Rocuronium Shade (Zemuron) Confirm Administered Dose 50 mg .ROUTE .STK-MED ONE Stop: 07/04/17 07:13 Last Admin: 07/04/17 08:40 Dose: Not Given Rocuronium Shade (Zemuron) 20 mg IV ONETIME ONE Stop: 07/04/17 08:37 Last Admin: 07/04/17 07:10 Dose: 20 mg Succinylcholine Chloride (Quelicin) Confirm Administered Dose 200 mg .ROUTE .STK -MED ONE Stop: 07/04/17 06:43 Last Admin: 07/04/17 08:39 Dose: Not Given Succinylcholine Chloride (Quelicin) 180 mg IV NOW STA Stop: 07/04/17 07:05 Last Admin: 07/04/17 07:03 Dose: 180 mg Vancomycin HCl (Vancomycin) Confirm Administered Dose 1 gm .ROUTE .STK-MED ONE Stop: 07/04/17 06:16 Last Admin: 07/04/17 08:22 Dose: Not Given - Exam Quality Assessment: Supplemental Oxygen General: Alert, Oriented, Cooperative, No Acute Distress Neck: Supple Lungs: Normal Respiratory Effort, Decreased Breath Sounds (mild left lung base) , Crackles (left lung base) Cardiovascular: Regular Rate, Regular Rhythm GI/Abdominal Exam: Soft, No Distention Extremities: Pedal Edema (mild bilateral lower ext edema) Skin: Warm, Dry Psy/Mental Status: Alert, Normal Affect - Problem List Review Problem List Initiated/Reviewed/Updated: Yes - My Orders Last 24 Hours: My Active Orders 07/14/17 20:00 Insert Jung Catheter [Insert Urinary Catheter] [OM.PC] Q24H 07/15/17 16:30 GLUCOSE POC LAB TO COLLECT [POC] QIDACANDBED 07/15/17 21:00 GLUCOSE POC LAB TO COLLECT [POC] QIDACANDBED 07/16/17 05:00 BASIC METABOLIC PANEL,BMP [CHEM] Timed CBC W/O DIFF,HEMOGRAM [HEME] Timed (1) - Plan Plan:: ASSESSMENT AND PLAN ACUTE ON CHRONIC HYPOXIC AND HYPERCAPNIC RESPIRATORY FAILURE - clinically improving respiratory status each day. Supplemental oxygen requirement his decreasing. -Noninvasive positive pressure ventilation at night if needed -Supplement oxygen -Nebulizer therapy with albuterol and duo nebs -Management of pneumonia as below -Bumex 1 mg PO DAILY LEFT LUNG PNEUMONIA WITH SEPSIS - likely causing respiratory failure as noted above. Sepsis has resolved. seems to be doing better with recent antibiotic changes. Supplemental oxygen requirements slightly less and mental status continues to clear. -Continue doxycycline and meropenem, changed to just by mouth doxycycline tomorrow if stable overnight -Symptomatic management as needed VANCOMYCIN ANAPHYLAXIS - treated with epinephrine, Solu-Medrol, and Benadryl in the emergency department. Resolved with no recurrence. ACUTE ON CHRONIC KIDNEY - renal function stable to improved for the past 2 days. -Repeat labs in the morning TYPE 2 DIABETES MELLITUS - sugars have been acceptable. -Levemir insulin 40 units subcutaneous at at bedtime -4 times a day glucometers -Moderate dose sliding scale NovoLog MAINTENANCE ISSUES -DVT prophylaxis; enoxaparin 40 mg subcutaneous daily -GI prophylaxis; PPI -Jung catheter; placed 07/13 secondary to urinary retention. -Nutrition; regular DISPOSITION - anticipate discharge to half-way after the hospital stay with impressive weakness. still requiring the assist of 2. Patient is weak and physical therapy was initiated 07/11. Florin Bauer M.D.
[2017-07-15] MEDS: Docusate Sodium 100 MG Cap PO PRN (16:19)
[2017-07-15] MEDS: Magnesium Hydroxide 400 MG/5 ML Susp 30 ML Cup PO PRN (16:19)
[2017-07-15] MEDS: Melatonin 3 MG Tab PO SCH (20:06)
[2017-07-15] MEDS: traZODone 50 MG Tab PO SCH (20:07)
[2017-07-15] MEDS: Polyethylene Glycol 3350 Powder 17 GM Packet PO PRN (20:08)
[2017-07-15] MEDS: Insulin Detemir 100 Units/ML 3 ML Pen SUBCUT SCH (20:41)
[2017-07-16] MEDS: Meropenem 1 GM in Sodium Chloride 0.9% 100 ML IV SCH ×2 (01:13→09:32)
[2017-07-16] MEDS: Docusate Sodium 100 MG Cap PO PRN (04:52)
[2017-07-16] MEDS: Magnesium Hydroxide 400 MG/5 ML Susp 30 ML Cup PO PRN (04:52)
[2017-07-16] MEDS: Albuterol/Ipratropium 3.0-0.5 MG/3 ML Neb Soln NEB SCH ×4 (08:03→20:31)
[2017-07-16] MEDS: Arformoterol 15 MCG/2 ML Neb Soln NEB SCH ×2 (08:04→20:31)
[2017-07-16] MEDS: Escitalopram 20 MG Tab PO SCH (08:41)
[2017-07-16] MEDS: Pantoprazole 40 MG Tab.CR PO SCH (08:41)
[2017-07-16] MEDS: Tamsulosin 0.4 MG Cap.ER PO SCH (08:41)
[2017-07-16] MEDS: Folic Acid 1 MG Tab PO SCH (08:41)
[2017-07-16] MEDS: ARIPiprazole 10 MG Tab PO SCH (08:41)
[2017-07-16] MEDS: Aspirin 81 MG Tab.EC PO SCH (08:41)
[2017-07-16] MEDS: Bumetanide 1 MG Tab PO SCH (08:41)
[2017-07-16] MEDS: Doxycycline 100 MG Cap PO SCH ×2 (08:41→20:30)
[2017-07-16] MEDS: Nystatin Topical Powder 15 GM Bottle TOP SCH ×3 (08:42→20:31)
[2017-07-16] MEDS: Insulin Aspart 100 Units/ML 3 ML Pen SUBCUT SCH ×6 (08:42→21:51)
[2017-07-16] MEDS: Enoxaparin 40 MG/0.4 ML Syringe SUBCUT SCH (08:42)
[2017-07-16] MEDS: Metoprolol Succinate 25 MG Tab.ER PO SCH (08:43)
[2017-07-16] MEDS ORDERED: Bisacodyl 5 MG Tab PO PRN (11:02)
[2017-07-16] MEDS ORDERED: Bisacodyl 10 MG Supp RECTAL PRN (11:02)
[2017-07-16] MEDS: Potassium Chloride 20 MEQ Tab.ER PO SCH (12:16)
--- NOTE | 2017-07-16 12:43 | PCM.PN ---
- General Info Date of Service: 07/16/17 Functional Status: Reports: Pain Controlled, Tolerating Diet - Review of Systems General: Reports: Weakness. Denies: Fever Pulmonary: Reports: Shortness of Breath, Cough Neurological: Denies: Confusion Systems Review Comment:: No acute events overnight but he did still need the noninvasive ventilation. He' s not having any fevers. Down to 3 L of supplemental oxygen. Cough is loose. White blood cell count trending down. Blood sugars moderately elevated through the day yesterday. Strength is slowly improving but he is still very weak. - Patient Data Vitals - Most Recent: Last Vital Signs Temp 36.7 C 07/16/17 10:51 Pulse 81 07/16/17 11:08 Resp 20 07/16/17 10:51 BP 125/61 07/16/17 10:51 Pulse Ox 90 L 07/16/17 12:14 Weight - Most Recent: 122.924 kg I&O - Last 24 Hours: Intake & Output 07/15/17 07/16/17 07/16/17 22:59 06:59 14:59 Intake Total 720 460 460 Output Total 450 775 Balance 270 -315 460 Lab Results Last 24 Hours: Laboratory Results - last 24 hr 07/16/17 07/16/17 Range/Units 05:27 05:27 WBC 15.3 H (4.5-11.0) K/uL RBC 4.63 (4.30-5.90) M/uL Hgb 12.7 (12.0-15.0) g/dL Hct 38.9 L (40.0-54.0) % MCV 84 (80-98) fL MCH 27 (27-31) pg MCHC 33 (32-36) % Plt Count 292 (150-400) K/uL Sodium 136 L (140-148) mmol/L Potassium 4.6 (3.6-5.2) mmol/L Chloride 100 (100-108) mmol/L Carbon Dioxide 29 (21-32) mmol/L Anion Gap 11.6 (5.0-14.0) mmol/L BUN 42 H (7-18) mg/dL Creatinine 1.4 H (0.8-1.3) mg/dL Est Cr Clr Drug Dosing 57.05 mL/min Estimated GFR (MDRD) 51 L (>60) Glucose 229 H (74-106) mg/dL Calcium 9.7 (8.5-10.1) mg/dL Med Orders - Current: Current Medications Albuterol (Proventil Neb Soln) 2.5 mg NEB Q4H PRN PRN Reason: Shortness Of Breath/wheezing Last Admin: 07/11/17 19:45 Dose: 2.5 mg Albuterol/Ipratropium (Duoneb 3.0-0.5 Mg/3 Ml) 3 ml NEB QIDRT [facility] Last Admin: 07/16/17 11:07 Dose: 3 ml Arformoterol Tartrate (Brovana) 15 mcg NEB BIDRT [facility] [place] Last Admin: 07/16/17 08:04 Dose: 15 mcg Aripiprazole (Abilify) 15 mg PO DAILY [facility] [place] Last Admin: 07/16/17 08:41 Dose: 15 mg Aspirin (Halfprin) 81 mg PO DAILY [facility] [place] Last Admin: 07/16/17 08:41 Dose: 81 mg Bisacodyl (Dulcolax) 10 mg PO DAILY PRN PRN Reason: Constipation Bisacodyl (Dulcolax) 10 mg RECTAL DAILY PRN PRN Reason: Constipation Bumetanide (Bumex) 1 mg PO DAILY [facility] [place] Last Admin: 07/16/17 08:41 Dose: 1 mg Dextrose (Glutose 15) 15 gm PO ONETIME PRN PRN Reason: Hypoglycemia Dextrose/Water (Dextrose 50% In Water) 50 ml IV ONETIME PRN PRN Reason: Hypoglycemia Dimethicone/Zinc Oxide (Rash Relief-Zinc Oxide [place]) 1 gm TOP ASDIRECTED PRN PRN Reason: Rash Last Admin: 07/13/17 04:11 Dose: 1 applic Docusate Sodium (Colace) 100 mg PO BID PRN PRN Reason: Constipation Last Admin: 07/16/17 04:52 Dose: 100 mg Doxycycline Hyclate (Vibramycin) 100 mg PO BID [facility] [place] Last Admin: 07/16/17 08:41 Dose: 100 mg Enoxaparin Sodium (Lovenox) 40 mg SUBCUT DAILY [facility] [place] Last Admin: 07/16/17 08:42 Dose: 40 mg Escitalopram Oxalate (Lexapro) 20 mg PO DAILY [facility] [place] Last Admin: 07/16/17 08:41 Dose: 20 mg Folic Acid (Folic Acid) 1 mg PO DAILY [facility] [place] Last Admin: 07/16/17 08:41 Dose: 1 mg Guaifenesin/Dextromethorphan (Robitussin Dm) 10 ml PO Q4H PRN PRN Reason: Cough Last Admin: 07/13/17 04:09 Dose: 10 ml Meropenem 1 gm/ Sodium (Chloride) 100 mls @ 200 mls/hr IV Q8H [facility] [place] Last Admin: 07/16/17 09:32 Dose: 200 mls/hr Insulin Aspart (Novolog) 0 unit SUBCUT QIDACANDBED [facility] PRN Reason: Protocol Last Admin: 07/16/17 12:16 Dose: 8 units Insulin Aspart (Novolog) 10 unit SUBCUT TIDMEALS [facility] [place] Last Admin: 07/16/17 12:17 Dose: 10 units Insulin Detemir (Levemir) 40 unit SUBCUT BEDTIME [facility] [place] Last Admin: 07/15/17 20:41 Dose: 40 units Lorazepam (Ativan) 1 mg PO Q4H PRN PRN Reason: Anxiety Last Admin: 07/13/17 17:52 Dose: 1 mg Magnesium Hydroxide (Milk Of Magnesia) 30 ml PO Q12H PRN PRN Reason: Constipation Last Admin: 07/16/17 04:52 Dose: 30 ml Melatonin (Melatonin) 9 mg PO BEDTIME [facility] [place] Last Admin: 07/15/17 20:06 Dose: 9 mg Metoprolol Succinate (Toprol Xl) 25 mg PO DAILY [facility] [place] Last Admin: 07/16/17 08:43 Dose: 25 mg Nystatin (Nystop) 0 gm TOP TID [facility] [place] Last Admin: 07/16/17 08:42 Dose: 1 applic Ondansetron HCl (Zofran) 4 mg IV Q4H PRN PRN Reason: Nausea/Vomiting Pantoprazole Sodium (Protonix) 40 mg PO ACBREAKFAST [facility] [place] Last Admin: 07/16/17 08:41 Dose: 40 mg Polyethylene Glycol (Miralax) 17 gm PO DAILY PRN PRN Reason: Constipation Last Admin: 07/15/17 20:08 Dose: 17 gm Potassium Chloride (Klor-Con M20) 40 meq PO ACLUNCH [facility] [place] Last Admin: 07/16/17 12:16 Dose: 40 meq Sodium Chloride (Saline Flush) 10 ml FLUSH ASDIRECTED PRN PRN Reason: Keep Vein Open Last Admin: 07/13/17 09:24 Dose: 10 ml Tamsulosin HCl (Flomax) 0.4 mg PO PCBREAKFAST [facility] [place] Last Admin: 07/16/17 08:41 Dose: 0.4 mg Trazodone HCl (Trazodone) 100 mg PO BEDTIME [facility] [place] Last Admin: 07/15/17 20:07 Dose: 100 mg Discontinued Medications Acetaminophen (Tylenol Extra Strength) Confirm Administered Dose 1,000 mg .ROUTE .STK-MED ONE Stop: 07/04/17 06:17 Last Admin: 07/04/17 08:32 Dose: Not Given Acetazolamide (Diamox) 250 mg IVPUSH Q6H [facility] [place] Stop: 07/09/17 21:01 Last Admin: 07/09/17 21:12 Dose: 250 mg Acetazolamide (Diamox) 500 mg IVPUSH Q6H [facility] [place] Stop: 07/10/17 21:01 Last Admin: 07/10/17 21:39 Dose: 500 mg Albuterol/Ipratropium (Duoneb 3.0-0.5 Mg/3 Ml) 3 ml NEB Q1H PRN PRN Reason: Shortness of Breath Last Admin: 07/04/17 06:05 Dose: 3 ml Albuterol/Ipratropium (Duoneb 3.0-0.5 Mg/3 Ml) Confirm Administered Dose 3 ml .ROUTE .STK-MED ONE Stop: 07/04/17 06:03 Last Admin: 07/04/17 08:17 Dose: Not Given Albuterol/Ipratropium (Duoneb 3.0-0.5 Mg/3 Ml) 3 ml NEB Q6H [facility] Albuterol/Ipratropium (Duoneb 3.0-0.5 Mg/3 Ml) 3 ml NEB Q6H [facility] Last Admin: 07/04/17 09:56 Dose: 3 ml Albuterol/Ipratropium (Duoneb 3.0-0.5 Mg/3 Ml) 3 ml NEB Q6H [facility] Last Admin: 07/11/17 08:37 Dose: 3 ml Albuterol/Ipratropium (Duoneb 3.0-0.5 Mg/3 Ml) Confirm Administered Dose 3 ml .ROUTE .STK-MED ONE Stop: 07/12/17 09:05 Last Admin: 07/12/17 10:32 Dose: Not Given Bumetanide (Bumex) 2 mg IVPUSH Q12H [facility] [place] Last Admin: 07/06/17 08:14 Dose: 2 mg Bumetanide (Bumex) 1 mg IVPUSH Q12H [facility] [place] Last Admin: 07/08/17 20:11 Dose: 1 mg Bumetanide (Bumex) 1 mg IVPUSH Q24H [facility] [place] Last Admin: 07/11/17 09:11 Dose: 1 mg Bumetanide (Bumex) 1 mg IVPUSH BIDDIURETIC [facility] [place] Last Admin: 07/12/17 09:42 Dose: 1 mg Bumetanide (Bumex) 1 mg IVPUSH DAILY [facility] [place] Bumetanide (Bumex) 1 mg PO BIDDIURETIC [facility] [place] Last Admin: 07/13/17 08:07 Dose: 1 mg Diphenhydramine HCl (Benadryl) 50 mg IVPUSH ONETIME ONE Stop: 07/04/17 07:09 Last Admin: 07/04/17 06:41 Dose: 50 mg Enoxaparin Sodium (Lovenox) 30 mg SUBCUT DAILY [facility] [place] Last Admin: 07/07/17 10:38 Dose: 30 mg Epinephrine HCl (Adrenalin 1:1000) 0.3 mg IM ONETIME ONE Stop: 07/04/17 07:07 Last Admin: 07/04/17 06:38 Dose: 0.3 mg Etomidate (Amidate) 20 mg IVPUSH ONETIME ONE Stop: 07/04/17 07:08 Last Admin: 07/04/17 06:42 Dose: 20 mg Famotidine (Pepcid) Confirm Administered Dose 40 mg .ROUTE .STK-MED ONE Stop: 07/04/17 06:50 Last Admin: 07/04/17 08:25 Dose: Not Given Famotidine (Pepcid) 20 mg IVPUSH ONETIME ONE Stop: 07/04/17 07:06 Last Admin: 07/04/17 06:49 Dose: 20 mg Haloperidol Lactate (Haldol) 2 mg IVPUSH Q2H PRN PRN Reason: Agitation Last Admin: 07/13/17 19:29 Dose: 2 mg Heparin Sodium (Porcine) (Heparin Sodium) Confirm Administered Dose 5,000 units .ROUTE .STK-MED ONE Stop: 07/04/17 09:31 Last Admin: 07/04/17 10:23 Dose: Not Given Heparin Sodium (Porcine) (Heparin Lock Flush 100 Units/Ml) 500 units IVPUSH ASDIRECTED PRN 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 Last Admin: 07/09/17 13:39 Dose: 500 units Hydromorphone HCl (Dilaudid) Confirm Administered Dose 0.5 mg .ROUTE .STK-MED ONE Stop: 07/04/17 08:11 Last Admin: 07/04/17 08:21 Dose: Not Given Hydromorphone HCl (Dilaudid) 0.5 mg IVPUSH ONETIME ONE Stop: 07/04/17 08:20 Last Admin: 07/04/17 08:22 Dose: 0.5 mg Hydromorphone HCl (Dilaudid) 0.5 mg IVPUSH Q1H PRN PRN Reason: Pain Last Admin: 07/05/17 09:31 Dose: 0.5 mg Hydromorphone HCl (Dilaudid) 1 mg IVPUSH Q1H PRN PRN Reason: Pain Last Admin: 07/05/17 12:42 Dose: 1 mg Hydromorphone HCl (Dilaudid) 0.5 mg IVPUSH Q2H PRN PRN Reason: Pain Last Admin: 07/09/17 10:14 Dose: 0.5 mg Piperacillin Sod/Tazobactam (Sod 4.5 gm/ Sodium Chloride) 100 mls @ 200 mls/hr IV Q6H [facility] Last Admin: 07/04/17 06:54 Dose: 200 mls/hr Vancomycin HCl 1,000 mg/ (Dextrose/Water) 250 mls @ 167 mls/hr IV ONETIME ONE Stop: 07/04/17 07:44 Last Admin: 07/04/17 06:30 Dose: 167 mls/hr Sodium Chloride (Normal Saline) 1,000 mls @ 999 mls/hr IV .BOLUS STA Stop: 07/04/17 07:16 Last Admin: 07/04/17 06:30 Dose: 999 mls/hr Acetaminophen (Ofirmev) Confirm Administered Dose 100 mls @ as directed IV .STK- MED ONE Stop: 07/04/17 06:31 Last Admin: 07/04/17 09:15 Dose: Not Given Dextrose/Water (Dextrose 5% In Water) Confirm Administered Dose 250 mls @ as directed .ROUTE .STK-MED ONE Stop: 07/04/17 06:56 Last Admin: 07/04/17 08:21 Dose: Not Given Norepinephrine Bitartrate 4 mg (/ Dextrose/Water) 250 mls @ 7.5 mls/hr IV TITRATE YOAN; 2 MCG/MIN PRN Reason: Protocol Last Titration: 07/04/17 07:21 Dose: 0 mcg/min, 0 mls/hr Levofloxacin/Dextrose 750 mg/ (Premix) 150 mls @ 100 mls/hr IV ONETIME ONE Stop: 07/04/17 08:59 Last Admin: 07/04/17 07:30 Dose: 100 mls/hr Lactated Ringer's (Ringers, Lactated) 1,000 mls @ 125 mls/hr IV ASDIRECTED [facility] Last Admin: 07/05/17 08:46 Dose: 125 mls/hr Levofloxacin/Dextrose 750 mg/ (Premix) 150 mls @ 100 mls/hr IV Q24H [facility] Last Admin: 07/12/17 09:42 Dose: 100 mls/hr Piperacillin/Tazobactam/ (Dextrose 3.375 gm/ Premix) 50 mls @ 100 mls/hr IV Q6H [facility] Last Admin: 07/10/17 05:29 Dose: 100 mls/hr Acetaminophen 1,000 mg/ Premix 100 mls @ 400 mls/hr IV NOW ONE Stop: 07/04/17 06:44 Last Admin: 07/04/17 06:40 Dose: 400 mls/hr Heparin Sodium (Porcine) 5,000 (units/ Sodium Chloride) 501 mls @ 0 mls/hr IV ASDIRECTED [facility]OAN PRN Reason: KVO Last Admin: 07/08/17 12:40 Dose: 2 mls/hr Lactated Ringer's (Ringers, Lactated) 1,000 mls @ 15 mls/hr IV ASDIRECTED [facility] Last Admin: 07/10/17 05:31 Dose: 15 mls/hr Propofol (Diprivan 100 Ml) 100 mls @ 0 mls/hr IV TITRATE YOAN; 20 MCG/KG/MIN PRN Reason: Protocol Last Admin: 07/09/17 06:06 Dose: 34.39 mcg/kg/min, 26 mls/hr Potassium Chloride 20 meq/Lidocaine HCl 2 ml/ Sodium Chloride 112 mls @ 56 mls/ hr IV Q2H [facility] Stop: 07/06/17 13:59 Last Admin: 07/06/17 12:07 Dose: 56 mls/hr Magnesium Sulfate 2 gm/ Premix 50 mls @ 25 mls/hr IV ONETIME ONE Stop: 07/07/17 10:59 Last Admin: 07/07/17 09:33 Dose: 25 mls/hr Potassium Chloride 20 meq/ (Premix) 100 mls @ 50 mls/hr IV Q2H [facility] Stop: 07/07/17 12:59 Last Admin: 07/07/17 11:36 Dose: 50 mls/hr Potassium Chloride 40 meq/ (Premix) 100 mls @ 25 mls/hr IV ONETIME ONE Stop: 07/07/17 23:59 Last Admin: 07/07/17 20:20 Dose: 25 mls/hr Magnesium Sulfate 2 gm/ Premix 50 mls @ 25 mls/hr IV ONETIME ONE Stop: 07/08/17 13:59 Last Admin: 07/08/17 11:31 Dose: 25 mls/hr Potassium Chloride 20 meq/ (Premix) 100 mls @ 50 mls/hr IV Q2H [facility] Stop: 07/08/17 15:59 Last Admin: 07/08/17 13:29 Dose: 50 mls/hr Sodium Chloride (Normal Saline) 1,000 mls @ 999 mls/hr IV ONETIME ONE Stop: 07/04/17 07:51 Last Admin: 07/04/17 06:51 Dose: 999 mls/hr Potassium Chloride 40 meq/ (Premix) 100 mls @ 25 mls/hr IV ONETIME ONE Stop: 07/09/17 13:59 Last Admin: 07/09/17 09:23 Dose: 25 mls/hr Potassium Chloride 40 meq/ (Premix) 100 mls @ 25 mls/hr IV ONETIME ONE Stop: 07/10/17 13:59 Last Admin: 07/10/17 11:30 Dose: 25 mls/hr Sodium Chloride (Normal Saline) 500 mls @ 500 mls/hr IV ASDIRECTED [facility]AN Stop: 07/13/17 17:31 Sodium Chloride (Normal Saline) 500 mls @ 500 mls/hr IV ASDIRECTED [facility] Last Admin: 07/13/17 17:31 Dose: 500 mls/hr Insulin Detemir (Levemir) 30 unit SUBCUT BEDTIME [facility] [place] Last Admin: 07/06/17 20:59 Dose: 30 units Ketamine HCl (Ketalar) Confirm Administered Dose 500 mg .ROUTE .STK-MED ONE Stop: 07/04/17 06:48 Last Admin: 07/04/17 08:40 Dose: Not Given Ketamine HCl (Ketalar) 60 mg IV NOW STA Stop: 07/04/17 07:04 Last Admin: 07/04/17 07:03 Dose: 60 mg Levofloxacin (Levaquin) 250 mg PO Q24H [facility] Levofloxacin (Levaquin) 500 mg PO Q24H [facility] Lidocaine HCl (Xylocaine-Mpf 1%) Confirm Administered Dose 5 ml .ROUTE .STK-MED ONE Stop: 07/04/17 09:34 Last Admin: 07/04/17 10:16 Dose: Not Given Lidocaine HCl (Xylocaine-Mpf 1%) 5 ml INJECT ONETIME ONE Stop: 07/04/17 10:31 Last Admin: 07/04/17 10:16 Dose: 5 ml Methylprednisolone Sodium Succinate (Solu-Medrol) 125 mg IV ONETIME ONE Stop: 07/04/17 06:08 Last Admin: 07/04/17 08:27 Dose: Not Given Methylprednisolone Sodium Succinate (Solu-Medrol) Confirm Administered Dose 125 mg .ROUTE .STK-MED ONE Stop: 07/04/17 06:07 Last Admin: 07/04/17 08:18 Dose: Not Given Methylprednisolone Sodium Succinate (Solu-Medrol) 125 mg IVPUSH Q6H [facility] [place] Last Admin: 07/05/17 05:59 Dose: 125 mg Methylprednisolone Sodium Succinate (Solu-Medrol) 40 mg IVPUSH Q6H [facility] Last Admin: 07/06/17 05:46 Dose: 40 mg Methylprednisolone Sodium Succinate (Solu-Medrol) 40 mg IVPUSH Q12H [facility] [place] Last Admin: 07/08/17 08:41 Dose: 40 mg Methylprednisolone Sodium Succinate (Solu-Medrol) 20 mg IVPUSH Q12H [facility] Last Admin: 07/09/17 08:58 Dose: 20 mg Midazolam HCl (Versed 1 Mg/Ml) Confirm Administered Dose 5 mg .ROUTE .STK-MED ONE Stop: 07/04/17 07:38 Last Admin: 07/04/17 08:22 Dose: Not Given Midazolam HCl (Versed 1 Mg/Ml) 5 mg IVPUSH ONETIME ONE Stop: 07/04/17 07:45 Last Admin: 07/04/17 07:45 Dose: 5 mg Pantoprazole Sodium (Protonix Iv) 40 mg IVPUSH DAILY [facility] [place] Last Admin: 07/10/17 08:32 Dose: 40 mg Piperacillin Sod/Tazobactam Sod (Zosyn) Confirm Administered Dose 4.5 gm .ROUTE .STK-MED ONE Stop: 07/04/17 06:16 Last Admin: 07/04/17 08:16 Dose: Not Given Potassium Chloride (Klor-Con M20) 40 meq PO ONETIME ONE Stop: 07/10/17 09:01 Last Admin: 07/10/17 09:34 Dose: 40 meq Potassium Chloride (Klor-Con M20) 40 meq PO BEDTIME [facility] [place] Last Admin: 07/12/17 20:15 Dose: 40 meq Rocuronium [place] (Zemuron) Confirm Administered Dose 50 mg .ROUTE .STK-MED ONE Stop: 07/04/17 07:13 Last Admin: 07/04/17 08:40 Dose: Not Given Rocuronium [place] (Zemuron) 20 mg IV ONETIME ONE Stop: 07/04/17 08:37 Last Admin: 07/04/17 07:10 Dose: 20 mg Succinylcholine Chloride (Quelicin) Confirm Administered Dose 200 mg .ROUTE .STK -MED ONE Stop: 07/04/17 06:43 Last Admin: 07/04/17 08:39 Dose: Not Given Succinylcholine Chloride (Quelicin) 180 mg IV NOW STA Stop: 07/04/17 07:05 Last Admin: 07/04/17 07:03 Dose: 180 mg Vancomycin HCl (Vancomycin) Confirm Administered Dose 1 gm .ROUTE .STK-MED ONE Stop: 07/04/17 06:16 Last Admin: 07/04/17 08:22 Dose: Not Given - Exam Quality Assessment: Supplemental Oxygen, Urine Catheter General: Alert, Oriented, Cooperative, No Acute Distress Neck: Supple Lungs: Normal Respiratory Effort, Decreased Breath Sounds (left lung base), Crackles (few left lung base) GI/Abdominal Exam: Soft, No Distention Extremities: Pedal Edema (mild bilateral ankle edema). No: Increased Warmth Skin: Warm, Dry Psy/Mental Status: Alert, Normal Affect - Problem List Review Problem List Initiated/Reviewed/Updated: Yes - My Orders Last 24 Hours: My Active Orders 07/16/17 11:02 Bisacodyl [Dulcolax] 10 mg PO DAILY PRN Bisacodyl [Dulcolax] 10 mg RECTAL DAILY PRN 07/16/17 12:00 Insulin Aspart [NovoLOG] 10 unit SUBCUT TIDMEALS 07/16/17 16:30 GLUCOSE POC LAB TO COLLECT [POC] QIDACANDBED 07/16/17 21:00 GLUCOSE POC LAB TO COLLECT [POC] QIDACANDBED 07/17/17 05:00 BASIC METABOLIC PANEL,BMP [CHEM] Timed CBC W/O DIFF,HEMOGRAM [HEME] Timed (1) - Plan Plan:: ASSESSMENT AND PLAN ACUTE ON CHRONIC HYPOXIC AND HYPERCAPNIC RESPIRATORY FAILURE - clinically improving respiratory status each day. Supplemental oxygen requirement has improved but still needing noninvasive ventilation at night. Volume status is appropriate today. -Noninvasive positive pressure ventilation at night if needed -Supplement oxygen -Nebulizer therapy with albuterol and duo nebs -Management of pneumonia as below -Bumex 1 mg PO DAILY LEFT LUNG PNEUMONIA WITH SEPSIS - likely causing respiratory failure as noted above. Significant clinical improvement in the past few days and nearly back to baseline supplemental oxygen requirement. No fevers. -Discontinue meropenem -Continue doxycycline -Symptomatic management as needed -Repeat labs in the morning VANCOMYCIN ANAPHYLAXIS - treated with epinephrine, Solu-Medrol, and Benadryl in the emergency department. Resolved with no recurrence. ACUTE ON CHRONIC KIDNEY - renal function improving, volume status appropriate. -Repeat labs in the morning TYPE 2 DIABETES MELLITUS - sugars have been moderately elevated -Levemir insulin 40 units subcutaneous at at bedtime -NovoLog 10 units with meals -4 times a day glucometers -Moderate dose sliding scale NovoLog MAINTENANCE ISSUES -DVT prophylaxis; enoxaparin 40 mg subcutaneous daily -GI prophylaxis; PPI -Jung catheter; placed 07/13 secondary to urinary retention. -Nutrition; regular DISPOSITION - anticipate discharge to retirement after the hospital stay with impressive weakness. still requiring the assist of 2. Patient is weak and physical therapy was initiated 07/11. planning to leave Jung catheter in place for a period of time after hospital discharge before next voiding trial. Florin Bauer M.D.
[2017-07-16] MEDS: Melatonin 3 MG Tab PO SCH (20:30)
[2017-07-16] MEDS: traZODone 50 MG Tab PO SCH (20:31)
[2017-07-16] MEDS: Insulin Detemir 100 Units/ML 3 ML Pen SUBCUT SCH (21:54)
[2017-07-17] MEDS: Arformoterol 15 MCG/2 ML Neb Soln NEB SCH ×2 (07:51→20:59)
[2017-07-17] MEDS: Albuterol/Ipratropium 3.0-0.5 MG/3 ML Neb Soln NEB SCH ×4 (07:51→20:59)
[2017-07-17] MEDS: Enoxaparin 40 MG/0.4 ML Syringe SUBCUT SCH (08:37)
[2017-07-17] MEDS: ARIPiprazole 10 MG Tab PO SCH (08:37)
[2017-07-17] MEDS: Metoprolol Succinate 25 MG Tab.ER PO SCH (08:37)
[2017-07-17] MEDS: Tamsulosin 0.4 MG Cap.ER PO SCH (08:37)
[2017-07-17] MEDS: Pantoprazole 40 MG Tab.CR PO SCH (08:37)
[2017-07-17] MEDS: Aspirin 81 MG Tab.EC PO SCH (08:37)
[2017-07-17] MEDS: Folic Acid 1 MG Tab PO SCH (08:37)
[2017-07-17] MEDS: Bumetanide 1 MG Tab PO SCH (08:37)
[2017-07-17] MEDS: Doxycycline 100 MG Cap PO SCH ×2 (08:37→20:59)
[2017-07-17] MEDS: Escitalopram 20 MG Tab PO SCH (08:37)
[2017-07-17] MEDS: Nystatin Topical Powder 15 GM Bottle TOP SCH ×3 (08:38→21:03)
[2017-07-17] MEDS: Insulin Aspart 100 Units/ML 3 ML Pen SUBCUT SCH ×8 (08:39→20:58)
[2017-07-17] MEDS: Potassium Chloride 20 MEQ Tab.ER PO SCH (11:28)
--- NOTE | 2017-07-17 12:35 | PCM.PN ---
- General Info Date of Service: 07/17/17 Functional Status: Reports: Pain Controlled, Tolerating Diet, Ambulating - Review of Systems General: Reports: Weakness. Denies: Fever Pulmonary: Reports: Cough Systems Review Comment:: no acute events overnight. Blood sugar a little on the low side this morning but responded well to breakfast. Strength seems to be improving and he's been able to ambulate short distances. Oxygenation has returned to baseline at these down to his usual 2 L of supplemental oxygen. He has not been having any fevers. White count continues to trend down. He is interested in a trial of voiding and would like the Ujng catheter removed today. He is aware that this may need to be replaced if he's not able to pass urine. - Patient Data Vitals - Most Recent: Last Vital Signs Temp 36.2 C 07/17/17 10:27 Pulse 88 07/17/17 11:05 Resp 20 07/17/17 10:27 BP 117/78 07/17/17 10:27 Pulse Ox 88 L 07/17/17 11:05 Weight - Most Recent: 123.15 kg I&O - Last 24 Hours: Intake & Output 07/16/17 07/17/17 07/17/17 22:59 06:59 14:59 Intake Total 360 480 Output Total 300 675 Balance 60 -195 Lab Results Last 24 Hours: Laboratory Results - last 24 hr 07/17/17 07/17/17 Range/Units 05:00 05:00 WBC 13.6 H (4.5-11.0) K/uL RBC 4.56 (4.30-5.90) M/uL Hgb 12.4 (12.0-15.0) g/dL Hct 38.8 L (40.0-54.0) % MCV 85 (80-98) fL MCH 27 (27-31) pg MCHC 32 (32-36) % Plt Count 317 (150-400) K/uL Sodium 138 L (140-148) mmol/L Potassium 4.5 (3.6-5.2) mmol/L Chloride 102 (100-108) mmol/L Carbon Dioxide 31 (21-32) mmol/L Anion Gap 9.5 (5.0-14.0) mmol/L BUN 35 H (7-18) mg/dL Creatinine 1.2 (0.8-1.3) mg/dL Est Cr Clr Drug Dosing 66.56 mL/min Estimated GFR (MDRD) > 60 (>60) Glucose 95 (74-106) mg/dL Calcium 9.5 (8.5-10.1) mg/dL Med Orders - Current: Current Medications Albuterol (Proventil Neb Soln) 2.5 mg NEB Q4H PRN PRN Reason: Shortness Of Breath/wheezing Last Admin: 07/11/17 19:45 Dose: 2.5 mg Albuterol/Ipratropium (Duoneb 3.0-0.5 Mg/3 Ml) 3 ml NEB QIDRT [facility] Last Admin: 07/17/17 11:04 Dose: 3 ml Arformoterol Tartrate (Brovana) 15 mcg NEB BIDRT [facility] Last Admin: 07/17/17 07:51 Dose: 15 mcg Aripiprazole (Abilify) 15 mg PO DAILY [facility] Last Admin: 07/17/17 08:37 Dose: 15 mg Aspirin (Halfprin) 81 mg PO DAILY [facility] Last Admin: 07/17/17 08:37 Dose: 81 mg Bisacodyl (Dulcolax) 10 mg PO DAILY PRN PRN Reason: Constipation Bisacodyl (Dulcolax) 10 mg RECTAL DAILY PRN PRN Reason: Constipation Bumetanide (Bumex) 1 mg PO DAILY [facility] Last Admin: 07/17/17 08:37 Dose: 1 mg Dextrose (Glutose 15) 15 gm PO ONETIME PRN PRN Reason: Hypoglycemia Dextrose/Water (Dextrose 50% In Water) 50 ml IV ONETIME PRN PRN Reason: Hypoglycemia Dimethicone/Zinc Oxide (Rash Relief-Zinc Oxide [place]) 1 gm TOP ASDIRECTED PRN PRN Reason: Rash Last Admin: 07/13/17 04:11 Dose: 1 applic Docusate Sodium (Colace) 100 mg PO BID PRN PRN Reason: Constipation Last Admin: 07/16/17 04:52 Dose: 100 mg Doxycycline Hyclate (Vibramycin) 100 mg PO BID [facility] Last Admin: 07/17/17 08:37 Dose: 100 mg Enoxaparin Sodium (Lovenox) 40 mg SUBCUT DAILY [facility] Last Admin: 07/17/17 08:37 Dose: 40 mg Escitalopram Oxalate (Lexapro) 20 mg PO DAILY [facility] Last Admin: 07/17/17 08:37 Dose: 20 mg Folic Acid (Folic Acid) 1 mg PO DAILY [facility] Last Admin: 07/17/17 08:37 Dose: 1 mg Guaifenesin/Dextromethorphan (Robitussin Dm) 10 ml PO Q4H PRN PRN Reason: Cough Last Admin: 07/13/17 04:09 Dose: 10 ml Insulin Aspart (Novolog) 0 unit SUBCUT QIDACANDBED [facility] PRN Reason: Protocol Last Admin: 07/17/17 11:28 Dose: 4 units Insulin Aspart (Novolog) 10 unit SUBCUT TIDMEALS [facility] Last Admin: 07/17/17 11:28 Dose: 10 units Insulin Detemir (Levemir) 40 unit SUBCUT BEDTIME [facility] Last Admin: 07/16/17 21:54 Dose: 40 units Lorazepam (Ativan) 1 mg PO Q4H PRN PRN Reason: Anxiety Last Admin: 07/13/17 17:52 Dose: 1 mg Magnesium Hydroxide (Milk Of Magnesia) 30 ml PO Q12H PRN PRN Reason: Constipation Last Admin: 07/16/17 04:52 Dose: 30 ml Melatonin (Melatonin) 9 mg PO BEDTIME [facility] Last Admin: 07/16/17 20:30 Dose: 9 mg Metoprolol Succinate (Toprol Xl) 25 mg PO DAILY [facility] Last Admin: 07/17/17 08:37 Dose: 25 mg Nystatin (Nystop) 0 gm TOP TID [facility] Last Admin: 07/17/17 08:38 Dose: 1 applic Ondansetron HCl (Zofran) 4 mg IV Q4H PRN PRN Reason: Nausea/Vomiting Pantoprazole Sodium (Protonix) 40 mg PO ACBREAKFAST [facility] Last Admin: 07/17/17 08:37 Dose: 40 mg Polyethylene Glycol (Miralax) 17 gm PO DAILY PRN PRN Reason: Constipation Last Admin: 07/15/17 20:08 Dose: 17 gm Potassium Chloride (Klor-Con M20) 40 meq PO ACLUNCH [facility] Last Admin: 07/17/17 11:28 Dose: 40 meq Sodium Chloride (Saline Flush) 10 ml FLUSH ASDIRECTED PRN PRN Reason: Keep Vein Open Last Admin: 07/13/17 09:24 Dose: 10 ml Tamsulosin HCl (Flomax) 0.4 mg PO PCBREAKFAST [facility] Last Admin: 07/17/17 08:37 Dose: 0.4 mg Trazodone HCl (Trazodone) 100 mg PO BEDTIME [facility] Last Admin: 07/16/17 20:31 Dose: 100 mg Discontinued Medications Acetaminophen (Tylenol Extra Strength) Confirm Administered Dose 1,000 mg .ROUTE .STK-MED ONE Stop: 07/04/17 06:17 Last Admin: 07/04/17 08:32 Dose: Not Given Acetazolamide (Diamox) 250 mg IVPUSH Q6H [facility] Stop: 07/09/17 21:01 Last Admin: 07/09/17 21:12 Dose: 250 mg Acetazolamide (Diamox) 500 mg IVPUSH Q6H [facility] Stop: 07/10/17 21:01 Last Admin: 07/10/17 21:39 Dose: 500 mg Albuterol/Ipratropium (Duoneb 3.0-0.5 Mg/3 Ml) 3 ml NEB Q1H PRN PRN Reason: Shortness of Breath Last Admin: 07/04/17 06:05 Dose: 3 ml Albuterol/Ipratropium (Duoneb 3.0-0.5 Mg/3 Ml) Confirm Administered Dose 3 ml .ROUTE .STK-MED ONE Stop: 07/04/17 06:03 Last Admin: 07/04/17 08:17 Dose: Not Given Albuterol/Ipratropium (Duoneb 3.0-0.5 Mg/3 Ml) 3 ml NEB Q6H [facility] Albuterol/Ipratropium (Duoneb 3.0-0.5 Mg/3 Ml) 3 ml NEB Q6H [facility] Last Admin: 07/04/17 09:56 Dose: 3 ml Albuterol/Ipratropium (Duoneb 3.0-0.5 Mg/3 Ml) 3 ml NEB Q6H [facility] Last Admin: 07/11/17 08:37 Dose: 3 ml Albuterol/Ipratropium (Duoneb 3.0-0.5 Mg/3 Ml) Confirm Administered Dose 3 ml .ROUTE .STK-MED ONE Stop: 07/12/17 09:05 Last Admin: 07/12/17 10:32 Dose: Not Given Bumetanide (Bumex) 2 mg IVPUSH Q12H [facility] Last Admin: 07/06/17 08:14 Dose: 2 mg Bumetanide (Bumex) 1 mg IVPUSH Q12H [facility] Last Admin: 07/08/17 20:11 Dose: 1 mg Bumetanide (Bumex) 1 mg IVPUSH Q24H [facility] Last Admin: 07/11/17 09:11 Dose: 1 mg Bumetanide (Bumex) 1 mg IVPUSH BIDDIURETIC [facility] Last Admin: 07/12/17 09:42 Dose: 1 mg Bumetanide (Bumex) 1 mg IVPUSH DAILY [facility] Bumetanide (Bumex) 1 mg PO BIDDIURETIC [facility] Last Admin: 07/13/17 08:07 Dose: 1 mg Diphenhydramine HCl (Benadryl) 50 mg IVPUSH ONETIME ONE Stop: 07/04/17 07:09 Last Admin: 07/04/17 06:41 Dose: 50 mg Enoxaparin Sodium (Lovenox) 30 mg SUBCUT DAILY [facility] Last Admin: 07/07/17 10:38 Dose: 30 mg Epinephrine HCl (Adrenalin 1:1000) 0.3 mg IM ONETIME ONE Stop: 07/04/17 07:07 Last Admin: 07/04/17 06:38 Dose: 0.3 mg Etomidate (Amidate) 20 mg IVPUSH ONETIME ONE Stop: 07/04/17 07:08 Last Admin: 07/04/17 06:42 Dose: 20 mg Famotidine (Pepcid) Confirm Administered Dose 40 mg .ROUTE .STK-MED ONE Stop: 07/04/17 06:50 Last Admin: 07/04/17 08:25 Dose: Not Given Famotidine (Pepcid) 20 mg IVPUSH ONETIME ONE Stop: 07/04/17 07:06 Last Admin: 07/04/17 06:49 Dose: 20 mg Haloperidol Lactate (Haldol) 2 mg IVPUSH Q2H PRN PRN Reason: Agitation Last Admin: 07/13/17 19:29 Dose: 2 mg Heparin Sodium (Porcine) (Heparin Sodium) Confirm Administered Dose 5,000 units .ROUTE .STK-MED ONE Stop: 07/04/17 09:31 Last Admin: 07/04/17 10:23 Dose: Not Given Heparin Sodium (Porcine) (Heparin Lock Flush 100 Units/Ml) 500 units IVPUSH ASDIRECTED PRN 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 Last Admin: 07/09/17 13:39 Dose: 500 units Hydromorphone HCl (Dilaudid) Confirm Administered Dose 0.5 mg .ROUTE .STK-MED ONE Stop: 07/04/17 08:11 Last Admin: 07/04/17 08:21 Dose: Not Given Hydromorphone HCl (Dilaudid) 0.5 mg IVPUSH ONETIME ONE Stop: 07/04/17 08:20 Last Admin: 07/04/17 08:22 Dose: 0.5 mg Hydromorphone HCl (Dilaudid) 0.5 mg IVPUSH Q1H PRN PRN Reason: Pain Last Admin: 07/05/17 09:31 Dose: 0.5 mg Hydromorphone HCl (Dilaudid) 1 mg IVPUSH Q1H PRN PRN Reason: Pain Last Admin: 07/05/17 12:42 Dose: 1 mg Hydromorphone HCl (Dilaudid) 0.5 mg IVPUSH Q2H PRN PRN Reason: Pain Last Admin: 07/09/17 10:14 Dose: 0.5 mg Piperacillin Sod/Tazobactam (Sod 4.5 gm/ Sodium Chloride) 100 mls @ 200 mls/hr IV Q6H [facility] Last Admin: 07/04/17 06:54 Dose: 200 mls/hr Vancomycin HCl 1,000 mg/ (Dextrose/Water) 250 mls @ 167 mls/hr IV ONETIME ONE Stop: 07/04/17 07:44 Last Admin: 07/04/17 06:30 Dose: 167 mls/hr Sodium Chloride (Normal Saline) 1,000 mls @ 999 mls/hr IV .BOLUS STA Stop: 07/04/17 07:16 Last Admin: 07/04/17 06:30 Dose: 999 mls/hr Acetaminophen (Ofirmev) Confirm Administered Dose 100 mls @ as directed IV .STK- MED ONE Stop: 07/04/17 06:31 Last Admin: 07/04/17 09:15 Dose: Not Given Dextrose/Water (Dextrose 5% In Water) Confirm Administered Dose 250 mls @ as directed .ROUTE .STK-MED ONE Stop: 07/04/17 06:56 Last Admin: 07/04/17 08:21 Dose: Not Given Norepinephrine Bitartrate 4 mg (/ Dextrose/Water) 250 mls @ 7.5 mls/hr IV TITRATE [facility]; 2 MCG/MIN PRN Reason: Protocol Last Titration: 07/04/17 07:21 Dose: 0 mcg/min, 0 mls/hr Levofloxacin/Dextrose 750 mg/ (Premix) 150 mls @ 100 mls/hr IV ONETIME ONE Stop: 07/04/17 08:59 Last Admin: 07/04/17 07:30 Dose: 100 mls/hr Lactated Ringer's (Ringers, Lactated) 1,000 mls @ 125 mls/hr IV ASDIRECTED [facility] Last Admin: 07/05/17 08:46 Dose: 125 mls/hr Levofloxacin/Dextrose 750 mg/ (Premix) 150 mls @ 100 mls/hr IV Q24H [facility] Last Admin: 07/12/17 09:42 Dose: 100 mls/hr Piperacillin/Tazobactam/ (Dextrose 3.375 gm/ Premix) 50 mls @ 100 mls/hr IV Q6H [facility] Last Admin: 07/10/17 05:29 Dose: 100 mls/hr Acetaminophen 1,000 mg/ Premix 100 mls @ 400 mls/hr IV NOW ONE Stop: 07/04/17 06:44 Last Admin: 07/04/17 06:40 Dose: 400 mls/hr Heparin Sodium (Porcine) 5,000 (units/ Sodium Chloride) 501 mls @ 0 mls/hr IV ASDIRECTED [facility] PRN Reason: KVO Last Admin: 07/08/17 12:40 Dose: 2 mls/hr Lactated Ringer's (Ringers, Lactated) 1,000 mls @ 15 mls/hr IV ASDIRECTED [facility] Last Admin: 07/10/17 05:31 Dose: 15 mls/hr Propofol (Diprivan 100 Ml) 100 mls @ 0 mls/hr IV TITRATE [facility]; 20 MCG/KG/MIN PRN Reason: Protocol Last Admin: 07/09/17 06:06 Dose: 34.39 mcg/kg/min, 26 mls/hr Potassium Chloride 20 meq/Lidocaine HCl 2 ml/ Sodium Chloride 112 mls @ 56 mls/ hr IV Q2H [facility] Stop: 07/06/17 13:59 Last Admin: 07/06/17 12:07 Dose: 56 mls/hr Magnesium Sulfate 2 gm/ Premix 50 mls @ 25 mls/hr IV ONETIME ONE Stop: 07/07/17 10:59 Last Admin: 07/07/17 09:33 Dose: 25 mls/hr Potassium Chloride 20 meq/ (Premix) 100 mls @ 50 mls/hr IV Q2H [facility] Stop: 07/07/17 12:59 Last Admin: 07/07/17 11:36 Dose: 50 mls/hr Potassium Chloride 40 meq/ (Premix) 100 mls @ 25 mls/hr IV ONETIME ONE Stop: 07/07/17 23:59 Last Admin: 07/07/17 20:20 Dose: 25 mls/hr Magnesium Sulfate 2 gm/ Premix 50 mls @ 25 mls/hr IV ONETIME ONE Stop: 07/08/17 13:59 Last Admin: 07/08/17 11:31 Dose: 25 mls/hr Potassium Chloride 20 meq/ (Premix) 100 mls @ 50 mls/hr IV Q2H [facility] Stop: 07/08/17 15:59 Last Admin: 07/08/17 13:29 Dose: 50 mls/hr Sodium Chloride (Normal Saline) 1,000 mls @ 999 mls/hr IV ONETIME ONE Stop: 07/04/17 07:51 Last Admin: 07/04/17 06:51 Dose: 999 mls/hr Potassium Chloride 40 meq/ (Premix) 100 mls @ 25 mls/hr IV ONETIME ONE Stop: 07/09/17 13:59 Last Admin: 07/09/17 09:23 Dose: 25 mls/hr Potassium Chloride 40 meq/ (Premix) 100 mls @ 25 mls/hr IV ONETIME ONE Stop: 07/10/17 13:59 Last Admin: 07/10/17 11:30 Dose: 25 mls/hr Meropenem 1 gm/ Sodium (Chloride) 100 mls @ 200 mls/hr IV Q8H [facility] Last Admin: 07/16/17 09:32 Dose: 200 mls/hr Sodium Chloride (Normal Saline) 500 mls @ 500 mls/hr IV ASDIRECTED [facility] Stop: 07/13/17 17:31 Sodium Chloride (Normal Saline) 500 mls @ 500 mls/hr IV ASDIRECTED [facility] Last Admin: 07/13/17 17:31 Dose: 500 mls/hr Insulin Detemir (Levemir) 30 unit SUBCUT BEDTIME [facility] Last Admin: 07/06/17 20:59 Dose: 30 units Ketamine HCl (Ketalar) Confirm Administered Dose 500 mg .ROUTE .STK-MED ONE Stop: 07/04/17 06:48 Last Admin: 07/04/17 08:40 Dose: Not Given Ketamine HCl (Ketalar) 60 mg IV NOW STA Stop: 07/04/17 07:04 Last Admin: 07/04/17 07:03 Dose: 60 mg Levofloxacin (Levaquin) 250 mg PO Q24H [facility] Levofloxacin (Levaquin) 500 mg PO Q24H [facility] Lidocaine HCl (Xylocaine-Mpf 1%) Confirm Administered Dose 5 ml .ROUTE .STK-MED ONE Stop: 07/04/17 09:34 Last Admin: 07/04/17 10:16 Dose: Not Given Lidocaine HCl (Xylocaine-Mpf 1%) 5 ml INJECT ONETIME ONE Stop: 07/04/17 10:31 Last Admin: 07/04/17 10:16 Dose: 5 ml Methylprednisolone Sodium Succinate (Solu-Medrol) 125 mg IV ONETIME ONE Stop: 07/04/17 06:08 Last Admin: 07/04/17 08:27 Dose: Not Given Methylprednisolone Sodium Succinate (Solu-Medrol) Confirm Administered Dose 125 mg .ROUTE .STK-MED ONE Stop: 07/04/17 06:07 Last Admin: 07/04/17 08:18 Dose: Not Given Methylprednisolone Sodium Succinate (Solu-Medrol) 125 mg IVPUSH Q6H [facility] Last Admin: 07/05/17 05:59 Dose: 125 mg Methylprednisolone Sodium Succinate (Solu-Medrol) 40 mg IVPUSH Q6H [facility] Last Admin: 07/06/17 05:46 Dose: 40 mg Methylprednisolone Sodium Succinate (Solu-Medrol) 40 mg IVPUSH Q12H [facility] Last Admin: 07/08/17 08:41 Dose: 40 mg Methylprednisolone Sodium Succinate (Solu-Medrol) 20 mg IVPUSH Q12H [facility] Last Admin: 07/09/17 08:58 Dose: 20 mg Midazolam HCl (Versed 1 Mg/Ml) Confirm Administered Dose 5 mg .ROUTE .STK-MED ONE Stop: 07/04/17 07:38 Last Admin: 07/04/17 08:22 Dose: Not Given Midazolam HCl (Versed 1 Mg/Ml) 5 mg IVPUSH ONETIME ONE Stop: 07/04/17 07:45 Last Admin: 07/04/17 07:45 Dose: 5 mg Pantoprazole Sodium (Protonix Iv) 40 mg IVPUSH DAILY [facility] Last Admin: 07/10/17 08:32 Dose: 40 mg Piperacillin Sod/Tazobactam Sod (Zosyn) Confirm Administered Dose 4.5 gm .ROUTE .STK-MED ONE Stop: 07/04/17 06:16 Last Admin: 07/04/17 08:16 Dose: Not Given Potassium Chloride (Klor-Con M20) 40 meq PO ONETIME ONE Stop: 07/10/17 09:01 Last Admin: 07/10/17 09:34 Dose: 40 meq Potassium Chloride (Klor-Con M20) 40 meq PO BEDTIME [facility] Last Admin: 07/12/17 20:15 Dose: 40 meq Rocuronium Cobb (Zemuron) Confirm Administered Dose 50 mg .ROUTE .STK-MED ONE Stop: 07/04/17 07:13 Last Admin: 07/04/17 08:40 Dose: Not Given Rocuronium Cobb (Zemuron) 20 mg IV ONETIME ONE Stop: 07/04/17 08:37 Last Admin: 07/04/17 07:10 Dose: 20 mg Succinylcholine Chloride (Quelicin) Confirm Administered Dose 200 mg .ROUTE .STK -MED ONE Stop: 07/04/17 06:43 Last Admin: 07/04/17 08:39 Dose: Not Given Succinylcholine Chloride (Quelicin) 180 mg IV NOW STA Stop: 07/04/17 07:05 Last Admin: 07/04/17 07:03 Dose: 180 mg Vancomycin HCl (Vancomycin) Confirm Administered Dose 1 gm .ROUTE .STK-MED ONE Stop: 07/04/17 06:16 Last Admin: 07/04/17 08:22 Dose: Not Given - Exam Quality Assessment: Supplemental Oxygen General: Alert, Oriented, Cooperative, No Acute Distress Neck: Supple Lungs: Clear to Auscultation, Normal Respiratory Effort Cardiovascular: Regular Rate, Regular Rhythm GI/Abdominal Exam: Soft, No Distention Extremities: Pedal Edema (mild bilateral ankle edema) Skin: Warm, Dry Psy/Mental Status: Alert, Normal Affect - Problem List Review Problem List Initiated/Reviewed/Updated: Yes - My Orders Last 24 Hours: My Active Orders 07/16/17 12:00 Insulin Aspart [NovoLOG] 10 unit SUBCUT TIDMEALS 07/17/17 12:32 DC Jung Catheter [Urinary Catheter Removal] [RC] Per Unit Routine 07/17/17 12:34 Insulin Aspart [NovoLOG] 6 unit SUBCUT TIDMEALS 07/17/17 16:30 GLUCOSE POC LAB TO COLLECT [POC] QIDACANDBED 07/17/17 21:00 GLUCOSE POC LAB TO COLLECT [POC] QIDACANDBED Insulin Detemir [Levemir] 35 unit SUBCUT BEDTIME 07/18/17 05:00 BASIC METABOLIC PANEL,BMP [CHEM] Timed CBC W/O DIFF,HEMOGRAM [HEME] Timed (1) - Plan Plan:: ASSESSMENT AND PLAN ACUTE ON CHRONIC HYPOXIC AND HYPERCAPNIC RESPIRATORY FAILURE - clinically improving respiratory status each day and he is back to his baseline supplemental oxygen requirement. -Noninvasive positive pressure ventilation at night if needed -Supplement oxygen -Nebulizer therapy with albuterol and duo nebs -Management of pneumonia as below -Bumex 1 mg PO DAILY LEFT LUNG PNEUMONIA WITH SEPSIS - likely causing respiratory failure as noted above. Significant clinical improvement in the past few days and nearly back to baseline supplemental oxygen requirement. No fevers. -Continue doxycycline with plan to continue through 07/21 -Symptomatic management as needed -Repeat labs in the morning VANCOMYCIN ANAPHYLAXIS - treated with epinephrine, Solu-Medrol, and Benadryl in the emergency department. Resolved with no recurrence. ACUTE ON CHRONIC KIDNEY - renal function has continued to improve each day. Volume status appears appropriate. -Repeat labs in the morning TYPE 2 DIABETES MELLITUS - sugars had been elevated but were slightly low this morning after adjustments yesterday. -Levemir insulin 35 units subcutaneous at at bedtime -NovoLog 6 units with meals -4 times a day glucometers -Moderate dose sliding scale NovoLog MAINTENANCE ISSUES -DVT prophylaxis; enoxaparin 40 mg subcutaneous daily -GI prophylaxis; PPI -Jung catheter; placed 07/13 secondary to urinary retention, patient wishes to have this removed today and he will have his trial of voiding -Nutrition; vegan diet DISPOSITION - anticipate discharge to skilled nursing after the hospital stay with impressive weakness. he should be safe for discharge in one or 2 days. Hopefully a bed is available for him at [facility] in the next day or 2. Florin Bauer M.D.
[2017-07-17] MEDS: traZODone 50 MG Tab PO SCH (20:59)
[2017-07-17] MEDS: Melatonin 3 MG Tab PO SCH (20:59)
[2017-07-17] MEDS: Insulin Detemir 100 Units/ML 3 ML Pen SUBCUT SCH (21:00)
[2017-07-18] MEDS: Arformoterol 15 MCG/2 ML Neb Soln NEB SCH ×2 (07:32→20:29)
[2017-07-18] MEDS: Albuterol/Ipratropium 3.0-0.5 MG/3 ML Neb Soln NEB SCH ×4 (07:32→20:29)
[2017-07-18] MEDS: Insulin Aspart 100 Units/ML 3 ML Pen SUBCUT SCH ×7 (07:51→21:07)
[2017-07-18] MEDS: Pantoprazole 40 MG Tab.CR PO SCH (07:51)
[2017-07-18] MEDS: Bumetanide 1 MG Tab PO SCH ×2 (09:42→13:54)
[2017-07-18] MEDS: Escitalopram 20 MG Tab PO SCH (09:46)
[2017-07-18] MEDS: Metoprolol Succinate 25 MG Tab.ER PO SCH (09:46)
[2017-07-18] MEDS: Folic Acid 1 MG Tab PO SCH (09:46)
[2017-07-18] MEDS: Aspirin 81 MG Tab.EC PO SCH (09:46)
[2017-07-18] MEDS: Tamsulosin 0.4 MG Cap.ER PO SCH (09:46)
[2017-07-18] MEDS: Nystatin Topical Powder 15 GM Bottle TOP SCH ×3 (09:47→20:30)
[2017-07-18] MEDS: Enoxaparin 40 MG/0.4 ML Syringe SUBCUT SCH (09:47)
[2017-07-18] MEDS: Doxycycline 100 MG Cap PO SCH ×2 (09:47→20:29)
[2017-07-18] MEDS: ARIPiprazole 10 MG Tab PO SCH (09:51)
[2017-07-18] MEDS ORDERED: Bumetanide 1 MG Tab PO ONE (10:00)
[2017-07-18] MEDS: Potassium Chloride 20 MEQ Tab.ER PO SCH (12:09)
--- NOTE | 2017-07-18 12:23 | PCM.PN ---
- General Info Date of Service: 07/18/17 Functional Status: Reports: Pain Controlled, Tolerating Diet, Urinating - Review of Systems General: Reports: Weakness. Denies: Fever, Chills Pulmonary: Reports: No Symptoms, Shortness of Breath, Cough, Sputum. Denies: Pleuritic Chest Pain, Hemoptysis, Wheezing Cardiovascular: Reports: Dyspnea on Exertion, Edema. Denies: Chest Pain, Palpitations, Orthopnea, PND Gastrointestinal: Reports: No Symptoms Systems Review Comment:: Mr. Kruse has done well over the past few days, delirium has resolved and he is slowly regaining strength. Vital signs have been stable and he is remained afebrile. Jung catheter removed yesterday and he is been urinating without significant difficulty. - Patient Data Vitals - Most Recent: Last Vital Signs Temp 98.4 F 07/18/17 11:00 Pulse 78 07/18/17 11:00 Resp 20 07/18/17 11:00 BP 130/64 07/18/17 11:00 Pulse Ox 92 L 07/18/17 11:00 Weight - Most Recent: 274 lb I&O - Last 24 Hours: Intake & Output 07/17/17 07/18/17 07/18/17 22:59 06:59 14:59 Intake Total 740 360 Output Total 225 Balance -225 740 360 Lab Results Last 24 Hours: Laboratory Results - last 24 hr 07/18/17 07/18/17 Range/Units 05:45 05:45 WBC 12.7 H (4.5-11.0) K/uL RBC 4.63 (4.30-5.90) M/uL Hgb 12.6 (12.0-15.0) g/dL Hct 39.3 L (40.0-54.0) % MCV 85 (80-98) fL MCH 27 (27-31) pg MCHC 32 (32-36) % Plt Count 341 (150-400) K/uL Sodium 139 L (140-148) mmol/L Potassium 4.4 (3.6-5.2) mmol/L Chloride 101 (100-108) mmol/L Carbon Dioxide 31 (21-32) mmol/L Anion Gap 11.4 (5.0-14.0) mmol/L BUN 31 H (7-18) mg/dL Creatinine 1.0 (0.8-1.3) mg/dL Est Cr Clr Drug Dosing 79.87 mL/min Estimated GFR (MDRD) > 60 (>60) Glucose 124 H (74-106) mg/dL Calcium 9.6 (8.5-10.1) mg/dL Med Orders - Current: Current Medications Albuterol (Proventil Neb Soln) 2.5 mg NEB Q4H PRN PRN Reason: Shortness Of Breath/wheezing Last Admin: 07/11/17 19:45 Dose: 2.5 mg Albuterol/Ipratropium (Duoneb 3.0-0.5 Mg/3 Ml) 3 ml NEB QIDRT [facility] Last Admin: 07/18/17 10:59 Dose: 3 ml Arformoterol Tartrate (Brovana) 15 mcg NEB BIDRT [facility] Last Admin: 07/18/17 07:32 Dose: 15 mcg Aripiprazole (Abilify) 15 mg PO DAILY [facility] Last Admin: 07/18/17 09:51 Dose: 15 mg Aspirin (Halfprin) 81 mg PO DAILY [facility] Last Admin: 07/18/17 09:46 Dose: 81 mg Bisacodyl (Dulcolax) 10 mg PO DAILY PRN PRN Reason: Constipation Bisacodyl (Dulcolax) 10 mg RECTAL DAILY PRN PRN Reason: Constipation Bumetanide (Bumex) 2 mg PO BIDDIURETIC [facility] Dextrose (Glutose 15) 15 gm PO ONETIME PRN PRN Reason: Hypoglycemia Dextrose/Water (Dextrose 50% In Water) 50 ml IV ONETIME PRN PRN Reason: Hypoglycemia Dimethicone/Zinc Oxide (Rash Relief-Zinc Oxide [place]) 1 gm TOP ASDIRECTED PRN PRN Reason: Rash Last Admin: 07/13/17 04:11 Dose: 1 applic Docusate Sodium (Colace) 100 mg PO BID PRN PRN Reason: Constipation Last Admin: 07/16/17 04:52 Dose: 100 mg Doxycycline Hyclate (Vibramycin) 100 mg PO BID [facility] Last Admin: 07/18/17 09:47 Dose: 100 mg Enoxaparin Sodium (Lovenox) 40 mg SUBCUT DAILY [facility] Last Admin: 07/18/17 09:47 Dose: 40 mg Escitalopram Oxalate (Lexapro) 20 mg PO DAILY [facility] Last Admin: 07/18/17 09:46 Dose: 20 mg Folic Acid (Folic Acid) 1 mg PO DAILY [facility] Last Admin: 07/18/17 09:46 Dose: 1 mg Guaifenesin/Dextromethorphan (Robitussin Dm) 10 ml PO Q4H PRN PRN Reason: Cough Last Admin: 07/13/17 04:09 Dose: 10 ml Insulin Aspart (Novolog) 0 unit SUBCUT QIDACANDBED YOAN PRN Reason: Protocol Last Admin: 07/18/17 12:03 Dose: Not Given Insulin Aspart (Novolog) 6 unit SUBCUT TIDMEALS [facility] Last Admin: 07/18/17 12:05 Dose: 6 units Insulin Detemir (Levemir) 35 unit SUBCUT BEDTIME [facility] Last Admin: 07/17/17 21:00 Dose: 35 units Lorazepam (Ativan) 1 mg PO Q4H PRN PRN Reason: Anxiety Last Admin: 07/13/17 17:52 Dose: 1 mg Magnesium Hydroxide (Milk Of Magnesia) 30 ml PO Q12H PRN PRN Reason: Constipation Last Admin: 07/16/17 04:52 Dose: 30 ml Melatonin (Melatonin) 9 mg PO BEDTIME [facility] Last Admin: 07/17/17 20:59 Dose: 9 mg Metoprolol Succinate (Toprol Xl) 25 mg PO DAILY [facility] Last Admin: 07/18/17 09:46 Dose: 25 mg Nystatin (Nystop) 0 gm TOP TID [facility] Last Admin: 07/18/17 09:47 Dose: 1 applic Ondansetron HCl (Zofran) 4 mg IV Q4H PRN PRN Reason: Nausea/Vomiting Pantoprazole Sodium (Protonix) 40 mg PO ACBREAKFAST [facility] Last Admin: 07/18/17 07:51 Dose: 40 mg Polyethylene Glycol (Miralax) 17 gm PO DAILY PRN PRN Reason: Constipation Last Admin: 07/15/17 20:08 Dose: 17 gm Potassium Chloride (Klor-Con M20) 40 meq PO ACLUNCH [facility] Last Admin: 07/18/17 12:09 Dose: 40 meq Sodium Chloride (Saline Flush) 10 ml FLUSH ASDIRECTED PRN PRN Reason: Keep Vein Open Last Admin: 07/13/17 09:24 Dose: 10 ml Tamsulosin HCl (Flomax) 0.4 mg PO PCBREAKFAST [facility] Last Admin: 07/18/17 09:46 Dose: 0.4 mg Trazodone HCl (Trazodone) 100 mg PO BEDTIME [facility] Last Admin: 07/17/17 20:59 Dose: 100 mg Discontinued Medications Acetaminophen (Tylenol Extra Strength) Confirm Administered Dose 1,000 mg .ROUTE .STK-MED ONE Stop: 07/04/17 06:17 Last Admin: 07/04/17 08:32 Dose: Not Given Acetazolamide (Diamox) 250 mg IVPUSH Q6H [facility] Stop: 07/09/17 21:01 Last Admin: 07/09/17 21:12 Dose: 250 mg Acetazolamide (Diamox) 500 mg IVPUSH Q6H [facility] Stop: 07/10/17 21:01 Last Admin: 07/10/17 21:39 Dose: 500 mg Albuterol/Ipratropium (Duoneb 3.0-0.5 Mg/3 Ml) 3 ml NEB Q1H PRN PRN Reason: Shortness of Breath Last Admin: 07/04/17 06:05 Dose: 3 ml Albuterol/Ipratropium (Duoneb 3.0-0.5 Mg/3 Ml) Confirm Administered Dose 3 ml .ROUTE .STK-MED ONE Stop: 07/04/17 06:03 Last Admin: 07/04/17 08:17 Dose: Not Given Albuterol/Ipratropium (Duoneb 3.0-0.5 Mg/3 Ml) 3 ml NEB Q6H [facility] Albuterol/Ipratropium (Duoneb 3.0-0.5 Mg/3 Ml) 3 ml NEB Q6H [facility] Last Admin: 07/04/17 09:56 Dose: 3 ml Albuterol/Ipratropium (Duoneb 3.0-0.5 Mg/3 Ml) 3 ml NEB Q6H [facility] Last Admin: 07/11/17 08:37 Dose: 3 ml Albuterol/Ipratropium (Duoneb 3.0-0.5 Mg/3 Ml) Confirm Administered Dose 3 ml .ROUTE .STK-MED ONE Stop: 07/12/17 09:05 Last Admin: 07/12/17 10:32 Dose: Not Given Bumetanide (Bumex) 2 mg IVPUSH Q12H [facility] Last Admin: 07/06/17 08:14 Dose: 2 mg Bumetanide (Bumex) 1 mg IVPUSH Q12H [facility] Last Admin: 07/08/17 20:11 Dose: 1 mg Bumetanide (Bumex) 1 mg IVPUSH Q24H [facility] Last Admin: 07/11/17 09:11 Dose: 1 mg Bumetanide (Bumex) 1 mg IVPUSH BIDDIURETIC [facility] Last Admin: 07/12/17 09:42 Dose: 1 mg Bumetanide (Bumex) 1 mg IVPUSH DAILY [facility] Bumetanide (Bumex) 1 mg PO BIDDIURETIC [facility] Last Admin: 07/13/17 08:07 Dose: 1 mg Bumetanide (Bumex) 1 mg PO DAILY [facility] Last Admin: 07/18/17 09:42 Dose: Not Given Bumetanide (Bumex) 2 mg PO ONETIME ONE Stop: 07/18/17 10:01 Last Admin: 07/18/17 10:07 Dose: 2 mg Diphenhydramine HCl (Benadryl) 50 mg IVPUSH ONETIME ONE Stop: 07/04/17 07:09 Last Admin: 07/04/17 06:41 Dose: 50 mg Enoxaparin Sodium (Lovenox) 30 mg SUBCUT DAILY [facility] Last Admin: 07/07/17 10:38 Dose: 30 mg Epinephrine HCl (Adrenalin 1:1000) 0.3 mg IM ONETIME ONE Stop: 07/04/17 07:07 Last Admin: 07/04/17 06:38 Dose: 0.3 mg Etomidate (Amidate) 20 mg IVPUSH ONETIME ONE Stop: 07/04/17 07:08 Last Admin: 07/04/17 06:42 Dose: 20 mg Famotidine (Pepcid) Confirm Administered Dose 40 mg .ROUTE .STK-MED ONE Stop: 07/04/17 06:50 Last Admin: 07/04/17 08:25 Dose: Not Given Famotidine (Pepcid) 20 mg IVPUSH ONETIME ONE Stop: 07/04/17 07:06 Last Admin: 07/04/17 06:49 Dose: 20 mg Haloperidol Lactate (Haldol) 2 mg IVPUSH Q2H PRN PRN Reason: Agitation Last Admin: 07/13/17 19:29 Dose: 2 mg Heparin Sodium (Porcine) (Heparin Sodium) Confirm Administered Dose 5,000 units .ROUTE .STK-MED ONE Stop: 07/04/17 09:31 Last Admin: 07/04/17 10:23 Dose: Not Given Heparin Sodium (Porcine) (Heparin Lock Flush 100 Units/Ml) 500 units IVPUSH ASDIRECTED PRN 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 Last Admin: 07/09/17 13:39 Dose: 500 units Hydromorphone HCl (Dilaudid) Confirm Administered Dose 0.5 mg .ROUTE .STK-MED ONE Stop: 07/04/17 08:11 Last Admin: 07/04/17 08:21 Dose: Not Given Hydromorphone HCl (Dilaudid) 0.5 mg IVPUSH ONETIME ONE Stop: 07/04/17 08:20 Last Admin: 07/04/17 08:22 Dose: 0.5 mg Hydromorphone HCl (Dilaudid) 0.5 mg IVPUSH Q1H PRN PRN Reason: Pain Last Admin: 07/05/17 09:31 Dose: 0.5 mg Hydromorphone HCl (Dilaudid) 1 mg IVPUSH Q1H PRN PRN Reason: Pain Last Admin: 07/05/17 12:42 Dose: 1 mg Hydromorphone HCl (Dilaudid) 0.5 mg IVPUSH Q2H PRN PRN Reason: Pain Last Admin: 07/09/17 10:14 Dose: 0.5 mg Piperacillin Sod/Tazobactam (Sod 4.5 gm/ Sodium Chloride) 100 mls @ 200 mls/hr IV Q6H [facility] Last Admin: 07/04/17 06:54 Dose: 200 mls/hr Vancomycin HCl 1,000 mg/ (Dextrose/Water) 250 mls @ 167 mls/hr IV ONETIME ONE Stop: 07/04/17 07:44 Last Admin: 07/04/17 06:30 Dose: 167 mls/hr Sodium Chloride (Normal Saline) 1,000 mls @ 999 mls/hr IV .BOLUS STA Stop: 07/04/17 07:16 Last Admin: 07/04/17 06:30 Dose: 999 mls/hr Acetaminophen (Ofirmev) Confirm Administered Dose 100 mls @ as directed IV .STK- MED ONE Stop: 07/04/17 06:31 Last Admin: 07/04/17 09:15 Dose: Not Given Dextrose/Water (Dextrose 5% In Water) Confirm Administered Dose 250 mls @ as directed .ROUTE .STK-MED ONE Stop: 07/04/17 06:56 Last Admin: 07/04/17 08:21 Dose: Not Given Norepinephrine Bitartrate 4 mg (/ Dextrose/Water) 250 mls @ 7.5 mls/hr IV TITRATE YOAN; 2 MCG/MIN PRN Reason: Protocol Last Titration: 07/04/17 07:21 Dose: 0 mcg/min, 0 mls/hr Levofloxacin/Dextrose 750 mg/ (Premix) 150 mls @ 100 mls/hr IV ONETIME ONE Stop: 07/04/17 08:59 Last Admin: 07/04/17 07:30 Dose: 100 mls/hr Lactated Ringer's (Ringers, Lactated) 1,000 mls @ 125 mls/hr IV ASDIRECTED [facility] Last Admin: 07/05/17 08:46 Dose: 125 mls/hr Levofloxacin/Dextrose 750 mg/ (Premix) 150 mls @ 100 mls/hr IV Q24H [facility] Last Admin: 07/12/17 09:42 Dose: 100 mls/hr Piperacillin/Tazobactam/ (Dextrose 3.375 gm/ Premix) 50 mls @ 100 mls/hr IV Q6H [facility] Last Admin: 07/10/17 05:29 Dose: 100 mls/hr Acetaminophen 1,000 mg/ Premix 100 mls @ 400 mls/hr IV NOW ONE Stop: 07/04/17 06:44 Last Admin: 07/04/17 06:40 Dose: 400 mls/hr Heparin Sodium (Porcine) 5,000 (units/ Sodium Chloride) 501 mls @ 0 mls/hr IV ASDIRECTED YOAN PRN Reason: KVO Last Admin: 07/08/17 12:40 Dose: 2 mls/hr Lactated Ringer's (Ringers, Lactated) 1,000 mls @ 15 mls/hr IV ASDIRECTED [facility] Last Admin: 07/10/17 05:31 Dose: 15 mls/hr Propofol (Diprivan 100 Ml) 100 mls @ 0 mls/hr IV TITRATE YOAN; 20 MCG/KG/MIN PRN Reason: Protocol Last Admin: 07/09/17 06:06 Dose: 34.39 mcg/kg/min, 26 mls/hr Potassium Chloride 20 meq/Lidocaine HCl 2 ml/ Sodium Chloride 112 mls @ 56 mls/ hr IV Q2H [facility] Stop: 07/06/17 13:59 Last Admin: 07/06/17 12:07 Dose: 56 mls/hr Magnesium Sulfate 2 gm/ Premix 50 mls @ 25 mls/hr IV ONETIME ONE Stop: 07/07/17 10:59 Last Admin: 07/07/17 09:33 Dose: 25 mls/hr Potassium Chloride 20 meq/ (Premix) 100 mls @ 50 mls/hr IV Q2H [facility] Stop: 07/07/17 12:59 Last Admin: 07/07/17 11:36 Dose: 50 mls/hr Potassium Chloride 40 meq/ (Premix) 100 mls @ 25 mls/hr IV ONETIME ONE Stop: 07/07/17 23:59 Last Admin: 07/07/17 20:20 Dose: 25 mls/hr Magnesium Sulfate 2 gm/ Premix 50 mls @ 25 mls/hr IV ONETIME ONE Stop: 07/08/17 13:59 Last Admin: 07/08/17 11:31 Dose: 25 mls/hr Potassium Chloride 20 meq/ (Premix) 100 mls @ 50 mls/hr IV Q2H [facility] Stop: 07/08/17 15:59 Last Admin: 07/08/17 13:29 Dose: 50 mls/hr Sodium Chloride (Normal Saline) 1,000 mls @ 999 mls/hr IV ONETIME ONE Stop: 07/04/17 07:51 Last Admin: 07/04/17 06:51 Dose: 999 mls/hr Potassium Chloride 40 meq/ (Premix) 100 mls @ 25 mls/hr IV ONETIME ONE Stop: 07/09/17 13:59 Last Admin: 07/09/17 09:23 Dose: 25 mls/hr Potassium Chloride 40 meq/ (Premix) 100 mls @ 25 mls/hr IV ONETIME ONE Stop: 07/10/17 13:59 Last Admin: 07/10/17 11:30 Dose: 25 mls/hr Meropenem 1 gm/ Sodium (Chloride) 100 mls @ 200 mls/hr IV Q8H [facility] Last Admin: 07/16/17 09:32 Dose: 200 mls/hr Sodium Chloride (Normal Saline) 500 mls @ 500 mls/hr IV ASDIRECTED [facility] Stop: 07/13/17 17:31 Sodium Chloride (Normal Saline) 500 mls @ 500 mls/hr IV ASDIRECTED [facility] Last Admin: 07/13/17 17:31 Dose: 500 mls/hr Insulin Aspart (Novolog) 10 unit SUBCUT TIDMEALS [facility] Last Admin: 07/17/17 11:28 Dose: 10 units Insulin Detemir (Levemir) 30 unit SUBCUT BEDTIME [facility] Last Admin: 07/06/17 20:59 Dose: 30 units Insulin Detemir (Levemir) 40 unit SUBCUT BEDTIME [facility] Last Admin: 07/16/17 21:54 Dose: 40 units Ketamine HCl (Ketalar) Confirm Administered Dose 500 mg .ROUTE .STK-MED ONE Stop: 07/04/17 06:48 Last Admin: 07/04/17 08:40 Dose: Not Given Ketamine HCl (Ketalar) 60 mg IV NOW STA Stop: 07/04/17 07:04 Last Admin: 07/04/17 07:03 Dose: 60 mg Levofloxacin (Levaquin) 250 mg PO Q24H [facility] Levofloxacin (Levaquin) 500 mg PO Q24H [facility] Lidocaine HCl (Xylocaine-Mpf 1%) Confirm Administered Dose 5 ml .ROUTE .STK-MED ONE Stop: 07/04/17 09:34 Last Admin: 07/04/17 10:16 Dose: Not Given Lidocaine HCl (Xylocaine-Mpf 1%) 5 ml INJECT ONETIME ONE Stop: 07/04/17 10:31 Last Admin: 07/04/17 10:16 Dose: 5 ml Methylprednisolone Sodium Succinate (Solu-Medrol) 125 mg IV ONETIME ONE Stop: 07/04/17 06:08 Last Admin: 07/04/17 08:27 Dose: Not Given Methylprednisolone Sodium Succinate (Solu-Medrol) Confirm Administered Dose 125 mg .ROUTE .STK-MED ONE Stop: 07/04/17 06:07 Last Admin: 07/04/17 08:18 Dose: Not Given Methylprednisolone Sodium Succinate (Solu-Medrol) 125 mg IVPUSH Q6H [facility] Last Admin: 07/05/17 05:59 Dose: 125 mg Methylprednisolone Sodium Succinate (Solu-Medrol) 40 mg IVPUSH Q6H [facility] Last Admin: 07/06/17 05:46 Dose: 40 mg Methylprednisolone Sodium Succinate (Solu-Medrol) 40 mg IVPUSH Q12H [facility] Last Admin: 07/08/17 08:41 Dose: 40 mg Methylprednisolone Sodium Succinate (Solu-Medrol) 20 mg IVPUSH Q12H [facility] Last Admin: 07/09/17 08:58 Dose: 20 mg Midazolam HCl (Versed 1 Mg/Ml) Confirm Administered Dose 5 mg .ROUTE .STK-MED ONE Stop: 07/04/17 07:38 Last Admin: 07/04/17 08:22 Dose: Not Given Midazolam HCl (Versed 1 Mg/Ml) 5 mg IVPUSH ONETIME ONE Stop: 07/04/17 07:45 Last Admin: 07/04/17 07:45 Dose: 5 mg Pantoprazole Sodium (Protonix Iv) 40 mg IVPUSH DAILY [facility] Last Admin: 07/10/17 08:32 Dose: 40 mg Piperacillin Sod/Tazobactam Sod (Zosyn) Confirm Administered Dose 4.5 gm .ROUTE .STK-MED ONE Stop: 07/04/17 06:16 Last Admin: 07/04/17 08:16 Dose: Not Given Potassium Chloride (Klor-Con M20) 40 meq PO ONETIME ONE Stop: 07/10/17 09:01 Last Admin: 07/10/17 09:34 Dose: 40 meq Potassium Chloride (Klor-Con M20) 40 meq PO BEDTIME [facility] Last Admin: 07/12/17 20:15 Dose: 40 meq Rocuronium [place] (Zemuron) Confirm Administered Dose 50 mg .ROUTE .STK-MED ONE Stop: 07/04/17 07:13 Last Admin: 07/04/17 08:40 Dose: Not Given Rocuronium [place] (Zemuron) 20 mg IV ONETIME ONE Stop: 07/04/17 08:37 Last Admin: 07/04/17 07:10 Dose: 20 mg Succinylcholine Chloride (Quelicin) Confirm Administered Dose 200 mg .ROUTE .STK -MED ONE Stop: 07/04/17 06:43 Last Admin: 07/04/17 08:39 Dose: Not Given Succinylcholine Chloride (Quelicin) 180 mg IV NOW STA Stop: 07/04/17 07:05 Last Admin: 07/04/17 07:03 Dose: 180 mg Vancomycin HCl (Vancomycin) Confirm Administered Dose 1 gm .ROUTE .STK-MED ONE Stop: 07/04/17 06:16 Last Admin: 07/04/17 08:22 Dose: Not Given - Exam Quality Assessment: Supplemental Oxygen, DVT Prophylaxis General: Alert, Oriented, Cooperative, No Acute Distress Lungs: Clear to Auscultation, Normal Respiratory Effort Cardiovascular: Regular Rate, Regular Rhythm, No Murmurs GI/Abdominal Exam: Normal Bowel Sounds, Soft, Non-Tender, No Organomegaly, No Distention Extremities: Non-Tender, Pedal Edema Skin: Warm, Dry, Intact - Problem List Review Problem List Initiated/Reviewed/Updated: Yes - My Orders Last 24 Hours: My Active Orders 07/18/17 11:45 Bumetanide [Bumex] 2 mg PO BIDDIURETIC 07/18/17 Lunch 2 Gram Sodium Diet [DIET] 07/19/17 05:00 BASIC METABOLIC PANEL,BMP [CHEM] Timed CBC WITH AUTO DIFF [HEME] Timed - Plan Plan:: ASSESSMENT AND PLAN ACUTE ON CHRONIC HYPOXIC AND HYPERCAPNIC RESPIRATORY FAILURE - clinically improving respiratory status each day and he is back to his baseline supplemental oxygen requirement. Edema has increased over the past few days, will need to increase current diuretic therapy. -Noninvasive positive pressure ventilation at night, as is baseline for him he does have BiPAP at home -Supplement oxygen -Nebulizer therapy with albuterol and duo nebs -Management of pneumonia as below -Bumex 2 mg twice daily LEFT LUNG PNEUMONIA WITH SEPSIS - likely causing respiratory failure as noted above. Significant clinical improvement in the past few days and nearly back to baseline supplemental oxygen requirement. No fevers. -Continue doxycycline with plan to continue through 07/21 -Symptomatic management as needed -Repeat labs in the morning VANCOMYCIN ANAPHYLAXIS - treated with epinephrine, Solu-Medrol, and Benadryl in the emergency department. Resolved with no recurrence. ACUTE ON CHRONIC KIDNEY - renal function has continued to improve each day. Volume status appears appropriate. -Repeat labs in the morning TYPE 2 DIABETES MELLITUS - sugars had been elevated but were slightly low this morning after adjustments yesterday. -Levemir insulin 35 units subcutaneous at at bedtime -NovoLog 6 units with meals -4 times a day glucometers -Moderate dose sliding scale NovoLog MAINTENANCE ISSUES -DVT prophylaxis; enoxaparin 40 mg subcutaneous daily -GI prophylaxis; PPI -Jung catheter; placed 07/13 secondary to urinary retention, patient wishes to have this removed today and he will have his trial of voiding -Nutrition; vegan diet DISPOSITION - anticipate discharge to group home after the hospital stay with impressive weakness. he should be safe for discharge in one or 2 days. Hopefully a bed is available for him at [facility] in the next day or 2.
[2017-07-18] MEDS ORDERED: Bumetanide 1 MG Tab PO SCH (12:30)
[2017-07-18] MEDS: traZODone 50 MG Tab PO SCH (20:29)
[2017-07-18] MEDS: Melatonin 3 MG Tab PO SCH (20:29)
[2017-07-18] MEDS: Insulin Detemir 100 Units/ML 3 ML Pen SUBCUT SCH (21:08)
[2017-07-19] MEDS: Albuterol/Ipratropium 3.0-0.5 MG/3 ML Neb Soln NEB SCH ×2 (07:43→10:47)
[2017-07-19] MEDS: Arformoterol 15 MCG/2 ML Neb Soln NEB SCH (07:43)
[2017-07-19] MEDS: Pantoprazole 40 MG Tab.CR PO SCH (07:52)
[2017-07-19] MEDS: Bumetanide 1 MG Tab PO SCH (07:53)
[2017-07-19] MEDS: Insulin Aspart 100 Units/ML 3 ML Pen SUBCUT SCH ×4 (07:59→12:15)
[2017-07-19] MEDS: Tamsulosin 0.4 MG Cap.ER PO SCH (09:57)
[2017-07-19] MEDS: Folic Acid 1 MG Tab PO SCH (09:57)
[2017-07-19] MEDS: ARIPiprazole 10 MG Tab PO SCH (10:00)
[2017-07-19] MEDS: Aspirin 81 MG Tab.EC PO SCH (10:02)
[2017-07-19] MEDS: Escitalopram 20 MG Tab PO SCH (10:03)
[2017-07-19] MEDS: Doxycycline 100 MG Cap PO SCH (10:04)
[2017-07-19] MEDS: Enoxaparin 40 MG/0.4 ML Syringe SUBCUT SCH (10:09)
[2017-07-19] MEDS: Metoprolol Succinate 25 MG Tab.ER PO SCH (10:13)
[2017-07-19] MEDS: Nystatin Topical Powder 15 GM Bottle TOP SCH (10:14)
[2017-07-19] MEDS: Potassium Chloride 20 MEQ Tab.ER PO SCH (12:13)
--- NOTE | 2017-07-19 13:03 | PCM.DCSUM1 ---
Discharge Summary - Hospital Course Brief History: Mr. Kruse is a 67-year-old gentleman who presented to the emergency department with acute on chronic respiratory failure secondary to underlying pneumonia. - Discharge Data Discharge Date: 07/19/17 Discharge Disposition: DC/Tfer to SNF 03 Condition: Fair - Discharge Diagnosis/Problem(s) (1) Acute on chronic respiratory failure with hypoxia and hypercapnia SNOMED Code(s): 86959102 ICD Code: J96.21 - ACUTE AND CHRONIC RESPIRATORY FAILURE WITH HYPOXIA; J96.22 - ACUTE AND CHRONIC RESPIRATORY FAILURE WITH HYPERCAPNIA Status: Acute Current Visit: Yes (2) Pneumonia SNOMED Code(s): 777386132 ICD Code: J18.9 - PNEUMONIA, UNSPECIFIED ORGANISM Status: Acute Current Visit: Yes (3) Type 2 diabetes mellitus SNOMED Code(s): 91727269 ICD Code: E11.9 - TYPE 2 DIABETES MELLITUS WITHOUT COMPLICATIONS Status: Acute Current Visit: Yes (4) Acute kidney injury SNOMED Code(s): 32312275 ICD Code: N17.9 - ACUTE KIDNEY FAILURE, UNSPECIFIED Status: Acute Current Visit: Yes (5) Anaphylactic shock SNOMED Code(s): 97051664 ICD Code: T78.2XXA - ANAPHYLACTIC SHOCK, UNSPECIFIED, INITIAL ENCOUNTER Status: Acute Current Visit: Yes (6) Septic shock SNOMED Code(s): 95787860 ICD Code: A41.9 - SEPSIS, UNSPECIFIED ORGANISM; R65.21 - SEVERE SEPSIS WITH SEPTIC SHOCK Status: Acute Current Visit: Yes (7) CKD (chronic kidney disease) stage 3, GFR 30-59 ml/min SNOMED Code(s): 175943827 ICD Code: N18.3 - CHRONIC KIDNEY DISEASE, STAGE 3 (MODERATE) Status: Chronic Current Visit: No (8) COPD (chronic obstructive pulmonary disease) SNOMED Code(s): 00565411 ICD Code: J44.9 - CHRONIC OBSTRUCTIVE PULMONARY DISEASE, UNSPECIFIED Status : Chronic Current Visit: No Qualifiers: COPD type: COPD with acute exacerbation Qualified Code(s): J44.1 - Chronic obstructive pulmonary disease with (acute) exacerbation - Patient Summary/Data Consults: Consultations 07/04/17 10:01 Consult to PICC Team [CONS] Routine Comment: Physician Instructions: 07/11/17 09:39 PT Evaluation and Treatment [CONS] Routine Please Evaluate and Treat. PT Reason for Consult: Strengthening This query below is only for informational purposes and is not editable. Admission Diagnosis/Problem: Respiratory failure Hospital Course: Mr. Kruse is a 67-year-old gentleman with a known history of COPD requiring chronic oxygen use. He developed symptoms of an upper respiratory tract infection the week prior to admission and became progressively more short of breath. He drove himself to the emergency department but was in acute respiratory failure when he arrived. Blood gases documented hypoxic and hypercapnic failure. Chest x-ray showed evidence of infiltrate consistent with pneumonia. Initially was placed on BiPAP but this did not significantly improve his respiratory compromise so he was intubated and placed on mechanical ventilation. He was felt to have septic shock was given IV fluids and started on IV norepinephrine. Broad-spectrum IV antibiotic therapy was initiated but he unfortunately developed an anaphylactic reaction related to the IV vancomycin. He was noted to have acute on chronic kidney injury in addition to his respiratory and hemodynamic compromise. He was admitted to the hospital and started on broad-spectrum IV antibiotic therapy, obviously the vancomycin was held. Blood cultures and sputum cultures were obtained. He was given vigorous IV fluid replacement which did stabilize blood pressures and he did not require further use of the IV norepinephrine. In addition to antibiotic therapy with Zosyn and levofloxacin, he was maintained on the ventilator and also treated with IV Solu-Medrol and nebulizer therapy. Initially he was given sedation with analgesic sedation but continued to be uncomfortable so propofol was initiated for ongoing management. After he stabilized, sedation was stopped daily and he was given a spontaneous weaning trial. 5 days after admission he was felt to be safe to remove from the ventilator and was transitioned to non-invasive positive pressure ventilation. He did not have any further fevers but did have elevation in his white blood cell count and ongoing difficulty with respiratory compromise. Antibiotics were changed to doxycycline and meropenem and after that white blood cell count normalized in his respiratory status improved. Cultures of were obtained at the time of admission including blood and sputum cultures remain negative. He did have acute on chronic kidney injury at the time of admission but this improved to baseline after hydration. Blood glucose levels were monitored through his hospital stay and he was treated with sliding scale NovoLog insulins. He will remain on oral doxycycline for an additional 3 days after discharge. Activity will be as tolerated and he will resume his usual diet. Restorative physical therapy and occupational therapy will be ordered at the longterm on a daily basis. Follow-up appointment will be scheduled with primary care provider in 10-14 days. - Patient Instructions Diet: Low Sodium, Diabetic Diet Activity: As Tolerated Other/Special Instructions: Oxygen 2 L/m via nasal cannula. Restorative occupational therapy and physical therapy while at the longterm. 4 times a day glucometers. Please schedule follow-up appointment with primary care provider with in 10-14 days. - Discharge Plan Prescriptions/Med Rec: Doxycycline Calcium [IMW: Doxycycline] 100 mg PO BID #6 capsule Home Medications: Home Meds ARIPiprazole [Abilify] 15 mg PO DAILY 08/23/14 [History] Arformoterol [Brovana] 1 dose NEB BID 08/23/14 [History] Aspirin [Halfprin] 81 mg PO DAILY 08/23/14 [History] Cholecalciferol (Vitamin D3) [Vitamin D3] 2,000 unit PO DAILY 08/23/14 [History] Escitalopram [Lexapro] 20 mg PO DAILY 08/23/14 [History] Folic Acid 1 mg PO DAILY 08/23/14 [History] Furosemide [Lasix] 160 mg PO DAILY 08/23/14 [History] Insulin Glarg,Human.Rec.Analog [Lantus] 32 unit SUBCUT DAILY 08/23/14 [History] Insulin Lispro [HumaLOG] 22 units SUBCUT BID 08/23/14 [History] Omeprazole 40 mg PO DAILY 08/23/14 [History] Ramipril [Altace] 10 mg PO DAILY 08/23/14 [History] Tamsulosin [Flomax] 0.4 mg PO DAILY 08/23/14 [History] Temazepam [Restoril] 15 - 30 mg PO BEDTIME PRN 08/23/14 [History] Tiotropium [Spiriva HandiHaler] 18 mcg INH DAILY 08/23/14 [History] Vitamin B Complex 1 each PO DAILY 08/23/14 [History] atorvaSTATin [Lipitor] 20 mg PO BEDTIME 08/23/14 [History] traZODone 100 mg PO BEDTIME 08/23/14 [History] Metolazone 2.5 mg PO DAILY PRN 07/04/17 [History] Metoprolol Succinate 25 mg PO DAILY 07/04/17 [History] Doxycycline Calcium [IMW: Doxycycline] 100 mg PO BID #6 capsule 07/19/17 [Rx] Referrals: PCP,None [Primary Care Provider] - 08/03/17 2:00 pm - Patient Data Vitals - Most Recent: Last Vital Signs Temp 96.2 F 07/19/17 09:00 Pulse 72 07/19/17 10:47 Resp 16 07/19/17 09:00 BP 133/66 07/19/17 10:13 Pulse Ox 95 07/19/17 10:47 Weight - Most Recent: 271 lb 4.8 oz I&O - Last 24 hours: Intake & Output 07/18/17 07/19/17 07/19/17 22:59 06:59 14:59 Intake Total 500 720 Output Total 2150 100 550 Balance -1650 -100 170 Lab Results - Last 24 hrs: Laboratory Results - last 24 hr 07/19/17 07/19/17 Range/Units 04:30 04:30 WBC 10.3 (4.5-11.0) K/uL RBC 4.45 (4.30-5.90) M/uL Hgb 12.2 (12.0-15.0) g/dL Hct 38.0 L (40.0-54.0) % MCV 85 (80-98) fL MCH 27 (27-31) pg MCHC 32 (32-36) % Plt Count 372 (150-400) K/uL Neut % (Auto) 66 (36-66) % Lymph % (Auto) 14 L (24-44) % Shannon % (Auto) 13 H (2-6) % Eos % (Auto) 7 H (2-4) % Baso % (Auto) 0 (0-1) % Sodium 140 (140-148) mmol/L Potassium 3.9 (3.6-5.2) mmol/L Chloride 101 (100-108) mmol/L Carbon Dioxide 33 H (21-32) mmol/L Anion Gap 9.9 (5.0-14.0) mmol/L BUN 31 H (7-18) mg/dL Creatinine 1.1 (0.8-1.3) mg/dL Est Cr Clr Drug Dosing 72.61 mL/min Estimated GFR (MDRD) > 60 (>60) Glucose 104 (74-106) mg/dL Calcium 9.5 (8.5-10.1) mg/dL Med Orders - Current: Current Medications Albuterol (Proventil Neb Soln) 2.5 mg NEB Q4H PRN PRN Reason: Shortness Of Breath/wheezing Last Admin: 07/11/17 19:45 Dose: 2.5 mg Albuterol/Ipratropium (Duoneb 3.0-0.5 Mg/3 Ml) 3 ml NEB QIDRT [facility] Last Admin: 07/19/17 10:47 Dose: 3 ml Arformoterol Tartrate (Brovana) 15 mcg NEB BIDRT [facility] Last Admin: 07/19/17 07:43 Dose: 15 mcg Aripiprazole (Abilify) 15 mg PO DAILY [facility] Last Admin: 07/19/17 10:00 Dose: 15 mg Aspirin (Halfprin) 81 mg PO DAILY [facility] Last Admin: 07/19/17 10:02 Dose: 81 mg Bisacodyl (Dulcolax) 10 mg PO DAILY PRN PRN Reason: Constipation Bisacodyl (Dulcolax) 10 mg RECTAL DAILY PRN PRN Reason: Constipation Bumetanide (Bumex) 2 mg PO BIDDIURETIC [facility] Last Admin: 07/19/17 07:53 Dose: 2 mg Dextrose (Glutose 15) 15 gm PO ONETIME PRN PRN Reason: Hypoglycemia Dextrose/Water (Dextrose 50% In Water) 50 ml IV ONETIME PRN PRN Reason: Hypoglycemia Dimethicone/Zinc Oxide (Rash Relief-Zinc Oxide [place]) 1 gm TOP ASDIRECTED PRN PRN Reason: Rash Last Admin: 07/13/17 04:11 Dose: 1 applic Docusate Sodium (Colace) 100 mg PO BID PRN PRN Reason: Constipation Last Admin: 07/16/17 04:52 Dose: 100 mg Doxycycline Hyclate (Vibramycin) 100 mg PO BID [facility] Last Admin: 07/19/17 10:04 Dose: 100 mg Enoxaparin Sodium (Lovenox) 40 mg SUBCUT DAILY [facility] Last Admin: 07/19/17 10:09 Dose: 40 mg Escitalopram Oxalate (Lexapro) 20 mg PO DAILY [facility] Last Admin: 07/19/17 10:03 Dose: 20 mg Folic Acid (Folic Acid) 1 mg PO DAILY [facility] Last Admin: 07/19/17 09:57 Dose: 1 mg Guaifenesin/Dextromethorphan (Robitussin Dm) 10 ml PO Q4H PRN PRN Reason: Cough Last Admin: 07/13/17 04:09 Dose: 10 ml Insulin Aspart (Novolog) 0 unit SUBCUT QIDACANDBED [facility] PRN Reason: Protocol Last Admin: 07/19/17 11:25 Dose: Not Given Insulin Aspart (Novolog) 6 unit SUBCUT TIDMEALS [facility] Last Admin: 07/19/17 12:15 Dose: 6 units Insulin Detemir (Levemir) 35 unit SUBCUT BEDTIME [facility] Last Admin: 07/18/17 21:08 Dose: 35 units Lorazepam (Ativan) 1 mg PO Q4H PRN PRN Reason: Anxiety Last Admin: 07/13/17 17:52 Dose: 1 mg Magnesium Hydroxide (Milk Of Magnesia) 30 ml PO Q12H PRN PRN Reason: Constipation Last Admin: 07/16/17 04:52 Dose: 30 ml Melatonin (Melatonin) 9 mg PO BEDTIME [facility] Last Admin: 07/18/17 20:29 Dose: 9 mg Metoprolol Succinate (Toprol Xl) 25 mg PO DAILY [facility] Last Admin: 07/19/17 10:13 Dose: 25 mg Nystatin (Nystop) 0 gm TOP TID [facility] Last Admin: 07/19/17 10:14 Dose: 1 applic Ondansetron HCl (Zofran) 4 mg IV Q4H PRN PRN Reason: Nausea/Vomiting Pantoprazole Sodium (Protonix) 40 mg PO ACBREAKFAST [facility] Last Admin: 07/19/17 07:52 Dose: 40 mg Polyethylene Glycol (Miralax) 17 gm PO DAILY PRN PRN Reason: Constipation Last Admin: 07/15/17 20:08 Dose: 17 gm Potassium Chloride (Klor-Con M20) 40 meq PO ACLUNCH [facility] Last Admin: 07/19/17 12:13 Dose: 40 meq Sodium Chloride (Saline Flush) 10 ml FLUSH ASDIRECTED PRN PRN Reason: Keep Vein Open Last Admin: 07/13/17 09:24 Dose: 10 ml Tamsulosin HCl (Flomax) 0.4 mg PO PCBREAKFAST [facility] Last Admin: 07/19/17 09:57 Dose: 0.4 mg Trazodone HCl (Trazodone) 100 mg PO BEDTIME [facility] Last Admin: 07/18/17 20:29 Dose: 100 mg Discontinued Medications Acetaminophen (Tylenol Extra Strength) Confirm Administered Dose 1,000 mg .ROUTE .STK-MED ONE Stop: 07/04/17 06:17 Last Admin: 07/04/17 08:32 Dose: Not Given Acetazolamide (Diamox) 250 mg IVPUSH Q6H [facility] Stop: 07/09/17 21:01 Last Admin: 07/09/17 21:12 Dose: 250 mg Acetazolamide (Diamox) 500 mg IVPUSH Q6H [facility] Stop: 07/10/17 21:01 Last Admin: 07/10/17 21:39 Dose: 500 mg Albuterol/Ipratropium (Duoneb 3.0-0.5 Mg/3 Ml) 3 ml NEB Q1H PRN PRN Reason: Shortness of Breath Last Admin: 07/04/17 06:05 Dose: 3 ml Albuterol/Ipratropium (Duoneb 3.0-0.5 Mg/3 Ml) Confirm Administered Dose 3 ml .ROUTE .STK-MED ONE Stop: 07/04/17 06:03 Last Admin: 07/04/17 08:17 Dose: Not Given Albuterol/Ipratropium (Duoneb 3.0-0.5 Mg/3 Ml) 3 ml NEB Q6H [facility] Albuterol/Ipratropium (Duoneb 3.0-0.5 Mg/3 Ml) 3 ml NEB Q6H [facility] Last Admin: 07/04/17 09:56 Dose: 3 ml Albuterol/Ipratropium (Duoneb 3.0-0.5 Mg/3 Ml) 3 ml NEB Q6H [facility] Last Admin: 07/11/17 08:37 Dose: 3 ml Albuterol/Ipratropium (Duoneb 3.0-0.5 Mg/3 Ml) Confirm Administered Dose 3 ml .ROUTE .STK-MED ONE Stop: 07/12/17 09:05 Last Admin: 07/12/17 10:32 Dose: Not Given Bumetanide (Bumex) 2 mg IVPUSH Q12H [facility] Last Admin: 07/06/17 08:14 Dose: 2 mg Bumetanide (Bumex) 1 mg IVPUSH Q12H [facility] Last Admin: 07/08/17 20:11 Dose: 1 mg Bumetanide (Bumex) 1 mg IVPUSH Q24H [facility] Last Admin: 07/11/17 09:11 Dose: 1 mg Bumetanide (Bumex) 1 mg IVPUSH BIDDIURETIC [facility] Last Admin: 07/12/17 09:42 Dose: 1 mg Bumetanide (Bumex) 1 mg IVPUSH DAILY [facility] Bumetanide (Bumex) 1 mg PO BIDDIURETIC [facility] Last Admin: 07/13/17 08:07 Dose: 1 mg Bumetanide (Bumex) 1 mg PO DAILY [facility] Last Admin: 07/18/17 09:42 Dose: Not Given Bumetanide (Bumex) 2 mg PO ONETIME ONE Stop: 07/18/17 10:01 Last Admin: 07/18/17 10:07 Dose: 2 mg Diphenhydramine HCl (Benadryl) 50 mg IVPUSH ONETIME ONE Stop: 07/04/17 07:09 Last Admin: 07/04/17 06:41 Dose: 50 mg Enoxaparin Sodium (Lovenox) 30 mg SUBCUT DAILY [facility] Last Admin: 07/07/17 10:38 Dose: 30 mg Epinephrine HCl (Adrenalin 1:1000) 0.3 mg IM ONETIME ONE Stop: 07/04/17 07:07 Last Admin: 07/04/17 06:38 Dose: 0.3 mg Etomidate (Amidate) 20 mg IVPUSH ONETIME ONE Stop: 07/04/17 07:08 Last Admin: 07/04/17 06:42 Dose: 20 mg Famotidine (Pepcid) Confirm Administered Dose 40 mg .ROUTE .STK-MED ONE Stop: 07/04/17 06:50 Last Admin: 07/04/17 08:25 Dose: Not Given Famotidine (Pepcid) 20 mg IVPUSH ONETIME ONE Stop: 07/04/17 07:06 Last Admin: 07/04/17 06:49 Dose: 20 mg Haloperidol Lactate (Haldol) 2 mg IVPUSH Q2H PRN PRN Reason: Agitation Last Admin: 07/13/17 19:29 Dose: 2 mg Heparin Sodium (Porcine) (Heparin Sodium) Confirm Administered Dose 5,000 units .ROUTE .STK-MED ONE Stop: 07/04/17 09:31 Last Admin: 07/04/17 10:23 Dose: Not Given Heparin Sodium (Porcine) (Heparin Lock Flush 100 Units/Ml) 500 units IVPUSH ASDIRECTED PRN 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 Last Admin: 07/09/17 13:39 Dose: 500 units Hydromorphone HCl (Dilaudid) Confirm Administered Dose 0.5 mg .ROUTE .STK-MED ONE Stop: 07/04/17 08:11 Last Admin: 07/04/17 08:21 Dose: Not Given Hydromorphone HCl (Dilaudid) 0.5 mg IVPUSH ONETIME ONE Stop: 07/04/17 08:20 Last Admin: 07/04/17 08:22 Dose: 0.5 mg Hydromorphone HCl (Dilaudid) 0.5 mg IVPUSH Q1H PRN PRN Reason: Pain Last Admin: 07/05/17 09:31 Dose: 0.5 mg Hydromorphone HCl (Dilaudid) 1 mg IVPUSH Q1H PRN PRN Reason: Pain Last Admin: 07/05/17 12:42 Dose: 1 mg Hydromorphone HCl (Dilaudid) 0.5 mg IVPUSH Q2H PRN PRN Reason: Pain Last Admin: 07/09/17 10:14 Dose: 0.5 mg Piperacillin Sod/Tazobactam (Sod 4.5 gm/ Sodium Chloride) 100 mls @ 200 mls/hr IV Q6H [facility] Last Admin: 07/04/17 06:54 Dose: 200 mls/hr Vancomycin HCl 1,000 mg/ (Dextrose/Water) 250 mls @ 167 mls/hr IV ONETIME ONE Stop: 07/04/17 07:44 Last Admin: 07/04/17 06:30 Dose: 167 mls/hr Sodium Chloride (Normal Saline) 1,000 mls @ 999 mls/hr IV .BOLUS STA Stop: 07/04/17 07:16 Last Admin: 07/04/17 06:30 Dose: 999 mls/hr Acetaminophen (Ofirmev) Confirm Administered Dose 100 mls @ as directed IV .STK- MED ONE Stop: 07/04/17 06:31 Last Admin: 07/04/17 09:15 Dose: Not Given Dextrose/Water (Dextrose 5% In Water) Confirm Administered Dose 250 mls @ as directed .ROUTE .STK-MED ONE Stop: 07/04/17 06:56 Last Admin: 07/04/17 08:21 Dose: Not Given Norepinephrine Bitartrate 4 mg (/ Dextrose/Water) 250 mls @ 7.5 mls/hr IV TITRATE [facility]; 2 MCG/MIN PRN Reason: Protocol Last Titration: 07/04/17 07:21 Dose: 0 mcg/min, 0 mls/hr Levofloxacin/Dextrose 750 mg/ (Premix) 150 mls @ 100 mls/hr IV ONETIME ONE Stop: 07/04/17 08:59 Last Admin: 07/04/17 07:30 Dose: 100 mls/hr Lactated Ringer's (Ringers, Lactated) 1,000 mls @ 125 mls/hr IV ASDIRECTED [facility] Last Admin: 07/05/17 08:46 Dose: 125 mls/hr Levofloxacin/Dextrose 750 mg/ (Premix) 150 mls @ 100 mls/hr IV Q24H [facility] Last Admin: 07/12/17 09:42 Dose: 100 mls/hr Piperacillin/Tazobactam/ (Dextrose 3.375 gm/ Premix) 50 mls @ 100 mls/hr IV Q6H [facility] Last Admin: 07/10/17 05:29 Dose: 100 mls/hr Acetaminophen 1,000 mg/ Premix 100 mls @ 400 mls/hr IV NOW ONE Stop: 07/04/17 06:44 Last Admin: 07/04/17 06:40 Dose: 400 mls/hr Heparin Sodium (Porcine) 5,000 (units/ Sodium Chloride) 501 mls @ 0 mls/hr IV ASDIRECTED [facility] PRN Reason: KVO Last Admin: 07/08/17 12:40 Dose: 2 mls/hr Lactated Ringer's (Ringers, Lactated) 1,000 mls @ 15 mls/hr IV ASDIRECTED [facility] Last Admin: 07/10/17 05:31 Dose: 15 mls/hr Propofol (Diprivan 100 Ml) 100 mls @ 0 mls/hr IV TITRATE [facility]; 20 MCG/KG/MIN PRN Reason: Protocol Last Admin: 07/09/17 06:06 Dose: 34.39 mcg/kg/min, 26 mls/hr Potassium Chloride 20 meq/Lidocaine HCl 2 ml/ Sodium Chloride 112 mls @ 56 mls/ hr IV Q2H [facility] Stop: 07/06/17 13:59 Last Admin: 07/06/17 12:07 Dose: 56 mls/hr Magnesium Sulfate 2 gm/ Premix 50 mls @ 25 mls/hr IV ONETIME ONE Stop: 07/07/17 10:59 Last Admin: 07/07/17 09:33 Dose: 25 mls/hr Potassium Chloride 20 meq/ (Premix) 100 mls @ 50 mls/hr IV Q2H [facility] Stop: 07/07/17 12:59 Last Admin: 07/07/17 11:36 Dose: 50 mls/hr Potassium Chloride 40 meq/ (Premix) 100 mls @ 25 mls/hr IV ONETIME ONE Stop: 07/07/17 23:59 Last Admin: 07/07/17 20:20 Dose: 25 mls/hr Magnesium Sulfate 2 gm/ Premix 50 mls @ 25 mls/hr IV ONETIME ONE Stop: 07/08/17 13:59 Last Admin: 07/08/17 11:31 Dose: 25 mls/hr Potassium Chloride 20 meq/ (Premix) 100 mls @ 50 mls/hr IV Q2H [facility] Stop: 07/08/17 15:59 Last Admin: 07/08/17 13:29 Dose: 50 mls/hr Sodium Chloride (Normal Saline) 1,000 mls @ 999 mls/hr IV ONETIME ONE Stop: 07/04/17 07:51 Last Admin: 07/04/17 06:51 Dose: 999 mls/hr Potassium Chloride 40 meq/ (Premix) 100 mls @ 25 mls/hr IV ONETIME ONE Stop: 07/09/17 13:59 Last Admin: 07/09/17 09:23 Dose: 25 mls/hr Potassium Chloride 40 meq/ (Premix) 100 mls @ 25 mls/hr IV ONETIME ONE Stop: 07/10/17 13:59 Last Admin: 07/10/17 11:30 Dose: 25 mls/hr Meropenem 1 gm/ Sodium (Chloride) 100 mls @ 200 mls/hr IV Q8H [facility] Last Admin: 07/16/17 09:32 Dose: 200 mls/hr Sodium Chloride (Normal Saline) 500 mls @ 500 mls/hr IV ASDIRECTED [facility] Stop: 07/13/17 17:31 Sodium Chloride (Normal Saline) 500 mls @ 500 mls/hr IV ASDIRECTED [facility] Last Admin: 07/13/17 17:31 Dose: 500 mls/hr Insulin Aspart (Novolog) 10 unit SUBCUT TIDMEALS [facility] Last Admin: 07/17/17 11:28 Dose: 10 units Insulin Detemir (Levemir) 30 unit SUBCUT BEDTIME [facility] Last Admin: 07/06/17 20:59 Dose: 30 units Insulin Detemir (Levemir) 40 unit SUBCUT BEDTIME [facility] Last Admin: 07/16/17 21:54 Dose: 40 units Ketamine HCl (Ketalar) Confirm Administered Dose 500 mg .ROUTE .STK-MED ONE Stop: 07/04/17 06:48 Last Admin: 07/04/17 08:40 Dose: Not Given Ketamine HCl (Ketalar) 60 mg IV NOW STA Stop: 07/04/17 07:04 Last Admin: 07/04/17 07:03 Dose: 60 mg Levofloxacin (Levaquin) 250 mg PO Q24H [facility] Levofloxacin (Levaquin) 500 mg PO Q24H [facility] Lidocaine HCl (Xylocaine-Mpf 1%) Confirm Administered Dose 5 ml .ROUTE .STK-MED ONE Stop: 07/04/17 09:34 Last Admin: 07/04/17 10:16 Dose: Not Given Lidocaine HCl (Xylocaine-Mpf 1%) 5 ml INJECT ONETIME ONE Stop: 07/04/17 10:31 Last Admin: 07/04/17 10:16 Dose: 5 ml Methylprednisolone Sodium Succinate (Solu-Medrol) 125 mg IV ONETIME ONE Stop: 07/04/17 06:08 Last Admin: 07/04/17 08:27 Dose: Not Given Methylprednisolone Sodium Succinate (Solu-Medrol) Confirm Administered Dose 125 mg .ROUTE .STK-MED ONE Stop: 07/04/17 06:07 Last Admin: 07/04/17 08:18 Dose: Not Given Methylprednisolone Sodium Succinate (Solu-Medrol) 125 mg IVPUSH Q6H [facility] Last Admin: 07/05/17 05:59 Dose: 125 mg Methylprednisolone Sodium Succinate (Solu-Medrol) 40 mg IVPUSH Q6H [facility] Last Admin: 07/06/17 05:46 Dose: 40 mg Methylprednisolone Sodium Succinate (Solu-Medrol) 40 mg IVPUSH Q12H [facility] Last Admin: 07/08/17 08:41 Dose: 40 mg Methylprednisolone Sodium Succinate (Solu-Medrol) 20 mg IVPUSH Q12H [facility] Last Admin: 07/09/17 08:58 Dose: 20 mg Midazolam HCl (Versed 1 Mg/Ml) Confirm Administered Dose 5 mg .ROUTE .STK-MED ONE Stop: 07/04/17 07:38 Last Admin: 07/04/17 08:22 Dose: Not Given Midazolam HCl (Versed 1 Mg/Ml) 5 mg IVPUSH ONETIME ONE Stop: 07/04/17 07:45 Last Admin: 07/04/17 07:45 Dose: 5 mg Pantoprazole Sodium (Protonix Iv) 40 mg IVPUSH DAILY [facility] Last Admin: 07/10/17 08:32 Dose: 40 mg Piperacillin Sod/Tazobactam Sod (Zosyn) Confirm Administered Dose 4.5 gm .ROUTE .STK-MED ONE Stop: 07/04/17 06:16 Last Admin: 07/04/17 08:16 Dose: Not Given Potassium Chloride (Klor-Con M20) 40 meq PO ONETIME ONE Stop: 07/10/17 09:01 Last Admin: 07/10/17 09:34 Dose: 40 meq Potassium Chloride (Klor-Con M20) 40 meq PO BEDTIME [facility] Last Admin: 07/12/17 20:15 Dose: 40 meq Rocuronium [place] (Zemuron) Confirm Administered Dose 50 mg .ROUTE .STK-MED ONE Stop: 07/04/17 07:13 Last Admin: 07/04/17 08:40 Dose: Not Given Rocuronium [place] (Zemuron) 20 mg IV ONETIME ONE Stop: 07/04/17 08:37 Last Admin: 07/04/17 07:10 Dose: 20 mg Succinylcholine Chloride (Quelicin) Confirm Administered Dose 200 mg .ROUTE .STK -MED ONE Stop: 07/04/17 06:43 Last Admin: 07/04/17 08:39 Dose: Not Given Succinylcholine Chloride (Quelicin) 180 mg IV NOW STA Stop: 07/04/17 07:05 Last Admin: 07/04/17 07:03 Dose: 180 mg Vancomycin HCl (Vancomycin) Confirm Administered Dose 1 gm .ROUTE .ST-MED ONE Stop: 07/04/17 06:16 Last Admin: 07/04/17 08:22 Dose: Not Given *Q Meaningful Use (DIS) - VTE *Q VTE Criteria *Q: - Stroke *Q Stroke Criteria *Q: - AMI *Q AMI Criteria *Q:
== END 2017-07-19 13:45 | DRG 870 ==
LOC: JP.ED 05:55 → JP.ICU 08:18 → JP.MS 07-11 09:43
PROVIDERS: ADMIT Hospitalist; ATTEND Internal Medicine
PROC: 5A1955Z Respiratory Ventilation, Greater than 96 Consecutive Hours (ICD-10-PCS; principal; 2017-07-04)
PROC: 0BH17EZ Insertion of Endotracheal Airway into Trachea, Via Natural or Artificial Opening (ICD-10-PCS; principal; 2017-07-04)
PROC: 03HC33Z Insertion of Infusion Device into Left Radial Artery, Percutaneous Approach (ICD-10-PCS; 2017-07-04)
PROC: 0BP1XDZ Removal of Intraluminal Device from Trachea, External Approach (ICD-10-PCS; 2017-07-09)
DX: A41.9 Sepsis, unspecified organism (principal); R65.21 Severe sepsis with septic shock; J18.9 Pneumonia, unspecified organism; J96.21 Acute and chronic respiratory failure with hypoxia; J96.22 Acute and chronic respiratory failure with hypercapnia; J44.1 Chronic obstructive pulmonary disease with (acute) exacerbation; I13.0 Hypertensive heart and chronic kidney disease with heart failure and stage 1 through stage 4 chronic kidney disease, or unspecified chronic kidney disease; N17.9 Acute kidney failure, unspecified; T88.6XXA Anaphylactic reaction due to adverse effect of correct drug or medicament properly administered, initial encounter; I50.20 Unspecified systolic (congestive) heart failure; E87.2 Acidosis; R74.8 Abnormal levels of other serum enzymes; Z99.81 Dependence on supplemental oxygen; T36.8X5A Adverse effect of other systemic antibiotics, initial encounter; Y92.238 Other place in hospital as the place of occurrence of the external cause; E11.22 Type 2 diabetes mellitus with diabetic chronic kidney disease; Z79.4 Long term (current) use of insulin; I95.2 Hypotension due to drugs; N18.3 Chronic kidney disease, stage 3 (moderate); R33.9 Retention of urine, unspecified; F41.9 Anxiety disorder, unspecified; R45.1 Restlessness and agitation; Z79.82 Long term (current) use of aspirin
CPT/HCPCS: 31500; 36600 ×3; 71010 ×4; 80053; 81001; 82803 ×3; 83605; 83735; 83880; 84484; 85025; 87040 ×2; 93005; 93010; 96361; 96372; 96374; 96375; 99285 ×2; J0131; J0171; J0330; J1200; J1956; J2250; J2543; J2930; J3370; J7030; J7040 ×2; J7060 ×2; J7620; 36415; 51702; 80048; 82962; 85027; 87070; 87205; 93306; 93306-26; 94002; 94003; 94640; 94660; 94762; 94799; 97110-GP; 97116-GP; 97162-GP; 97530-GP; A9270-GY; C9113; J1120; J1170; J1630; J1642; J1644; J1650; J2185; J2920; J3475; J3480; J3490; J7050; J7120; J7605; S0028; S0171

== ENCOUNTER 2017-10-07 08:39 | Inpatient (IN) | payer MEDICARE, BC ==
[2017-10-07] MEDS ORDERED: Albuterol 0.083% 2.5 MG/3 ML Neb Soln NEB ONE (09:30)
--- NOTE | 2017-10-07 09:32 | CR ---
Portable chest Comparison: June 2017. There is cardiomegaly. There is pulmonary vascular engorgement. There are increased interstitial beth[place] ings. Density of the left lung base may reflect a small effusion. A left basilar infiltrate cannot be excluded. Impression: 1. Chronic CHF. The findings appear mildly progressed since the prior study.
--- NOTE | 2017-10-07 09:34 | EDM.PDOC ---
ED HPI GENERAL MEDICAL PROBLEM - General Chief Complaint: Respiratory Problem Stated Complaint: SOB Time Seen by Provider: 10/07/17 08:55 Source of Information: Reports: Patient History Limitations: Reports: No Limitations - History of Present Illness INITIAL COMMENTS - FREE TEXT/NARRATIVE: pt arrived with increased sob. He did not slep well last nite because of the sob. he ate breakfast about 3 am. He did take his insulin as usual this am. Onset: Gradual, Other ( several days he has been sob. ) Duration: Day(s): Location: Reports: Chest, Other ( ankle swellin has been up recently. ) Associated Symptoms: Reports: Shortness of Breath - Related Data Allergies Allergy/AdvReac Type Severity Reaction Status Date / Time vancomycin Allergy Severe Anaphylactic Verified 07/04/17 14:01 Shock Home Meds: Home Meds ARIPiprazole [Abilify] 15 mg PO DAILY 08/23/14 [History] Arformoterol [Brovana] 1 dose NEB BID 08/23/14 [History] Aspirin [Halfprin] 81 mg PO DAILY 08/23/14 [History] Cholecalciferol (Vitamin D3) [Vitamin D3] 2,000 unit PO DAILY 08/23/14 [History] Escitalopram [Lexapro] 20 mg PO DAILY 08/23/14 [History] Folic Acid 1 mg PO DAILY 08/23/14 [History] Furosemide [Lasix] 160 mg PO DAILY 08/23/14 [History] Insulin Glarg,Human.Rec.Analog [Lantus] 32 unit SUBCUT DAILY 08/23/14 [History] Insulin Lispro [HumaLOG] 22 units SUBCUT BID 08/23/14 [History] Omeprazole 40 mg PO DAILY 08/23/14 [History] Ramipril [Altace] 10 mg PO DAILY 08/23/14 [History] Tamsulosin [Flomax] 0.4 mg PO DAILY 08/23/14 [History] Temazepam [Restoril] 15 - 30 mg PO BEDTIME PRN 08/23/14 [History] Tiotropium [Spiriva HandiHaler] 18 mcg INH DAILY 08/23/14 [History] Vitamin B Complex 1 each PO DAILY 08/23/14 [History] atorvaSTATin [Lipitor] 20 mg PO BEDTIME 08/23/14 [History] traZODone 100 mg PO BEDTIME 08/23/14 [History] Metolazone 2.5 mg PO DAILY PRN 07/04/17 [History] Metoprolol Succinate 25 mg PO DAILY 07/04/17 [History] Doxycycline Calcium [IMW: Doxycycline] 100 mg PO BID #6 capsule 07/19/17 [Rx] Past Medical History HEENT History: Reports: Impaired Vision Cardiovascular History: Reports: Heart Failure, High Cholesterol Respiratory History: Reports: COPD, Sleep Apnea, Other (See Below) Other Respiratory History: home O2 Gastrointestinal History: Reports: GERD Genitourinary History: Reports: BPH, Chronic Renal Insuffiency, Diabetic Nephropathy Musculoskeletal History: Reports: Gout, Osteoarthritis Neurological History: Reports: Neuropathy, Diabetic, Other (See Below) Other Neuro History: tremor Psychiatric History: Reports: Anxiety, Bipolar, Depression, Other (See Below) Other Psychiatric History: insomnia Endocrine/Metabolic History: Reports: Diabetes, Type II Hematologic History: Reports: Anemia Immunologic History: Reports: Other (See Below) Other Immunologic History: intubated, unable to obtain Oncologic (Cancer) History: Reports: Other (See Below) Other Oncologic History: intubated unable to obtain - Infectious Disease History Infectious Disease History: Reports: Chicken Pox Other Infectious Disease History: intubated, unable to obtain - Past Surgical History Cardiovascular Surgical History: Reports: Other (See Below) Other Cardiovascular Surgeries/Procedures: pt intubated, unsure Respiratory Surgical History: Reports: Other (See Below) Other Respiratory Surgeries/Procedures: intubated, unsure GI Surgical History: Reports: Other (See Below) Other GI Surgeries/Procedures: intubated, unsure of history. splenectomy Male Surgical History: Reports: Other (See Below) Other Male Surgeries/Procedures: intubated, unsure Neurological Surgical History: Reports: Other (See Below) Other Neurological Surgeries/Procedures: unsure, intubated Musculoskeletal Surgical History: Reports: Other (See Below) Other Musculoskeletal Surgeries/Procedures:: intubated, unsure Social & Family History - Tobacco Use Smoking Status *Q: Never Smoker Second Hand Smoke Exposure: Yes - Caffeine Use Caffeine Use: Reports: None - Alcohol Use Number of Drinks Per Day: 4 Date of Last Drink: 10/06/17 - Recreational Drug Use Recreational Drug Use: No ED ROS GENERAL - Review of Systems Review Of Systems: See Below Constitutional: Reports: No Symptoms HEENT: Reports: No Symptoms Respiratory: Reports: Shortness of Breath, Cough Cardiovascular: Reports: No Symptoms, Other (pt has not had chst pain) Endocrine: Reports: Low Glucose GI/Abdominal: Reports: No Symptoms : Reports: No Symptoms Musculoskeletal: Reports: No Symptoms Skin: Reports: No Symptoms Neurological: Reports: No Symptoms Psychiatric: Reports: No Symptoms ED EXAM, GENERAL - Physical Exam Exam: See Below Free Text/Narrative:: pt hs had increasd sob and has not been sleeping. Exam Limited By: No Limitations General Appearance: Alert, Anxious, Moderate Distress Ears: Normal TMs Nose: Normal Inspection Throat/Mouth: Normal Inspection Head: Atraumatic Neck: Normal Inspection Respiratory/Chest: Decreased Breath Sounds, Wheezing Cardiovascular: Regular Rate, Rhythm GI/Abdominal: Soft, Non-Tender Rectal (Males) Exam: Deferred Back Exam: Normal Inspection Extremities: Other (pt has plus 2 pitting edema. ) Neurological: Alert, Oriented, Normal Cognition Psychiatric: Normal Affect Course - Vital Signs Last Recorded V/S: Last Vital Signs Temp 36.3 C 10/07/17 11:40 Pulse 70 10/07/17 11:40 Resp 18 10/07/17 11:40 BP 100/60 10/07/17 11:40 Pulse Ox 90 L 10/07/17 11:40 - Orders/Labs/Meds Orders: Active Orders 24 hr Category Date Time Status EKG Documentation Completion [RC] ASDIRECTED Care 10/07/17 09:29 Active RT Aerosol Therapy [RC] ASDIRECTED Care 10/07/17 09:30 Active UA W/MICROSCOPIC [URIN] Urgent Lab 10/07/17 08:47 Uncollected Nitroglycerin/D5W [Nitroglycerin 25 MG/D5W 250 ML] Med 10/07/17 09:45 Active 25 mg in 250 ml IV TITRATE Sodium Chloride 0.9% [Saline Flush] Med 10/07/17 09:28 Active 10 ml FLUSH ASDIRECTED PRN Saline Lock Insert [OM.PC] Routine Oth 10/07/17 09:28 Ordered EKG 12 Lead [EK] Routine Ther 10/07/17 09:29 Ordered Medication Orders Nitroglycerin/Dextrose (Nitroglycerin 25 Mg/D5w 250 Ml) 25 mg in 250 mls @ 3 mls/hr IV TITRATE YOAN; 5 MCG/MIN PRN Reason: Protocol Last Admin: 10/07/17 10:44 Dose: 5 mcg/min, 3 mls/hr Sodium Chloride (Saline Flush) 10 ml FLUSH ASDIRECTED PRN PRN Reason: Keep Vein Open Last Admin: 10/07/17 10:29 Dose: 10 ml Admin: 10/07/17 10:28 Dose: 10 ml Labs: Laboratory Tests 10/07/17 10/07/17 10/07/17 Range/Units 08:58 08:58 08:58 WBC 10.0 (4.5-11.0) K/uL RBC 4.25 L (4.30-5.90) M/uL Hgb 11.9 L (12.0-15.0) g/dL Hct 38.6 L (40.0-54.0) % MCV 91 (80-98) fL MCH 28 (27-31) pg MCHC 31 L (32-36) % Plt Count 366 (150-400) K/uL Neut % (Auto) 69 H (36-66) % Lymph % (Auto) 16 L (24-44) % Starr % (Auto) 11 H (2-6) % Eos % (Auto) 4 (2-4) % Baso % (Auto) 0 (0-1) % Puncture Site ABG pH (7.350-7.450) ABG pCO2 (35.0-42.0) mmHg ABG pO2 (75.0-100.0) mmHg ABG HCO3 (22.0-26.0) mmol/L ABG Total CO2 (23.0-27.0) mmol/L ABG O2 Saturation (95.0-98.0) % ABG O2 Content (15.0-23.0) %vol ABG Base Excess mm/L ABG Hemoglobin (13.5-18.0) g/dL ABG Oxyhemoglobin % ABG Carboxyhemoglobin (0.0-1.6) % ABG Methemoglobin % Jesús Test O2 Delivery Device Oxygen Flow Rate L Sodium 144 (140-148) mmol/L Potassium 4.9 (3.6-5.2) mmol/L Chloride 104 (100-108) mmol/L Carbon Dioxide 33 H (21-32) mmol/L Anion Gap 11.9 (5.0-14.0) mmol/L BUN 48 H D (7-18) mg/dL Creatinine 2.7 H D (0.8-1.3) mg/dL Est Cr Clr Drug Dosing 27.79 mL/min Estimated GFR (MDRD) 24 L (>60) Glucose 39 L* (74-106) mg/dL Calcium 8.6 (8.5-10.1) mg/dL Total Bilirubin 0.7 (0.2-1.0) mg/dL AST 19 (15-37) U/L ALT 16 (12-78) U/L Alkaline Phosphatase 137 H (46-116) U/L Troponin I < 0.017 (0.000-0.056) ng/mL NT-Pro-B Natriuret Pep (5-125) pg/mL Total Protein 6.6 (6.4-8.2) g/dL Albumin 3.0 L (3.4-5.0) g/dL Globulin 3.6 H (2.3-3.5) g/dL Albumin/Globulin Ratio 0.8 L (1.2-2.2) 10/07/17 10/07/17 Range/Units 08:58 09:39 WBC (4.5-11.0) K/uL RBC (4.30-5.90) M/uL Hgb (12.0-15.0) g/dL Hct (40.0-54.0) % MCV (80-98) fL MCH (27-31) pg MCHC (32-36) % Plt Count (150-400) K/uL Neut % (Auto) (36-66) % Lymph % (Auto) (24-44) % Starr % (Auto) (2-6) % Eos % (Auto) (2-4) % Baso % (Auto) (0-1) % Puncture Site Lt radial ABG pH 7.338 L (7.350-7.450) ABG pCO2 62.1 H (35.0-42.0) mmHg ABG pO2 59.5 L (75.0-100.0) mmHg ABG HCO3 32.5 H (22.0-26.0) mmol/L ABG Total CO2 30.0 H (23.0-27.0) mmol/L ABG O2 Saturation 89.0 L (95.0-98.0) % ABG O2 Content 14.5 L (15.0-23.0) %vol ABG Base Excess 5.6 mm/L ABG Hemoglobin 11.8 L (13.5-18.0) g/dL ABG Oxyhemoglobin 87.3 % ABG Carboxyhemoglobin 1.2 (0.0-1.6) % ABG Methemoglobin 0.7 % Jesús Test Pass O2 Delivery Device Nasal cannula Oxygen Flow Rate 3 L Sodium (140-148) mmol/L Potassium (3.6-5.2) mmol/L Chloride (100-108) mmol/L Carbon Dioxide (21-32) mmol/L Anion Gap (5.0-14.0) mmol/L BUN (7-18) mg/dL Creatinine (0.8-1.3) mg/dL Est Cr Clr Drug Dosing mL/min Estimated GFR (MDRD) (>60) Glucose (74-106) mg/dL Calcium (8.5-10.1) mg/dL Total Bilirubin (0.2-1.0) mg/dL AST (15-37) U/L ALT (12-78) U/L Alkaline Phosphatase (46-116) U/L Troponin I (0.000-0.056) ng/mL NT-Pro-B Natriuret Pep 2884 H (5-125) pg/mL Total Protein (6.4-8.2) g/dL Albumin (3.4-5.0) g/dL Globulin (2.3-3.5) g/dL Albumin/Globulin Ratio (1.2-2.2) Meds: Medications Generic Name Dose Route Start Last Admin Trade Name Freq PRN Reason Stop Dose Admin Nitroglycerin/Dextrose 25 mg in 250 mls @ 3 mls/hr 10/07/17 09:45 10/07/17 10 :44 Nitroglycerin 25 Mg/D5w 250 Ml IV 5 mcg/min TITRATE YOAN 3 mls/hr Protocol Administration 5 MCG/MIN Sodium Chloride 10 ml 10/07/17 09:28 10/07/17 10:29 Saline Flush FLUSH 10 ml ASDIRECTED PRN Administration Keep Vein Open Discontinued Medications Generic Name Dose Route Start Last Admin Trade Name Freq PRN Reason Stop Dose Admin Albuterol 2.5 mg 10/07/17 09:30 10/07/17 10:31 Proventil Neb Soln NEB 10/07/17 09:31 2.5 mg ONETIME ONE Administration Furosemide 60 mg 10/07/17 09:39 10/07/17 10:24 Lasix IVPUSH 10/07/17 09:40 60 mg ONETIME ONE Administration - Re-Assessments/Exams Free Text/Narrative Re-Assessment/Exam: 10/07/17 11:43 pt arrived with increased sob. He desats bad with activity. He has a history of renal insuff and chf. He has not had a fever and he did not think he had a resp illness. . 10/07/17 11:45 Departure - Departure Time of Disposition: 11:46 Disposition: Admitted As Inpatient 67 Condition: Fair Clinical Impression: Hypoxia, CHF (congestive heart failure), Renal insufficiency - Discharge Information Referrals: Arelis Perez PA [Primary Care Provider] - Forms: ED Department Discharge Care Plan Goals: admit to Dr Bauer. - My Orders Last 24 Hours: My Active Orders 10/07/17 08:47 UA W/MICROSCOPIC [URIN] Urgent 10/07/17 09:28 Sodium Chloride 0.9% [Saline Flush] 10 ml FLUSH ASDIRECTED PRN Saline Lock Insert [OM.PC] Routine 10/07/17 09:29 EKG Documentation Completion [RC] ASDIRECTED EKG 12 Lead [EK] Routine 10/07/17 09:30 RT Aerosol Therapy [RC] ASDIRECTED 10/07/17 09:45 Nitroglycerin/D5W [Nitroglycerin 25 MG/D5W 250 ML] 25 mg in 250 ml IV TITRATE - Assessment/Plan Last 24 Hours: My Active Orders 10/07/17 08:47 UA W/MICROSCOPIC [URIN] Urgent 10/07/17 09:28 Sodium Chloride 0.9% [Saline Flush] 10 ml FLUSH ASDIRECTED PRN Saline Lock Insert [OM.PC] Routine 10/07/17 09:29 EKG Documentation Completion [RC] ASDIRECTED EKG 12 Lead [EK] Routine 10/07/17 09:30 RT Aerosol Therapy [RC] ASDIRECTED 10/07/17 09:45 Nitroglycerin/D5W [Nitroglycerin 25 MG/D5W 250 ML] 25 mg in 250 ml IV TITRATE
[2017-10-07] MEDS ORDERED: Furosemide 40 MG/4 ML VIAL IVPUSH ONE (09:39)
[2017-10-07] MEDS ORDERED: Nitroglycerin/D5W 25 MG/250 ML BOTTLE IV SCH (09:45)
[2017-10-07] MEDS: Sodium Chloride 0.9% 10 ML Syringe FLUSH PRN ×2 (10:28→10:29)
--- NOTE | 2017-10-07 12:42 | CT ---
Chest CT. History: Short of breath Technique: Noncontrast axial images were obtained from the lung apices extending through the hemidiap hragms . Coronal images were reconstructed. Total DLP: 1406 Comparison: October 2016. Findings: There is cardiac megaly. There is pulmonary vascular engorgement. There are small pleural e ffusions. There is focal consolidation of the left lower lobe which is similar to the prior study. There is pat anjelica infiltrate in the right lung base as well. There are no pulmonary nodules. There is no adenopathy . Limited evaluation of the upper abdomen demonstrates no acute findings. Impression: 1. CHF with cardiomegaly and vascular engorgement. Small effusions. 2. Mild consolidation in the lung bases bilaterally. The consolidation is more focal and posterior on the left and is similar to the 2017 exam. Finding may reflect a chronic area of atelectasis or possi ble fibrosis.
--- NOTE | 2017-10-07 13:10 | PCM.HP ---
H&P History of Present Illness - General Date of Service: 10/07/17 Admit Problem/Dx: Admission Diagnosis/Problem Admission Diagnosis/Problem CHF, Congestive heart failure Source of Information: Patient, Provider History Limitations: Reports: No Limitations - History of Present Illness Initial Comments - Free Text/Narative: Lamont presented to the emergency room today with progressive shortness of breath. He reports dyspnea with even minimal activity such as walking a few feet at this point. Symptoms have progressed over several months but have been much worse in the past week. She does not have much of a cough and has not had any fevers that he is aware of. He does not have significant orthopnea at this time and has not had PND. He has noticed a nearly 40 pound weight gain over the past couple of months. He has significant swelling in both of his legs. He has been consuming alcohol in excess for the past week and a half or so. He reports that he has been taking his home medications and was recently put on an increased dose of metolazone to help with his lower extremity edema but this did not help much. He has not been adherent to a low-salt diet. He does not check his blood sugars regularly and does not have any idea what they've been running. No complaints of abdominal pain or nausea. He has had some loose stools recently. Workup in the emergency room revealed evidence for congestive heart failure as well as acute respiratory failure with hypoxia and hypercapnia though only very mild acidosis. He has acute kidney injury. He is very hypoxic with minimal activity and is not safe for outpatient management. He will be admitted for further management. - Related Data Allergies/Adverse Reactions: Allergies Allergy/AdvReac Type Severity Reaction Status Date / Time vancomycin Allergy Severe Anaphylactic Verified 07/04/17 14:01 Shock Home Medications: Home Meds ARIPiprazole [Abilify] 15 mg PO DAILY 08/23/14 [History] Arformoterol [Brovana] 1 dose NEB BID 08/23/14 [History] Aspirin [Halfprin] 81 mg PO DAILY 08/23/14 [History] Cholecalciferol (Vitamin D3) [Vitamin D3] 2,000 unit PO DAILY 08/23/14 [History] Escitalopram [Lexapro] 20 mg PO DAILY 08/23/14 [History] Folic Acid 1 mg PO DAILY 08/23/14 [History] Furosemide [Lasix] 160 mg PO DAILY 08/23/14 [History] Insulin Glarg,Human.Rec.Analog [Lantus] 32 unit SUBCUT DAILY 08/23/14 [History] Insulin Lispro [HumaLOG] 22 units SUBCUT BID 08/23/14 [History] Omeprazole 40 mg PO DAILY 08/23/14 [History] Ramipril [Altace] 10 mg PO DAILY 08/23/14 [History] Tamsulosin [Flomax] 0.4 mg PO DAILY 08/23/14 [History] Temazepam [Restoril] 15 - 30 mg PO BEDTIME PRN 08/23/14 [History] Tiotropium [Spiriva HandiHaler] 18 mcg INH DAILY 08/23/14 [History] Vitamin B Complex 1 each PO DAILY 08/23/14 [History] atorvaSTATin [Lipitor] 20 mg PO BEDTIME 08/23/14 [History] traZODone 100 mg PO BEDTIME 08/23/14 [History] Metolazone 2.5 mg PO DAILY PRN 07/04/17 [History] Metoprolol Succinate 25 mg PO DAILY 07/04/17 [History] Doxycycline Calcium [IMW: Doxycycline] 100 mg PO BID #6 capsule 07/19/17 [Rx] Past Medical History HEENT History: Reports: Impaired Vision Cardiovascular History: Reports: Heart Failure, High Cholesterol Respiratory History: Reports: COPD, Sleep Apnea, Other (See Below) Other Respiratory History: home O2 Gastrointestinal History: Reports: GERD Genitourinary History: Reports: BPH, Chronic Renal Insuffiency, Diabetic Nephropathy Musculoskeletal History: Reports: Gout, Osteoarthritis Neurological History: Reports: Neuropathy, Diabetic, Other (See Below) Other Neuro History: tremor Psychiatric History: Reports: Anxiety, Bipolar, Depression, Other (See Below) Other Psychiatric History: insomnia Endocrine/Metabolic History: Reports: Diabetes, Type II Hematologic History: Reports: Anemia Immunologic History: Reports: Other (See Below) Other Immunologic History: intubated, unable to obtain Oncologic (Cancer) History: Reports: Other (See Below) Other Oncologic History: intubated unable to obtain - Infectious Disease History Infectious Disease History: Reports: Chicken Pox Other Infectious Disease History: intubated, unable to obtain - Past Surgical History Cardiovascular Surgical History: Reports: Other (See Below) Other Cardiovascular Surgeries/Procedures: pt intubated, unsure Respiratory Surgical History: Reports: Other (See Below) Other Respiratory Surgeries/Procedures: intubated, unsure GI Surgical History: Reports: Other (See Below) Other GI Surgeries/Procedures: intubated, unsure of history. splenectomy Male Surgical History: Reports: Other (See Below) Other Male Surgeries/Procedures: intubated, unsure Neurological Surgical History: Reports: Other (See Below) Other Neurological Surgeries/Procedures: unsure, intubated Musculoskeletal Surgical History: Reports: Other (See Below) Other Musculoskeletal Surgeries/Procedures:: intubated, unsure Social & Family History - Family History Cardiac: Denies: CAD - Tobacco Use Smoking Status *Q: Never Smoker Second Hand Smoke Exposure: Yes - Caffeine Use Caffeine Use: Reports: None - Alcohol Use Number of Drinks Per Day: 4 Date of Last Drink: 10/06/17 - Recreational Drug Use Recreational Drug Use: No H&P Review of Systems - Review of Systems: Review Of Systems: See Below Free Text/Narrative: A complete 12 point review of systems was obtained. Pertinent positives and negatives are noted in the history of present illness. All other systems were reviewed and were negative except as noted. Exam - Exam Exam: See Below - Vital Signs Vital Signs: Last Vital Signs Temp 36.3 C 10/07/17 11:40 Pulse 70 10/07/17 12:39 Resp 18 10/07/17 12:39 BP 124/63 10/07/17 12:39 Pulse Ox 92 L 10/07/17 12:39 Weight: 140.614 kg - Exam Quality Assessment: Supplemental Oxygen General: Alert, Oriented, Cooperative. No: Mild Distress HEENT: Conjunctiva Clear. No: Mucosa Moist & [place] (dry), Scleral Icterus Neck: Supple, Trachea Midline, JVD (unable to assess due to facial hair) Lungs: Normal Respiratory Effort, Decreased Breath Sounds (both bases), Crackles (both bases and midlung bilaterally ). No: Wheezing Cardiovascular: Regular Rate, Regular Rhythm. No: Systolic Murmur GI/Abdominal Exam: Normal Bowel Sounds, Soft, Non-Tender, No Distention Back Exam: Normal Inspection, Full Range of Motion Extremities: Pedal Edema (pitting edema to the upper thigh bilaterally). No: Increased Warmth Peripheral Pulses: 1+: Dorsalis Pedis (L), Dorsalis Pedis (R) Skin: Warm, Dry Neuro Extensive - Mental Status: Alert, Oriented x3, Nl Response to Commands Neuro Extensive - Motor, Sensory, Reflexes: CN II-XII Intact. No: Dysarthria, Abnormal Motor, Tremor Psychiatric: Alert, Normal Affect - Patient Data Lab Results Last 24 hrs: Laboratory Results - last 24 hr 10/07/17 10/07/17 10/07/17 Range/Units 08:58 08:58 08:58 WBC 10.0 (4.5-11.0) K/uL RBC 4.25 L (4.30-5.90) M/uL Hgb 11.9 L (12.0-15.0) g/dL Hct 38.6 L (40.0-54.0) % MCV 91 (80-98) fL MCH 28 (27-31) pg MCHC 31 L (32-36) % Plt Count 366 (150-400) K/uL Neut % (Auto) 69 H (36-66) % Lymph % (Auto) 16 L (24-44) % [place] % (Auto) 11 H (2-6) % Eos % (Auto) 4 (2-4) % Baso % (Auto) 0 (0-1) % Puncture Site ABG pH (7.350-7.450) ABG pCO2 (35.0-42.0) mmHg ABG pO2 (75.0-100.0) mmHg ABG HCO3 (22.0-26.0) mmol/L ABG Total CO2 (23.0-27.0) mmol/L ABG O2 Saturation (95.0-98.0) % ABG O2 Content (15.0-23.0) %vol ABG Base Excess mm/L ABG Hemoglobin (13.5-18.0) g/dL ABG Oxyhemoglobin % ABG Carboxyhemoglobin (0.0-1.6) % ABG Methemoglobin % Jesús Test O2 Delivery Device Oxygen Flow Rate L Sodium 144 (140-148) mmol/L Potassium 4.9 (3.6-5.2) mmol/L Chloride 104 (100-108) mmol/L Carbon Dioxide 33 H (21-32) mmol/L Anion Gap 11.9 (5.0-14.0) mmol/L BUN 48 H D (7-18) mg/dL Creatinine 2.7 H D (0.8-1.3) mg/dL Est Cr Clr Drug Dosing 27.79 mL/min Estimated GFR (MDRD) 24 L (>60) Glucose 39 L* (74-106) mg/dL Calcium 8.6 (8.5-10.1) mg/dL Total Bilirubin 0.7 (0.2-1.0) mg/dL AST 19 (15-37) U/L ALT 16 (12-78) U/L Alkaline Phosphatase 137 H (46-116) U/L Troponin I < 0.017 (0.000-0.056) ng/mL NT-Pro-B Natriuret Pep (5-125) pg/mL Total Protein 6.6 (6.4-8.2) g/dL Albumin 3.0 L (3.4-5.0) g/dL Globulin 3.6 H (2.3-3.5) g/dL Albumin/Globulin Ratio 0.8 L (1.2-2.2) 10/07/17 10/07/17 Range/Units 08:58 09:39 WBC (4.5-11.0) K/uL RBC (4.30-5.90) M/uL Hgb (12.0-15.0) g/dL Hct (40.0-54.0) % MCV (80-98) fL MCH (27-31) pg MCHC (32-36) % Plt Count (150-400) K/uL Neut % (Auto) (36-66) % Lymph % (Auto) (24-44) % [place] % (Auto) (2-6) % Eos % (Auto) (2-4) % Baso % (Auto) (0-1) % Puncture Site Lt radial ABG pH 7.338 L (7.350-7.450) ABG pCO2 62.1 H (35.0-42.0) mmHg ABG pO2 59.5 L (75.0-100.0) mmHg ABG HCO3 32.5 H (22.0-26.0) mmol/L ABG Total CO2 30.0 H (23.0-27.0) mmol/L ABG O2 Saturation 89.0 L (95.0-98.0) % ABG O2 Content 14.5 L (15.0-23.0) %vol ABG Base Excess 5.6 mm/L ABG Hemoglobin 11.8 L (13.5-18.0) g/dL ABG Oxyhemoglobin 87.3 % ABG Carboxyhemoglobin 1.2 (0.0-1.6) % ABG Methemoglobin 0.7 % Jesús Test Pass O2 Delivery Device Nasal cannula Oxygen Flow Rate 3 L Sodium (140-148) mmol/L Potassium (3.6-5.2) mmol/L Chloride (100-108) mmol/L Carbon Dioxide (21-32) mmol/L Anion Gap (5.0-14.0) mmol/L BUN (7-18) mg/dL Creatinine (0.8-1.3) mg/dL Est Cr Clr Drug Dosing mL/min Estimated GFR (MDRD) (>60) Glucose (74-106) mg/dL Calcium (8.5-10.1) mg/dL Total Bilirubin (0.2-1.0) mg/dL AST (15-37) U/L ALT (12-78) U/L Alkaline Phosphatase (46-116) U/L Troponin I (0.000-0.056) ng/mL NT-Pro-B Natriuret Pep 2884 H (5-125) pg/mL Total Protein (6.4-8.2) g/dL Albumin (3.4-5.0) g/dL Globulin (2.3-3.5) g/dL Albumin/Globulin Ratio (1.2-2.2) Result Diagrams: 10/07/17 08:58 10/07/17 08:58 Imaging Impressions Last 24 hrs: CXR - images personally reviewed - vascular engorgement, right and probable left effusions (small). No obvious mass. Cardiomegally CT chest w/o contrast - images also personally reviewed - similar to CXR with bilateral effusions, vascular engorgement and cardiomegally. No obvious infiltrate. Chronic area in the bases that could be atelectasis or scarring. No masses *Q Meaningful Use (ADM) - VTE *Q VTE Criteria *Q: - VTE Risk Assess *Q Each Risk Factor Represents 1 Point: Obesity ( BMI > 25 kg/m2), Congestive heart failure (CHF), Abnormal Pulmonary Function (COPD) Total Score 1 Point Risk Factors: 3 Each Risk Factor Represents 2 Points: Age 60 - 74 Years Total Score 2 Point Risk Factors: 2 Each Risk Factor Represents 3 Points: None Total Score 3 Point Risk Factors: 0 Each Risk Factor Represents 5 Points: None Total Score 5 Point Risk Factors: 0 Venous Thromboembolism Risk Factor Score *Q: 5 - Stroke *Q Stroke Criteria *Q: - AMI *Q AMI Criteria *Q: - Problem List (1) Acute systolic congestive heart failure, NYHA class 3 SNOMED Code(s): 443390752 ICD Code: I50.21 - ACUTE SYSTOLIC (CONGESTIVE) HEART FAILURE Status: Acute Current Visit: Yes (2) Acute on chronic respiratory failure with hypoxia and hypercapnia SNOMED Code(s): 06403606 ICD Code: J96.21 - ACUTE AND CHRONIC RESPIRATORY FAILURE WITH HYPOXIA; J96.22 - ACUTE AND CHRONIC RESPIRATORY FAILURE WITH HYPERCAPNIA Status: Acute Current Visit: No (3) Acute kidney injury SNOMED Code(s): 29741055 ICD Code: N17.9 - ACUTE KIDNEY FAILURE, UNSPECIFIED Status: Acute Current Visit: No (4) Type 2 diabetes mellitus SNOMED Code(s): 52409893 ICD Code: E11.9 - TYPE 2 DIABETES MELLITUS WITHOUT COMPLICATIONS Status: Chronic Current Visit: No Qualifiers: Diabetes mellitus complication status: with unspecified complications Diabetes mellitus chcf insulin use: with chcf use Qualified Code(s) : E11.8 - Type 2 diabetes mellitus with unspecified complications; Z79.4 - long term care phlebotomist (current) use of insulin; Z79.4 - long term care phlebotomist (current) use of insulin; Z79.4 - long term care phlebotomist (current) use of insulin; Z79.4 - [facility] (current) use of insulin (5) COPD (chronic obstructive pulmonary disease) SNOMED Code(s): 62979530 ICD Code: J44.9 - CHRONIC OBSTRUCTIVE PULMONARY DISEASE, UNSPECIFIED Status : Chronic Current Visit: No Qualifiers: COPD type: unspecified COPD Qualified Code(s): J44.9 - Chronic obstructive pulmonary disease, unspecified (6) Bipolar 1 disorder SNOMED Code(s): 030529394 ICD Code: F31.9 - BIPOLAR DISORDER, UNSPECIFIED Status: Chronic Current Visit: No (7) BPH (benign prostatic hyperplasia) SNOMED Code(s): 365773207 ICD Code: N40.0 - BENIGN PROSTATIC HYPERPLASIA WITHOUT LOWER URINRY TRACT SYMP Status: Chronic Current Visit: No Qualifiers: Lower urinary tract symptom presence: symptoms present Lower urinary tract symptom detail: incomplete bladder emptying Qualified Code(s): N40.1 - Benign prostatic hyperplasia with lower urinary tract symptoms; R39.14 - Feeling of incomplete bladder emptying; R39.14 - Feeling of incomplete bladder emptying Problem List Initiated/Reviewed/Updated: Yes Orders Last 24hrs: Active Orders 24 hr Category Date Time Status Patient Status Manage Transfer [TRANSFER] Routine ADT 10/07/17 12:53 Ordered EKG Documentation Completion [RC] ASDIRECTED Care 10/07/17 09:29 Active Jung Catheter Insertion [Insert Urinary Catheter] [OM. Care 10/07/17 12:00 Ordered PC] Q24H RT Aerosol Therapy [RC] ASDIRECTED Care 10/07/17 09:30 Active Urinary Catheter Assessment [RC] ASDIRECTED Care 10/07/17 11:51 Active UA W/MICROSCOPIC [URIN] Urgent Lab 10/07/17 08:47 Uncollected Sodium Chloride 0.9% [Saline Flush] Med 10/07/17 09:28 Active 10 ml FLUSH ASDIRECTED PRN Saline Lock Insert [OM.PC] Routine Oth 10/07/17 09:28 Ordered Resuscitation Status Routine Resus Stat 10/07/17 12:56 Ordered EKG 12 Lead [EK] Routine Ther 10/07/17 09:29 Ordered Medication Orders Sodium Chloride (Saline Flush) 10 ml FLUSH ASDIRECTED PRN PRN Reason: Keep Vein Open Last Admin: 10/07/17 10:29 Dose: 10 ml Admin: 10/07/17 10:28 Dose: 10 ml Assessment/Plan Comment:: ASSESSMENT AND PLAN - Acute on chronic systolic congestive heart failure exacerbation - complicated by increased hypoxia from baseline as well as hypercapnia. I suspect the exacerbation was caused by dietary noncompliance as well as possibly insufficient diuretic dosing though he is on high doses of furosemide. I don't think there was no event that lowered his ejection fraction further. He is on a beta evelio and an BILLIE inhibitor. He has had a recent echocardiogram. He received furosemide in the emergency room. -Monitor urine output over the next 1-2 hours, consider repeat parenteral diuretic dosing this afternoon -Continue beta evelio and BILLIE inhibitor -Daily weights with strict intake and output monitoring -Cardiac monitoring -Dietary consultation for low-salt diet -Supplement oxygen -Consider repeat echocardiogram Acute kidney injury - significant rise in creatinine from his baseline. I suspect this is related to the congestive heart failure and should improve with diuresis as we optimize his volume status. -Diuresis as above -Labs in the morning -Close monitoring of intake and output (patient declines Jung catheter at this time) Insulin-dependent diabetes mellitus with hypoglycemia - Blood sugar of 39 on arrival. Patient did not have symptoms. Blood sugar now up to 100 at the time of admission. -Continue long-acting insulin -Slight reduction and mealtime insulin -Medium dose sliding scale Oxygen dependent COPD - no wheezing to suggest acute exacerbation at this time. -Continue home meds -Scheduled and as needed nebulizers BPH - mild symptoms at this time though patient did have difficulty with urinary retention after Jung catheter was removed during the last hospital stay. He does not wish to have a Jung catheter placed at this time. -Continue tamsulosin Bipolar disorder - seems to be well compensated at this time. -Continue home medications Maintenance issues - - DVT prophylaxis - enoxaparin - GI prophylaxis - PPI - Nutrition - low sodium - Jung catheter - patient declines, will be considered if more strict intake and output monitoring is necessary CODE STATUS - patient wishes to be full code Admission justification - This patient will be admitted for inpatient services and is medically appropriate meeting medical necessity for inpatient admission as outlined in my documentation. I reasonably expect the patient will require inpatient services that span a period time over 2 midnights. I reasonably expect this patient to be discharged or transferred within 96 hours [facility]. Disposition - anticipate discharge home versus possibly the retirement after the hospital stay Primary care physician - Giovanni in [place] M.D.
[2017-10-07] MEDS ORDERED: oxyCODONE 5 MG Tab PO PRN (13:31)
[2017-10-07] MEDS ORDERED: Ondansetron 4 MG/2 ML SDV IV PRN (13:31)
[2017-10-07] MEDS ORDERED: Polyethylene Glycol 3350 Powder 17 GM Packet PO PRN (13:31)
[2017-10-07] MEDS ORDERED: Acetaminophen 325 MG Tab PO PRN (13:31)
[2017-10-07] MEDS ORDERED: Albuterol 0.083% 2.5 MG/3 ML Neb Soln NEB PRN (13:31)
[2017-10-07] MEDS ORDERED: Ondansetron 4 MG Tab.DIS PO PRN (13:31)
[2017-10-07] MEDS: Albuterol/Ipratropium 3.0-0.5 MG/3 ML Neb Soln NEB SCH ×2 (14:06→20:24)
[2017-10-07] MEDS ORDERED: Albuterol/Ipratropium 3.0-0.5 MG/3 ML Neb Soln NEB SCH (16:00)
[2017-10-07] MEDS ORDERED: Bumetanide 2.5 MG/10 ML MDV IVPUSH ONE (16:00)
[2017-10-07] MEDS ORDERED: Bumetanide 1 MG/4 ML MDV IVPUSH ONE (16:00)
[2017-10-07] MEDS: Insulin Aspart 100 Units/ML 3 ML Pen SUBCUT SCH ×3 (17:28→21:07)
[2017-10-07] MEDS: traZODone 50 MG Tab PO SCH (20:22)
[2017-10-07] MEDS: atorvaSTATin 20 MG Tab PO SCH (20:22)
[2017-10-07] MEDS: Arformoterol 15 MCG/2 ML Neb Soln NEB SCH (20:24)
[2017-10-07] MEDS: Temazepam 15 MG Cap PO PRN (20:29)
[2017-10-07] MEDS ORDERED: Non-Formulary Medication 1 Each (Atorvastatin [Lipitor] 20 MG) PO SCH (21:00)
[2017-10-08] MEDS: Pantoprazole 40 MG Tab.CR PO SCH (06:35)
[2017-10-08] MEDS: Insulin Aspart 100 Units/ML 3 ML Pen SUBCUT SCH ×7 (07:23→21:09)
[2017-10-08] MEDS: Albuterol/Ipratropium 3.0-0.5 MG/3 ML Neb Soln NEB SCH ×5 (07:37→20:16)
[2017-10-08] MEDS: Arformoterol 15 MCG/2 ML Neb Soln NEB SCH ×2 (07:37→20:12)
[2017-10-08] MEDS: Tiotropium Inhaler 18 MCG Inhalation Powder Cap Kit of 5 INH SCH (07:37)
[2017-10-08] MEDS: ARIPiprazole 10 MG Tab PO SCH (08:37)
[2017-10-08] MEDS: Folic Acid 1 MG Tab PO SCH (08:38)
[2017-10-08] MEDS: Tamsulosin 0.4 MG Cap.ER PO SCH (08:38)
[2017-10-08] MEDS: Metoprolol Succinate 25 MG Tab.ER PO SCH (08:39)
[2017-10-08] MEDS: Escitalopram 20 MG Tab PO SCH (08:39)
[2017-10-08] MEDS: Aspirin 81 MG Tab.EC PO SCH (08:39)
[2017-10-08] MEDS: Vitamin B Complex Tab PO SCH (08:39)
[2017-10-08] MEDS: Insulin Detemir 100 Units/ML 3 ML Pen SUBCUT SCH (08:46)
[2017-10-08] MEDS ORDERED: Tiotropium Inhaler 18 MCG Inhalation Powder Cap Kit of 5 INH SCH (09:00)
[2017-10-08] MEDS ORDERED: Non-Formulary Medication 1 Each (Aripiprazole [Abilify] 15 MG) PO SCH (09:00)
[2017-10-08] MEDS ORDERED: Bumetanide 2.5 MG/10 ML MDV IVPUSH SCH (09:00)
[2017-10-08] MEDS: Enoxaparin 40 MG/0.4 ML Syringe SUBCUT SCH (09:17)
--- NOTE | 2017-10-08 10:00 | PCM.PN ---
- General Info Date of Service: 10/08/17 Functional Status: Reports: Pain Controlled, Tolerating Diet - Review of Systems General: Denies: Fever Pulmonary: Reports: Shortness of Breath Systems Review Comment:: No acute events overnight. Patient slept well. Good response to diuresis but doesn't feel much better today. Still feels short of breath. He is not coughing much. Lower extremity edema remains fairly impressive. Appetite has been good. Blood sugars have been well-controlled. - Patient Data Vitals - Most Recent: Last Vital Signs Temp 36.1 C 10/08/17 07:39 Pulse 76 10/08/17 08:39 Resp 18 10/08/17 03:00 BP 126/69 10/08/17 09:17 Pulse Ox 89 L 10/08/17 07:42 Weight - Most Recent: 139.525 kg I&O - Last 24 Hours: Intake & Output 10/07/17 10/08/17 10/08/17 22:59 06:59 14:59 Intake Total 360 400 360 Output Total 7843 133 4481 Balance -4670 -742 -119 Lab Results Last 24 Hours: Laboratory Results - last 24 hr 10/07/17 10/08/17 10/08/17 Range/Units 14:31 05:23 05:23 WBC 7.3 (4.5-11.0) K/uL RBC 4.07 L (4.30-5.90) M/uL Hgb 11.3 L (12.0-15.0) g/dL Hct 36.8 L (40.0-54.0) % MCV 90 (80-98) fL MCH 28 (27-31) pg MCHC 31 L (32-36) % Plt Count 345 (150-400) K/uL Sodium 144 (140-148) mmol/L Potassium 4.4 (3.6-5.2) mmol/L Chloride 103 (100-108) mmol/L Carbon Dioxide 35 H (21-32) mmol/L Anion Gap 10.4 (5.0-14.0) mmol/L BUN 47 H (7-18) mg/dL Creatinine 2.0 H (0.8-1.3) mg/dL Est Cr Clr Drug Dosing 37.51 mL/min Estimated GFR (MDRD) 34 L (>60) Glucose 75 (74-106) mg/dL Calcium 8.7 (8.5-10.1) mg/dL Magnesium 2.2 (1.8-2.4) mg/dL Urine Color Yellow Urine Appearance Clear Urine pH 5.0 (4.5-8.0) Ur Specific [place] 1.015 (1.008-1.030) Urine Protein Negative (NEGATIVE) mg/dL Urine Glucose (UA) Normal (NEGATIVE) mg/dL Urine Ketones Negative (NEGATIVE) mg/dL Urine Occult Blood Negative (NEGATIVE) Urine Nitrite Negative (NEGAITVE) Urine Bilirubin Negative (NEGATIVE) Urine Urobilinogen Normal (NORMAL) mg/dL Ur Leukocyte Esterase Negative (NEGATIVE) Urine RBC 0-5 (0-5) Urine WBC Not seen (0-5) Ur Epithelial Cells Not seen Amorphous Sediment Rare Urine Bacteria Rare Urine Mucus Not seen Med Orders - Current: Current Medications Acetaminophen (Tylenol) 650 mg PO Q4H PRN PRN Reason: Pain (Mild 1-3)/fever Albuterol (Proventil Neb Soln) 2.5 mg NEB Q4H PRN PRN Reason: Shortness Of Breath/wheezing Albuterol/Ipratropium (Duoneb 3.0-0.5 Mg/3 Ml) 3 ml NEB QIDRT [facility] Last Admin: 10/08/17 07:37 Dose: 3 ml Arformoterol Tartrate (Brovana) 15 mcg NEB BIDRT [facility] Last Admin: 10/08/17 07:37 Dose: 15 mcg Aripiprazole (Abilify) 15 mg PO DAILY [facility] Last Admin: 10/08/17 08:37 Dose: 15 mg Aspirin (Halfprin) 81 mg PO DAILY [facility] Last Admin: 10/08/17 08:39 Dose: 81 mg Atorvastatin Calcium (Lipitor) 20 mg PO BEDTIME [facility] Last Admin: 10/07/17 20:22 Dose: 20 mg Bumetanide (Bumex) 2 mg IVPUSH DAILY [facility] Last Admin: 10/08/17 09:17 Dose: 2 mg Enoxaparin Sodium (Lovenox) 40 mg SUBCUT DAILY [facility] Last Admin: 10/08/17 09:17 Dose: 40 mg Escitalopram Oxalate (Lexapro) 20 mg PO DAILY [facility] Last Admin: 10/08/17 08:39 Dose: 20 mg Folic Acid (Folic Acid) 1 mg PO DAILY [facility] Last Admin: 10/08/17 08:38 Dose: 1 mg Insulin Aspart (Novolog) 10 unit SUBCUT TIDMEALS [facility] Last Admin: 10/08/17 08:10 Dose: 10 units Insulin Aspart (Novolog) 0 unit SUBCUT QIDACANDBED [facility] PRN Reason: Protocol Last Admin: 10/08/17 07:23 Dose: Not Given Insulin Detemir (Levemir) 35 unit SUBCUT DAILY [facility] Last Admin: 10/08/17 08:46 Dose: 35 units Metoprolol Succinate (Toprol Xl) 25 mg PO DAILY [facility] Last Admin: 10/08/17 08:39 Dose: 25 mg Ondansetron HCl (Zofran Odt) 4 mg PO Q6H PRN PRN Reason: Nausea able to take PO Ondansetron HCl (Zofran) 4 mg IV Q6H PRN PRN Reason: Nausea/Vomiting Oxycodone HCl (Oxycodone) 5 mg PO Q4H PRN PRN Reason: Pain (moderate 4-6) Pantoprazole Sodium (Protonix) 40 mg PO ACBREAKFAST [facility] Last Admin: 10/08/17 06:35 Dose: 40 mg Polyethylene Glycol (Miralax) 17 gm PO DAILY PRN PRN Reason: Constipation Ramipril (Altace) 10 mg PO DAILY [facility] Last Admin: 10/08/17 08:38 Dose: 10 mg Senna/Docusate Sodium (Senna Plus) 1 tab PO BID PRN PRN Reason: Constipation Sodium Chloride (Saline Flush) 10 ml FLUSH ASDIRECTED PRN PRN Reason: Keep Vein Open Last Admin: 10/07/17 10:29 Dose: 10 ml Tamsulosin HCl (Flomax) 0.4 mg PO DAILY [facility] Last Admin: 10/08/17 08:38 Dose: 0.4 mg Temazepam (Restoril) 15 - 30 mg PO BEDTIME PRN PRN Reason: Sleep Last Admin: 10/07/17 20:29 Dose: 30 mg Tiotropium [place] (Spiriva Handihaler) 18 mcg INH DAILY@0700 [facility] Last Admin: 10/08/17 07:37 Dose: 18 mcg Trazodone HCl (Trazodone) 100 mg PO BEDTIME [facility] Last Admin: 10/07/17 20:22 Dose: 100 mg Vitamin B Complex (Vitamin B Complex) 1 each PO DAILY [facility] Last Admin: 10/08/17 08:39 Dose: 1 each Discontinued Medications Albuterol (Proventil Neb Soln) 2.5 mg NEB ONETIME ONE Stop: 10/07/17 09:31 Last Admin: 10/07/17 10:31 Dose: 2.5 mg Bumetanide (Bumex) 2 mg IVPUSH ONETIME ONE Stop: 10/07/17 16:01 Last Admin: 10/07/17 15:42 Dose: 2 mg Furosemide (Lasix) 60 mg IVPUSH ONETIME ONE Stop: 10/07/17 09:40 Last Admin: 10/07/17 10:24 Dose: 60 mg Nitroglycerin/Dextrose (Nitroglycerin 25 Mg/D5w 250 Ml) 25 mg in 250 mls @ 3 mls/hr IV TITRATE [facility]; 5 MCG/MIN PRN Reason: Protocol Last Admin: 10/07/17 10:44 Dose: 5 mcg/min, 3 mls/hr - Exam Quality Assessment: Supplemental Oxygen General: Alert, Oriented, Cooperative, No Acute Distress Neck: Supple Lungs: Normal Respiratory Effort, Crackles (both lung bases and mid lung, L>R) Cardiovascular: Regular Rate, Regular Rhythm GI/Abdominal Exam: Soft, No Distention Extremities: Pedal Edema (pitting edema both legs to the knee) Psy/Mental Status: Alert, Normal Affect - Problem List & Annotations (1) Acute systolic congestive heart failure, NYHA class 3 SNOMED Code(s): 521631919 Code(s): I50.21 - ACUTE SYSTOLIC (CONGESTIVE) HEART FAILURE Status: Acute Current Visit: Yes (2) Acute on chronic respiratory failure with hypoxia and hypercapnia SNOMED Code(s): 84986579 Code(s): J96.21 - ACUTE AND CHRONIC RESPIRATORY FAILURE WITH HYPOXIA; J96.22 - ACUTE AND CHRONIC RESPIRATORY FAILURE WITH HYPERCAPNIA Status: Acute Current Visit: No (3) Acute kidney injury SNOMED Code(s): 33728604 Code(s): N17.9 - ACUTE KIDNEY FAILURE, UNSPECIFIED Status: Acute Current Visit: No (4) Type 2 diabetes mellitus SNOMED Code(s): 53049693 Code(s): E11.9 - TYPE 2 DIABETES MELLITUS WITHOUT COMPLICATIONS Status: Chronic Current Visit: No Qualifiers: Diabetes mellitus complication status: with unspecified complications Diabetes mellitus fpc insulin use: with fpc use Qualified Code(s) : E11.8 - Type 2 diabetes mellitus with unspecified complications; Z79.4 - spiral winding machine helper (current) use of insulin; Z79.4 - spiral winding machine helper (current) use of insulin; Z79.4 - spiral winding machine helper (current) use of insulin; Z79.4 - MCFP (current) use of insulin (5) COPD (chronic obstructive pulmonary disease) SNOMED Code(s): 78736151 Code(s): J44.9 - CHRONIC OBSTRUCTIVE PULMONARY DISEASE, UNSPECIFIED Status : Chronic Current Visit: No Qualifiers: COPD type: unspecified COPD Qualified Code(s): J44.9 - Chronic obstructive pulmonary disease, unspecified (6) Bipolar 1 disorder SNOMED Code(s): 702973990 Code(s): F31.9 - BIPOLAR DISORDER, UNSPECIFIED Status: Chronic Current Visit: No (7) BPH (benign prostatic hyperplasia) SNOMED Code(s): 011117335 Code(s): N40.0 - BENIGN PROSTATIC HYPERPLASIA WITHOUT LOWER URINRY TRACT SYMP Status: Chronic Current Visit: No Qualifiers: Lower urinary tract symptom presence: symptoms present Lower urinary tract symptom detail: incomplete bladder emptying Qualified Code(s): N40.1 - Benign prostatic hyperplasia with lower urinary tract symptoms; R39.14 - Feeling of incomplete bladder emptying; R39.14 - Feeling of incomplete bladder emptying - Problem List Review Problem List Initiated/Reviewed/Updated: Yes - My Orders Last 24 Hours: My Active Orders 10/07/17 12:56 Resuscitation Status Routine 10/07/17 13:31 Patient Status [ADT] Routine Bedrest Bedside Commode [RC] ASDIRECTED Communication Order [RC] PRN Communication Order [RC] PRN Diabetes Education [RC] Click to Edit Intake and Output [RC] QSHIFT Notify Provider Vital Signs [RC] ASDIRECTED Notify Provider [RC] PRN Oxygen Therapy [RC] PRN RT Aerosol Therapy [RC] ASDIRECTED VTE/DVT Education [RC] Per Unit Routine Vital Signs [RC] Q4H Acetaminophen [Tylenol] 650 mg PO Q4H PRN Albuterol [Proventil Neb Soln] 2.5 mg NEB Q4H PRN Docusate Sodium/Sennosides [Senna Plus] 1 tab PO BID PRN Ondansetron [Zofran ODT] 4 mg PO Q6H PRN Ondansetron [Zofran] 4 mg IV Q6H PRN Polyethylene Glycol 3350 [MiraLAX] 17 gm PO DAILY PRN oxyCODONE 5 mg PO Q4H PRN Antiembolic Hose [OM.PC] Per Unit Routine Pressure Reduction Mattress [OM.PC] Routine 10/07/17 15:00 Albuterol/Ipratropium [DuoNeb 3.0-0.5 MG/3 ML] 3 ml NEB QIDRT 10/07/17 17:00 Insulin Aspart [NovoLOG] 10 unit SUBCUT TIDMEALS Insulin Aspart [NovoLOG] See Protocol SUBCUT QIDACANDBED 10/07/17 21:00 atorvaSTATin [Lipitor] 20 mg PO BEDTIME 10/07/17 Dinner 2 Gram Sodium Diet [DIET] 10/08/17 07:00 Weight Daily [Height and Weight] [RC] DAILY PT Evaluation and Treatment [CONS] Routine Tiotropium [Spiriva HandiHaler] 18 mcg INH DAILY@0700 10/08/17 07:30 Pantoprazole [ProTONIX] 40 mg PO ACBREAKFAST 10/08/17 09:00 ARIPiprazole [Abilify] 15 mg PO DAILY Enoxaparin [Lovenox] 40 mg SUBCUT DAILY Insulin Detemir [Levemir] 35 unit SUBCUT DAILY 10/08/17 09:59 Up With Assistance [RC] ASDIRECTED 10/08/17 11:30 GLUCOSE POC LAB TO COLLECT [POC] QIDACANDBED 10/08/17 15:00 Bumetanide [Bumex] 2 mg IVPUSH BIDDIURETIC 10/08/17 16:30 GLUCOSE POC LAB TO COLLECT [POC] QIDACANDBED 10/08/17 21:00 GLUCOSE POC LAB TO COLLECT [POC] QIDACANDBED 10/09/17 05:00 BASIC METABOLIC PANEL,BMP [CHEM] Timed CBC W/O DIFF,HEMOGRAM [HEME] Timed (1) 10/09/17 07:30 GLUCOSE POC LAB TO COLLECT [POC] QIDACANDBED 10/09/17 11:30 GLUCOSE POC LAB TO COLLECT [POC] QIDACANDBED 10/09/17 16:30 GLUCOSE POC LAB TO COLLECT [POC] QIDACANDBED 10/09/17 21:00 GLUCOSE POC LAB TO COLLECT [POC] QIDACANDBED 10/10/17 07:30 GLUCOSE POC LAB TO COLLECT [POC] QIDACANDBED 10/10/17 11:30 GLUCOSE POC LAB TO COLLECT [POC] QIDACANDBED 10/10/17 16:30 GLUCOSE POC LAB TO COLLECT [POC] QIDACANDBED 10/10/17 21:00 GLUCOSE POC LAB TO COLLECT [POC] QIDACANDBED 10/11/17 07:30 GLUCOSE POC LAB TO COLLECT [POC] QIDACANDBED 10/11/17 11:30 GLUCOSE POC LAB TO COLLECT [POC] QIDACANDBED 10/11/17 16:30 GLUCOSE POC LAB TO COLLECT [POC] QIDACANDBED 10/11/17 21:00 GLUCOSE POC LAB TO COLLECT [POC] QIDACANDBED 10/12/17 07:30 GLUCOSE POC LAB TO COLLECT [POC] QIDACANDBED 10/12/17 11:30 GLUCOSE POC LAB TO COLLECT [POC] QIDACANDBED 10/12/17 16:30 GLUCOSE POC LAB TO COLLECT [POC] QIDACANDBED 10/12/17 21:00 GLUCOSE POC LAB TO COLLECT [POC] QIDACANDBED 10/13/17 07:30 GLUCOSE POC LAB TO COLLECT [POC] QIDACANDBED 10/13/17 11:30 GLUCOSE POC LAB TO COLLECT [POC] QIDACANDBED 10/13/17 16:30 GLUCOSE POC LAB TO COLLECT [POC] QIDACANDBED 10/13/17 21:00 GLUCOSE POC LAB TO COLLECT [POC] QIDACANDBED 10/14/17 07:30 GLUCOSE POC LAB TO COLLECT [POC] QIDACANDBED 10/14/17 11:30 GLUCOSE POC LAB TO COLLECT [POC] QIDACANDBED 10/14/17 16:30 GLUCOSE POC LAB TO COLLECT [POC] QIDACANDBED - Plan Plan:: ASSESSMENT AND PLAN - Acute on chronic systolic congestive heart failure exacerbation - good response to diuresis and weight is down 2 pounds but symptomatically not much different. Oxygenation has been more stable. Still hypoxic beyond baseline. -Twice daily diuresis with bumetanide -Continue beta evelio and BILLIE inhibitor -Daily weights with strict intake and output monitoring -Discontinue Cardiac monitoring -Supplement oxygen -Consider repeat echocardiogram Acute kidney injury - significant rise in creatinine from his baseline. Creatinine has improved with diuresis. -Diuresis as above -Labs in the morning -Close monitoring of intake and output Insulin-dependent diabetes mellitus with hypoglycemia - Blood sugars have been well controlled during hospital stay. -Continue long-acting insulin -Slight reduction and mealtime insulin -Medium dose sliding scale Oxygen dependent COPD - no active wheezing. Still hypoxic beyond baseline. -Continue home meds -Scheduled and as needed nebulizers BPH - no issues with urinary retention so far. -Continue tamsulosin Bipolar disorder - seems to be well compensated at this time. -Continue home medications Maintenance issues - - DVT prophylaxis - enoxaparin - GI prophylaxis - PPI - Nutrition - low sodium - Jung catheter - patient declines, will be considered if more strict intake and output monitoring is necessary Disposition - anticipate discharge home versus possibly the half-way after the hospital stay Primary care physician - Giovanni in [place] M.D.
[2017-10-08] MEDS: Bumetanide 2.5 MG/10 ML MDV IVPUSH SCH (14:27)
[2017-10-08] MEDS: atorvaSTATin 20 MG Tab PO SCH (20:12)
[2017-10-08] MEDS: traZODone 50 MG Tab PO SCH (20:13)
[2017-10-08] MEDS: Temazepam 15 MG Cap PO PRN (20:18)
[2017-10-09] MEDS: Arformoterol 15 MCG/2 ML Neb Soln NEB SCH ×2 (07:14→20:42)
[2017-10-09] MEDS: Albuterol/Ipratropium 3.0-0.5 MG/3 ML Neb Soln NEB SCH ×4 (07:14→20:42)
[2017-10-09] MEDS: Tiotropium Inhaler 18 MCG Inhalation Powder Cap Kit of 5 INH SCH (07:14)
[2017-10-09] MEDS: Pantoprazole 40 MG Tab.CR PO SCH (07:44)
[2017-10-09] MEDS: Bumetanide 2.5 MG/10 ML MDV IVPUSH SCH ×2 (07:50→13:24)
[2017-10-09] MEDS: Insulin Aspart 100 Units/ML 3 ML Pen SUBCUT SCH ×7 (07:55→21:22)
[2017-10-09] MEDS: ARIPiprazole 10 MG Tab PO SCH (08:42)
[2017-10-09] MEDS: Tamsulosin 0.4 MG Cap.ER PO SCH (08:43)
[2017-10-09] MEDS: Aspirin 81 MG Tab.EC PO SCH (08:43)
[2017-10-09] MEDS: Escitalopram 20 MG Tab PO SCH (08:43)
[2017-10-09] MEDS: Folic Acid 1 MG Tab PO SCH (08:43)
[2017-10-09] MEDS: Metoprolol Succinate 25 MG Tab.ER PO SCH (08:44)
[2017-10-09] MEDS: Vitamin B Complex Tab PO SCH (08:45)
[2017-10-09] MEDS: Insulin Detemir 100 Units/ML 3 ML Pen SUBCUT SCH (08:49)
[2017-10-09] MEDS: Enoxaparin 40 MG/0.4 ML Syringe SUBCUT SCH (08:49)
--- NOTE | 2017-10-09 09:57 | PCM.PN ---
- General Info Date of Service: 10/09/17 Functional Status: Reports: Pain Controlled, Tolerating Diet, Ambulating - Review of Systems Pulmonary: Reports: Shortness of Breath, Cough Cardiovascular: Reports: Edema Systems Review Comment:: No acute events overnight. Patient continues to require supplemental oxygen but now is nearing his baseline. He continues to be hypoxic with activity but has been able to get up and take some walks. He feels that his shortness of breath is a little better today. Edema is slightly better. Had another good night's sleep. He has not had any fevers. Excellent diuresis again yesterday. - Patient Data Vitals - Most Recent: Last Vital Signs Temp 36.2 C 10/09/17 07:32 Pulse 63 10/09/17 08:44 Resp 20 10/09/17 07:32 BP 110/50 L 10/09/17 08:44 Pulse Ox 92 L 10/09/17 07:32 Weight - Most Recent: 137.62 kg I&O - Last 24 Hours: Intake & Output 10/08/17 10/09/17 10/09/17 22:59 06:59 14:59 Intake Total 600 500 300 Output Total 1200 1400 Balance -600 -900 300 Lab Results Last 24 Hours: Laboratory Results - last 24 hr 10/09/17 10/09/17 Range/Units 05:18 05:18 WBC 6.9 (4.5-11.0) K/uL RBC 3.89 L (4.30-5.90) M/uL Hgb 10.5 L (12.0-15.0) g/dL Hct 34.9 L (40.0-54.0) % MCV 90 (80-98) fL MCH 27 (27-31) pg MCHC 30 L (32-36) % Plt Count 337 (150-400) K/uL Sodium 143 (140-148) mmol/L Potassium 4.3 (3.6-5.2) mmol/L Chloride 102 (100-108) mmol/L Carbon Dioxide 37 H (21-32) mmol/L Anion Gap 8.3 (5.0-14.0) mmol/L BUN 43 H (7-18) mg/dL Creatinine 1.7 H (0.8-1.3) mg/dL Est Cr Clr Drug Dosing 44.13 mL/min Estimated GFR (MDRD) 41 L (>60) Glucose 70 L (74-106) mg/dL Calcium 8.8 (8.5-10.1) mg/dL Med Orders - Current: Current Medications Acetaminophen (Tylenol) 650 mg PO Q4H PRN PRN Reason: Pain (Mild 1-3)/fever Last Admin: 10/09/17 00:15 Dose: 650 mg Albuterol (Proventil Neb Soln) 2.5 mg NEB Q4H PRN PRN Reason: Shortness Of Breath/wheezing Albuterol/Ipratropium (Duoneb 3.0-0.5 Mg/3 Ml) 3 ml NEB QIDRT [facility] Last Admin: 10/09/17 07:14 Dose: 3 ml Arformoterol Tartrate (Brovana) 15 mcg NEB BIDRT [facility] Last Admin: 10/09/17 07:14 Dose: 15 mcg Aripiprazole (Abilify) 15 mg PO DAILY [facility] Last Admin: 10/09/17 08:42 Dose: 15 mg Aspirin (Halfprin) 81 mg PO DAILY [facility] Last Admin: 10/09/17 08:43 Dose: 81 mg Atorvastatin Calcium (Lipitor) 20 mg PO BEDTIME [facility] Last Admin: 10/08/17 20:12 Dose: 20 mg Bumetanide (Bumex) 2 mg IVPUSH BIDDIURETIC [facility] Last Admin: 10/09/17 07:50 Dose: 2 mg Enoxaparin Sodium (Lovenox) 40 mg SUBCUT DAILY [facility] Last Admin: 10/09/17 08:49 Dose: 40 mg Escitalopram Oxalate (Lexapro) 20 mg PO DAILY [facility] Last Admin: 10/09/17 08:43 Dose: 20 mg Folic Acid (Folic Acid) 1 mg PO DAILY [facility] Last Admin: 10/09/17 08:43 Dose: 1 mg Insulin Aspart (Novolog) 0 unit SUBCUT QIDACANDBED [facility] PRN Reason: Protocol Last Admin: 10/09/17 07:55 Dose: Not Given Insulin Aspart (Novolog) 7 unit SUBCUT TIDMEALS [facility] Insulin Detemir (Levemir) 30 unit SUBCUT DAILY [facility] Metoprolol Succinate (Toprol Xl) 25 mg PO DAILY [facility] Last Admin: 10/09/17 08:44 Dose: 25 mg Ondansetron HCl (Zofran Odt) 4 mg PO Q6H PRN PRN Reason: Nausea able to take PO Ondansetron HCl (Zofran) 4 mg IV Q6H PRN PRN Reason: Nausea/Vomiting Oxycodone HCl (Oxycodone) 5 mg PO Q4H PRN PRN Reason: Pain (moderate 4-6) Pantoprazole Sodium (Protonix) 40 mg PO ACBREAKFAST [facility] Last Admin: 10/09/17 07:44 Dose: 40 mg Polyethylene Glycol (Miralax) 17 gm PO DAILY PRN PRN Reason: Constipation Ramipril (Altace) 10 mg PO DAILY [facility] Last Admin: 10/09/17 08:43 Dose: 10 mg Senna/Docusate Sodium (Senna Plus) 1 tab PO BID PRN PRN Reason: Constipation Sodium Chloride (Saline Flush) 10 ml FLUSH ASDIRECTED PRN PRN Reason: Keep Vein Open Last Admin: 10/07/17 10:29 Dose: 10 ml Tamsulosin HCl (Flomax) 0.4 mg PO DAILY [facility] Last Admin: 10/09/17 08:43 Dose: 0.4 mg Temazepam (Restoril) 15 - 30 mg PO BEDTIME PRN PRN Reason: Sleep Last Admin: 10/08/17 20:18 Dose: 30 mg Tiotropium [place] (Spiriva Handihaler) 18 mcg INH DAILY@0700 [facility] Last Admin: 10/09/17 07:14 Dose: 18 mcg Trazodone HCl (Trazodone) 100 mg PO BEDTIME [facility] Last Admin: 10/08/17 20:13 Dose: 100 mg Vitamin B Complex (Vitamin B Complex) 1 each PO DAILY [facility] Last Admin: 10/09/17 08:45 Dose: 1 each Discontinued Medications Albuterol (Proventil Neb Soln) 2.5 mg NEB ONETIME ONE Stop: 10/07/17 09:31 Last Admin: 10/07/17 10:31 Dose: 2.5 mg Bumetanide (Bumex) 2 mg IVPUSH DAILY [facility] Last Admin: 10/08/17 09:17 Dose: 2 mg Bumetanide (Bumex) 2 mg IVPUSH ONETIME ONE Stop: 10/07/17 16:01 Last Admin: 10/07/17 15:42 Dose: 2 mg Furosemide (Lasix) 60 mg IVPUSH ONETIME ONE Stop: 10/07/17 09:40 Last Admin: 10/07/17 10:24 Dose: 60 mg Nitroglycerin/Dextrose (Nitroglycerin 25 Mg/D5w 250 Ml) 25 mg in 250 mls @ 3 mls/hr IV TITRATE [facility]; 5 MCG/MIN PRN Reason: Protocol Last Admin: 10/07/17 10:44 Dose: 5 mcg/min, 3 mls/hr Insulin Aspart (Novolog) 10 unit SUBCUT TIDMEALS [facility] Last Admin: 10/09/17 08:04 Dose: 10 units Insulin Detemir (Levemir) 35 unit SUBCUT DAILY [facility] Last Admin: 10/09/17 08:49 Dose: 35 units - Exam Quality Assessment: Supplemental Oxygen General: Alert, Oriented, Cooperative, No Acute Distress Neck: Supple Lungs: Normal Respiratory Effort, Crackles (both bases) Cardiovascular: Regular Rate, Regular Rhythm GI/Abdominal Exam: Soft, No Distention Extremities: Pedal Edema Skin: Warm, Dry Psy/Mental Status: Alert, Normal Affect - Problem List & Annotations (1) Acute systolic congestive heart failure, NYHA class 3 SNOMED Code(s): 064366857 Code(s): I50.21 - ACUTE SYSTOLIC (CONGESTIVE) HEART FAILURE Status: Acute Current Visit: Yes (2) Acute on chronic respiratory failure with hypoxia and hypercapnia SNOMED Code(s): 68035576 Code(s): J96.21 - ACUTE AND CHRONIC RESPIRATORY FAILURE WITH HYPOXIA; J96.22 - ACUTE AND CHRONIC RESPIRATORY FAILURE WITH HYPERCAPNIA Status: Acute Current Visit: No (3) Acute kidney injury SNOMED Code(s): 58696312 Code(s): N17.9 - ACUTE KIDNEY FAILURE, UNSPECIFIED Status: Acute Current Visit: No (4) Type 2 diabetes mellitus SNOMED Code(s): 60064697 Code(s): E11.9 - TYPE 2 DIABETES MELLITUS WITHOUT COMPLICATIONS Status: Chronic Current Visit: No Qualifiers: Diabetes mellitus complication status: with unspecified complications Diabetes mellitus adjunct faculty for medical terminology insulin use: with adjunct faculty for medical terminology use Qualified Code(s) : E11.8 - Type 2 diabetes mellitus with unspecified complications; Z79.4 - adjunct faculty for medical terminology (current) use of insulin; Z79.4 - [facility] (current) use of insulin; Z79.4 - adjunct faculty for medical terminology (current) use of insulin; Z79.4 - adjunct faculty for medical terminology (current) use of insulin (5) COPD (chronic obstructive pulmonary disease) SNOMED Code(s): 95503978 Code(s): J44.9 - CHRONIC OBSTRUCTIVE PULMONARY DISEASE, UNSPECIFIED Status : Chronic Current Visit: No Qualifiers: COPD type: unspecified COPD Qualified Code(s): J44.9 - Chronic obstructive pulmonary disease, unspecified (6) Bipolar 1 disorder SNOMED Code(s): 268133123 Code(s): F31.9 - BIPOLAR DISORDER, UNSPECIFIED Status: Chronic Current Visit: No (7) BPH (benign prostatic hyperplasia) SNOMED Code(s): 445079970 Code(s): N40.0 - BENIGN PROSTATIC HYPERPLASIA WITHOUT LOWER URINRY TRACT SYMP Status: Chronic Current Visit: No Qualifiers: Lower urinary tract symptom presence: symptoms present Lower urinary tract symptom detail: incomplete bladder emptying Qualified Code(s): N40.1 - Benign prostatic hyperplasia with lower urinary tract symptoms; R39.14 - Feeling of incomplete bladder emptying; R39.14 - Feeling of incomplete bladder emptying - Problem List Review Problem List Initiated/Reviewed/Updated: Yes - My Orders Last 24 Hours: My Active Orders 10/08/17 09:00 ARIPiprazole [Abilify] 15 mg PO DAILY Enoxaparin [Lovenox] 40 mg SUBCUT DAILY 10/08/17 09:59 Up With Assistance [RC] ASDIRECTED 10/08/17 15:00 Bumetanide [Bumex] 2 mg IVPUSH BIDDIURETIC 10/09/17 07:40 POC Glucose [Blood Glucose Check, Bedside] [RC] ONETIME 10/09/17 11:30 GLUCOSE POC LAB TO COLLECT [POC] QIDACANDBED 10/09/17 12:00 Insulin Aspart [NovoLOG] 7 unit SUBCUT TIDMEALS 10/09/17 16:30 GLUCOSE POC LAB TO COLLECT [POC] QIDACANDBED 10/09/17 21:00 GLUCOSE POC LAB TO COLLECT [POC] QIDACANDBED 10/10/17 05:00 BASIC METABOLIC PANEL,BMP [CHEM] Timed 10/10/17 07:30 GLUCOSE POC LAB TO COLLECT [POC] QIDACANDBED 10/10/17 09:00 Insulin Detemir [Levemir] 30 unit SUBCUT DAILY 10/10/17 11:30 GLUCOSE POC LAB TO COLLECT [POC] QIDACANDBED 10/10/17 16:30 GLUCOSE POC LAB TO COLLECT [POC] QIDACANDBED 10/10/17 21:00 GLUCOSE POC LAB TO COLLECT [POC] QIDACANDBED 10/11/17 07:30 GLUCOSE POC LAB TO COLLECT [POC] QIDACANDBED 10/11/17 11:30 GLUCOSE POC LAB TO COLLECT [POC] QIDACANDBED 10/11/17 16:30 GLUCOSE POC LAB TO COLLECT [POC] QIDACANDBED 10/11/17 21:00 GLUCOSE POC LAB TO COLLECT [POC] QIDACANDBED 10/12/17 07:30 GLUCOSE POC LAB TO COLLECT [POC] QIDACANDBED 10/12/17 11:30 GLUCOSE POC LAB TO COLLECT [POC] QIDACANDBED 10/12/17 16:30 GLUCOSE POC LAB TO COLLECT [POC] QIDACANDBED 10/12/17 21:00 GLUCOSE POC LAB TO COLLECT [POC] QIDACANDBED 10/13/17 07:30 GLUCOSE POC LAB TO COLLECT [POC] QIDACANDBED 10/13/17 11:30 GLUCOSE POC LAB TO COLLECT [POC] QIDACANDBED 10/13/17 16:30 GLUCOSE POC LAB TO COLLECT [POC] QIDACANDBED 10/13/17 21:00 GLUCOSE POC LAB TO COLLECT [POC] QIDACANDBED 10/14/17 07:30 GLUCOSE POC LAB TO COLLECT [POC] QIDACANDBED 10/14/17 11:30 GLUCOSE POC LAB TO COLLECT [POC] QIDACANDBED 10/14/17 16:30 GLUCOSE POC LAB TO COLLECT [POC] QIDACANDBED - Plan Plan:: ASSESSMENT AND PLAN - Acute on chronic systolic congestive heart failure exacerbation - continued response to diuresis with declining weight and improving symptoms. Oxygenation is nearing baseline at rest but still very hypoxic with any activity. Fortunately he has been able to increase his activity. Blood pressure and heart rate have been stable. -Twice daily diuresis with bumetanide -Continue beta evelio and BILLIE inhibitor -Daily weights with strict intake and output monitoring -Supplement oxygen Acute kidney injury - creatinine continues to improve with diuresis. -Diuresis as above -Labs in the morning -Close monitoring of intake and output Insulin-dependent diabetes mellitus with hypoglycemia - Blood sugar on the low side again this morning. Plan to decrease both long-acting and mealtime insulin. -Continue long-acting insulin with dose reduction for tomorrow morning -Slight reduction and mealtime insulin -Medium dose sliding scale Oxygen dependent COPD - no active wheezing. Still hypoxic with activity. -Continue home meds -Scheduled and as needed nebulizers BPH - no issues with urinary retention so far. -Continue tamsulosin Bipolar disorder - seems to be well compensated at this time. -Continue home medications Maintenance issues - - DVT prophylaxis - enoxaparin - GI prophylaxis - PPI - Nutrition - low sodium - Jung catheter - Not indicated at this time Disposition - anticipate discharge home versus possibly the assisted after the hospital stay Primary care physician - Giovanni in [place] M.D.
[2017-10-09] MEDS: traZODone 50 MG Tab PO SCH (20:42)
[2017-10-09] MEDS: atorvaSTATin 20 MG Tab PO SCH (20:42)
[2017-10-09] MEDS: Temazepam 15 MG Cap PO PRN (21:36)
[2017-10-10] MEDS: Pantoprazole 40 MG Tab.CR PO SCH (06:30)
[2017-10-10] MEDS: Arformoterol 15 MCG/2 ML Neb Soln NEB SCH ×2 (07:23→20:58)
[2017-10-10] MEDS: Tiotropium Inhaler 18 MCG Inhalation Powder Cap Kit of 5 INH SCH (07:23)
[2017-10-10] MEDS: Albuterol/Ipratropium 3.0-0.5 MG/3 ML Neb Soln NEB SCH ×4 (07:23→21:12)
[2017-10-10] MEDS: Bumetanide 2.5 MG/10 ML MDV IVPUSH SCH ×2 (08:28→14:40)
[2017-10-10] MEDS: Folic Acid 1 MG Tab PO SCH (08:33)
[2017-10-10] MEDS: Metoprolol Succinate 25 MG Tab.ER PO SCH (08:33)
[2017-10-10] MEDS: Vitamin B Complex Tab PO SCH (08:33)
[2017-10-10] MEDS: Escitalopram 20 MG Tab PO SCH (08:33)
[2017-10-10] MEDS: Aspirin 81 MG Tab.EC PO SCH (08:34)
[2017-10-10] MEDS: Enoxaparin 40 MG/0.4 ML Syringe SUBCUT SCH (08:34)
[2017-10-10] MEDS: Tamsulosin 0.4 MG Cap.ER PO SCH (08:34)
[2017-10-10] MEDS: ARIPiprazole 10 MG Tab PO SCH (08:34)
[2017-10-10] MEDS: Insulin Detemir 100 Units/ML 3 ML Pen SUBCUT SCH (08:39)
--- NOTE | 2017-10-10 10:04 | PCM.PN ---
- General Info Date of Service: 10/10/17 Functional Status: Reports: Pain Controlled, Tolerating Diet - Review of Systems General: Denies: Fever, Weakness Pulmonary: Reports: Shortness of Breath, Cough Systems Review Comment:: Patient had difficulty with a low blood sugar last night but was not symptomatic even with a sugar in the upper 20s. This did respond well to snacks as well as discontinuing his mealtime insulin sliding scale insulin. Sugar this morning was acceptable. He reports ongoing but slow improvement in his shortness of breath. He has been able to ambulate in the halls but does become hypoxic and short of breath though not as much as the last 2 days. Excellent response to diuresis again yesterday and continued improvement in his kidney function. He has not had any fevers. Cough continues to improve. - Patient Data Vitals - Most Recent: Last Vital Signs Temp 36.2 C 10/10/17 07:00 Pulse 67 10/10/17 08:33 Resp 18 10/10/17 07:00 BP 113/55 L 10/10/17 08:33 Pulse Ox 90 L 10/10/17 07:00 Weight - Most Recent: 137.892 kg I&O - Last 24 Hours: Intake & Output 10/09/17 10/10/17 10/10/17 22:59 06:59 14:59 Intake Total 120 200 360 Output Total 1500 1325 350 Balance -1380 -1125 10 Lab Results Last 24 Hours: Laboratory Results - last 24 hr 10/10/17 Range/Units 05:00 Sodium 141 (140-148) mmol/L Potassium 4.4 (3.6-5.2) mmol/L Chloride 101 (100-108) mmol/L Carbon Dioxide 36 H (21-32) mmol/L Anion Gap 8.4 (5.0-14.0) mmol/L BUN 43 H (7-18) mg/dL Creatinine 1.6 H (0.8-1.3) mg/dL Est Cr Clr Drug Dosing 46.89 mL/min Estimated GFR (MDRD) 43 L (>60) Glucose 135 H (74-106) mg/dL Calcium 8.9 (8.5-10.1) mg/dL Med Orders - Current: Current Medications Acetaminophen (Tylenol) 650 mg PO Q4H PRN PRN Reason: Pain (Mild 1-3)/fever Last Admin: 10/09/17 00:15 Dose: 650 mg Albuterol (Proventil Neb Soln) 2.5 mg NEB Q4H PRN PRN Reason: Shortness Of Breath/wheezing Albuterol/Ipratropium (Duoneb 3.0-0.5 Mg/3 Ml) 3 ml NEB QIDRT [facility] Last Admin: 10/10/17 07:23 Dose: 3 ml Arformoterol Tartrate (Brovana) 15 mcg NEB BIDRT [facility] Last Admin: 10/10/17 07:23 Dose: 15 mcg Aripiprazole (Abilify) 15 mg PO DAILY [facility] Last Admin: 10/10/17 08:34 Dose: 15 mg Aspirin (Halfprin) 81 mg PO DAILY [facility] Last Admin: 10/10/17 08:34 Dose: 81 mg Atorvastatin Calcium (Lipitor) 20 mg PO BEDTIME [facility] Last Admin: 10/09/17 20:42 Dose: 20 mg Bumetanide (Bumex) 2 mg IVPUSH BIDDIURETIC [facility] Last Admin: 10/10/17 08:28 Dose: 2 mg Enoxaparin Sodium (Lovenox) 40 mg SUBCUT DAILY [facility] Last Admin: 10/10/17 08:34 Dose: 40 mg Escitalopram Oxalate (Lexapro) 20 mg PO DAILY [facility] Last Admin: 10/10/17 08:33 Dose: 20 mg Folic Acid (Folic Acid) 1 mg PO DAILY [facility] Last Admin: 10/10/17 08:33 Dose: 1 mg Insulin Detemir (Levemir) 30 unit SUBCUT DAILY [facility] Last Admin: 10/10/17 08:39 Dose: 30 units Metoprolol Succinate (Toprol Xl) 25 mg PO DAILY [facility] Last Admin: 10/10/17 08:33 Dose: 25 mg Ondansetron HCl (Zofran Odt) 4 mg PO Q6H PRN PRN Reason: Nausea able to take PO Ondansetron HCl (Zofran) 4 mg IV Q6H PRN PRN Reason: Nausea/Vomiting Oxycodone HCl (Oxycodone) 5 mg PO Q4H PRN PRN Reason: Pain (moderate 4-6) Pantoprazole Sodium (Protonix) 40 mg PO ACBREAKFAST [facility] Last Admin: 10/10/17 06:30 Dose: 40 mg Polyethylene Glycol (Miralax) 17 gm PO DAILY PRN PRN Reason: Constipation Ramipril (Altace) 10 mg PO DAILY [facility] Last Admin: 10/09/17 08:43 Dose: 10 mg Senna/Docusate Sodium (Senna Plus) 1 tab PO BID PRN PRN Reason: Constipation Sodium Chloride (Saline Flush) 10 ml FLUSH ASDIRECTED PRN PRN Reason: Keep Vein Open Last Admin: 10/07/17 10:29 Dose: 10 ml Tamsulosin HCl (Flomax) 0.4 mg PO DAILY [facility] Last Admin: 10/10/17 08:34 Dose: 0.4 mg Tiotropium [place] (Spiriva Handihaler) 18 mcg INH DAILY@0700 [facility] Last Admin: 10/10/17 07:23 Dose: 18 mcg Trazodone HCl (Trazodone) 100 mg PO BEDTIME [facility] Last Admin: 10/09/17 20:42 Dose: 100 mg Vitamin B Complex (Vitamin B Complex) 1 each PO DAILY [facility] Last Admin: 10/10/17 08:33 Dose: 1 each Discontinued Medications Albuterol (Proventil Neb Soln) 2.5 mg NEB ONETIME ONE Stop: 10/07/17 09:31 Last Admin: 10/07/17 10:31 Dose: 2.5 mg Bumetanide (Bumex) 2 mg IVPUSH DAILY [facility] Last Admin: 10/08/17 09:17 Dose: 2 mg Bumetanide (Bumex) 2 mg IVPUSH ONETIME ONE Stop: 10/07/17 16:01 Last Admin: 10/07/17 15:42 Dose: 2 mg Furosemide (Lasix) 60 mg IVPUSH ONETIME ONE Stop: 10/07/17 09:40 Last Admin: 10/07/17 10:24 Dose: 60 mg Nitroglycerin/Dextrose (Nitroglycerin 25 Mg/D5w 250 Ml) 25 mg in 250 mls @ 3 mls/hr IV TITRATE [facility]; 5 MCG/MIN PRN Reason: Protocol Last Admin: 10/07/17 10:44 Dose: 5 mcg/min, 3 mls/hr Insulin Aspart (Novolog) 10 unit SUBCUT TIDMEALS [facility] Last Admin: 10/09/17 08:04 Dose: 10 units Insulin Aspart (Novolog) 0 unit SUBCUT QIDACANDBED [facility] PRN Reason: Protocol Last Admin: 10/09/17 21:22 Dose: Not Given Insulin Aspart (Novolog) 7 unit SUBCUT TIDMEALS [facility] Last Admin: 10/09/17 17:06 Dose: 7 units Insulin Detemir (Levemir) 35 unit SUBCUT DAILY [facility] Last Admin: 10/09/17 08:49 Dose: 35 units Temazepam (Restoril) 15 - 30 mg PO BEDTIME PRN PRN Reason: Sleep Last Admin: 10/09/17 21:36 Dose: 30 mg - Exam Quality Assessment: Supplemental Oxygen General: Alert, Oriented, Cooperative, No Acute Distress Neck: Supple Lungs: Normal Respiratory Effort, Crackles (rare left lung base) Cardiovascular: Regular Rate, Regular Rhythm GI/Abdominal Exam: Soft, No Distention Extremities: Pedal Edema (pitting edema to near the knee bilaterally ) Skin: Warm, Dry Psy/Mental Status: Alert, Normal Affect - Problem List & Annotations (1) Acute systolic congestive heart failure, NYHA class 3 SNOMED Code(s): 651657503 Code(s): I50.21 - ACUTE SYSTOLIC (CONGESTIVE) HEART FAILURE Status: Acute Current Visit: Yes (2) Acute on chronic respiratory failure with hypoxia and hypercapnia SNOMED Code(s): 83270309 Code(s): J96.21 - ACUTE AND CHRONIC RESPIRATORY FAILURE WITH HYPOXIA; J96.22 - ACUTE AND CHRONIC RESPIRATORY FAILURE WITH HYPERCAPNIA Status: Resolved Current Visit: No (3) Acute kidney injury SNOMED Code(s): 04400542 Code(s): N17.9 - ACUTE KIDNEY FAILURE, UNSPECIFIED Status: Resolved Current Visit: No (4) Type 2 diabetes mellitus SNOMED Code(s): 09618461 Code(s): E11.9 - TYPE 2 DIABETES MELLITUS WITHOUT COMPLICATIONS Status: Chronic Current Visit: No Qualifiers: Diabetes mellitus complication status: with unspecified complications Diabetes mellitus [facility] 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 Qualified Code(s) : E11.8 - Type 2 diabetes mellitus with unspecified complications; Z79.4 - [facility] (current) use of insulin; 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; Z79.4 - [facility] (current) use of insulin; Z79.4 - [facility] (current) use of insulin (5) COPD (chronic obstructive pulmonary disease) SNOMED Code(s): 63066729 Code(s): J44.9 - CHRONIC OBSTRUCTIVE PULMONARY DISEASE, UNSPECIFIED Status : Chronic Current Visit: No Qualifiers: COPD type: unspecified COPD Qualified Code(s): J44.9 - Chronic obstructive pulmonary disease, unspecified (6) Bipolar 1 disorder SNOMED Code(s): 918657445 Code(s): F31.9 - BIPOLAR DISORDER, UNSPECIFIED Status: Chronic Current Visit: No (7) BPH (benign prostatic hyperplasia) SNOMED Code(s): 397988634 Code(s): N40.0 - BENIGN PROSTATIC HYPERPLASIA WITHOUT LOWER URINRY TRACT SYMP Status: Chronic Current Visit: No Qualifiers: Lower urinary tract symptom presence: symptoms present Lower urinary tract symptom detail: incomplete bladder emptying Qualified Code(s): N40.1 - Benign prostatic hyperplasia with lower urinary tract symptoms; R39.14 - Feeling of incomplete bladder emptying; R39.14 - Feeling of incomplete bladder emptying - Problem List Review Problem List Initiated/Reviewed/Updated: Yes - My Orders Last 24 Hours: My Active Orders 10/10/17 09:00 Insulin Detemir [Levemir] 30 unit SUBCUT DAILY 10/10/17 11:30 GLUCOSE POC LAB TO COLLECT [POC] QIDACANDBED 10/10/17 16:30 GLUCOSE POC LAB TO COLLECT [POC] QIDACANDBED 10/10/17 17:00 Temazepam [Restoril] 30 mg PO QPM 10/10/17 21:00 GLUCOSE POC LAB TO COLLECT [POC] QIDACANDBED 10/11/17 05:00 BASIC METABOLIC PANEL,BMP [CHEM] Timed CBC W/O DIFF,HEMOGRAM [HEME] Timed (1) 10/11/17 07:30 GLUCOSE POC LAB TO COLLECT [POC] QIDACANDBED 10/11/17 11:30 GLUCOSE POC LAB TO COLLECT [POC] QIDACANDBED 10/11/17 16:30 GLUCOSE POC LAB TO COLLECT [POC] QIDACANDBED 10/11/17 21:00 GLUCOSE POC LAB TO COLLECT [POC] QIDACANDBED 10/12/17 07:30 GLUCOSE POC LAB TO COLLECT [POC] QIDACANDBED 10/12/17 11:30 GLUCOSE POC LAB TO COLLECT [POC] QIDACANDBED 10/12/17 16:30 GLUCOSE POC LAB TO COLLECT [POC] QIDACANDBED 10/12/17 21:00 GLUCOSE POC LAB TO COLLECT [POC] QIDACANDBED 10/13/17 07:30 GLUCOSE POC LAB TO COLLECT [POC] QIDACANDBED 10/13/17 11:30 GLUCOSE POC LAB TO COLLECT [POC] QIDACANDBED 10/13/17 16:30 GLUCOSE POC LAB TO COLLECT [POC] QIDACANDBED 10/13/17 21:00 GLUCOSE POC LAB TO COLLECT [POC] QIDACANDBED 10/14/17 07:30 GLUCOSE POC LAB TO COLLECT [POC] QIDACANDBED 10/14/17 11:30 GLUCOSE POC LAB TO COLLECT [POC] QIDACANDBED 10/14/17 16:30 GLUCOSE POC LAB TO COLLECT [POC] QIDACANDBED - Plan Plan:: ASSESSMENT AND PLAN - Acute on chronic systolic congestive heart failure exacerbation - ongoing but slow improvement. Seems to be back to baseline oxygenation at rest but still hypoxic with activity. He has been able to increase the distance of his walking but remains hypoxic. Excellent response to diuresis again yesterday and symptomatically improving. Edema has been improving. -Twice daily diuresis with bumetanide -Continue beta evelio and BILLIE inhibitor -Daily weights with strict intake and output monitoring -Supplement oxygen Acute kidney injury - creatinine continues to improve with diuresis and is nearing baseline. -Diuresis as above -Labs in the morning -Close monitoring of intake and output Insulin-dependent diabetes mellitus with hypoglycemia - Blood sugar low last night and mealtime and medium dose sliding scale insulin were discontinued. -Continue long-acting insulin with dose reduction this morning -Discontinue mealtime insulin -Low dose sliding scale -Reassess insulin dosing tomorrow Oxygen dependent COPD - no active wheezing. Still hypoxic with activity but has acceptable oxygenation at rest. -Continue home meds -Scheduled and as needed nebulizers BPH - no issues with urinary retention so far. -Continue tamsulosin Bipolar disorder - well compensated at this time. -Continue home medications Maintenance issues - - DVT prophylaxis - enoxaparin - GI prophylaxis - PPI - Nutrition - Vegan - Jung catheter - Not indicated at this time Disposition - anticipate discharge home versus possibly the halfway after the hospital stay Primary care physician - Giovanni in [place] M.D.
[2017-10-10] MEDS: Insulin Aspart 100 Units/ML 3 ML Pen SUBCUT SCH ×3 (12:31→21:09)
[2017-10-10] MEDS: Temazepam 15 MG Cap PO SCH (17:34)
[2017-10-10] MEDS: atorvaSTATin 20 MG Tab PO SCH (20:58)
[2017-10-10] MEDS: traZODone 50 MG Tab PO SCH (20:58)
[2017-10-11] MEDS: Insulin Aspart 100 Units/ML 3 ML Pen SUBCUT SCH ×5 (07:28→20:54)
[2017-10-11] MEDS: Albuterol/Ipratropium 3.0-0.5 MG/3 ML Neb Soln NEB SCH ×4 (07:32→20:49)
[2017-10-11] MEDS: Arformoterol 15 MCG/2 ML Neb Soln NEB SCH ×2 (07:33→20:27)
[2017-10-11] MEDS: Tiotropium Inhaler 18 MCG Inhalation Powder Cap Kit of 5 INH SCH (07:33)
[2017-10-11] MEDS: Pantoprazole 40 MG Tab.CR PO SCH (08:14)
[2017-10-11] MEDS: Bumetanide 2.5 MG/10 ML MDV IVPUSH SCH ×2 (08:16→14:32)
[2017-10-11] MEDS: Escitalopram 20 MG Tab PO SCH (09:12)
[2017-10-11] MEDS: Folic Acid 1 MG Tab PO SCH (09:12)
[2017-10-11] MEDS: Aspirin 81 MG Tab.EC PO SCH (09:13)
[2017-10-11] MEDS: Vitamin B Complex Tab PO SCH (09:13)
[2017-10-11] MEDS: Metoprolol Succinate 25 MG Tab.ER PO SCH (09:14)
[2017-10-11] MEDS: ARIPiprazole 10 MG Tab PO SCH (09:16)
[2017-10-11] MEDS: Tamsulosin 0.4 MG Cap.ER PO SCH (09:17)
[2017-10-11] MEDS: Enoxaparin 40 MG/0.4 ML Syringe SUBCUT SCH (09:18)
[2017-10-11] MEDS: Insulin Detemir 100 Units/ML 3 ML Pen SUBCUT SCH (09:19)
--- NOTE | 2017-10-11 14:11 | PCM.PN ---
- General Info Date of Service: 10/11/17 Subjective Update: Mr. Kruse is a 67-year-old gentleman who was admitted by Dr. Bauer because of fluid overload with pulmonary edema and increase in hypoxia with shortness of breath. He's been diuresed since admission and has had daily good urine output with improvement in peripheral edema and shortness of breath. Symptoms have improved and there is been improvement in his edema but he is not yet back to baseline. - Review of Systems General: Denies: Fever, Weakness, Chills Pulmonary: Reports: Shortness of Breath. Denies: Pleuritic Chest Pain, Cough, Sputum, Hemoptysis, Wheezing Cardiovascular: Reports: Dyspnea on Exertion, Edema. Denies: Chest Pain, Palpitations, Orthopnea, PND, Lightheadedness Gastrointestinal: Reports: No Symptoms - Patient Data Vitals - Most Recent: Last Vital Signs Temp 96.6 F 10/11/17 10:36 Pulse 80 10/11/17 11:01 Resp 20 10/11/17 10:36 BP 150/69 H 10/11/17 10:36 Pulse Ox 92 L 10/11/17 11:01 Weight - Most Recent: 298 lb I&O - Last 24 Hours: Intake & Output 10/10/17 10/11/17 10/11/17 22:59 06:59 14:59 Intake Total 500 350 560 Output Total 1000 1100 1725 Balance -500 750 -1165 Lab Results Last 24 Hours: Laboratory Results - last 24 hr 10/11/17 10/11/17 Range/Units 05:45 05:45 WBC 6.4 (4.5-11.0) K/uL RBC 3.88 L (4.30-5.90) M/uL Hgb 10.8 L (12.0-15.0) g/dL Hct 35.1 L (40.0-54.0) % MCV 91 (80-98) fL MCH 28 (27-31) pg MCHC 31 L (32-36) % Plt Count 331 (150-400) K/uL Sodium 142 (140-148) mmol/L Potassium 3.9 (3.6-5.2) mmol/L Chloride 101 (100-108) mmol/L Carbon Dioxide 37 H (21-32) mmol/L Anion Gap 7.9 (5.0-14.0) mmol/L BUN 37 H (7-18) mg/dL Creatinine 1.5 H (0.8-1.3) mg/dL Est Cr Clr Drug Dosing 50.02 mL/min Estimated GFR (MDRD) 47 L (>60) Glucose 104 (74-106) mg/dL Calcium 9.0 (8.5-10.1) mg/dL Med Orders - Current: Current Medications Acetaminophen (Tylenol) 650 mg PO Q4H PRN PRN Reason: Pain (Mild 1-3)/fever Last Admin: 10/09/17 00:15 Dose: 650 mg Albuterol (Proventil Neb Soln) 2.5 mg NEB Q4H PRN PRN Reason: Shortness Of Breath/wheezing Albuterol/Ipratropium (Duoneb 3.0-0.5 Mg/3 Ml) 3 ml NEB QIDRT [facility] Last Admin: 10/11/17 10:59 Dose: 3 ml Arformoterol Tartrate (Brovana) 15 mcg NEB BIDRT [facility] Last Admin: 10/11/17 07:33 Dose: 15 mcg Aripiprazole (Abilify) 15 mg PO DAILY [facility] Last Admin: 10/11/17 09:16 Dose: 15 mg Aspirin (Halfprin) 81 mg PO DAILY [facility] Last Admin: 10/11/17 09:13 Dose: 81 mg Atorvastatin Calcium (Lipitor) 20 mg PO BEDTIME [facility] Last Admin: 10/10/17 20:58 Dose: 20 mg Bumetanide (Bumex) 2 mg IVPUSH BIDDIURETIC [facility] Last Admin: 10/11/17 08:16 Dose: 2 mg Enoxaparin Sodium (Lovenox) 40 mg SUBCUT DAILY [facility] Last Admin: 10/11/17 09:18 Dose: 40 mg Escitalopram Oxalate (Lexapro) 20 mg PO DAILY [facility] Last Admin: 10/11/17 09:12 Dose: 20 mg Folic Acid (Folic Acid) 1 mg PO DAILY [facility] Last Admin: 10/11/17 09:12 Dose: 1 mg Insulin Aspart (Novolog) 0 unit SUBCUT QIDACANDBED [facility] PRN Reason: Protocol Last Admin: 10/11/17 12:29 Dose: 2 units Insulin Detemir (Levemir) 30 unit SUBCUT DAILY [facility] Last Admin: 10/11/17 09:19 Dose: 30 units Metoprolol Succinate (Toprol Xl) 25 mg PO DAILY [facility] Last Admin: 10/11/17 09:14 Dose: 25 mg Ondansetron HCl (Zofran Odt) 4 mg PO Q6H PRN PRN Reason: Nausea able to take PO Ondansetron HCl (Zofran) 4 mg IV Q6H PRN PRN Reason: Nausea/Vomiting Oxycodone HCl (Oxycodone) 5 mg PO Q4H PRN PRN Reason: Pain (moderate 4-6) Pantoprazole Sodium (Protonix) 40 mg PO ACBREAKFAST [facility] Last Admin: 10/11/17 08:14 Dose: 40 mg Polyethylene Glycol (Miralax) 17 gm PO DAILY PRN PRN Reason: Constipation Ramipril (Altace) 10 mg PO DAILY [facility] Last Admin: 10/09/17 08:43 Dose: 10 mg Senna/Docusate Sodium (Senna Plus) 1 tab PO BID PRN PRN Reason: Constipation Sodium Chloride (Saline Flush) 10 ml FLUSH ASDIRECTED PRN PRN Reason: Keep Vein Open Last Admin: 10/07/17 10:29 Dose: 10 ml Tamsulosin HCl (Flomax) 0.4 mg PO DAILY [facility] Last Admin: 10/11/17 09:17 Dose: 0.4 mg Temazepam (Restoril) 30 mg PO QPM [facility] Last Admin: 10/10/17 17:34 Dose: 30 mg Tiotropium [place] (Spiriva Handihaler) 18 mcg INH DAILY@0700 [facility] Last Admin: 10/11/17 07:33 Dose: 18 mcg Trazodone HCl (Trazodone) 100 mg PO BEDTIME [facility] Last Admin: 10/10/17 20:58 Dose: 100 mg Vitamin B Complex (Vitamin B Complex) 1 each PO DAILY [facility] Last Admin: 10/11/17 09:13 Dose: 1 each Discontinued Medications Albuterol (Proventil Neb Soln) 2.5 mg NEB ONETIME ONE Stop: 10/07/17 09:31 Last Admin: 10/07/17 10:31 Dose: 2.5 mg Bumetanide (Bumex) 2 mg IVPUSH DAILY [facility] Last Admin: 10/08/17 09:17 Dose: 2 mg Bumetanide (Bumex) 2 mg IVPUSH ONETIME ONE Stop: 10/07/17 16:01 Last Admin: 10/07/17 15:42 Dose: 2 mg Furosemide (Lasix) 60 mg IVPUSH ONETIME ONE Stop: 10/07/17 09:40 Last Admin: 10/07/17 10:24 Dose: 60 mg Nitroglycerin/Dextrose (Nitroglycerin 25 Mg/D5w 250 Ml) 25 mg in 250 mls @ 3 mls/hr IV TITRATE [facility]; 5 MCG/MIN PRN Reason: Protocol Last Admin: 10/07/17 10:44 Dose: 5 mcg/min, 3 mls/hr Insulin Aspart (Novolog) 10 unit SUBCUT TIDMEALS [facility] Last Admin: 10/09/17 08:04 Dose: 10 units Insulin Aspart (Novolog) 0 unit SUBCUT QIDACANDBED [facility] PRN Reason: Protocol Last Admin: 10/09/17 21:22 Dose: Not Given Insulin Aspart (Novolog) 7 unit SUBCUT TIDMEALS [facility] Last Admin: 10/09/17 17:06 Dose: 7 units Insulin Detemir (Levemir) 35 unit SUBCUT DAILY [facility] Last Admin: 10/09/17 08:49 Dose: 35 units Temazepam (Restoril) 15 - 30 mg PO BEDTIME PRN PRN Reason: Sleep Last Admin: 10/09/17 21:36 Dose: 30 mg - Exam Quality Assessment: Supplemental Oxygen, DVT Prophylaxis General: Alert, Oriented, Cooperative, Mild Distress Lungs: Decreased Breath Sounds, Rales, Wheezing. No: Rhonchi Cardiovascular: Regular Rate, Regular Rhythm, No Murmurs GI/Abdominal Exam: Soft, Non-Tender, No Organomegaly, No Distention Extremities: Non-Tender, Pedal Edema Skin: Warm, Dry - Problem List Review Problem List Initiated/Reviewed/Updated: Yes - My Orders Last 24 Hours: My Active Orders 10/12/17 05:00 BASIC METABOLIC PANEL,BMP [CHEM] Timed - Plan Plan:: ASSESSMENT AND PLAN - Acute on chronic systolic congestive heart failure exacerbation - he is had good diuresis since admission with improvement in peripheral edema and shortness of breath. Continues to require higher level of supplemental oxygen from baseline -Twice daily diuresis with bumetanide -Continue beta evelio and BILLIE inhibitor -Daily weights with strict intake and output monitoring -Supplement oxygen Acute kidney injury - creatinine at baseline following diuresis -Diuresis as above -Labs in the morning -Close monitoring of intake and output Insulin-dependent diabetes mellitus with hypoglycemia - blood sugars have stabilized with decreased dose of long-acting insulin -Continue long-acting insulin with dose reduction this morning -Discontinue mealtime insulin -Low dose sliding scale -Reassess insulin dosing tomorrow Oxygen dependent COPD -Still hypoxic with activity but has acceptable oxygenation at rest. -Continue home meds -Scheduled and as needed nebulizers BPH - no issues with urinary retention so far. -Continue tamsulosin Bipolar disorder - well compensated at this time. -Continue home medications Maintenance issues - - DVT prophylaxis - enoxaparin - GI prophylaxis - PPI - Nutrition - Vegan - Jung catheter - Not indicated at this time Disposition - anticipate discharge home versus possibly the jail after the hospital stay Primary care physician - Giovanni Bird
[2017-10-11] MEDS: Temazepam 15 MG Cap PO SCH (18:03)
[2017-10-11] MEDS: atorvaSTATin 20 MG Tab PO SCH (20:28)
[2017-10-11] MEDS: traZODone 50 MG Tab PO SCH (20:31)
[2017-10-12] MEDS: Tiotropium Inhaler 18 MCG Inhalation Powder Cap Kit of 5 INH SCH (07:33)
[2017-10-12] MEDS: Arformoterol 15 MCG/2 ML Neb Soln NEB SCH ×2 (07:33→20:56)
[2017-10-12] MEDS: Albuterol/Ipratropium 3.0-0.5 MG/3 ML Neb Soln NEB SCH ×4 (07:33→21:03)
[2017-10-12] MEDS: Insulin Aspart 100 Units/ML 3 ML Pen SUBCUT SCH ×4 (08:12→20:56)
[2017-10-12] MEDS: ARIPiprazole 10 MG Tab PO SCH (08:17)
[2017-10-12] MEDS: Vitamin B Complex Tab PO SCH (08:21)
[2017-10-12] MEDS: Metoprolol Succinate 25 MG Tab.ER PO SCH (08:21)
[2017-10-12] MEDS: Escitalopram 20 MG Tab PO SCH (08:21)
[2017-10-12] MEDS: Pantoprazole 40 MG Tab.CR PO SCH (08:22)
[2017-10-12] MEDS: Tamsulosin 0.4 MG Cap.ER PO SCH (08:22)
[2017-10-12] MEDS: Aspirin 81 MG Tab.EC PO SCH (08:22)
[2017-10-12] MEDS: Bumetanide 2.5 MG/10 ML MDV IVPUSH SCH ×2 (08:23→14:17)
[2017-10-12] MEDS: Insulin Detemir 100 Units/ML 3 ML Pen SUBCUT SCH (08:47)
[2017-10-12] MEDS: Enoxaparin 40 MG/0.4 ML Syringe SUBCUT SCH (09:52)
[2017-10-12] MEDS: Folic Acid 1 MG Tab PO SCH (09:52)
--- NOTE | 2017-10-12 11:03 | PCM.PN ---
- General Info Date of Service: 10/12/17 Subjective Update: Mr. Kruse has been stable since yesterday, continues to require increased supplemental oxygen from baseline. He had a good diuresis yesterday and there's been further improvement in his shortness of breath as well as peripheral edema. - Review of Systems General: Denies: Fever, Weakness, Chills Pulmonary: Reports: Shortness of Breath. Denies: Pleuritic Chest Pain, Cough, Sputum, Hemoptysis, Wheezing Cardiovascular: Reports: Dyspnea on Exertion, Edema. Denies: Chest Pain, Palpitations, Orthopnea, PND Gastrointestinal: Reports: No Symptoms - Patient Data Vitals - Most Recent: Last Vital Signs Temp 98.0 F 10/12/17 07:00 Pulse 77 10/12/17 08:21 Resp 20 10/12/17 07:00 BP 120/56 L 10/12/17 08:23 Pulse Ox 89 L 10/12/17 07:00 Weight - Most Recent: 297 lb 6.4 oz I&O - Last 24 Hours: Intake & Output 10/11/17 10/12/17 10/12/17 22:59 06:59 14:59 Intake Total 600 360 Output Total 2200 950 Balance -1600 -590 Lab Results Last 24 Hours: Laboratory Results - last 24 hr 10/12/17 Range/Units 05:30 Sodium 143 (140-148) mmol/L Potassium 3.7 (3.6-5.2) mmol/L Chloride 100 (100-108) mmol/L Carbon Dioxide 36 H (21-32) mmol/L Anion Gap 10.7 (5.0-14.0) mmol/L BUN 34 H (7-18) mg/dL Creatinine 1.4 H (0.8-1.3) mg/dL Est Cr Clr Drug Dosing 53.59 mL/min Estimated GFR (MDRD) 51 L (>60) Glucose 81 (74-106) mg/dL Calcium 9.2 (8.5-10.1) mg/dL Med Orders - Current: Current Medications Acetaminophen (Tylenol) 650 mg PO Q4H PRN PRN Reason: Pain (Mild 1-3)/fever Last Admin: 10/09/17 00:15 Dose: 650 mg Albuterol (Proventil Neb Soln) 2.5 mg NEB Q4H PRN PRN Reason: Shortness Of Breath/wheezing Albuterol/Ipratropium (Duoneb 3.0-0.5 Mg/3 Ml) 3 ml NEB QIDRT [facility] Last Admin: 10/12/17 07:33 Dose: 3 ml Arformoterol Tartrate (Brovana) 15 mcg NEB BIDRT [facility] Last Admin: 10/12/17 07:33 Dose: 15 mcg Aripiprazole (Abilify) 15 mg PO DAILY [facility] Last Admin: 10/12/17 08:17 Dose: 15 mg Aspirin (Halfprin) 81 mg PO DAILY [facility] Last Admin: 10/12/17 08:22 Dose: 81 mg Atorvastatin Calcium (Lipitor) 20 mg PO BEDTIME [facility] Last Admin: 10/11/17 20:28 Dose: 20 mg Bumetanide (Bumex) 2 mg IVPUSH BIDDIURETIC [facility] Last Admin: 10/12/17 08:23 Dose: 2 mg Enoxaparin Sodium (Lovenox) 40 mg SUBCUT DAILY [facility] Last Admin: 10/12/17 09:52 Dose: 40 mg Escitalopram Oxalate (Lexapro) 20 mg PO DAILY [facility] Last Admin: 10/12/17 08:21 Dose: 20 mg Folic Acid (Folic Acid) 1 mg PO DAILY [facility] Last Admin: 10/12/17 09:52 Dose: 1 mg Insulin Aspart (Novolog) 0 unit SUBCUT QIDACANDBED [facility] PRN Reason: Protocol Last Admin: 10/12/17 08:12 Dose: Not Given Insulin Detemir (Levemir) 24 unit SUBCUT DAILY [facility] Last Admin: 10/12/17 08:47 Dose: 24 unit Metoprolol Succinate (Toprol Xl) 25 mg PO DAILY [facility] Last Admin: 10/12/17 08:21 Dose: 25 mg Ondansetron HCl (Zofran Odt) 4 mg PO Q6H PRN PRN Reason: Nausea able to take PO Ondansetron HCl (Zofran) 4 mg IV Q6H PRN PRN Reason: Nausea/Vomiting Oxycodone HCl (Oxycodone) 5 mg PO Q4H PRN PRN Reason: Pain (moderate 4-6) Pantoprazole Sodium (Protonix) 40 mg PO ACBREAKFAST [facility] Last Admin: 10/12/17 08:22 Dose: 40 mg Polyethylene Glycol (Miralax) 17 gm PO DAILY PRN PRN Reason: Constipation Ramipril (Altace) 10 mg PO DAILY [facility] Last Admin: 10/12/17 08:20 Dose: 10 mg Senna/Docusate Sodium (Senna Plus) 1 tab PO BID PRN PRN Reason: Constipation Sodium Chloride (Saline Flush) 10 ml FLUSH ASDIRECTED PRN PRN Reason: Keep Vein Open Last Admin: 10/07/17 10:29 Dose: 10 ml Tamsulosin HCl (Flomax) 0.4 mg PO DAILY [facility] Last Admin: 10/12/17 08:22 Dose: 0.4 mg Temazepam (Restoril) 30 mg PO QPM [facility] Last Admin: 10/11/17 18:03 Dose: 30 mg Tiotropium [place] (Spiriva Handihaler) 18 mcg INH DAILY@0700 [facility] Last Admin: 10/12/17 07:33 Dose: 18 mcg Trazodone HCl (Trazodone) 100 mg PO BEDTIME [facility] Last Admin: 10/11/17 20:31 Dose: 100 mg Vitamin B Complex (Vitamin B Complex) 1 each PO DAILY [facility] Last Admin: 10/12/17 08:21 Dose: 1 each Discontinued Medications Albuterol (Proventil Neb Soln) 2.5 mg NEB ONETIME ONE Stop: 10/07/17 09:31 Last Admin: 10/07/17 10:31 Dose: 2.5 mg Bumetanide (Bumex) 2 mg IVPUSH DAILY [facility] Last Admin: 10/08/17 09:17 Dose: 2 mg Bumetanide (Bumex) 2 mg IVPUSH ONETIME ONE Stop: 10/07/17 16:01 Last Admin: 10/07/17 15:42 Dose: 2 mg Furosemide (Lasix) 60 mg IVPUSH ONETIME ONE Stop: 10/07/17 09:40 Last Admin: 10/07/17 10:24 Dose: 60 mg Nitroglycerin/Dextrose (Nitroglycerin 25 Mg/D5w 250 Ml) 25 mg in 250 mls @ 3 mls/hr IV TITRATE [facility]; 5 MCG/MIN PRN Reason: Protocol Last Admin: 10/07/17 10:44 Dose: 5 mcg/min, 3 mls/hr Insulin Aspart (Novolog) 10 unit SUBCUT TIDMEALS [facility] Last Admin: 10/09/17 08:04 Dose: 10 units Insulin Aspart (Novolog) 0 unit SUBCUT QIDACANDBED [facility] PRN Reason: Protocol Last Admin: 10/09/17 21:22 Dose: Not Given Insulin Aspart (Novolog) 7 unit SUBCUT TIDMEALS [facility] Last Admin: 10/09/17 17:06 Dose: 7 units Insulin Detemir (Levemir) 35 unit SUBCUT DAILY [facility] Last Admin: 10/09/17 08:49 Dose: 35 units Insulin Detemir (Levemir) 30 unit SUBCUT DAILY [facility] Last Admin: 10/11/17 09:19 Dose: 30 units Temazepam (Restoril) 15 - 30 mg PO BEDTIME PRN PRN Reason: Sleep Last Admin: 10/09/17 21:36 Dose: 30 mg - Exam Quality Assessment: Supplemental Oxygen, DVT Prophylaxis General: Alert, Oriented, Cooperative, No Acute Distress Lungs: Clear to Auscultation, Normal Respiratory Effort Cardiovascular: Regular Rate, Regular Rhythm, No Murmurs GI/Abdominal Exam: Soft, Non-Tender, No Organomegaly, No Distention Extremities: Non-Tender, Pedal Edema Skin: Warm, Dry - Problem List Review Problem List Initiated/Reviewed/Updated: Yes - My Orders Last 24 Hours: My Active Orders 10/12/17 09:00 Insulin Detemir [Levemir] 24 unit SUBCUT DAILY 10/13/17 05:00 BASIC METABOLIC PANEL,BMP [CHEM] Timed - Plan Plan:: ASSESSMENT AND PLAN - Acute on chronic systolic congestive heart failure exacerbation - ongoing good diuresis with marked improvement in peripheral edema although not totally resolved. -Twice daily diuresis with bumetanide -Continue beta evelio and BILLIE inhibitor -Daily weights with strict intake and output monitoring -Supplement oxygen Acute kidney injury - creatinine at baseline following diuresis -Diuresis as above -Labs in the morning -Close monitoring of intake and output Insulin-dependent diabetes mellitus with hypoglycemia - glucose levels have still been trending somewhat low -Decrease long-acting insulin to 24 units -Discontinue mealtime insulin -Low dose sliding scale -Reassess insulin dosing tomorrow Oxygen dependent COPD -continues to require higher level of supplemental oxygen compared to baseline -Continue home meds -Scheduled and as needed nebulizers BPH - no issues with urinary retention so far. -Continue tamsulosin Bipolar disorder - well compensated at this time. -Continue home medications Maintenance issues - - DVT prophylaxis - enoxaparin - GI prophylaxis - PPI - Nutrition - Vegan - Jung catheter - Not indicated at this time Disposition - anticipate discharge home tomorrow Primary care physician - Giovanni Bird
[2017-10-12] MEDS: Temazepam 15 MG Cap PO SCH (17:05)
[2017-10-12] MEDS: atorvaSTATin 20 MG Tab PO SCH (20:59)
[2017-10-12] MEDS: traZODone 50 MG Tab PO SCH (20:59)
[2017-10-13] MEDS: Arformoterol 15 MCG/2 ML Neb Soln NEB SCH (07:23)
[2017-10-13] MEDS: Albuterol/Ipratropium 3.0-0.5 MG/3 ML Neb Soln NEB SCH ×2 (07:23→10:58)
[2017-10-13] MEDS: Tiotropium Inhaler 18 MCG Inhalation Powder Cap Kit of 5 INH SCH (07:23)
[2017-10-13] MEDS: Pantoprazole 40 MG Tab.CR PO SCH (07:27)
[2017-10-13] MEDS: Insulin Aspart 100 Units/ML 3 ML Pen SUBCUT SCH ×2 (07:32→11:53)
[2017-10-13] MEDS: Bumetanide 2.5 MG/10 ML MDV IVPUSH SCH (07:36)
[2017-10-13] MEDS: ARIPiprazole 10 MG Tab PO SCH (08:34)
[2017-10-13] MEDS: Tamsulosin 0.4 MG Cap.ER PO SCH (08:35)
[2017-10-13] MEDS: Insulin Detemir 100 Units/ML 3 ML Pen SUBCUT SCH (08:35)
[2017-10-13] MEDS: Aspirin 81 MG Tab.EC PO SCH (08:35)
[2017-10-13] MEDS: Folic Acid 1 MG Tab PO SCH (08:35)
[2017-10-13] MEDS: Escitalopram 20 MG Tab PO SCH (08:37)
[2017-10-13] MEDS: Enoxaparin 40 MG/0.4 ML Syringe SUBCUT SCH (08:38)
[2017-10-13] MEDS: Vitamin B Complex Tab PO SCH (08:39)
[2017-10-13] MEDS: Metoprolol Succinate 25 MG Tab.ER PO SCH (08:39)
--- NOTE | 2017-10-13 10:27 | PCM.DCSUM1 ---
Discharge Summary - Hospital Course Brief History: Mr. mccauley is a 67-year-old gentleman who was admitted through the emergency room with hypoxia and shortness of breath secondary to pulmonary edema from congestive heart failure as well as severe peripheral edema. - Discharge Data Discharge Date: 10/13/17 Discharge Disposition: Home, Self-Care 01 Condition: Fair - Discharge Diagnosis/Problem(s) (1) Hypoxia SNOMED Code(s): 938126720 ICD Code: R09.02 - HYPOXEMIA Status: Acute Current Visit: Yes (2) Acute systolic congestive heart failure, NYHA class 3 SNOMED Code(s): 832289818 ICD Code: I50.21 - ACUTE SYSTOLIC (CONGESTIVE) HEART FAILURE Status: Acute Current Visit: Yes (3) COPD (chronic obstructive pulmonary disease) SNOMED Code(s): 94699628 ICD Code: J44.9 - CHRONIC OBSTRUCTIVE PULMONARY DISEASE, UNSPECIFIED Status : Chronic Current Visit: No Qualifiers: COPD type: unspecified COPD Qualified Code(s): J44.9 - Chronic obstructive pulmonary disease, unspecified (4) CKD (chronic kidney disease) stage 3, GFR 30-59 ml/min SNOMED Code(s): 743491369 ICD Code: N18.3 - CHRONIC KIDNEY DISEASE, STAGE 3 (MODERATE) Status: Chronic Current Visit: No (5) Bipolar 1 disorder SNOMED Code(s): 245107268 ICD Code: F31.9 - BIPOLAR DISORDER, UNSPECIFIED Status: Chronic Current Visit: No - Patient Summary/Data Consults: Consultations 10/08/17 07:00 PT Evaluation and Treatment [CONS] Routine Please Evaluate and Treat. PT Reason for Consult: Strengthening This query below is only for informational purposes and is not editable. Hospital Course: Mr. mccauley is a 67-year-old gentleman who has a known history of multiple medical problems. At baseline he has severe COPD and requires use of continuous oxygen. Prior to admission he became progressively more short of breath with increase in peripheral edema. On evaluation in the emergency department was noted to have significant peripheral edema as well as pulmonary edema on chest x -ray. Echocardiogram obtained within the past few months did show evidence of decreased left ventricular function with estimated ejection fraction of 40-50%. On evaluation there was no evidence of significant COPD exacerbation or underlying infection. He was admitted to the hospital and placed on a 2 g sodium diabetic diet as well as regularly scheduled IV diuretic therapy with Bumex. Over the next several days of hospital stay he did diurese approximately 15 L and noted marked improvement in his shortness of breath as well as peripheral edema. Glucose levels were monitored closely throughout hospital stay he was noted to have significant hypoxia on usual doses of insulin. Short acting insulin was held in his dose of long-acting insulin was decreased to 24 units. At the time of discharge will be just on long acting insulin. Is instructed on the importance of following a 2 g sodium diet and will weigh himself daily after discharge. If weight goes up 3-4 pounds over a few days he will notify his primary care provider. He will be discharged on Bumex 4 mg by mouth daily and will have follow-up appointment with his primary care provider within one week. BMP will be obtained at the time of follow-up appointment. Activity will be as tolerated and he will be on a 2 g sodium, consistent carb diet. - Patient Instructions Diet: Low Sodium, Diabetic Diet Activity: As Tolerated Other/Special Instructions: Patient should weigh himself daily after discharge, notify provider if weight goes up 3-4 pounds over a few days. Please schedule follow-up appointment with primary care provider within one week. Laboratory test should be obtained at the time of follow-up appointment including BMP. Please review with patient carefully changes in insulin therapy and diuretic. - Discharge Plan Prescriptions/Med Rec: Bumetanide [Bumex] 4 mg PO DAILY #30 tab Home Medications: Home Meds ARIPiprazole [Abilify] 15 mg PO DAILY 08/23/14 [History] Arformoterol [Brovana] 1 dose NEB BID 08/23/14 [History] Aspirin [Halfprin] 81 mg PO DAILY 08/23/14 [History] Cholecalciferol (Vitamin D3) [Vitamin D3] 2,000 unit PO DAILY 08/23/14 [History] Escitalopram [Lexapro] 20 mg PO DAILY 08/23/14 [History] Folic Acid 1 mg PO DAILY 08/23/14 [History] Omeprazole 40 mg PO DAILY 08/23/14 [History] Ramipril [Altace] 10 mg PO DAILY 08/23/14 [History] Tamsulosin [Flomax] 0.4 mg PO DAILY 08/23/14 [History] Temazepam [Restoril] 60 mg PO BEDTIME PRN 08/23/14 [History] Tiotropium [Spiriva HandiHaler] 18 mcg INH DAILY 08/23/14 [History] Vitamin B Complex 1 each PO DAILY 08/23/14 [History] atorvaSTATin [Lipitor] 20 mg PO BEDTIME 08/23/14 [History] traZODone 100 mg PO BEDTIME 08/23/14 [History] Metolazone 2.5 mg PO DAILY PRN 07/04/17 [History] Metoprolol Succinate 25 mg PO DAILY 07/04/17 [History] Bumetanide [Bumex] 4 mg PO DAILY #30 tab 10/13/17 [Rx] Insulin Detemir [Levemir] 24 unit SUBCUT DAILY pen 10/13/17 [Rx] Patient Handouts: Incentive Spirometer, Heart Failure, [id number] Forms: ED Department Discharge Referrals: Arelis Perez PA [Primary Care Provider] - - Patient Data Vitals - Most Recent: Last Vital Signs Temp 96.8 F 10/13/17 03:00 Pulse 72 10/13/17 08:39 Resp 18 10/13/17 03:00 BP 113/62 10/13/17 08:39 Pulse Ox 87 L 10/13/17 03:00 Weight - Most Recent: 293 lb 12.8 oz I&O - Last 24 hours: Intake & Output 10/12/17 10/13/17 10/13/17 22:59 06:59 14:59 Intake Total 820 600 Output Total 1150 1200 Balance -330 -1200 600 Lab Results - Last 24 hrs: Laboratory Results - last 24 hr 10/13/17 Range/Units 04:20 Sodium 142 (140-148) mmol/L Potassium 3.8 (3.6-5.2) mmol/L Chloride 100 (100-108) mmol/L Carbon Dioxide 36 H (21-32) mmol/L Anion Gap 9.8 (5.0-14.0) mmol/L BUN 35 H (7-18) mg/dL Creatinine 1.6 H (0.8-1.3) mg/dL Est Cr Clr Drug Dosing 46.89 mL/min Estimated GFR (MDRD) 43 L (>60) Glucose 131 H (74-106) mg/dL Calcium 9.1 (8.5-10.1) mg/dL Med Orders - Current: Current Medications Acetaminophen (Tylenol) 650 mg PO Q4H PRN PRN Reason: Pain (Mild 1-3)/fever Last Admin: 10/09/17 00:15 Dose: 650 mg Albuterol (Proventil Neb Soln) 2.5 mg NEB Q4H PRN PRN Reason: Shortness Of Breath/wheezing Albuterol/Ipratropium (Duoneb 3.0-0.5 Mg/3 Ml) 3 ml NEB QIDRT [facility] [place] Last Admin: 10/13/17 07:23 Dose: 3 ml Arformoterol Tartrate (Brovana) 15 mcg NEB BIDRT [facility] [place] Last Admin: 10/13/17 07:23 Dose: 15 mcg Aripiprazole (Abilify) 15 mg PO DAILY [facility] [place] Last Admin: 10/13/17 08:34 Dose: 15 mg Aspirin (Halfprin) 81 mg PO DAILY [facility] [place] Last Admin: 10/13/17 08:35 Dose: 81 mg Atorvastatin Calcium (Lipitor) 20 mg PO BEDTIME [facility] [place] Last Admin: 10/12/17 20:59 Dose: 20 mg Enoxaparin Sodium (Lovenox) 40 mg SUBCUT DAILY [facility] [place] Last Admin: 10/13/17 08:38 Dose: 40 mg Escitalopram Oxalate (Lexapro) 20 mg PO DAILY [facility] [place] Last Admin: 10/13/17 08:37 Dose: 20 mg Folic Acid (Folic Acid) 1 mg PO DAILY [facility] [place] Last Admin: 10/13/17 08:35 Dose: 1 mg Insulin Aspart (Novolog) 0 unit SUBCUT QIDACANDBED [facility] [place] PRN Reason: Protocol Last Admin: 10/13/17 07:32 Dose: Not Given Insulin Detemir (Levemir) 24 unit SUBCUT DAILY [facility] [place] Last Admin: 10/13/17 08:35 Dose: 24 unit Metoprolol Succinate (Toprol Xl) 25 mg PO DAILY [facility] [place] Last Admin: 10/13/17 08:39 Dose: 25 mg Ondansetron HCl (Zofran Odt) 4 mg PO Q6H PRN PRN Reason: Nausea able to take PO Ondansetron HCl (Zofran) 4 mg IV Q6H PRN PRN Reason: Nausea/Vomiting Oxycodone HCl (Oxycodone) 5 mg PO Q4H PRN PRN Reason: Pain (moderate 4-6) Pantoprazole Sodium (Protonix) 40 mg PO ACBREAKFAST [facility] [place] Last Admin: 10/13/17 07:27 Dose: 40 mg Polyethylene Glycol (Miralax) 17 gm PO DAILY PRN PRN Reason: Constipation Ramipril (Altace) 10 mg PO DAILY [facility] [place] Last Admin: 10/13/17 08:34 Dose: 10 mg Senna/Docusate Sodium (Senna Plus) 1 tab PO BID PRN PRN Reason: Constipation Sodium Chloride (Saline Flush) 10 ml FLUSH ASDIRECTED PRN PRN Reason: Keep Vein Open Last Admin: 10/07/17 10:29 Dose: 10 ml Tamsulosin HCl (Flomax) 0.4 mg PO DAILY [facility] [place] Last Admin: 10/13/17 08:35 Dose: 0.4 mg Temazepam (Restoril) 30 mg PO QPM [facility] [place] Last Admin: 10/12/17 17:05 Dose: 30 mg Tiotropium [place] (Spiriva Handihaler) 18 mcg INH DAILY@0700 [facility] [place] Last Admin: 10/13/17 07:23 Dose: 18 mcg Trazodone HCl (Trazodone) 100 mg PO BEDTIME [facility] [place] Last Admin: 10/12/17 20:59 Dose: 100 mg Vitamin B Complex (Vitamin B Complex) 1 each PO DAILY [facility] [place] Last Admin: 10/13/17 08:39 Dose: 1 each Discontinued Medications Albuterol (Proventil Neb Soln) 2.5 mg NEB ONETIME ONE Stop: 10/07/17 09:31 Last Admin: 10/07/17 10:31 Dose: 2.5 mg Bumetanide (Bumex) 2 mg IVPUSH DAILY [facility] [place] Last Admin: 10/08/17 09:17 Dose: 2 mg Bumetanide (Bumex) 2 mg IVPUSH ONETIME ONE Stop: 10/07/17 16:01 Last Admin: 10/07/17 15:42 Dose: 2 mg Bumetanide (Bumex) 2 mg IVPUSH BIDDIURETIC [facility] [place] Last Admin: 10/13/17 07:36 Dose: 2 mg Furosemide (Lasix) 60 mg IVPUSH ONETIME ONE Stop: 10/07/17 09:40 Last Admin: 10/07/17 10:24 Dose: 60 mg Nitroglycerin/Dextrose (Nitroglycerin 25 Mg/D5w 250 Ml) 25 mg in 250 mls @ 3 mls/hr IV TITRATE YOAN; 5 MCG/MIN PRN Reason: Protocol Last Admin: 10/07/17 10:44 Dose: 5 mcg/min, 3 mls/hr Insulin Aspart (Novolog) 10 unit SUBCUT TIDMEALS [facility] [place] Last Admin: 10/09/17 08:04 Dose: 10 units Insulin Aspart (Novolog) 0 unit SUBCUT QIDACANDBED [facility] [place] PRN Reason: Protocol Last Admin: 10/09/17 21:22 Dose: Not Given Insulin Aspart (Novolog) 7 unit SUBCUT TIDMEALS [facility] [place] Last Admin: 10/09/17 17:06 Dose: 7 units Insulin Detemir (Levemir) 35 unit SUBCUT DAILY [facility] [place] Last Admin: 10/09/17 08:49 Dose: 35 units Insulin Detemir (Levemir) 30 unit SUBCUT DAILY [facility] [place] Last Admin: 10/11/17 09:19 Dose: 30 units Temazepam (Restoril) 15 - 30 mg PO BEDTIME PRN PRN Reason: Sleep Last Admin: 10/09/17 21:36 Dose: 30 mg *Q Meaningful Use (DIS) - VTE *Q VTE Criteria *Q: - Stroke *Q Stroke Criteria *Q: - AMI *Q AMI Criteria *Q:
== END 2017-10-13 11:50 | disposition home or self-care (01) | DRG 291 ==
LOC: JP.ED 08:39 → JP.MS 12:53
PROVIDERS: ADMIT Internal Medicine; ATTEND Hospitalist
DX: I50.23 Acute on chronic systolic (congestive) heart failure (principal); J96.21 Acute and chronic respiratory failure with hypoxia; J96.22 Acute and chronic respiratory failure with hypercapnia; E11.21 Type 2 diabetes mellitus with diabetic nephropathy; N17.9 Acute kidney failure, unspecified; J44.9 Chronic obstructive pulmonary disease, unspecified; E11.22 Type 2 diabetes mellitus with diabetic chronic kidney disease; E11.649 Type 2 diabetes mellitus with hypoglycemia without coma; Z99.81 Dependence on supplemental oxygen; N18.9 Chronic kidney disease, unspecified; F31.9 Bipolar disorder, unspecified; Z79.4 Long term (current) use of insulin; R06.02 Shortness of breath; F41.9 Anxiety disorder, unspecified; M19.90 Unspecified osteoarthritis, unspecified site; N40.1 Benign prostatic hyperplasia with lower urinary tract symptoms; R39.14 Feeling of incomplete bladder emptying; K21.9 Gastro-esophageal reflux disease without esophagitis; G47.30 Sleep apnea, unspecified; E78.00 Pure hypercholesterolemia, unspecified; H54.7 Unspecified visual loss; Z88.1 Allergy status to other antibiotic agents; Z79.82 Long term (current) use of aspirin; Z72.89 Other problems related to lifestyle
CPT/HCPCS: 36415; 36600; 71045 ×2; 71250 ×2; 80053; 82803; 83880; 84484; 85025; 93005; 93010 ×2; 94640; 96365; 96366; 96375; 99285; J1940; J7050 ×2; 80048; 81001; 82962; 83735; 85027; 94664; 97110-GP; 97116-GP; 97161-GP; 97530-GP; A9270-GY; J1650; J7605; J7620; S0171

== ENCOUNTER 2018-03-27 20:32 | Emergency (ER) | payer MEDICARE, BC ==
--- NOTE | 2018-03-27 21:24 | EDM.PDOC ---
ED HPI GENERAL MEDICAL PROBLEM - General Chief Complaint: Respiratory Problem Stated Complaint: SOB Time Seen by Provider: 03/27/18 21:08 Source of Information: Reports: Patient, Old Records, RN Notes Reviewed History Limitations: Reports: No Limitations - History of Present Illness INITIAL COMMENTS - FREE TEXT/NARRATIVE: Drove himself here Chief complaint Short of breath History of present illness 68-year-old male, never smoker, with COPD first many years, on home oxygen usually at 4 L/m. Increased shortness of breath over the last week with some cough and some green phlegm. No fever no vomiting oximeter reading low when he was seen elsewhere in the walk-in clinic and in emergency earlier today. Knots evaluate by physician as he didn't want to wait any longer. Decided to come here. Uses a wheelchair for ambulation In addition to his COPD he has had heart failure but no heart attack, chronic renal insufficiency type 2 diabetes with peripheral neuropathy and bipolar disorder. His COPD perhaps is due to smoke exposure or due to his 30 years of [employer]. Does have inhalers at home. Also uses a BiPAP machine at night Denies Pain Score (Numeric/FACES): 0 - Related Data Allergies Allergy/AdvReac Type Severity Reaction Status Date / Time vancomycin Allergy Severe Anaphylactic Verified 03/27/18 20:46 Shock Home Meds: Home Meds ARIPiprazole [Abilify] 15 mg PO DAILY 08/23/14 [History] Arformoterol [Brovana] 1 dose NEB BID 08/23/14 [History] Aspirin [Halfprin] 81 mg PO DAILY 08/23/14 [History] Cholecalciferol (Vitamin D3) [Vitamin D3] 2,000 unit PO DAILY 08/23/14 [History] Escitalopram [Lexapro] 20 mg PO DAILY 08/23/14 [History] Folic Acid 1 mg PO DAILY 08/23/14 [History] Omeprazole 40 mg PO DAILY 08/23/14 [History] Ramipril [Altace] 10 mg PO DAILY 08/23/14 [History] Tamsulosin [Flomax] 0.4 mg PO DAILY 08/23/14 [History] Temazepam [Restoril] 45 mg PO BEDTIME PRN 08/23/14 [History] Tiotropium [Spiriva HandiHaler] 18 mcg INH DAILY 08/23/14 [History] Vitamin B Complex 1 each PO DAILY 08/23/14 [History] atorvaSTATin [Lipitor] 20 mg PO BEDTIME 08/23/14 [History] traZODone 100 mg PO BEDTIME 08/23/14 [History] Metolazone 2.5 mg PO DAILY PRN 07/04/17 [History] Metoprolol Succinate 25 mg PO DAILY 07/04/17 [History] Bumetanide [Bumex] 4 mg PO DAILY #30 tab 10/13/17 [Rx] Doxycycline Monohydrate 100 mg PO BID #20 capsule 03/27/18 [Rx] Insulin Detemir [Levemir] 30 unit SUBCUT DAILY 03/27/18 [History] Insulin Lispro [HumaLOG] 100 unit SQ DAILY 03/27/18 [History] Past Medical History HEENT History: Reports: Impaired Vision Cardiovascular History: Reports: Heart Failure, High Cholesterol Respiratory History: Reports: COPD, Sleep Apnea, Other (See Below) Other Respiratory History: home O2 Gastrointestinal History: Reports: GERD Genitourinary History: Reports: BPH, Chronic Renal Insuffiency, Diabetic Nephropathy Musculoskeletal History: Reports: Gout, Osteoarthritis Neurological History: Reports: Neuropathy, Diabetic, Other (See Below) Other Neuro History: tremor Psychiatric History: Reports: Anxiety, Bipolar, Depression, Other (See Below) Other Psychiatric History: insomnia Endocrine/Metabolic History: Reports: Diabetes, Type II Hematologic History: Reports: Anemia Immunologic History: Reports: Other (See Below) Other Immunologic History: intubated, unable to obtain Oncologic (Cancer) History: Reports: Other (See Below) Other Oncologic History: intubated unable to obtain - Infectious Disease History Infectious Disease History: Reports: Chicken Pox Other Infectious Disease History: intubated, unable to obtain - Past Surgical History Cardiovascular Surgical History: Reports: Other (See Below) Other Cardiovascular Surgeries/Procedures: pt intubated, unsure Respiratory Surgical History: Reports: Other (See Below) Other Respiratory Surgeries/Procedures: intubated, unsure GI Surgical History: Reports: Other (See Below) Other GI Surgeries/Procedures: intubated, unsure of history. splenectomy Male Surgical History: Reports: Other (See Below) Other Male Surgeries/Procedures: intubated, unsure Neurological Surgical History: Reports: Other (See Below) Other Neurological Surgeries/Procedures: unsure, intubated Musculoskeletal Surgical History: Reports: Other (See Below) Other Musculoskeletal Surgeries/Procedures:: intubated, unsure Social & Family History - Family History Family Medical History: Noncontributory - Tobacco Use Smoking Status *Q: Never Smoker Second Hand Smoke Exposure: No - Caffeine Use Caffeine Use: Reports: None - Alcohol Use Days Per Week of Alcohol Use: 7 Number of Drinks Per Day: 2 Total Drinks Per Week: 14 - Recreational Drug Use Recreational Drug Use: No ED ROS GENERAL - Review of Systems Review Of Systems: See Below Constitutional: Denies: Fever, Diaphoresis, Decreased Appetite HEENT: Reports: No Symptoms Respiratory: Reports: Shortness of Breath, Cough, Sputum Cardiovascular: Denies: Chest Pain, Palpitations GI/Abdominal: Reports: No Symptoms Musculoskeletal: Reports: No Symptoms Skin: Reports: No Symptoms Neurological: Reports: No Symptoms ED EXAM, GENERAL - Physical Exam Exam: See Below Exam Limited By: No Limitations General Appearance: Alert, No Apparent Distress, Other (Mildly increased respiratory rate but saturation 90-94% with oxygen, resting quietly, no audible wheezing) Eye Exam: Bilateral Eye: Normal Inspection Ears: Normal External Exam, Normal Canal, Normal TMs, Hearing Loss (Chronic) Nose: Normal Inspection, Normal Mucosa Throat/Mouth: Normal Inspection, Normal Oropharynx Head: Atraumatic, Normocephalic Neck: Normal Inspection. No: Lymphadenopathy (R), Lymphadenopathy (L) Respiratory/Chest: No Respiratory Distress, Normal Breath Sounds, No Accessory Muscle Use, Rales (Rare) Cardiovascular: Normal Peripheral Pulses, Regular Rate, Rhythm GI/Abdominal: Normal Bowel Sounds, Non-Tender Neurological: Alert, Oriented, Normal Cognition Psychiatric: Normal Mood Skin Exam: Warm, Dry, Intact, Normal Color, No Rash Course - Vital Signs Last Recorded V/S: Last Vital Signs Temp 36.9 C 03/27/18 20:58 Pulse 71 03/27/18 22:05 Resp 16 03/27/18 22:05 BP 112/53 L 03/27/18 22:05 Pulse Ox 93 L 03/27/18 22:05 - Orders/Labs/Meds Orders: Active Orders 24 hr Category Date Time Status Chest 2V [CR] Stat Exams 03/27/18 21:21 Taken - Re-Assessments/Exams Free Text/Narrative Re-Assessment/Exam: 03/27/18 21:23 68-year-old male with CHF and COPD, presenting with increased cough and shortness of breath over the last week. No signs of sepsis on exam Lungs actually sound consuming clear and his saturation level here is 94%. Chest x-ray 03/27/18 22:12 Chronic interstitial changes, no obvious pneumonia but difficult to assess Saturation level remained stable here in emergency Discharge home Levaquin 500 mg daily See discharge instructions Departure - Departure Time of Disposition: 22:12 Disposition: Home, Self-Care 01 Condition: Good Clinical Impression: COPD with exacerbation - Discharge Information Prescriptions: Doxycycline Monohydrate 100 mg PO BID #20 capsule Instructions: Chronic Obstructive Pulmonary Disease Referrals: Arelis Perez PA [Primary Care Provider] - Forms: ED Department Discharge Additional Instructions: Return to emergency if you develop fever, increased shortness of breath, chest pain, or recurrent vomiting. - My Orders Last 24 Hours: My Active Orders 03/27/18 21:21 Chest 2V [CR] Stat - Assessment/Plan Last 24 Hours: My Active Orders 03/27/18 21:21 Chest 2V [CR] Stat
--- NOTE | 2018-03-28 08:38 | CR ---
CHEST: 2 view CLINICAL HISTORY:Shortness of breath COMPARISON:10/07/2017 FINDINGS: The heart is enlarged. Pulmonary vascularity is cephalized. There is persistent left later al pleural thickening and the posterior pleural-based density similar to 2017 studies. There are athe rosclerotic changes in the aorta.. IMPRESSION: Cardiomegaly with vascular cephalization may represent some pulmonary venous hypertensio n Chronic lateral and posterior pleural parenchymal densities in the left lung when compared to prior s [place]
== END 2018-03-27 22:36 | disposition home or self-care (01) ==
LOC: JP.ED 20:32
DX: J44.1 Chronic obstructive pulmonary disease with (acute) exacerbation (principal); I50.9 Heart failure, unspecified; E78.00 Pure hypercholesterolemia, unspecified; E11.40 Type 2 diabetes mellitus with diabetic neuropathy, unspecified; E11.22 Type 2 diabetes mellitus with diabetic chronic kidney disease; N18.9 Chronic kidney disease, unspecified; F41.9 Anxiety disorder, unspecified; F31.9 Bipolar disorder, unspecified; M19.90 Unspecified osteoarthritis, unspecified site; D64.9 Anemia, unspecified; Z79.899 Other long term (current) drug therapy; Z79.4 Long term (current) use of insulin; Z79.82 Long term (current) use of aspirin; Z88.1 Allergy status to other antibiotic agents
CPT/HCPCS: 71046; 71046-26; 99285

== ENCOUNTER 2018-11-24 18:33 | Emergency (ER) | payer MEDICARE, BC ==
--- NOTE | 2018-11-24 19:35 | EDM.PDOC ---
<Susan Oreilly - Last Filed: 11/24/18 20:13> ED HPI GENERAL MEDICAL PROBLEM - General Chief Complaint: Respiratory Problem Stated Complaint: SOB Time Seen by Provider: 11/24/18 19:15 Source of Information: Reports: Patient History Limitations: Reports: No Limitations - History of Present Illness INITIAL COMMENTS - FREE TEXT/NARRATIVE: Lamont Kruse is a 68 year old male who presents to the ED with concerns of shortness of breath, which started 5 days ago. He states upon activity he has to rest often due to feeling short of breath. He denies change in bowel, change in urination, chest pain, and edema. He states he does have a mild cough. He notes feeling more fatigued. He also notes orthopnea. denies pain Pain Score (Numeric/FACES): 0 - Related Data Allergies Allergy/AdvReac Type Severity Reaction Status Date / Time vancomycin Allergy Severe Anaphylactic Verified 11/24/18 18:57 Shock Sulfa (Sulfonamide Allergy Cannot Verified 11/24/18 19:19 Antibiotics) Remember Home Meds: Home Meds ARIPiprazole [Abilify] 15 mg PO DAILY 08/23/14 [History] Arformoterol [Brovana] 1 dose NEB BID 08/23/14 [History] Aspirin [Halfprin] 81 mg PO DAILY 08/23/14 [History] Cholecalciferol (Vitamin D3) [Vitamin D3] 2,000 unit PO DAILY 08/23/14 [History] Escitalopram [Lexapro] 20 mg PO DAILY 08/23/14 [History] Folic Acid 1 mg PO DAILY 08/23/14 [History] Omeprazole 40 mg PO DAILY 08/23/14 [History] Ramipril [Altace] 10 mg PO DAILY 08/23/14 [History] Tamsulosin [Flomax] 0.4 mg PO DAILY 08/23/14 [History] Tiotropium [Spiriva HandiHaler] 18 mcg INH DAILY 08/23/14 [History] Vitamin B Complex 1 each PO DAILY 08/23/14 [History] atorvaSTATin [Lipitor] 40 mg PO BEDTIME 08/23/14 [History] traZODone 100 mg PO BEDTIME 08/23/14 [History] Metoprolol Succinate 25 mg PO DAILY 07/04/17 [History] metOLazone [Metolazone] 2.5 mg PO DAILY PRN 07/04/17 [History] Bumetanide [Bumex] 4 mg PO DAILY #30 tab 10/13/17 [Rx] Insulin Detemir [Levemir] 30 unit SUBCUT DAILY 03/27/18 [History] Insulin Lispro [HumaLOG] 28 - 30 unit SQ BID 03/27/18 [History] Allopurinol [Zyloprim] 300 mg PO DAILY 11/24/18 [History] Temazepam 30 mg PO BEDTIME PRN 11/24/18 [History] Past Medical History HEENT History: Reports: Impaired Vision Cardiovascular History: Reports: Heart Failure, High Cholesterol Respiratory History: Reports: COPD, Sleep Apnea, Other (See Below) Other Respiratory History: home O2 Gastrointestinal History: Reports: GERD Genitourinary History: Reports: BPH, Chronic Renal Insuffiency, Diabetic Nephropathy Musculoskeletal History: Reports: Gout, Osteoarthritis Neurological History: Reports: Neuropathy, Diabetic, Other (See Below) Other Neuro History: tremor Psychiatric History: Reports: Anxiety, Bipolar, Depression, Other (See Below) Other Psychiatric History: insomnia Endocrine/Metabolic History: Reports: Diabetes, Type II Hematologic History: Reports: Anemia Immunologic History: Reports: Other (See Below) Other Immunologic History: intubated, unable to obtain Oncologic (Cancer) History: Reports: Other (See Below) Other Oncologic History: intubated unable to obtain - Infectious Disease History Infectious Disease History: Reports: Chicken Pox Other Infectious Disease History: intubated, unable to obtain - Past Surgical History GI Surgical History: Reports: Other (See Below) Other GI Surgeries/Procedures: partial spleenectomy and pancrectomy Social & Family History - Family History Family Medical History: Noncontributory - Tobacco Use Smoking Status *Q: Never Smoker - Caffeine Use Caffeine Use: Reports: None - Alcohol Use Date of Last Drink: 05/29/18 - Recreational Drug Use Recreational Drug Use: No ED ROS GENERAL - Review of Systems Review Of Systems: See Below Constitutional: Reports: Weakness, Fatigue. Denies: Fever, Chills HEENT: Reports: Hearing Loss. Denies: Ear Pain, Eye Discharge, Rhinitis, Sinus Problem, Throat Pain Respiratory: Reports: Shortness of Breath, Wheezing, Cough. Denies: Sputum Cardiovascular: Reports: Dyspnea on Exertion. Denies: Chest Pain, Edema GI/Abdominal: Denies: Abdominal Pain, Constipation, Nausea, Vomiting Skin: Reports: No Symptoms Neurological: Reports: No Symptoms Psychiatric: Reports: No Symptoms ED EXAM, GENERAL - Physical Exam Exam: See Below Exam Limited By: No Limitations General Appearance: Alert, WD/WN, No Apparent Distress Ears: Normal External Exam, Normal Canal, Normal TMs, Hearing Loss Nose: Normal Inspection Throat/Mouth: Normal Gums, Normal Oropharynx Head: Atraumatic, Normocephalic Neck: Normal Inspection Respiratory/Chest: Decreased Breath Sounds (Fine crackles in bilateral lower lobes), Other Cardiovascular: Regular Rate, Rhythm, No Edema, Other (distant heart sounds) Extremities: Normal Inspection, No Pedal Edema Neurological: Alert, Oriented Psychiatric: Normal Affect Skin Exam: Warm, Intact, No Rash Course - Vital Signs Last Recorded V/S: Last Vital Signs Temp 98.0 F 11/24/18 18:58 Pulse 63 11/24/18 19:39 Resp 18 11/24/18 18:58 BP 106/58 L 11/24/18 19:39 Pulse Ox 93 L 11/24/18 19:39 - Orders/Labs/Meds Labs: Laboratory Tests 11/24/18 11/24/18 Range/Units 19:41 19:41 WBC 7.2 (4.5-11.0) K/uL RBC 5.21 (4.30-5.90) M/uL Hgb 14.7 D (12.0-15.0) g/dL Hct 46.7 (40.0-54.0) % MCV 90 (80-98) fL MCH 28 (27-31) pg MCHC 32 (32-36) % Plt Count 378 (150-400) K/uL Neut % (Auto) 53 (36-66) % Lymph % (Auto) 28 (24-44) % [place] % (Auto) 16 H (2-6) % Eos % (Auto) 4 (2-4) % Baso % (Auto) 0 (0-1) % Sodium 138 L (140-148) mmol/L Potassium 3.6 (3.6-5.2) mmol/L Chloride 98 L (100-108) mmol/L Carbon Dioxide 37 H (21-32) mmol/L Anion Gap 6.6 (5.0-14.0) mmol/L BUN 32 H (7-18) mg/dL Creatinine 1.4 H (0.8-1.3) mg/dL Est Cr Clr Drug Dosing 52.87 mL/min Estimated GFR (MDRD) 51 L (>60) Glucose 66 L (74-106) mg/dL Calcium 9.6 (8.5-10.1) mg/dL Total Bilirubin 0.7 (0.2-1.0) mg/dL AST 25 (15-37) U/L ALT 19 (12-78) U/L Alkaline Phosphatase 148 H (46-116) U/L Troponin I 0.022 (0.000-0.056) ng/mL Total Protein 7.3 (6.4-8.2) g/dL Albumin 3.2 L (3.4-5.0) g/dL Globulin 4.1 H (2.3-3.5) g/dL Albumin/Globulin Ratio 0.8 L (1.2-2.2) Departure - Departure Time of Disposition: 20:13 Disposition: Home, Self-Care 01 Clinical Impression: Bronchitis Congestive heart failure Qualifiers: Heart failure type: combined systolic and diastolic Heart failure chronicity: acute on chronic Qualified Code(s): I50.43 - Acute on chronic combined systolic (congestive) and diastolic (congestive) heart failure - Discharge Information Instructions: Shortness of Breath, Adult, [id number] Referrals: Elaine Marcos MD [Primary Care Provider] - Forms: ED Department Discharge Care Plan Goals: Take doxycycline twice daily until gone, take one extra metolazone tomorrow morning and be very careful about any extra salt. Recheck at any time if worsening especially increased shortness of breath, and consider rechecking next week with your regular doctor. <Rogelio Mehta - Last Filed: 11/25/18 06:05> Course - Re-Assessments/Exams Free Text/Narrative Re-Assessment/Exam: 11/25/18 06:03 Chest x-ray shows mild congestive heart failure and cardiomegaly. 11/25/18 06:04 Evaluation the patient by the nurse practitioner student was repeated by myself , notes reviewed and I concur with her assessment and plan. Departure - Departure Condition: Fair
--- NOTE | 2018-11-24 20:14 | CRLCR ---
HISTORY: Shortness of breath. TECHNIQUE: Two-view chest. COMPARISON: None. FINDINGS: Right hemidiaphragm is elevated. Blunting of the costophrenic angles bilaterally compatible small pleural effusion. Pulmonary vascular congestion. Retrocardiac left lower lobe consolidation. No pneumothorax. Cardiomediastinal silhouette is enlarged. Degenerative changes of the spine. Surgical clips in the upper abdomen. IMPRESSION: Vascular congestion and small bilateral pleural effusions. Left lower lobe consolidation, likely pneumonia or edema. Dictated by Riccardo Sanon MD @ Nov 24 2018 8:09PM Signed by Dr. Riccardo Sanon @ Nov 24 2018 8:13PM
== END 2018-11-24 20:19 | disposition home or self-care (01) ==
LOC: JP.ED 18:33
DX: I13.0 Hypertensive heart and chronic kidney disease with heart failure and stage 1 through stage 4 chronic kidney disease, or unspecified chronic kidney disease (principal); I50.43 Acute on chronic combined systolic (congestive) and diastolic (congestive) heart failure; N18.9 Chronic kidney disease, unspecified; E78.00 Pure hypercholesterolemia, unspecified; J40 Bronchitis, not specified as acute or chronic; E11.21 Type 2 diabetes mellitus with diabetic nephropathy; F31.9 Bipolar disorder, unspecified; Z88.1 Allergy status to other antibiotic agents; Z88.2 Allergy status to sulfonamides; Z79.899 Other long term (current) drug therapy; Z79.82 Long term (current) use of aspirin; Z79.4 Long term (current) use of insulin
CPT/HCPCS: 36415; 71046; 80053; 84484; 85025; 99285-25

== ENCOUNTER 2018-12-11 19:30 | Emergency (ER) | payer MEDICARE, BC ==
[2018-12-11] MEDS ORDERED: Albuterol/Ipratropium 3.0-0.5 MG/3 ML Neb Soln NEB ONE (20:12)
--- NOTE | 2018-12-11 20:16 | EDM.PDOC ---
ED HPI GENERAL MEDICAL PROBLEM - General Chief Complaint: Respiratory Problem Stated Complaint: SOB Time Seen by Provider: 12/11/18 20:03 Source of Information: Reports: Patient, RN Notes Reviewed History Limitations: Reports: No Limitations - History of Present Illness INITIAL COMMENTS - FREE TEXT/NARRATIVE: 68-year-old gentleman presents to harm her today complaint of shortness of breath, he has a known history of congestive heart failure as well as COPD. Was evaluated in emergency department on 24 November at which time felt to be a COPD exacerbation started on doxycycline. He states he's had some good days and bad days however over the last 3 days he's had significantly more short of breath than usual has had increased his oxygen at home.. Was evaluated by his primary care Tuesday of last week was started on the medication of metolazone instructed to use as needed for weight gain. He does admit he has gained some weight with more shortness of breath took 1 dose of metolazone. Denies any fevers chest pain nausea or vomiting - Related Data Allergies Allergy/AdvReac Type Severity Reaction Status Date / Time vancomycin Allergy Severe Anaphylactic Verified 11/24/18 18:57 Shock Sulfa (Sulfonamide Allergy Cannot Verified 11/24/18 19:19 Antibiotics) Remember Home Meds: Home Meds Arformoterol [Brovana] 1 dose NEB BID 08/23/14 [History] Aspirin [Halfprin] 81 mg PO DAILY 08/23/14 [History] Cholecalciferol (Vitamin D3) [Vitamin D3] 2,000 unit PO DAILY 08/23/14 [History] Escitalopram [Lexapro] 20 mg PO DAILY 08/23/14 [History] Folic Acid 1 mg PO DAILY 08/23/14 [History] Omeprazole 40 mg PO DAILY 08/23/14 [History] Tamsulosin [Flomax] 0.4 mg PO DAILY 08/23/14 [History] Tiotropium [Spiriva HandiHaler] 18 mcg INH DAILY 08/23/14 [History] Vitamin B Complex 1 each PO DAILY 08/23/14 [History] atorvaSTATin [Lipitor] 40 mg PO BEDTIME 08/23/14 [History] traZODone 200 mg PO BEDTIME 08/23/14 [History] Metoprolol Succinate 25 mg PO DAILY 07/04/17 [History] metOLazone [Metolazone] 2.5 mg PO DAILY PRN 07/04/17 [History] Insulin Detemir [Levemir] 30 unit SUBCUT DAILY 03/27/18 [History] Insulin Lispro [HumaLOG] 28 - 30 unit SQ BID 03/27/18 [History] Allopurinol [Zyloprim] 300 mg PO DAILY 11/24/18 [History] Temazepam 30 mg PO BEDTIME PRN 11/24/18 [History] Past Medical History HEENT History: Reports: Impaired Vision Cardiovascular History: Reports: Heart Failure, High Cholesterol Respiratory History: Reports: COPD, Intubation, Previous, Sleep Apnea, Other ( See Below) Other Respiratory History: home O2 Gastrointestinal History: Reports: GERD Genitourinary History: Reports: BPH, Chronic Renal Insuffiency, Diabetic Nephropathy Musculoskeletal History: Reports: Gout, Osteoarthritis, Other (See Below) Other Musculoskeletal History: growth on the bottom of R foot. States it was placed in a brace 1 month ago to monitor Neurological History: Reports: Neuropathy, Diabetic, Other (See Below) Other Neuro History: tremor Psychiatric History: Reports: Anxiety, Bipolar, Depression, Other (See Below) Other Psychiatric History: insomnia Endocrine/Metabolic History: Reports: Diabetes, Type II Hematologic History: Reports: Anemia Other Hematologic History: hyperlipidemia Dermatologic History: Reports: Other (See Below) Other Dermatologic History: foot growth with brace in place - Infectious Disease History Infectious Disease History: Reports: Chicken Pox - Past Surgical History GI Surgical History: Reports: Other (See Below) 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 Denies: Fever, Chills HEENT: Reports: No Symptoms, Other Respiratory: Reports: Cough. Denies: Wheezing, Sputum Cardiovascular: Reports: Dyspnea on Exertion. Denies: Chest Pain GI/Abdominal: Reports: No Symptoms : Reports: No Symptoms Musculoskeletal: Reports: No Symptoms Skin: Reports: No Symptoms Neurological: Reports: No Symptoms ED EXAM, GENERAL - Physical Exam Exam: See Below Exam Limited By: No Limitations General Appearance: Alert, WD/WN, No Apparent Distress Neck: Normal Inspection, Supple, Non-Tender, Full Range of Motion Respiratory/Chest: No Accessory Muscle Use, Decreased Breath Sounds. No: Crackles, Rales, Rhonchi, Wheezing Cardiovascular: Regular Rate, Rhythm, No Murmur GI/Abdominal: Soft, Non-Tender Back Exam: Normal Inspection, Full Range of Motion. No: CVA Tenderness (R), CVA Tenderness (L) Extremities: Non-Tender, No Pedal Edema Course - Vital Signs Last Recorded V/S: Last Vital Signs Temp 97.5 F 12/11/18 19:36 Pulse 78 12/11/18 19:36 Resp 24 H 12/11/18 20:51 BP 128/66 12/11/18 20:51 Pulse Ox 92 L 12/11/18 20:51 - Orders/Labs/Meds Orders: Active Orders 24 hr Category Date Time Status Cardiac Monitoring [RC] .As Directed Care 12/11/18 20:11 Active EKG Documentation Completion [RC] ASDIRECTED Care 12/11/18 20:11 Active RT Aerosol Therapy [RC] ASDIRECTED Care 12/11/18 20:12 Active GLUCOSE POC LAB TO COLLECT [POC] Stat Lab 12/11/18 21:30 Ordered EKG 12 Lead [EK] Stat Ther 12/11/18 20:11 Ordered Labs: Laboratory Tests 12/11/18 12/11/18 12/11/18 Range/Units 20:26 20:26 20:26 WBC 9.6 (4.5-11.0) K/uL RBC 5.39 (4.30-5.90) M/uL Hgb 15.3 H (12.0-15.0) g/dL Hct 48.9 (40.0-54.0) % MCV 91 (80-98) fL MCH 28 (27-31) pg MCHC 31 L (32-36) % Plt Count 335 (150-400) K/uL Neut % (Auto) 63 (36-66) % Lymph % (Auto) 17 L (24-44) % [place] % (Auto) 16 H (2-6) % Eos % (Auto) 3 (2-4) % Baso % (Auto) 0 (0-1) % Sodium 141 (140-148) mmol/L Potassium 3.6 (3.6-5.2) mmol/L Chloride 98 L (100-108) mmol/L Carbon Dioxide 39 H (21-32) mmol/L Anion Gap 7.6 (5.0-14.0) mmol/L BUN 30 H (7-18) mg/dL Creatinine 1.3 (0.8-1.3) mg/dL Est Cr Clr Drug Dosing 56.93 mL/min Estimated GFR (MDRD) 55 L (>60) Glucose 34 L* (74-106) mg/dL Lactic Acid 1.5 (0.4-2.0) mmol/L Calcium 9.9 (8.5-10.1) mg/dL Total Bilirubin 0.8 (0.2-1.0) mg/dL AST 31 (15-37) U/L ALT 24 (12-78) U/L Alkaline Phosphatase 145 H (46-116) U/L Troponin I 0.049 (0.000-0.056) ng/mL NT-Pro-B Natriuret Pep 1138 H (5-125) pg/mL Total Protein 7.6 (6.4-8.2) g/dL Albumin 3.3 L (3.4-5.0) g/dL Globulin 4.3 H (2.3-3.5) g/dL Albumin/Globulin Ratio 0.8 L (1.2-2.2) Meds: Medications Discontinued Medications Generic Name Dose Route Start Last Admin Trade Name Freq PRN Reason Stop Dose Admin Albuterol/Ipratropium 3 ml 12/11/18 20:12 12/11/18 20:22 Duoneb 3.0-0.5 Mg/3 Ml NEB 12/11/18 20:13 3 ml ONETIME ONE Administration Departure - Departure Time of Disposition: 21:20 Disposition: Home, Self-Care 01 Condition: Fair Clinical Impression: Hypoglycemic event in diabetes - Discharge Information Referrals: PCP,None [Primary Care Provider] - Forms: ED Department Discharge Additional Instructions: Start checking blood sugars at home, follow up with primary care in the next 3- 5 days for reevaluation - My Orders Last 24 Hours: My Active Orders 12/11/18 20:11 Cardiac Monitoring [RC] .As Directed EKG Documentation Completion [RC] ASDIRECTED EKG 12 Lead [EK] Stat 12/11/18 20:12 RT Aerosol Therapy [RC] ASDIRECTED 12/11/18 21:30 GLUCOSE POC LAB TO COLLECT [POC] Stat - Assessment/Plan Last 24 Hours: My Active Orders 12/11/18 20:11 Cardiac Monitoring [RC] .As Directed EKG Documentation Completion [RC] ASDIRECTED EKG 12 Lead [EK] Stat 12/11/18 20:12 RT Aerosol Therapy [RC] ASDIRECTED 12/11/18 21:30 GLUCOSE POC LAB TO COLLECT [POC] Stat Plan: Assessment Acuity = acute Site and laterality = hypoglycemic event comp came the patient with known history of chronic obstructive pulmonary disease as well as congestive heart failure Etiology = probably related to insulin dosing and not eating Manifestations = dyspnea now resolved Location of injury = Home Lab values = CBC unremarkable, glucose low at 34 consistent hyperglycemia BNP elevated 1138 probably close to baseline for him troponin normal range 0.04 Chest x-ray shows no acute process EKG demonstrates right bundle branch block otherwise no signs of ischemia this is not new Plan I did review lab work chest x-ray EKG results with him he feels significantly better after some food and juice as well as 1 breathing treatment, he is going to start checking his blood sugars at home follow-up with primary care 3-5 days for reevaluation This note was dictated using [employer] voice recognition software please call with any questions on syntax or grammar.
--- NOTE | 2018-12-11 20:58 | CRLCR ---
INDICATION: Shortness of breath TECHNIQUE: Chest 2 views COMPARISON: November 24, 2018 FINDINGS: Cardiovascular and mediastinum: Stable moderate cardiomegaly and moderate central vascular congestion. Lungs and pleural spaces: No focal infiltrate or effusion. No pneumothorax. Bones and soft tissues: No significant findings. IMPRESSION: No change from the prior exam. Stable moderate cardiomegaly and central vascular congestion. No new abnormality. Dictated by Ruperto Shah MD @ Dec 11 2018 8:56PM Signed by Dr. Ruperto Shah @ Dec 11 2018 8:57PM
== END 2018-12-11 21:52 | disposition home or self-care (01) ==
LOC: JP.ED 19:30
DX: E11.649 Type 2 diabetes mellitus with hypoglycemia without coma (principal); I50.9 Heart failure, unspecified; E78.5 Hyperlipidemia, unspecified; E78.00 Pure hypercholesterolemia, unspecified; J44.9 Chronic obstructive pulmonary disease, unspecified; N18.9 Chronic kidney disease, unspecified; E11.21 Type 2 diabetes mellitus with diabetic nephropathy; Z88.1 Allergy status to other antibiotic agents; Z88.2 Allergy status to sulfonamides; Z79.82 Long term (current) use of aspirin; Z79.899 Other long term (current) drug therapy
CPT/HCPCS: 36415; 71046; 80053; 82962; 83605; 83880; 84484; 85025; 93005; 94640; 99284; 99285-25; J7620-GY

== ENCOUNTER 2019-10-14 12:57 | Inpatient (IN) | payer MEDICARE, BC ==
[2019-10-14] MEDS ORDERED: Acetaminophen 500 MG Tab PO ONE (13:50)
--- NOTE | 2019-10-14 13:55 | EDM.PDOC ---
ED HPI GENERAL MEDICAL PROBLEM - General Chief Complaint: General Stated Complaint: WEAK AND TIRED Time Seen by Provider: 10/14/19 13:40 Source of Information: Reports: Patient, Old Records, RN History Limitations: Reports: No Limitations - History of Present Illness INITIAL COMMENTS - FREE TEXT/NARRATIVE: 69 yo male presents with onset last evening of a cough. Today has a low grade fever and fatigue as well. Is on oxygen around the clock for "sleep apnea". No or GI sx's. Cough non-productive so far. Blood sugars running low. Onset: Gradual Onset Date: 10/13/19 Duration: Hour(s):, Getting Worse Location: Reports: Chest, Generalized Quality: Reports: Other (no pain reported) Severity: Moderate Improves with: Reports: None Worsens with: Reports: Other (time) Context: Reports: Other (See HPI) Associated Symptoms: Reports: Cough, Fever/Chills, Weakness. Denies: Chest Pain , Nausea/Vomiting, Rash, Shortness of Breath Treatments LEGAL SUPPORT ASSISTANT: Reports: Other (see below) (none) - Related Data Allergies Allergy/AdvReac Type Severity Reaction Status Date / Time vancomycin Allergy Severe Anaphylactic Verified 11/24/18 18:57 Shock Sulfa (Sulfonamide Allergy Cannot Verified 11/24/18 19:19 Antibiotics) Remember Home Meds: Home Meds Aspirin [Halfprin] 81 mg PO DAILY 08/23/14 [History] Cholecalciferol (Vitamin D3) [Vitamin D3] 2,000 unit PO DAILY 08/23/14 [History] Escitalopram [Lexapro] 20 mg PO DAILY 08/23/14 [History] Folic Acid 1 mg PO DAILY 08/23/14 [History] Omeprazole 40 mg PO DAILY 08/23/14 [History] Tamsulosin [Flomax] 0.4 mg PO DAILY 08/23/14 [History] Tiotropium [Spiriva HandiHaler] 18 mcg INH DAILY 08/23/14 [History] Vitamin B Complex 1 each PO DAILY 08/23/14 [History] atorvaSTATin [Lipitor] 40 mg PO BEDTIME 08/23/14 [History] traZODone 200 mg PO BEDTIME 08/23/14 [History] Metoprolol Succinate 25 mg PO DAILY 07/04/17 [History] metOLazone [Metolazone] 2.5 mg PO DAILY PRN 07/04/17 [History] Insulin Detemir [Levemir] 25 - 30 unit SUBCUT DAILY 03/27/18 [History] Insulin Lispro [HumaLOG] 25 - 27 unit SQ BID 03/27/18 [History] Bumetanide [Bumex] 4 mg PO DAILY 10/14/19 [History] Cyanocobalamin (Vitamin B-12) [B-12] 500 mcg PO DAILY 10/14/19 [History] Ergocalciferol (Vitamin D2) [Vitamin D2] 50,000 unit PO Q7D 10/14/19 [History] Febuxostat 80 mg PO DAILY 10/14/19 [History] Ferrous Sulfate 325 mg PO DAILY 10/14/19 [History] Formoterol [Perforomist] 1 vial INH BID 10/14/19 [History] Gabapentin [Neurontin] 400 mg PO BEDTIME 10/14/19 [History] Glucosam/MSM/Chond/Hyaluron Ac [Sv Glucosamine-Chondroitin Tab] 1 tab PO BEDTIME 10/14/19 [History] Temazepam 60 mg PO BEDTIME PRN 10/14/19 [History] Past Medical History HEENT History: Reports: Impaired Vision Cardiovascular History: Reports: Heart Failure, High Cholesterol Respiratory History: Reports: COPD, Intubation, Previous, Sleep Apnea, Other ( See Below) Other Respiratory History: home O2 Gastrointestinal History: Reports: GERD Genitourinary History: Reports: BPH, Chronic Renal Insuffiency, Diabetic Nephropathy Musculoskeletal History: Reports: Gout, Osteoarthritis, Other (See Below) Other Musculoskeletal History: growth on the bottom of R foot. States it was placed in a brace 1 month ago to monitor Neurological History: Reports: Neuropathy, Diabetic, Other (See Below) Other Neuro History: tremor Psychiatric History: Reports: Anxiety, Bipolar, Depression, Other (See Below) Other Psychiatric History: insomnia Endocrine/Metabolic History: Reports: Diabetes, Type II Hematologic History: Reports: Anemia Other Hematologic History: hyperlipidemia Immunologic History: Reports: Other (See Below) Other Immunologic History: intubated, unable to obtain Oncologic (Cancer) History: Reports: Other (See Below) Other Oncologic History: intubated unable to obtain Dermatologic History: Reports: Other (See Below) Other Dermatologic History: foot growth with brace in place - Infectious Disease History Infectious Disease History: Reports: Chicken Pox - Past Surgical History GI Surgical History: Reports: Other (See Below) 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 Denies: Shortness of Breath, Sputum Cardiovascular: Reports: No Symptoms Endocrine: Reports: No Symptoms GI/Abdominal: Reports: No Symptoms : Reports: No Symptoms Musculoskeletal: Reports: No Symptoms Skin: Reports: No Symptoms Neurological: Reports: No Symptoms Psychiatric: Reports: No Symptoms ED EXAM, GENERAL - Physical Exam Exam: See Below Exam Limited By: No Limitations General Appearance: Alert, WD/WN, No Apparent Distress Eye Exam: Bilateral Eye: PERRL Ears: Normal External Exam, Normal Canal, Hearing Grossly Normal, Normal TMs Ear Exam: Bilateral Ear: Auricle Normal, Canal Normal Nose: Normal Inspection, No Blood Throat/Mouth: Normal Inspection, Normal Lips, Normal Oropharynx, Normal Voice, No Airway Compromise Head: Atraumatic, Normocephalic Neck: Normal Inspection Respiratory/Chest: No Respiratory Distress, No Accessory Muscle Use, Rhonchi ( especially L base). No: Lungs Clear, Normal Breath Sounds Cardiovascular: Regular Rate, Rhythm, No Edema GI/Abdominal: Normal Bowel Sounds, Soft, Non-Tender, No Distention, Other (old surgical scar present) Back Exam: Normal Inspection. No: CVA Tenderness (R), CVA Tenderness (L) Extremities: Normal Inspection, Normal Range of Motion, Non-Tender, No Pedal Edema Neurological: Alert, Oriented, CN II-XII Intact, Normal Cognition, No Motor/ Sensory Deficits Psychiatric: Normal Affect, Normal Mood Skin Exam: Warm, Dry, Intact, Normal Color, No Rash Course - Vital Signs Text/Narrative:: Dr. Irwin called @ 1446h Last Recorded V/S: Last Vital Signs Temp 38.1 C 10/14/19 13:32 Pulse 72 10/14/19 13:32 Resp 26 H 10/14/19 13:32 BP 107/58 L 10/14/19 13:32 Pulse Ox 91 L 10/14/19 13:32 - Orders/Labs/Meds Orders: Active Orders 24 hr Category Date Time Status CULTURE BLOOD [BC] Stat Lab 10/14/19 14:15 Received CULTURE BLOOD [BC] Stat Lab 10/14/19 14:36 Ordered CULTURE BLOOD [BC] Stat Lab 10/14/19 14:36 Ordered UA W/MICROSCOPIC [URIN] Stat Lab 10/14/19 14:32 Ordered Lactated Ringers [Ringers, Lactated] 1,000 ml Med 10/14/19 14:23 Active IV BOLUS Medication Orders Lactated Ringer's (Ringers, Lactated) 1,000 mls @ 1,000 mls/hr IV BOLUS ONE Stop: 10/14/19 15:22 Last Admin: 10/14/19 14:31 Dose: 1,000 mls/hr Labs: Laboratory Tests 10/14/19 10/14/19 Range/Units 13:53 13:53 WBC 15.3 H (4.5-11.0) K/uL RBC 4.02 L (4.30-5.90) M/uL Hgb 11.8 L D (12.0-15.0) g/dL Hct 38.1 L (40.0-54.0) % MCV 95 (80-98) fL MCH 29 (27-31) pg MCHC 31 L (32-36) % Plt Count 270 (150-400) K/uL Sodium 140 (140-148) mmol/L Potassium 3.7 (3.6-5.2) mmol/L Chloride 98 L (100-108) mmol/L Carbon Dioxide 33 H (21-32) mmol/L Anion Gap 12.7 (5.0-14.0) mmol/L BUN 42 H (7-18) mg/dL Creatinine 1.4 H (0.8-1.3) mg/dL Est Cr Clr Drug Dosing 52.14 mL/min Estimated GFR (MDRD) 50 L (>60) Glucose 94 (74-106) mg/dL Calcium 8.8 (8.5-10.1) mg/dL Meds: Medications Generic Name Dose Route Start Last Admin Trade Name Freq PRN Reason Stop Dose Admin Lactated Ringer's 1,000 mls @ 1,000 mls/hr 10/14/19 14:23 10/14/19 14:31 Ringers, Lactated IV 10/14/19 15:22 1,000 mls/hr BOLUS ONE Administration Discontinued Medications Generic Name Dose Route Start Last Admin Trade Name Sara PRN Reason Stop Dose Admin Acetaminophen 1,000 mg 10/14/19 13:50 10/14/19 13:56 Tylenol Extra Strength PO 10/14/19 13:51 1,000 mg ONETIME ONE Administration - Radiology Interpretation Free Text/Narrative:: CXR- Impression: Suspected bilateral lower lobe infiltrates. Dictated by Galina Quinteros MD @ Oct 14 2019 2:26PM Departure - Departure Time of Disposition: 15:15 Disposition: Admitted As Inpatient 67 Condition: Fair Clinical Impression: Pneumonia Qualifiers: Pneumonia type: due to unspecified organism Laterality: bilateral Lung location : lower lobe of lung Qualified Code(s): J18.9 - Pneumonia, unspecified organism - Discharge Information *PRESCRIPTION DRUG MONITORING PROGRAM REVIEWED*: No *COPY OF PRESCRIPTION DRUG MONITORING REPORT IN PATIENT MAGALI: No Referrals: Arelis Perez PA [Primary Care Provider] - Forms: ED Department Discharge Sepsis Event Note - Evaluation Sepsis Screening Result: No Definite Risk - Focused Exam Vital Signs: Vital Signs Temp Pulse Resp BP Pulse Ox 10/14/19 13:32 38.1 C 72 26 H 107/58 L 91 L 10/14/19 13:17 38.1 C 72 26 H 107/58 L 91 L Date Exam was Performed: 10/14/19 Time Exam was Performed: 14:42 - My Orders Last 24 Hours: My Active Orders 10/14/19 14:15 CULTURE BLOOD [BC] Stat 10/14/19 14:23 Lactated Ringers [Ringers, Lactated] 1,000 ml IV BOLUS 10/14/19 14:32 UA W/MICROSCOPIC [URIN] Stat 10/14/19 14:36 CULTURE BLOOD [BC] Stat CULTURE BLOOD [BC] Stat - Assessment/Plan Last 24 Hours: My Active Orders 10/14/19 14:15 CULTURE BLOOD [BC] Stat 10/14/19 14:23 Lactated Ringers [Ringers, Lactated] 1,000 ml IV BOLUS 10/14/19 14:32 UA W/MICROSCOPIC [URIN] Stat 10/14/19 14:36 CULTURE BLOOD [BC] Stat CULTURE BLOOD [BC] Stat
[2019-10-14] MEDS ORDERED: Lactated Ringers 1,000 ML IV ONE (14:23)
--- NOTE | 2019-10-14 14:30 | CRLCR ---
Indication: Cough and low-grade fever. Mild hypoxia. Technique: PA and lateral views the chest. Comparison: December 11, 2018. Findings: The right hemidiaphragm is elevated. The heart is enlarged. Bilateral infiltrates are identified. No pleural effusion or pneumothorax is identified. Impression: Suspected bilateral lower lobe infiltrates. Dictated by Galina Quinteros MD @ Oct 14 2019 2:26PM Signed by Dr. Galina Quinteros @ Oct 14 2019 2:27PM
[2019-10-14] MEDS ORDERED: cefTRIAXone 1 GM in Sodium Chloride 0.9% 50 ML IV ONE ×2 (14:43→15:15)
[2019-10-14] MEDS ORDERED: Azithromycin 250 MG Tab PO ONE (14:43)
[2019-10-14] MEDS ORDERED: NS + KCl 20mEq/L 1,000 ML IV SCH (14:45)
--- NOTE | 2019-10-14 15:45 | PCM.HP.2 ---
H&P History of Present Illness - General Date of Service: 10/14/19 Admit Problem/Dx: Admission Diagnosis/Problem Admission Diagnosis/Problem Pneumonia Source of Information: Patient, Old Records, Provider, RN Notes Reviewed History Limitations: Reports: No Limitations - History of Present Illness Initial Comments - Free Text/Narative: Lamont is a 69-year-old gentleman who was admitted through the emergency department with weakness and increased shortness of breath secondary to bilateral pulmonary infiltrates. He has a known history of oxygen dependent COPD for many years and does use BiPAP at home. Over the last 24 hours he has become progressively more weak and short of breath. On evaluation in the emergency department he was noted to be hypoxic on initial presentation, improved with increased supplemental oxygen. White blood cell count is elevated and chest x-ray shows evidence of bilateral pulmonary infiltrates consistent with pneumonia. Is somewhat dehydrated, no evidence of significant sepsis at the present time. - Related Data Allergies/Adverse Reactions: Allergies Allergy/AdvReac Type Severity Reaction Status Date / Time vancomycin Allergy Severe Anaphylactic Verified 11/24/18 18:57 Shock Sulfa (Sulfonamide Allergy Cannot Verified 11/24/18 19:19 Antibiotics) Remember Home Medications: Home Meds Aspirin [Halfprin] 81 mg PO DAILY 08/23/14 [History] Cholecalciferol (Vitamin D3) [Vitamin D3] 2,000 unit PO DAILY 08/23/14 [History] Escitalopram [Lexapro] 20 mg PO DAILY 08/23/14 [History] Folic Acid 1 mg PO DAILY 08/23/14 [History] Omeprazole 40 mg PO DAILY 08/23/14 [History] Tamsulosin [Flomax] 0.4 mg PO DAILY 08/23/14 [History] Tiotropium [Spiriva HandiHaler] 18 mcg INH DAILY 08/23/14 [History] Vitamin B Complex 1 each PO DAILY 08/23/14 [History] atorvaSTATin [Lipitor] 40 mg PO BEDTIME 08/23/14 [History] traZODone 200 mg PO BEDTIME 08/23/14 [History] Metoprolol Succinate 25 mg PO DAILY 07/04/17 [History] metOLazone [Metolazone] 2.5 mg PO DAILY PRN 07/04/17 [History] Insulin Detemir [Levemir] 25 - 30 unit SUBCUT DAILY 03/27/18 [History] Insulin Lispro [HumaLOG] 25 - 27 unit SQ BID 03/27/18 [History] Bumetanide [Bumex] 4 mg PO DAILY 10/14/19 [History] Cyanocobalamin (Vitamin B-12) [B-12] 500 mcg PO DAILY 10/14/19 [History] Ergocalciferol (Vitamin D2) [Vitamin D2] 50,000 unit PO Q7D 10/14/19 [History] Febuxostat 80 mg PO DAILY 10/14/19 [History] Ferrous Sulfate 325 mg PO DAILY 10/14/19 [History] Formoterol [Perforomist] 1 vial INH BID 10/14/19 [History] Gabapentin [Neurontin] 400 mg PO BEDTIME 10/14/19 [History] Glucosam/MSM/Chond/Hyaluron Ac [Sv Glucosamine-Chondroitin Tab] 1 tab PO BEDTIME 10/14/19 [History] Temazepam 60 mg PO BEDTIME PRN 10/14/19 [History] Past Medical History HEENT History: Reports: Impaired Vision Cardiovascular History: Reports: Heart Failure, High Cholesterol Respiratory History: Reports: COPD, Intubation, Previous, Sleep Apnea, Other ( See Below) Other Respiratory History: home O2 Gastrointestinal History: Reports: GERD Genitourinary History: Reports: BPH, Chronic Renal Insuffiency, Diabetic Nephropathy Musculoskeletal History: Reports: Gout, Osteoarthritis, Other (See Below) Other Musculoskeletal History: growth on the bottom of R foot. States it was placed in a brace 1 month ago to monitor Neurological History: Reports: Neuropathy, Diabetic, Other (See Below) Other Neuro History: tremor Psychiatric History: Reports: Anxiety, Bipolar, Depression, Other (See Below) Other Psychiatric History: insomnia Endocrine/Metabolic History: Reports: Diabetes, Type II Hematologic History: Reports: Anemia Other Hematologic History: hyperlipidemia Immunologic History: Reports: Other (See Below) Other Immunologic History: intubated, unable to obtain Oncologic (Cancer) History: Reports: Other (See Below) Other Oncologic History: intubated unable to obtain Dermatologic History: Reports: Other (See Below) Other Dermatologic History: foot growth with brace in place - Infectious Disease History Infectious Disease History: Reports: Chicken Pox - Past Surgical History GI Surgical History: Reports: Other (See Below) 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 Denies: Wheezing, Pleuritic Chest Pain, Sputum, Hemoptysis Cardiovascular: Reports: Dyspnea on Exertion, Lightheadedness. Denies: Chest Pain, Palpitations, Orthopnea, PND, Edema Gastrointestinal: Reports: No Symptoms Genitourinary: Reports: Frequency, Retention. Denies: Dysuria, Burning, Incontinence, Hematuria Musculoskeletal: Reports: No Symptoms Skin: Reports: No Symptoms Psychiatric: Reports: No Symptoms Neurological: Reports: No Symptoms Hematologic/Lymphatic: Reports: No Symptoms Immunologic: Reports: No Symptoms Exam - Exam Exam: See Below - Vital Signs Vital Signs: Last Vital Signs Temp 100.6 F 10/14/19 13:32 Pulse 66 10/14/19 15:18 Resp 26 H 10/14/19 13:32 BP 100/46 L 10/14/19 15:18 Pulse Ox 89 L 10/14/19 15:18 Weight: 190 lb - Exam Quality Assessment: Supplemental Oxygen, DVT Prophylaxis General: Alert, Oriented, Cooperative, Mild Distress HEENT: Conjunctiva Clear, Mucosa Moist & [place], Normal Nasal Septum, Posterior Pharynx Clear, Pupils Equal. No: Hearing Intact Neck: Supple, Trachea Midline, +2 Carotid Pulse wo Bruit Lungs: Normal Respiratory Effort, Decreased Breath Sounds. No: Rales, Rhonchi, Rub, Wheezing Cardiovascular: Regular Rate, Regular Rhythm, Normal S1, Normal S2. No: Systolic Murmur, Diastolic Murmur GI/Abdominal Exam: Soft, Non-Tender, No Organomegaly, No Distention Back Exam: Normal Inspection, Full Range of Motion, Vertebral Tenderness Extremities: Non-Tender, No Pedal Edema Skin: Warm, Dry Neurological: Cranial Nerves Intact, Strength Equal Bilateral, Normal Speech, Normal Tone, Sensation Intact. No: Focal Deficit Neuro Extensive - Mental Status: Alert, Oriented x3, Normal Mood/Affect, Normal Cognition, Memory Intact - Patient Data Lab Results Last 24 hrs: Laboratory Results - last 24 hr 10/14/19 10/14/19 10/14/19 Range/Units 13:53 13:53 14:32 WBC 15.3 H (4.5-11.0) K/uL RBC 4.02 L (4.30-5.90) M/uL Hgb 11.8 L D (12.0-15.0) g/dL Hct 38.1 L (40.0-54.0) % MCV 95 (80-98) fL MCH 29 (27-31) pg MCHC 31 L (32-36) % Plt Count 270 (150-400) K/uL Sodium 140 (140-148) mmol/L Potassium 3.7 (3.6-5.2) mmol/L Chloride 98 L (100-108) mmol/L Carbon Dioxide 33 H (21-32) mmol/L Anion Gap 12.7 (5.0-14.0) mmol/L BUN 42 H (7-18) mg/dL Creatinine 1.4 H (0.8-1.3) mg/dL Est Cr Clr Drug Dosing 52.14 mL/min Estimated GFR (MDRD) 50 L (>60) Glucose 94 (74-106) mg/dL Calcium 8.8 (8.5-10.1) mg/dL Urine Color Yellow (YELLOW) Urine Appearance Clear (CLEAR) Urine pH 5.5 (5.0-8.0) Ur Specific [place] 1.010 (1.008-1.030) Urine Protein Negative (NEGATIVE) mg/dL Urine Glucose (UA) Negative (NEGATIVE) mg/dL Urine Ketones Negative (NEGATIVE) mg/dL Urine Occult Blood Negative (NEGATIVE) Urine Nitrite Negative (NEGATIVE) Urine Bilirubin Negative (NEGATIVE) Urine Urobilinogen 0.2 (0.2-1.0) EU/dL Ur Leukocyte Esterase Negative (NEGATIVE) Urine RBC Not seen (0-5) Urine WBC 0-5 (0-5) Ur Epithelial Cells Rare Amorphous Sediment Not seen Urine Bacteria Not seen Urine Mucus Rare Result Diagrams: 10/14/19 13:53 10/14/19 13:53 Zac Results Last 24 hrs: Microbiology 10/14/19 13:59 Influenza Type A Antigen Screen - Final Nasal, Unspecified NEGATIVE INFLUENZA A VIRUS AG REFERENCE RANGE: NEGATIVE Influenza Type B Antigen Screen - Final NEGATIVE INFLUENZA B VIRUS AG REFERENCE RANGE: NEGATIVE Sepsis Event Note - Evaluation Sepsis Screening Result: No Definite Risk - Focused Exam Vital Signs: Vital Signs Temp Pulse Resp BP Pulse Ox 10/14/19 15:18 66 100/46 L 89 L 10/14/19 13:32 100.6 F 72 26 H 107/58 L 91 L 10/14/19 13:17 100.6 F 72 26 H 107/58 L 91 L Date Exam was Performed: 10/14/19 Time Exam was Performed: 18:07 *Q Meaningful Use (ADM) - VTE *Q VTE Pharmacological Contraindications *Q: High INR Value - VTE Risk Assess *Q Each Risk Factor Represents 1 Point: Obesity ( BMI > 25 kg/m2), Congestive heart failure (CHF), Serious lung disease including pneumonia, Abnormal Pulmonary Function (COPD) Total Score 1 Point Risk Factors: 4 Each Risk Factor Represents 2 Points: Age 60 - 74 Years Total Score 2 Point Risk Factors: 2 Each Risk Factor Represents 3 Points: None Total Score 3 Point Risk Factors: 0 Each Risk Factor Represents 5 Points: None Total Score 5 Point Risk Factors: 0 Venous Thromboembolism Risk Factor Score *Q: 6 Problem List Initiated/Reviewed/Updated: Yes Orders Last 24hrs: Active Orders 24 hr Category Date Time Status Patient Status Manage Transfer [TRANSFER] Routine ADT 10/14/19 15:31 Ordered CULTURE BLOOD [BC] Stat Lab 10/14/19 14:15 Received CULTURE BLOOD [BC] Stat Lab 10/14/19 14:36 Ordered NS + KCl 20mEq/L [Normal Saline with 20 mEq KCl] 1,000 Med 10/14/19 14:45 Active ml IV ASDIRECTED Resuscitation Status Routine Resus Stat 10/14/19 15:35 Ordered Medication Orders Potassium Chloride/Sodium Chloride (Normal Saline With 20 Meq Kcl) 1,000 mls @ 150 mls/hr IV ASDIRECTED YOAN Last Admin: 10/14/19 15:10 Dose: 150 mls/hr Assessment/Plan Comment:: ASSESSMENT AND PLAN BILATERAL PNEUMONIA-blood pressure is borderline low and heart rate borderline elevated, likely secondary to dehydration. No evidence of active sepsis, he does have acute on chronic hypoxic respiratory failure. Requiring increased level of supplemental oxygen to maintain adequate oxygenation. -Blood and sputum cultures pending -IV fluids overnight for hydration -IV ceftriaxone and azithromycin, pending culture results ACUTE ON CHRONIC HYPOXIC RESPIRATORY FAILURE-underlying COPD, oxygen dependent at baseline, also uses BiPAP at home. -BiPAP as needed, patient brought his own unit in he came to the emergency department -Supplemental oxygen as needed -As needed albuterol nebs CHRONIC KIDNEY DISEASE STAGE IIIa-creatinine appears to be close to baseline -Closely monitor urine output and renal function CONGESTIVE HEART FAILURE-no evidence of acute exacerbation -Continue usual outpatient medications COPD-no wheezing on examination with good air movement, will hold on use of steroids -Continue usual outpatient medications TYPE 2 DIABETES MELLITUS-hypoglycemic while in the emergency department -Continue usual long-acting insulin with decreased dose of 20 units subcu daily -4 times daily glucometers -Moderate dose sliding scale Humalog MAINTENANCE ISSUES -DVT prophylaxis; current therapy with Eliquis should provide adequate DVT prophylaxis -GI prophylaxis; continue outpatient PPI therapy -Jung catheter; not indicated -Nutrition; 2 g sodium diet -Nicotine dependence; not required CODE STATUS-FULL CODE ADMISSION STATUS-patient will be admitted to inpatient status, expect at least a 2 night hospital stay for evaluation and management of problems as outlined above. At the time of this admission I do not reasonably expected evaluation and management of this problem will require more than a 96 hour hospital stay. DISPOSITION-anticipate discharge to home after the hospital stay. PRIMARY CARE PROVIDER-Josefina Perez - Mortality Measure Prognosis:: Good
[2019-10-14] MEDS ORDERED: Sodium Chloride 0.9% 10 ML Syringe FLUSH PRN (16:19)
[2019-10-14] MEDS ORDERED: Acetaminophen 325 MG Tab PO PRN (16:19)
[2019-10-14] MEDS ORDERED: 50% Dextrose in Water 50 ML Syringe IV PRN (16:19)
[2019-10-14] MEDS ORDERED: Enoxaparin 40 MG/0.4 ML Syringe SUBCUT SCH (16:19)
[2019-10-14] MEDS ORDERED: Ondansetron 4 MG/2 ML SDV IV PRN (16:19)
[2019-10-14] MEDS ORDERED: Albuterol 0.083% 2.5 MG/3 ML Neb Soln NEB PRN (16:19)
[2019-10-14] MEDS ORDERED: Polyethylene Glycol 3350 Powder 17 GM Packet PO PRN (16:19)
[2019-10-14] MEDS ORDERED: oxyCODONE 5 MG Tab PO PRN (16:19)
[2019-10-14] MEDS ORDERED: Metolazone 2.5 MG Tab PO PRN (16:19)
[2019-10-14] MEDS ORDERED: Glucose Gel 15 GM in 37.5 GM Tube PO PRN (16:19)
[2019-10-14] MEDS: Albuterol/Ipratropium 3.0-0.5 MG/3 ML Neb Soln NEB SCH ×2 (17:12→20:58)
[2019-10-14] MEDS: Insulin Lispro 100 Unit/ML 3 ML KwikPen SUBCUT SCH ×3 (17:12→21:13)
[2019-10-14] MEDS ORDERED: Gabapentin 400 MG Cap PO SCH (21:00)
[2019-10-14] MEDS ORDERED: Arformoterol 15 MCG/2 ML Neb Soln INH SCH (21:00)
[2019-10-14] MEDS: atorvaSTATin 20 MG Tab PO SCH (21:03)
[2019-10-14] MEDS: traZODone 50 MG Tab PO SCH (21:03)
[2019-10-14] MEDS ORDERED: Temazepam 15 MG Cap PO SCH (21:24)
[2019-10-14] MEDS ORDERED: Escitalopram 20 MG Tab PO SCH (21:30)
[2019-10-14] MEDS ORDERED: Escitalopram 10 MG Tab PO SCH (21:43)
[2019-10-14] MEDS: Tamsulosin 0.4 MG Cap.ER PO SCH (21:55)
[2019-10-14] MEDS: Temazepam 15 MG Cap PO SCH (21:56)
[2019-10-14] MEDS: Aspirin 81 MG Tab.EC PO SCH (21:56)
[2019-10-14] MEDS: Metoprolol Succinate 25 MG Tab.ER PO SCH (21:56)
[2019-10-14] MEDS: Sodium Chloride 0.9% 1,000 ML IV SCH (22:54)
[2019-10-15] MEDS: Sodium Chloride 0.9% 1,000 ML IV SCH (06:23)
[2019-10-15] MEDS: Albuterol/Ipratropium 3.0-0.5 MG/3 ML Neb Soln NEB SCH ×4 (07:15→20:30)
[2019-10-15] MEDS: Febuxostat 40 MG Tab PO SCH (08:26)
[2019-10-15] MEDS: Pantoprazole 40 MG Tab.CR PO SCH (08:27)
[2019-10-15] MEDS: Bumetanide 1 MG Tab PO SCH (08:27)
[2019-10-15] MEDS: Insulin Lispro 100 Unit/ML 3 ML KwikPen SUBCUT SCH ×4 (08:41→20:45)
[2019-10-15] MEDS ORDERED: Metoprolol Succinate 25 MG Tab.ER PO SCH (09:00)
[2019-10-15] MEDS ORDERED: Aspirin 81 MG Tab.EC PO SCH (09:00)
[2019-10-15] MEDS ORDERED: Insulin Glargine,Human Rec. Analog 100 Units/ML 3 ML Pen SUBCUT SCH ×2 (09:00)
[2019-10-15] MEDS ORDERED: Tamsulosin 0.4 MG Cap.ER PO SCH (09:00)
[2019-10-15] MEDS ORDERED: Pantoprazole 40 MG Tab.CR PO SCH (09:00)
[2019-10-15] MEDS ORDERED: Escitalopram 20 MG Tab PO SCH ×2 (09:00→21:00)
[2019-10-15] MEDS ORDERED: Glycopyrrolate 15.6 MCG Cap.W.Dev Kit of 6 IH SCH (09:00)
[2019-10-15] MEDS: Arformoterol 15 MCG/2 ML Neb Soln INH SCH ×2 (09:30→20:30)
[2019-10-15] MEDS: Glycopyrrolate 15.6 MCG Cap.W.Dev Kit of 6 IH SCH ×2 (09:33→20:30)
--- NOTE | 2019-10-15 11:01 | PCM.PN ---
- General Info Date of Service: 10/15/19 Subjective Update: No acute events overnight following admission. Still feels weak and tired. Cough is a little better. Shortness of breath is better. Supplemental oxygen requirements have been decreasing since admission. Temperatures are slowly improving. Appetite has been good. Tolerating current antibiotics. Functional Status: Reports: Pain Controlled, Tolerating Diet - Review of Systems General: Reports: Weakness Pulmonary: Reports: Shortness of Breath - Patient Data Vitals - Most Recent: Last Vital Signs Temp 35.4 C 10/15/19 08:00 Pulse 62 10/15/19 09:35 Resp 18 10/15/19 08:00 BP 101/53 L 10/15/19 08:00 Pulse Ox 94 L 10/15/19 08:00 Weight - Most Recent: 100.153 kg I&O - Last 24 Hours: Intake & Output 10/14/19 10/15/19 10/15/19 22:59 06:59 14:59 Intake Total 120 1654 840 Balance 120 1654 840 Lab Results Last 24 Hours: Laboratory Results - last 24 hr 10/14/19 10/14/19 10/14/19 Range/Units 13:53 13:53 14:32 WBC 15.3 H (4.5-11.0) K/uL RBC 4.02 L (4.30-5.90) M/uL Hgb 11.8 L D (12.0-15.0) g/dL Hct 38.1 L (40.0-54.0) % MCV 95 (80-98) fL MCH 29 (27-31) pg MCHC 31 L (32-36) % Plt Count 270 (150-400) K/uL Neut % (Auto) (36-66) % Lymph % (Auto) (24-44) % [place] % (Auto) (2-6) % Eos % (Auto) (2-4) % Baso % (Auto) (0-1) % Sodium 140 (140-148) mmol/L Potassium 3.7 (3.6-5.2) mmol/L Chloride 98 L (100-108) mmol/L Carbon Dioxide 33 H (21-32) mmol/L Anion Gap 12.7 (5.0-14.0) mmol/L BUN 42 H (7-18) mg/dL Creatinine 1.4 H (0.8-1.3) mg/dL Est Cr Clr Drug Dosing 52.14 mL/min Estimated GFR (MDRD) 50 L (>60) Glucose 94 (74-106) mg/dL Calcium 8.8 (8.5-10.1) mg/dL Urine Color Yellow (YELLOW) Urine Appearance Clear (CLEAR) Urine pH 5.5 (5.0-8.0) Ur Specific [place] 1.010 (1.008-1.030) Urine Protein Negative (NEGATIVE) mg/dL Urine Glucose (UA) Negative (NEGATIVE) mg/dL Urine Ketones Negative (NEGATIVE) mg/dL Urine Occult Blood Negative (NEGATIVE) Urine Nitrite Negative (NEGATIVE) Urine Bilirubin Negative (NEGATIVE) Urine Urobilinogen 0.2 (0.2-1.0) EU/dL Ur Leukocyte Esterase Negative (NEGATIVE) Urine RBC Not seen (0-5) Urine WBC 0-5 (0-5) Ur Epithelial Cells Rare Amorphous Sediment Not seen Urine Bacteria Not seen Urine Mucus Rare 10/15/19 10/15/19 Range/Units 04:10 04:10 WBC 11.5 H (4.5-11.0) K/uL RBC 3.81 L (4.30-5.90) M/uL Hgb 11.2 L (12.0-15.0) g/dL Hct 36.6 L (40.0-54.0) % MCV 96 (80-98) fL MCH 29 (27-31) pg MCHC 31 L (32-36) % Plt Count 250 (150-400) K/uL Neut % (Auto) 66 (36-66) % Lymph % (Auto) 18 L (24-44) % [place] % (Auto) 13 H (2-6) % Eos % (Auto) 2 (2-4) % Baso % (Auto) 0 (0-1) % Sodium 141 (140-148) mmol/L Potassium 3.6 (3.6-5.2) mmol/L Chloride 101 (100-108) mmol/L Carbon Dioxide 35 H (21-32) mmol/L Anion Gap 8.6 (5.0-14.0) mmol/L BUN 42 H (7-18) mg/dL Creatinine 1.3 (0.8-1.3) mg/dL Est Cr Clr Drug Dosing 56.15 mL/min Estimated GFR (MDRD) 55 L (>60) Glucose 67 L (74-106) mg/dL Calcium 8.5 (8.5-10.1) mg/dL Urine Color (YELLOW) Urine Appearance (CLEAR) Urine pH (5.0-8.0) Ur Specific [place] (1.008-1.030) Urine Protein (NEGATIVE) mg/dL Urine Glucose (UA) (NEGATIVE) mg/dL Urine Ketones (NEGATIVE) mg/dL Urine Occult Blood (NEGATIVE) Urine Nitrite (NEGATIVE) Urine Bilirubin (NEGATIVE) Urine Urobilinogen (0.2-1.0) EU/dL Ur Leukocyte Esterase (NEGATIVE) Urine RBC (0-5) Urine WBC (0-5) Ur Epithelial Cells Amorphous Sediment Urine Bacteria Urine Mucus Zac Results Last 24 Hours: Microbiology 10/14/19 13:59 Influenza Type A Antigen Screen - Final Nasal, Unspecified NEGATIVE INFLUENZA A VIRUS AG REFERENCE RANGE: NEGATIVE Influenza Type B Antigen Screen - Final NEGATIVE INFLUENZA B VIRUS AG REFERENCE RANGE: NEGATIVE Med Orders - Current: Current Medications Acetaminophen (Tylenol) 650 mg PO Q4H PRN PRN Reason: Pain (Mild 1-3)/fever Albuterol (Proventil Neb Soln) 2.5 mg NEB Q4H PRN PRN Reason: Shortness Of Breath/wheezing Albuterol/Ipratropium (Duoneb 3.0-0.5 Mg/3 Ml) 3 ml NEB QIDRT [facility] Last Admin: 10/15/19 07:15 Dose: 3 ml Arformoterol Tartrate (Brovana) 15 mcg INH BIDRT [facility] Last Admin: 10/15/19 09:30 Dose: 15 mcg Aspirin (Halfprin) 81 mg PO BEDTIME [facility] Last Admin: 10/14/19 21:56 Dose: 81 mg Atorvastatin Calcium (Lipitor) 40 mg PO BEDTIME [facility] Last Admin: 10/14/19 21:03 Dose: 40 mg Bumetanide (Bumex) 4 mg PO DAILY [facility] Last Admin: 10/15/19 08:27 Dose: 4 mg Dextrose (Glutose 15) 15 gm PO ONETIME PRN PRN Reason: Hypoglycemia Dextrose/Water (Dextrose 50% In Water) 50 ml IV ONETIME PRN PRN Reason: Hypoglycemia Enoxaparin Sodium (Lovenox) 40 mg SUBCUT Q24H [facility] Escitalopram Oxalate (Lexapro) 20 mg PO BEDTIME [facility] Febuxostat (Uloric) 80 mg PO DAILY [facility] Last Admin: 10/15/19 08:26 Dose: 80 mg Gabapentin (Neurontin) 400 mg PO BEDTIME [facility] Last Admin: 10/14/19 21:03 Dose: 400 mg Glycopyrrolate (Seebri Neohaler) 15.6 mcg IH BIDRT [facility] Last Admin: 10/15/19 09:33 Dose: 1 cap Azithromycin 500 mg/ Sodium (Chloride) 250 mls @ 250 mls/hr IV Q24H [facility] Ceftriaxone Sodium 1 gm/ (Sodium Chloride) 50 mls @ 100 mls/hr IV Q24H [facility] Insulin Glargine (Lantus Solostar) 20 units SUBCUT DAILY [facility] Last Admin: 10/15/19 08:35 Dose: Not Given Insulin Human Lispro (Humalog) 0 unit SUBCUT QIDACANDBED [facility]; Protocol Last Admin: 10/15/19 08:41 Dose: 2 units Metolazone (Zaroxolyn) 2.5 mg PO DAILY PRN PRN Reason: Other Metoprolol Succinate (Toprol Xl) 25 mg PO BEDTIME [facility] Last Admin: 10/14/19 21:56 Dose: 25 mg Ondansetron HCl (Zofran) 4 mg IV Q4H PRN PRN Reason: Nausea/Vomiting Oxycodone HCl (Oxycodone) 5 mg PO Q4H PRN PRN Reason: Pain (moderate 4-6) Pantoprazole Sodium (Protonix) 40 mg PO ACBREAKFAST [facility] Last Admin: 10/15/19 08:27 Dose: 40 mg Polyethylene Glycol (Miralax) 17 gm PO DAILY PRN PRN Reason: Constipation Sodium Chloride (Saline Flush) 10 ml FLUSH ASDIRECTED PRN PRN Reason: Keep Vein Open Tamsulosin HCl (Flomax) 0.4 mg PO BEDTIME [facility] Last Admin: 10/14/19 21:55 Dose: 0.4 mg Temazepam (Restoril) 30 mg PO BEDTIME [facility] Last Admin: 10/14/19 21:56 Dose: 30 mg Trazodone HCl (Trazodone) 200 mg PO BEDTIME [facility] Last Admin: 10/14/19 21:03 Dose: 200 mg Discontinued Medications Acetaminophen (Tylenol Extra Strength) 1,000 mg PO ONETIME ONE Stop: 10/14/19 13:51 Last Admin: 10/14/19 13:56 Dose: 1,000 mg Arformoterol Tartrate (Brovana) 15 mcg INH BID [facility] Last Admin: 10/14/19 21:03 Dose: Not Given Azithromycin (Zithromax) 500 mg PO ONETIME ONE Stop: 10/14/19 14:44 Last Admin: 10/14/19 15:10 Dose: 500 mg Enoxaparin Sodium (Lovenox) 40 mg SUBCUT DAILY [facility] Last Admin: 10/14/19 17:12 Dose: 40 mg Escitalopram Oxalate (Lexapro) 20 mg PO BEDTIME [facility] Last Admin: 10/14/19 22:25 Dose: Not Given Escitalopram Oxalate (Lexapro) 20 mg PO BEDTIME [facility] Last Admin: 10/14/19 21:56 Dose: 20 mg Lactated Ringer's (Ringers, Lactated) 1,000 mls @ 1,000 mls/hr IV BOLUS ONE Stop: 10/14/19 15:22 Last Admin: 10/14/19 14:31 Dose: 1,000 mls/hr Potassium Chloride/Sodium Chloride (Normal Saline With 20 Meq Kcl) 1,000 mls @ 150 mls/hr IV ASDIRECTED [facility] Last Admin: 10/14/19 15:10 Dose: 150 mls/hr Ceftriaxone Sodium 1 gm/ (Sodium Chloride) 50 mls @ 100 mls/hr IV ONETIME ONE Stop: 10/14/19 15:44 Last Admin: 10/14/19 15:10 Dose: 100 mls/hr Ceftriaxone Sodium 1 gm/ (Sodium Chloride) 50 mls @ 100 mls/hr IV Q24H [facility] Sodium Chloride (Normal Saline) 1,000 mls @ 125 mls/hr IV ASDIRECTED [facility] Last Admin: 10/15/19 06:23 Dose: 125 mls/hr Temazepam (Restoril) 60 mg PO BEDTIME [facility] Last Admin: 10/14/19 22:24 Dose: Not Given - Exam Quality Assessment: Supplemental Oxygen General: Alert, Oriented, Cooperative, No Acute Distress Lungs: Normal Respiratory Effort, Decreased Breath Sounds (both bases), Crackles (both bases) Cardiovascular: Regular Rate, Regular Rhythm GI/Abdominal Exam: Soft, No Distention Extremities: No Pedal Edema. No: Increased Warmth Skin: Warm, Dry Psy/Mental Status: Alert, Normal Affect Sepsis Event Note - Evaluation Sepsis Screening Result: No Definite Risk - Focused Exam Vital Signs: Vital Signs Temp Pulse Resp BP Pulse Ox Pulse Ox 10/15/19 09:35 62 10/15/19 08:00 35.4 C 73 18 101/53 L 94 L 10/15/19 07:19 60 95 10/15/19 03:30 100/50 L 10/15/19 03:18 35.4 C 44 L 18 87/48 L 100 10/15/19 02:13 97 Date Exam was Performed: 10/15/19 Time Exam was Performed: 13:42 - Problem List Review Problem List Initiated/Reviewed/Updated: Yes - My Orders Last 24 Hours: My Active Orders 10/15/19 10:58 PT Evaluation and Treatment [CONS] Routine 10/15/19 10:59 Discontinue Telemetry Monitoring [Cardiac Monitoring Discontinue] [RC] Click to Edit Convert IV to Saline Lock [OM.PC] Routine 10/15/19 11:00 CPAP Noctural Home [RT BiPAP/CPAP] [RC] ASDIRECTED 10/16/19 05:00 BASIC METABOLIC PANEL,BMP [CHEM] Timed CBC W/O DIFF,HEMOGRAM [HEME] Timed (1) - Plan Plan:: ASSESSMENT AND PLAN BILATERAL PNEUMONIA-temperature is improving and supplemental oxygen requirements have been decreasing since admission. Tolerating antibiotics. Cultures negative so far. Feeling a little better but still weak and fatigued. -Follow-up cultures -saline lock IV -Continue ceftriaxone and azithromycin ACUTE ON CHRONIC HYPOXIC RESPIRATORY FAILURE-underlying COPD, oxygen dependent at baseline, also uses BiPAP at night. -BiPAP as needed, patient brought his own unit -Supplemental oxygen as needed -As needed albuterol nebs CHRONIC KIDNEY DISEASE STAGE IIIa-creatinine appears to be close to baseline -Closely monitor urine output and renal function CONGESTIVE HEART FAILURE-volume status appropriate, no evidence of acute exacerbation. -Continue usual outpatient medications COPD-still no wheezing, will hold on use of steroids. -Continue usual outpatient medications TYPE 2 DIABETES MELLITUS-sugars acceptable this morning but patient declined long-acting insulin this morning. -Continue usual long-acting insulin with decreased dose of 20 units subcu daily -4 times daily glucometers -Moderate dose sliding scale Humalog MAINTENANCE ISSUES -DVT prophylaxis; apixaban -GI prophylaxis; continue outpatient PPI therapy -Jung catheter; not indicated -Nutrition; 2 g sodium diet DISPOSITION-anticipate discharge to home possibly with home care after the hospital stay. PRIMARY CARE PROVIDER-Josfeina Bauer MD
[2019-10-15] MEDS: cefTRIAXone 1 GM in Sodium Chloride 0.9% 50 ML IV SCH (13:45)
[2019-10-15] MEDS ORDERED: cefTRIAXone 1 GM in Sodium Chloride 0.9% 50 ML IV SCH (14:00)
[2019-10-15] MEDS: Azithromycin 500 MG in Sodium Chloride 0.9% 250 ML IV SCH (15:27)
[2019-10-15] MEDS ORDERED: Enoxaparin 40 MG/0.4 ML Syringe SUBCUT SCH (16:00)
[2019-10-15] MEDS: Gabapentin 100 MG Cap PO SCH (19:41)
[2019-10-15] MEDS: Tamsulosin 0.4 MG Cap.ER PO SCH (20:23)
[2019-10-15] MEDS: Aspirin 81 MG Tab.EC PO SCH (20:23)
[2019-10-15] MEDS: traZODone 50 MG Tab PO SCH (20:24)
[2019-10-15] MEDS: atorvaSTATin 20 MG Tab PO SCH (20:24)
[2019-10-15] MEDS: Temazepam 15 MG Cap PO SCH (20:30)
[2019-10-15] MEDS: Insulin Glargine,Human Rec. Analog 100 Units/ML 3 ML Pen SUBCUT SCH ×2 (20:45→21:02)
[2019-10-15] MEDS: Metoprolol Succinate 25 MG Tab.ER PO SCH (20:52)
[2019-10-15] MEDS ORDERED: Escitalopram 10 MG Tab PO SCH (21:00)
[2019-10-16] MEDS: Albuterol/Ipratropium 3.0-0.5 MG/3 ML Neb Soln NEB SCH ×2 (07:41→11:05)
[2019-10-16] MEDS: Glycopyrrolate 15.6 MCG Cap.W.Dev Kit of 6 IH SCH (07:42)
[2019-10-16] MEDS: Arformoterol 15 MCG/2 ML Neb Soln INH SCH (07:42)
[2019-10-16] MEDS: Insulin Lispro 100 Unit/ML 3 ML KwikPen SUBCUT SCH ×2 (08:16→12:07)
[2019-10-16] MEDS: Pantoprazole 40 MG Tab.CR PO SCH (08:16)
[2019-10-16] MEDS: Gabapentin 100 MG Cap PO SCH (08:17)
[2019-10-16] MEDS: Bumetanide 1 MG Tab PO SCH (08:18)
[2019-10-16] MEDS: Febuxostat 40 MG Tab PO SCH (08:20)
[2019-10-16] MEDS: cefTRIAXone 1 GM in Sodium Chloride 0.9% 50 ML IV SCH (12:06)
--- NOTE | 2019-10-16 12:06 | PCM.DCSUM1 ---
Discharge Summary - Hospital Course Brief History: 69-year-old male with a history of severe oxygen dependent COPD, congestive heart failure, insulin-dependent diabetes and bipolar disorder who presented with progressive fatigue and shortness of breath. He was admitted for management of bilateral pneumonia with acute on chronic respiratory failure. Diagnosis: Stroke: No - Discharge Data Discharge Date: 10/16/19 Discharge Disposition: Home, Self-Care 01 Condition: Good - Referral to Home Health Primary Care Physician: RIN Antonio - Discharge Diagnosis/Problem(s) (1) Pneumonia SNOMED Code(s): 198147423 ICD Code: J18.9 - PNEUMONIA, UNSPECIFIED ORGANISM Status: Acute Qualifiers: Pneumonia type: due to unspecified organism Laterality: bilateral Lung location: lower lobe of lung Qualified Code(s): J18.9 - Pneumonia, unspecified organism (2) Acute and chronic respiratory failure SNOMED Code(s): 68221595 ICD Code: J96.20 - ACUTE AND CHR RESP FAILURE, UNSP W HYPOXIA OR HYPERCAPNIA Status: Acute Qualifiers: Respiratory failure complication: hypoxia Qualified Code(s): J96.21 - Acute and chronic respiratory failure with hypoxia (3) CHF (congestive heart failure) SNOMED Code(s): 21116599 ICD Code: I50.9 - HEART FAILURE, UNSPECIFIED Status: Chronic Qualifiers: Heart failure type: combined systolic and diastolic Heart failure chronicity: chronic Qualified Code(s): I50.42 - 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 (congestive) heart failure (4) COPD (chronic obstructive pulmonary disease) SNOMED Code(s): 59150271 ICD Code: J44.9 - CHRONIC OBSTRUCTIVE PULMONARY DISEASE, UNSPECIFIED Status : Chronic Qualifiers: COPD type: COPD with acute lower respiratory infection Qualified Code(s): J44.0 - Chronic obstructive pulmonary disease with (acute) lower respiratory infection (5) CKD (chronic kidney disease) stage 3, GFR 30-59 ml/min SNOMED Code(s): 317228354 ICD Code: N18.3 - CHRONIC KIDNEY DISEASE, STAGE 3 (MODERATE) Status: Chronic (6) Bipolar 1 disorder SNOMED Code(s): 780249790 ICD Code: F31.9 - BIPOLAR DISORDER, UNSPECIFIED Status: Chronic (7) Type 2 diabetes mellitus SNOMED Code(s): 42634146 ICD Code: E11.9 - TYPE 2 DIABETES MELLITUS WITHOUT COMPLICATIONS Status: Chronic Qualifiers: 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 PT Reason for Consult: Strengthening This query below is only for informational purposes and is not editable. Admission Diagnosis/Problem: Pneumonia Hospital Course: Lamont presented to the emergency room with weakness, fatigue and increasing shortness of breath. Work-up in the emergency room revealed leukocytosis as well as evidence for a bilateral lower lung pneumonia. He was more hypoxic than usual with increased oxygen requirements compared to his baseline. He was started on ceftriaxone and azithromycin after cultures were obtained and he was admitted to the hospital for further management. He did receive some IV fluids overnight but these were discontinued the day after admission. Symptomatically he was less short of breath but still very weak and tired the morning after admission. The same treatment plan was continued and he had further improvement over the next 24 hours. His cultures have all been negative. He has not had any fevers since admission. His shortness of breath is much better and cough is minimal. He is back to his usual amount of supplemental oxygen at this time. His diabetes has been well controlled. There have been no behavior issues. He feels well enough to go home and is interested in going home at this point. Plan is for 3 additional days of a azithromycin and 5 additional days of cefdinir. He has early follow-up scheduled next week. - Patient Instructions Diet: Diabetic Diet Activity: As Tolerated Driving: May Drive Today Showering/Bathing: May Shower Notify Provider of: Fever, Nausea and/or Vomiting Other/Special Instructions: 1. You were in the hospital for management of bilateral lower lung pneumonia. We did not determine a causative bacteria with your cultures but your condition has been improving with our antibiotic therapy. I do recommend ongoing antibiotic therapy after hospital discharge. Please take a azithromycin 500 mg once daily around 3 PM for 3 doses. Your first dose outside of the hospital will be due at 3 PM today. Also, please take cefdinir (Omnicef) 300 mg twice daily for 10 doses. Your first dose outside of the hospital will be due tonight. Please try to take doses of this medication about 12 hours apart. 2. Continue your usual home medications as previously prescribed. 3. Follow up with your primary care as scheduled next week please seek medical attention if you have fever greater than 101, profound fatigue or significant shortness of breath. 4. - Discharge Plan *PRESCRIPTION DRUG MONITORING PROGRAM REVIEWED*: No *COPY OF PRESCRIPTION DRUG MONITORING REPORT IN PATIENT MAGALI: No Prescriptions/Med Rec: Azithromycin 500 mg PO Q24H #3 tablet Cefdinir 300 mg PO BID #10 capsule Home Medications: Home Meds Aspirin [Halfprin] 81 mg PO DAILY 08/23/14 [History] Escitalopram [Lexapro] 20 mg PO DAILY 08/23/14 [History] Tamsulosin [Flomax] 0.4 mg PO DAILY 08/23/14 [History] Tiotropium [Spiriva HandiHaler] 18 mcg INH DAILY 08/23/14 [History] Vitamin B Complex 1 each PO DAILY 08/23/14 [History] atorvaSTATin [Lipitor] 20 mg PO BEDTIME 08/23/14 [History] traZODone 200 mg PO BEDTIME 08/23/14 [History] Metoprolol Succinate 25 mg PO DAILY 07/04/17 [History] metOLazone [Metolazone] 2.5 mg PO DAILY PRN 07/04/17 [History] Insulin Lispro [Humalog] 0 - 2 unit SQ BID 03/27/18 [History] Allopurinol [Zyloprim] 300 mg PO DAILY 10/14/19 [History] Bilberry Fruit Extract [Bilberry Extract] 375 mg PO DAILY 10/14/19 [History] Bioflav,Lemon/Vit BComp&C [Lipo-Flavonoid Plus Caplet] 1 tab PO DAILY 10/14/19 [ History] Bumetanide [Bumex] 4 mg PO DAILY 10/14/19 [History] Calcitriol [Rocaltrol] 0.25 mcg PO DAILY 10/14/19 [History] Cholecalciferol (Vitamin D3) [Vitamin D] 5,000 units PO DAILY 10/14/19 [History] Ergocalciferol (Vitamin D2) [Vitamin D2] 50,000 unit PO Q7D 10/14/19 [History] Ferrous Sulfate 325 mg PO DAILY 10/14/19 [History] Folic Acid 400 mcg PO DAILY 10/14/19 [History] Formoterol [Perforomist] 1 vial INH BID 10/14/19 [History] Gabapentin [Neurontin] 200 mg PO BID 10/14/19 [History] Glucosamine Sulfate 500 mg PO DAILY 10/14/19 [History] Insulin Glarg,Human.Rec.Analog [Lantus Solostar] 8 units SUBCUT BEDTIME [History] LORazepam [Ativan] 2 mg PO BEDTIME 10/14/19 [History] Sodium Chloride [Saline Nasal [place]] 2 spray OMKAR Q4HR PRN 10/14/19 [History] Temazepam 60 mg PO BEDTIME PRN 10/14/19 [History] Azithromycin 500 mg PO Q24H #3 tablet 10/16/19 [Rx] Cefdinir 300 mg PO BID #10 capsule 10/16/19 [Rx] Oxygen Therapy Mode: Nasal Cannula (2) Patient Handouts: Cefdinir capsules, Azithromycin tablets, Community-Acquired Pneumonia, Adult, Community-Acquired Pneumonia, Adult, [id number] Referrals: Arelis Perez PA [Primary Care Provider] - 10/23/19 11:05 am - Discharge Summary/Plan Comment DC Time >30 min.: No - Patient Data Vitals - Most Recent: Last Vital Signs Temp 36.6 C 10/16/19 08:30 Pulse 60 10/16/19 11:05 Resp 18 10/16/19 08:30 BP 107/49 L 10/16/19 08:30 Pulse Ox 97 10/16/19 11:05 Weight - Most Recent: 98.248 kg I&O - Last 24 hours: Intake & Output 10/15/19 10/16/19 10/16/19 22:59 06:59 14:59 Intake Total 850 1000 Balance 850 1000 Lab Results - Last 24 hrs: Laboratory Results - last 24 hr 10/16/19 10/16/19 Range/Units 04:00 04:00 WBC 9.5 (4.5-11.0) K/uL RBC 3.74 L (4.30-5.90) M/uL Hgb 10.9 L (12.0-15.0) g/dL Hct 36.2 L (40.0-54.0) % MCV 97 (80-98) fL MCH 29 (27-31) pg MCHC 30 L (32-36) % Plt Count 262 (150-400) K/uL Sodium 141 (140-148) mmol/L Potassium 3.7 (3.6-5.2) mmol/L Chloride 102 (100-108) mmol/L Carbon Dioxide 34 H (21-32) mmol/L Anion Gap 8.7 (5.0-14.0) mmol/L BUN 32 H (7-18) mg/dL Creatinine 1.2 (0.8-1.3) mg/dL Est Cr Clr Drug Dosing 60.98 mL/min Estimated GFR (MDRD) > 60 (>60) Glucose 142 H (74-106) mg/dL Calcium 8.7 (8.5-10.1) mg/dL ARLEEN Results - Last 24 hrs: Microbiology 10/14/19 14:20 Aerobic Blood Culture - Preliminary Blood - Venous NO GROWTH AFTER 1 DAY Anaerobic Blood Culture - Preliminary NO GROWTH AFTER 1 DAY 10/14/19 14:15 Aerobic Blood Culture - Preliminary Blood - Arm, Left NO GROWTH AFTER 1 DAY Anaerobic Blood Culture - Preliminary NO GROWTH AFTER 1 DAY Med Orders - Current: Current Medications Acetaminophen (Tylenol) 650 mg PO Q4H PRN PRN Reason: Pain (Mild 1-3)/fever Last Admin: 10/15/19 21:01 Dose: 650 mg Albuterol (Proventil Neb Soln) 2.5 mg NEB Q4H PRN PRN Reason: Shortness Of Breath/wheezing Albuterol/Ipratropium (Duoneb 3.0-0.5 Mg/3 Ml) 3 ml NEB QIDRT [facility] Last Admin: 10/16/19 11:05 Dose: 3 ml Arformoterol Tartrate (Brovana) 15 mcg INH BIDRT [facility] Last Admin: 10/16/19 07:42 Dose: 15 mcg Aspirin (Halfprin) 81 mg PO BEDTIME [facility] Last Admin: 10/15/19 20:23 Dose: 81 mg Atorvastatin Calcium (Lipitor) 40 mg PO BEDTIME [facility] Last Admin: 10/15/19 20:24 Dose: 40 mg Bumetanide (Bumex) 4 mg PO DAILY [facility] Last Admin: 10/16/19 08:18 Dose: 4 mg Dextrose (Glutose 15) 15 gm PO ONETIME PRN PRN Reason: Hypoglycemia Dextrose/Water (Dextrose 50% In Water) 50 ml IV ONETIME PRN PRN Reason: Hypoglycemia Enoxaparin Sodium (Lovenox) 40 mg SUBCUT Q24H [facility] Last Admin: 10/15/19 17:47 Dose: 40 mg Escitalopram Oxalate (Lexapro) 20 mg PO BEDTIME [facility] Last Admin: 10/15/19 20:34 Dose: Not Given Febuxostat (Uloric) 80 mg PO DAILY [facility] Last Admin: 10/16/19 08:20 Dose: 80 mg Gabapentin (Neurontin) 200 mg PO BID@0800,1600 [facility] Last Admin: 10/16/19 08:17 Dose: 200 mg Glycopyrrolate (Seebri Neohaler) 15.6 mcg IH BIDRT [facility] Last Admin: 10/16/19 07:42 Dose: 1 cap Azithromycin 500 mg/ Sodium (Chloride) 250 mls @ 250 mls/hr IV Q24H [facility] Last Admin: 10/15/19 15:27 Dose: 250 mls/hr Ceftriaxone Sodium 1 gm/ (Sodium Chloride) 50 mls @ 100 mls/hr IV Q24H [facility] Last Admin: 10/15/19 13:45 Dose: 100 mls/hr Insulin Glargine (Lantus Solostar) 8 units SUBCUT BEDTIME [facility] Last Admin: 10/15/19 21:02 Dose: Not Given Insulin Human Lispro (Humalog) 0 unit SUBCUT QIDACANDBED [facility]; Protocol Last Admin: 10/16/19 08:16 Dose: 2 units Metolazone (Zaroxolyn) 2.5 mg PO DAILY PRN PRN Reason: Other Metoprolol Succinate (Toprol Xl) 25 mg PO BEDTIME [facility] Last Admin: 10/15/19 20:52 Dose: 25 mg Ondansetron HCl (Zofran) 4 mg IV Q4H PRN PRN Reason: Nausea/Vomiting Oxycodone HCl (Oxycodone) 5 mg PO Q4H PRN PRN Reason: Pain (moderate 4-6) Pantoprazole Sodium (Protonix) 40 mg PO ACBREAKFAST [facility] Last Admin: 10/16/19 08:16 Dose: 40 mg Polyethylene Glycol (Miralax) 17 gm PO DAILY PRN PRN Reason: Constipation Sodium Chloride (Saline Flush) 10 ml FLUSH ASDIRECTED PRN PRN Reason: Keep Vein Open Tamsulosin HCl (Flomax) 0.4 mg PO BEDTIME [facility] Last Admin: 10/15/19 20:23 Dose: 0.4 mg Temazepam (Restoril) 30 mg PO BEDTIME [facility] Last Admin: 10/15/19 20:30 Dose: 30 mg Trazodone HCl (Trazodone) 200 mg PO BEDTIME [facility] Last Admin: 10/15/19 20:24 Dose: 200 mg Discontinued Medications Acetaminophen (Tylenol Extra Strength) 1,000 mg PO ONETIME ONE Stop: 10/14/19 13:51 Last Admin: 10/14/19 13:56 Dose: 1,000 mg Arformoterol Tartrate (Brovana) 15 mcg INH BID [facility] Last Admin: 10/14/19 21:03 Dose: Not Given Azithromycin (Zithromax) 500 mg PO ONETIME ONE Stop: 10/14/19 14:44 Last Admin: 10/14/19 15:10 Dose: 500 mg Enoxaparin Sodium (Lovenox) 40 mg SUBCUT DAILY [facility] Last Admin: 10/14/19 17:12 Dose: 40 mg Escitalopram Oxalate (Lexapro) 20 mg PO BEDTIME [facility] Last Admin: 10/14/19 22:25 Dose: Not Given Escitalopram Oxalate (Lexapro) 20 mg PO BEDTIME [facility] Last Admin: 10/14/19 21:56 Dose: 20 mg Gabapentin (Neurontin) 400 mg PO BEDTIME [facility] Last Admin: 10/14/19 21:03 Dose: 400 mg Lactated Ringer's (Ringers, Lactated) 1,000 mls @ 1,000 mls/hr IV BOLUS ONE Stop: 10/14/19 15:22 Last Admin: 10/14/19 14:31 Dose: 1,000 mls/hr Potassium Chloride/Sodium Chloride (Normal Saline With 20 Meq Kcl) 1,000 mls @ 150 mls/hr IV ASDIRECTED [facility] Last Admin: 10/14/19 15:10 Dose: 150 mls/hr Ceftriaxone Sodium 1 gm/ (Sodium Chloride) 50 mls @ 100 mls/hr IV ONETIME ONE Stop: 10/14/19 15:44 Last Admin: 10/14/19 15:10 Dose: 100 mls/hr Ceftriaxone Sodium 1 gm/ (Sodium Chloride) 50 mls @ 100 mls/hr IV Q24H [facility] Sodium Chloride (Normal Saline) 1,000 mls @ 125 mls/hr IV ASDIRECTED [facility] Last Admin: 10/15/19 06:23 Dose: 125 mls/hr Insulin Glargine (Lantus Solostar) 20 units SUBCUT DAILY [facility] Last Admin: 10/15/19 08:35 Dose: Not Given Temazepam (Restoril) 60 mg PO BEDTIME [facility] Last Admin: 10/14/19 22:24 Dose: Not Given - Exam Quality Assessment: Reports: Supplemental Oxygen General: Reports: Alert, Oriented, Cooperative, No Acute Distress Lungs: Reports: Normal Respiratory Effort Cardiovascular: Reports: Regular Rate, Regular Rhythm GI/Abdominal Exam: No Distention Extremities: No Pedal Edema Psy/Mental Status: Reports: Alert, Normal Affect *Q Meaningful Use (DIS) - VTE *Q VTE Pharmacological Contraindications *Q: High INR Value
[2019-10-16] MEDS: Azithromycin 500 MG in Sodium Chloride 0.9% 250 ML IV SCH (13:20)
== END 2019-10-16 13:55 | disposition home or self-care (01) | DRG 193 ==
LOC: JP.ED 12:57 → JP.MS 15:31
PROVIDERS: ADMIT Hospitalist; ATTEND Internal Medicine
DX: J18.9 Pneumonia, unspecified organism (principal); H54.7 Unspecified visual loss; J96.21 Acute and chronic respiratory failure with hypoxia; J44.9 Chronic obstructive pulmonary disease, unspecified; J44.0 Chronic obstructive pulmonary disease with (acute) lower respiratory infection; K21.9 Gastro-esophageal reflux disease without esophagitis; I50.9 Heart failure, unspecified; N40.0 Benign prostatic hyperplasia without lower urinary tract symptoms; N18.9 Chronic kidney disease, unspecified; M19.90 Unspecified osteoarthritis, unspecified site; M10.9 Gout, unspecified; E11.22 Type 2 diabetes mellitus with diabetic chronic kidney disease; E11.40 Type 2 diabetes mellitus with diabetic neuropathy, unspecified; F32.9 Major depressive disorder, single episode, unspecified; I50.42 Chronic combined systolic (congestive) and diastolic (congestive) heart failure; G47.00 Insomnia, unspecified; N18.3 Chronic kidney disease, stage 3 (moderate); Z90.81 Acquired absence of spleen; Z90.410 Acquired total absence of pancreas; F31.9 Bipolar disorder, unspecified; E78.00 Pure hypercholesterolemia, unspecified; G47.30 Sleep apnea, unspecified; E11.21 Type 2 diabetes mellitus with diabetic nephropathy; F41.9 Anxiety disorder, unspecified; D64.9 Anemia, unspecified; E78.5 Hyperlipidemia, unspecified; E86.0 Dehydration; Z99.81 Dependence on supplemental oxygen; Z88.1 Allergy status to other antibiotic agents; Z88.2 Allergy status to sulfonamides; Z79.82 Long term (current) use of aspirin; Z79.4 Long term (current) use of insulin; Z79.899 Other long term (current) drug therapy
CPT/HCPCS: 36415; 71046; 80048; 81001; 85027; 87040 ×2; 87804 ×2; 96361; 96365; 96368; 99284; A9270 ×2; J0696; J3480; J7050; J7120; 82962; 85025; 94640; 97161-GP; J0456; J1650; J1815; J1815-GY; J7030; J7605; J7620-GY

== ENCOUNTER 2020-05-26 21:09 | Emergency (ER) | payer MEDICARE, BC ==
--- NOTE | 2020-05-26 21:53 | EDM.PDOC ---
ED HPI GENERAL MEDICAL PROBLEM - General Chief Complaint: Respiratory Problem Stated Complaint: BREATHING TROUBLE Time Seen by Provider: 05/26/20 21:35 Source of Information: Reports: Patient, Old Records, RN History Limitations: Reports: No Limitations - History of Present Illness INITIAL COMMENTS - FREE TEXT/NARRATIVE: 70 yo male with a pHx of CHF, pneumonia, and COPD and who is on home oxygen presents with a complaint of a mild increase in his SOB. He has not had a fever. He thinks he has bronchitis. Sx's have been coming on since this past . No fever. No chest pain, calf pain or orthopnea. Onset: Gradual Duration: Day(s):, Getting Worse Location: Reports: Chest Quality: Reports: Other (pain not reported.) Severity: Mild Improves with: Reports: Other (feels better here for some reason) Worsens with: Reports: Other (unknown) Context: Reports: Other (See HPI) Associated Symptoms: Reports: Shortness of Breath. 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: Other (see below) (none) Generalized Pain Score (Numeric/FACES): 6 - Related Data Allergies Allergy/AdvReac Type Severity Reaction Status Date / Time vancomycin Allergy Severe Anaphylactic Verified 05/26/20 21:23 Shock Sulfa (Sulfonamide Allergy Cannot Verified 05/26/20 21:23 Antibiotics) Remember Home Meds: Home Meds Aspirin [Halfprin] 81 mg PO DAILY 08/23/14 [History] Escitalopram [Lexapro] 20 mg PO DAILY 08/23/14 [History] Tamsulosin [Flomax] 0.4 mg PO DAILY 08/23/14 [History] Tiotropium [Spiriva HandiHaler] 18 mcg INH DAILY 08/23/14 [History] atorvaSTATin [Lipitor] 20 mg PO BEDTIME 08/23/14 [History] traZODone 200 mg PO BEDTIME 08/23/14 [History] Metoprolol Succinate 25 mg PO DAILY 07/04/17 [History] metOLazone [Metolazone] 2.5 mg PO DAILY PRN 07/04/17 [History] Bilberry Fruit Extract [Bilberry Extract] 375 mg PO DAILY 10/14/19 [History] Bioflav,Lemon/Vit BComp&C [Lipo-Flavonoid Plus Caplet] 1 tab PO DAILY 10/14/19 [History] Bumetanide [Bumex] 2 mg PO DAILY 10/14/19 [History] Cholecalciferol (Vitamin D3) [Vitamin D] 5,000 units PO DAILY 10/14/19 [History] Ergocalciferol (Vitamin D2) [Vitamin D2] 50,000 unit PO Q7D 10/14/19 [History] Ferrous Sulfate 325 mg PO DAILY 10/14/19 [History] Folic Acid 400 mcg PO DAILY 10/14/19 [History] Formoterol [Perforomist] 1 vial INH BID 10/14/19 [History] Gabapentin [Neurontin] 600 mg PO TID 10/14/19 [History] Glucosamine Sulfate 500 mg PO DAILY 10/14/19 [History] Insulin Glarg,Human.Rec.Analog [Lantus Solostar] 9 units SUBCUT BEDTIME 10/14/19 [History] Sodium Chloride [Saline Nasal [place]] 2 spray OMKAR Q4HR PRN 10/14/19 [History] Temazepam 60 mg PO BEDTIME PRN 10/14/19 [History] calcitrioL [Rocaltrol] 0.25 mcg PO DAILY 10/14/19 [History] Febuxostat 80 mg PO DAILY 05/26/20 [History] Fluticasone Propionate [Flonase] 16 gm NS DAILY 05/26/20 [History] Glycopyrrolate [Seebri Neohaler] 15.6 mcg IH DAILY 05/26/20 [History] Insulin Detemir [Levemir Flextouch] 25 - 30 unit SQ DAILY 05/26/20 [History] Omeprazole 40 mg PO DAILY 05/26/20 [History] Past Medical History HEENT History: Reports: Impaired Vision Cardiovascular History: Reports: Heart Failure, High Cholesterol Respiratory History: Reports: COPD, Intubation, Previous, Sleep Apnea, Other (See Below) Other Respiratory History: home O2 Gastrointestinal History: Reports: GERD Genitourinary History: Reports: BPH, Chronic Renal Insuffiency, Diabetic Nephropathy Musculoskeletal History: Reports: Gout, Osteoarthritis, Other (See Below) Other Musculoskeletal History: growth on the bottom of R foot. States it was placed in a brace 1 month ago to monitor Neurological History: Reports: Neuropathy, Diabetic, Other (See Below) Other Neuro History: tremor Psychiatric History: Reports: Anxiety, Bipolar, Depression, Other (See Below) Other Psychiatric History: insomnia Endocrine/Metabolic History: Reports: Diabetes, Type II Hematologic History: Reports: Anemia Other Hematologic History: hyperlipidemia Immunologic History: Reports: Other (See Below) Other Immunologic History: intubated, unable to obtain Oncologic (Cancer) History: Reports: Other (See Below) Other Oncologic History: intubated unable to obtain Dermatologic History: Reports: Other (See Below) Other Dermatologic History: foot growth with brace in place - Infectious Disease History Infectious Disease History: Reports: Chicken Pox - Past Surgical History GI Surgical History: Reports: Other (See Below) Other 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 Denies: Wheezing, Pleuritic Chest Pain, Cough, Hemoptysis Cardiovascular: Reports: No Symptoms GI/Abdominal: Reports: No Symptoms : Reports: No Symptoms Musculoskeletal: Reports: No Symptoms Skin: Reports: No Symptoms Neurological: Reports: No Symptoms ED EXAM, GENERAL - Physical Exam Exam: See Below Exam Limited By: No Limitations General Appearance: Alert, WD/WN, No Apparent Distress Eye Exam: Bilateral Eye: Normal Inspection Ears: Normal External Exam, Normal Canal, Hearing Grossly Normal, Normal TMs Ear Exam: Bilateral Ear: Auricle Normal, Canal Normal, TM normal Nose: Normal Inspection, No Blood Throat/Mouth: Normal Inspection, Normal Lips, Normal Oropharynx, Normal Voice, No Airway Compromise Head: Atraumatic, Normocephalic Neck: Normal Inspection Respiratory/Chest: No Respiratory Distress, Lungs Clear, No Accessory Muscle Use, Decreased Breath Sounds. No: Normal Breath Sounds, Respiratory Distress, Crackles, Rales, Rhonchi, Wheezing Cardiovascular: Regular Rate, Rhythm, No Edema Neurological: Alert, Oriented, CN II-XII Intact, Normal Cognition Psychiatric: Normal Affect, Normal Mood Skin Exam: Warm, Dry, Intact, Normal Color, No Rash Course - Vital Signs Text/Narrative:: Declined the offer of IV fluids and IM steroids Last Recorded V/S: Last Vital Signs Temp 37.2 C 05/26/20 21:22 Pulse 60 05/26/20 22:20 Resp 12 05/26/20 22:20 BP 83/47 L 05/26/20 22:20 Pulse Ox 90 L 05/26/20 22:20 - Orders/Labs/Meds Orders: Active Orders 24 hr Category Date Time Status RT Aerosol Therapy [RC] ASDIRECTED Care 05/26/20 22:03 Active Labs: Laboratory Tests 05/26/20 05/26/20 Range/Units 21:58 21:58 WBC 6.8 (4.5-11.0) K/uL RBC 4.53 (4.30-5.90) M/uL Hgb 13.1 D (12.0-15.0) g/dL Hct 42.4 (40.0-54.0) % MCV 94 (80-98) fL MCH 29 (27-31) pg MCHC 31 L (32-36) % Plt Count 323 (150-400) K/uL Sodium 144 (140-148) mmol/L Potassium 3.4 L (3.6-5.2) mmol/L Chloride 100 (100-108) mmol/L Carbon Dioxide 36 H (21-32) mmol/L Anion Gap 11.4 (5.0-14.0) mmol/L BUN 76 H* D (7-18) mg/dL Creatinine 1.7 H (0.8-1.3) mg/dL Est Cr Clr Drug Dosing 42.34 mL/min Estimated GFR (MDRD) 40 L (>60) Glucose 125 H (74-106) mg/dL Calcium 9.6 (8.5-10.1) mg/dL Meds: Medications Discontinued Medications Generic Name Dose Route Start Last Admin Trade Name Freq PRN Reason Stop Dose Admin Albuterol/Ipratropium 3 ml 05/26/20 22:02 05/26/20 22:09 Duoneb 3.0-0.5 Mg/3 Ml NEB 05/26/20 22:03 3 ml ONETIME ONE Administration Sodium Chloride 1,000 mls @ 1,000 mls/hr 05/26/20 22:27 Normal Saline IV 05/26/20 23:26 .BOLUS ONE Methylprednisolone Sodium Succinate 40 mg 05/26/20 22:28 Solu-Medrol IM 05/26/20 22:29 ONETIME ONE Potassium Chloride 20 meq 05/26/20 22:27 Potassium Chloride PO 05/26/20 22:28 ONETIME ONE Departure - Departure Time of Disposition: 22:35 Disposition: Home, Self-Care 01 Condition: Fair Clinical Impression: Mild dehydration, Hypokalemia COPD (chronic obstructive pulmonary disease) Qualifiers: COPD type: COPD with acute lower respiratory infection Qualified Code(s): J44.0 - Chronic obstructive pulmonary disease with (acute) lower respiratory infection - Discharge Information *PRESCRIPTION DRUG MONITORING PROGRAM REVIEWED*: Not Applicable *COPY OF PRESCRIPTION DRUG MONITORING REPORT IN PATIENT MAGALI: Not Applicable Referrals: Aerlis Perez PA [Primary Care Provider] - Forms: ED Department Discharge Additional Instructions: Take prednisone 20 mg tonight, then daily for 3 more days. Drink more fluids to overcome your dehydration. See your family doctor for recheck later this week. Eat more foods that are good sources of potassium. Return as needed. Sepsis Event Note (ED) - Evaluation Sepsis Screening Result: No Definite Risk - Focused Exam Vital Signs: Vital Signs Temp Pulse Resp BP Pulse Ox 05/26/20 22:20 60 12 83/47 L 90 L 05/26/20 21:50 54 L 10 L 99/54 L 91 L 05/26/20 21:28 63 20 110/56 L 94 L 05/26/20 21:22 37.2 C 67 20 83/53 L 91 L 05/26/20 21:16 37.2 C 67 20 83/53 L 91 L - My Orders Last 24 Hours: My Active Orders 05/26/20 22:03 RT Aerosol Therapy [RC] ASDIRECTED - Assessment/Plan Last 24 Hours: My Active Orders 05/26/20 22:03 RT Aerosol Therapy [RC] ASDIRECTED
[2020-05-26] MEDS ORDERED: Albuterol/Ipratropium 3.0-0.5 MG/3 ML Neb Soln NEB ONE (22:02)
[2020-05-26] MEDS ORDERED: Sodium Chloride 0.9% 1,000 ML IV ONE (22:27)
[2020-05-26] MEDS ORDERED: Potassium Chloride 10 MEQ Cap.ER PO ONE (22:27)
[2020-05-26] MEDS ORDERED: methylPREDNISolone Sodium Succinate 40 MG/1 ML SDV IM ONE (22:28)
== END 2020-05-26 22:48 | disposition home or self-care (01) ==
LOC: JP.ED 21:09
DX: J44.0 Chronic obstructive pulmonary disease with (acute) lower respiratory infection (principal); E86.0 Dehydration; E87.6 Hypokalemia; I50.9 Heart failure, unspecified; K21.9 Gastro-esophageal reflux disease without esophagitis; E11.21 Type 2 diabetes mellitus with diabetic nephropathy; E11.40 Type 2 diabetes mellitus with diabetic neuropathy, unspecified; M10.9 Gout, unspecified; N18.9 Chronic kidney disease, unspecified; F41.9 Anxiety disorder, unspecified; F31.9 Bipolar disorder, unspecified; D64.9 Anemia, unspecified; Z88.2 Allergy status to sulfonamides; Z88.1 Allergy status to other antibiotic agents; Z79.82 Long term (current) use of aspirin; Z79.899 Other long term (current) drug therapy; Z79.4 Long term (current) use of insulin
CPT/HCPCS: 36415; 80048; 85027; 94640; 99285; A9270; 99283; J7620-GY

== ENCOUNTER 2020-07-05 22:39 | Emergency (ER) | payer MEDICARE, BC ==
--- NOTE | 2020-07-05 23:27 | EDM.PDOC ---
ED HPI GENERAL MEDICAL PROBLEM - General Chief Complaint: General Stated Complaint: MEDICAL Time Seen by Provider: 07/05/20 23:27 Source of Information: Reports: Patient History Limitations: Reports: No Limitations - History of Present Illness INITIAL COMMENTS - FREE TEXT/NARRATIVE: Patient presents by private vehicle concerned about recent weakness, shortness of breath with cough, confusion episodes. He is a limited historian. He feels worn out and tired as well as the previously mentioned complaints. When he presented to the hospital he parked in the handicap zone and then was requesting assistance to get inside. He has multiple medications which he should be taking but has not consistently for quite some time although he does not know how long. Earlier today, he felt as though he was extremely confused and states that he has never felt like that before. He was found to have a temperature of 101 F on initial evaluation. Onset: Gradual Duration: Day(s): Location: Reports: Generalized Quality: Reports: Ache Severity: Moderate Improves with: Reports: None Worsens with: Reports: Movement Right Foot Pain Score (Numeric/FACES): 3 - Related Data Allergies Allergy/AdvReac Type Severity Reaction Status Date / Time vancomycin Allergy Severe Anaphylactic Verified 07/05/20 23:17 Shock Sulfa (Sulfonamide Allergy Cannot Verified 07/05/20 23:17 Antibiotics) Remember Home Meds: Home Meds Aspirin [Halfprin] 81 mg PO DAILY 08/23/14 [History] Escitalopram [Lexapro] 20 mg PO DAILY 08/23/14 [History] Tamsulosin [Flomax] 0.4 mg PO DAILY 08/23/14 [History] atorvaSTATin [Lipitor] 20 mg PO BEDTIME 08/23/14 [History] traZODone 200 mg PO BEDTIME 08/23/14 [History] Metoprolol Succinate 25 mg PO DAILY 07/04/17 [History] Bilberry Fruit Extract [Bilberry Extract] 375 mg PO DAILY 10/14/19 [History] Bumetanide [Bumex] 4 mg PO DAILY 10/14/19 [History] Cholecalciferol (Vitamin D3) [Vitamin D] 5,000 units PO DAILY 10/14/19 [History] Ferrous Sulfate 325 mg PO DAILY 10/14/19 [History] Folic Acid 400 mcg PO DAILY 10/14/19 [History] Formoterol [Perforomist] 1 vial INH BID 10/14/19 [History] Gabapentin [Neurontin] 600 mg PO QID 10/14/19 [History] Glucosamine Sulfate 500 mg PO DAILY 10/14/19 [History] Insulin Glarg,Human.Rec.Analog [Lantus Solostar] 9 units SUBCUT BEDTIME 10/14/19 [History] Temazepam 60 mg PO BEDTIME PRN 10/14/19 [History] calcitrioL [Rocaltrol] 0.25 mcg PO DAILY 10/14/19 [History] Febuxostat 80 mg PO DAILY 05/26/20 [History] Insulin Detemir [Levemir Flextouch] 25 - 30 unit SQ DAILY 05/26/20 [History] Acetaminophen [Tylenol Extra Strength] 500 mg PO QID PRN 07/05/20 [History] Ascorbic Acid [Vitamin C] 1,000 mg PO DAILY 07/05/20 [History] Lutein 10 mg PO DAILY 07/05/20 [History] metOLazone [Metolazone] 2.5 mg PO WEEKLY 07/05/20 [History] predniSONE [Prednisone] 2.5 mg PO DAILY 07/05/20 [History] Past Medical History HEENT History: Reports: Impaired Vision Cardiovascular History: Reports: Heart Failure, High Cholesterol Respiratory History: Reports: COPD, Intubation, Previous, Sleep Apnea, Other (See Below) Other Respiratory History: home O2 Gastrointestinal History: Reports: GERD Genitourinary History: Reports: BPH, Chronic Renal Insuffiency, Diabetic Nephropathy Musculoskeletal History: Reports: Gout, Osteoarthritis, Other (See Below) Other Musculoskeletal History: growth on the bottom of R foot. States it was placed in a brace 1 month ago to monitor Neurological History: Reports: Neuropathy, Diabetic, Other (See Below) Other Neuro History: tremor Psychiatric History: Reports: Anxiety, Bipolar, Depression, Other (See Below) Other Psychiatric History: insomnia Endocrine/Metabolic History: Reports: Diabetes, Type II Hematologic History: Reports: Anemia Other Hematologic History: hyperlipidemia Immunologic History: Reports: Other (See Below) Other Immunologic History: intubated, unable to obtain Oncologic (Cancer) History: Reports: Other (See Below) Other Oncologic History: intubated unable to obtain Dermatologic History: Reports: Other (See Below) Other Dermatologic History: foot growth with brace in place - Infectious Disease History Infectious Disease History: Reports: Chicken Pox - Past Surgical History GI Surgical History: Reports: Other (See Below) 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 Denies: Chills HEENT: Reports: Sinus Problem Respiratory: Reports: Shortness of Breath, Cough Cardiovascular: Denies: Chest Pain GI/Abdominal: Reports: Abdominal Pain (May be) Musculoskeletal: Reports: Back Pain ED EXAM, GENERAL - Physical Exam Exam: See Below Exam Limited By: Other (Patient has definite ideas about what is and is not going on and what he is willing to do for assessment and treatment.) General Appearance: Mild Distress Neck: Non-Tender Respiratory/Chest: Lungs Clear Cardiovascular: Bradycardia Psychiatric: Flat Affect Course - Vital Signs Last Recorded V/S: Last Vital Signs Temp 38.6 C H 07/05/20 23:27 Pulse 56 L 07/05/20 23:27 Resp 20 07/05/20 23:27 BP 106/51 L 07/05/20 23:27 Pulse Ox 92 L 07/05/20 23:27 - Orders/Labs/Meds Orders: Active Orders 24 hr Category Date Time Status Chest 2V [CR] Stat Exams 07/06/20 00:05 Taken CULTURE BLOOD [BC] Stat Lab 07/05/20 23:52 Received Saline Lock Insert [OM.PC] Routine Oth 07/05/20 23:38 Ordered Labs: Laboratory Tests 07/05/20 07/05/20 07/05/20 Range/Units 23:52 23:52 23:52 WBC 7.7 (4.5-11.0) K/uL RBC 4.87 (4.30-5.90) M/uL Hgb 13.7 (12.0-15.0) g/dL Hct 44.4 (40.0-54.0) % MCV 91 (80-98) fL MCH 28 (27-31) pg MCHC 31 L (32-36) % Plt Count 266 (150-400) K/uL Neut % (Auto) 81 H (36-66) % Lymph % (Auto) 8 L (24-44) % [place] % (Auto) 11 H (2-6) % Eos % (Auto) 0 L (2-4) % Baso % (Auto) 0 (0-1) % D-Dimer, Quantitative (0.0-400.0) ng/mL Sodium 135 L (140-148) mmol/L Potassium 3.3 L (3.6-5.2) mmol/L Chloride 94 L (100-108) mmol/L Carbon Dioxide 38 H (21-32) mmol/L Anion Gap 6.3 (5.0-14.0) mmol/L BUN 76 H* (7-18) mg/dL Creatinine 2.4 H (0.8-1.3) mg/dL Est Cr Clr Drug Dosing 30.07 mL/min Estimated GFR (MDRD) 27 L (>60) Glucose 127 H (74-106) mg/dL Lactic Acid (0.4-2.0) mmol/L Calcium 9.4 (8.5-10.1) mg/dL Total Bilirubin 0.8 (0.2-1.0) mg/dL AST 16 (15-37) U/L ALT 22 (12-78) U/L Alkaline Phosphatase 128 H (46-116) U/L Troponin I 0.090 H* (0.000-0.056) ng/mL C-Reactive Protein 2.88 H (0.0-0.3) mg/dL Total Protein 7.4 (6.4-8.2) g/dL Albumin 3.5 (3.4-5.0) g/dL Globulin 3.9 H (2.3-3.5) g/dL Albumin/Globulin Ratio 0.9 L (1.2-2.2) Urine Color (YELLOW) Urine Appearance (CLEAR) Urine pH (5.0-8.0) Ur Specific [place] (1.008-1.030) Urine Protein (NEGATIVE) mg/dL Urine Glucose (UA) (NEGATIVE) mg/dL Urine Ketones (NEGATIVE) mg/dL Urine Occult Blood (NEGATIVE) Urine Nitrite (NEGATIVE) Urine Bilirubin (NEGATIVE) Urine Urobilinogen (0.2-1.0) EU/dL Ur Leukocyte Esterase (NEGATIVE) Urine RBC (0-5) Urine WBC (0-5) Ur Epithelial Cells Amorphous Sediment Urine Bacteria Urine Mucus 07/05/20 07/05/20 07/06/20 Range/Units 23:52 23:52 00:45 WBC (4.5-11.0) K/uL RBC (4.30-5.90) M/uL Hgb (12.0-15.0) g/dL Hct (40.0-54.0) % MCV (80-98) fL MCH (27-31) pg MCHC (32-36) % Plt Count (150-400) K/uL Neut % (Auto) (36-66) % Lymph % (Auto) (24-44) % [place] % (Auto) (2-6) % Eos % (Auto) (2-4) % Baso % (Auto) (0-1) % D-Dimer, Quantitative 334 (0.0-400.0) ng/mL Sodium (140-148) mmol/L Potassium (3.6-5.2) mmol/L Chloride (100-108) mmol/L Carbon Dioxide (21-32) mmol/L Anion Gap (5.0-14.0) mmol/L BUN (7-18) mg/dL Creatinine (0.8-1.3) mg/dL Est Cr Clr Drug Dosing mL/min Estimated GFR (MDRD) (>60) Glucose (74-106) mg/dL Lactic Acid 1.7 (0.4-2.0) mmol/L Calcium (8.5-10.1) mg/dL Total Bilirubin (0.2-1.0) mg/dL AST (15-37) U/L ALT (12-78) U/L Alkaline Phosphatase (46-116) U/L Troponin I (0.000-0.056) ng/mL C-Reactive Protein (0.0-0.3) mg/dL Total Protein (6.4-8.2) g/dL Albumin (3.4-5.0) g/dL Globulin (2.3-3.5) g/dL Albumin/Globulin Ratio (1.2-2.2) Urine Color Yellow (YELLOW) Urine Appearance Clear (CLEAR) Urine pH 6.0 (5.0-8.0) Ur Specific [place] 1.020 (1.008-1.030) Urine Protein Negative (NEGATIVE) mg/dL Urine Glucose (UA) Negative (NEGATIVE) mg/dL Urine Ketones Negative (NEGATIVE) mg/dL Urine Occult Blood Negative (NEGATIVE) Urine Nitrite Negative (NEGATIVE) Urine Bilirubin Negative (NEGATIVE) Urine Urobilinogen 0.2 (0.2-1.0) EU/dL Ur Leukocyte Esterase Negative (NEGATIVE) Urine RBC Not seen (0-5) Urine WBC 0-5 (0-5) Ur Epithelial Cells Not seen Amorphous Sediment Few Urine Bacteria Not seen Urine Mucus Not seen Meds: Medications Discontinued Medications Generic Name Dose Route Start Last Admin Trade Name Freq PRN Reason Stop Dose Admin Sodium Chloride 10 ml 07/05/20 23:38 Saline Flush FLUSH ASDIRECTED PRN Keep Vein Open - Re-Assessments/Exams Free Text/Narrative Re-Assessment/Exam: 07/06/20 06:08 I discussed with the patient that he may need admission to the hospital given everything that he is describing tonight. He went for imaging of the head and chest and shortly after returning came to the nurses desk announcing that he was leaving. Nursing staff attempted to get him to remain to complete the rest of the work-up but he decided that he had "waited long enough." He wanted to leave and stated that he had left prior to completion of his work-up when he was at [facility] as well! He was able to walk to his vehicle and left the area without other assistance, albeit slowly. Departure - Departure Time of Disposition: 04:00 Disposition: Against Medical Advice 07 Clinical Impression: Bipolar 1 disorder Fatigue Qualifiers: Fatigue type: unspecified Qualified Code(s): R53.83 - Other fatigue Fever Qualifiers: Fever type: unspecified Qualified Code(s): R50.9 - Fever, unspecified CKD (chronic kidney disease) stage 3, GFR 30-59 ml/min Qualifiers: Chronic kidney disease stage 3 subtype: unspecified whether 3a or 3b Qualified Code(s): N18.30 - Chronic kidney disease, stage 3 unspecified - Discharge Information Referrals: PCP,None [Primary Care Provider] - Forms: ED Department Discharge Additional Instructions: Patient was informed as he was leaving that he could return at any time if desired. Sepsis Event Note (ED) - Focused Exam Vital Signs: Vital Signs Temp Pulse Resp BP Pulse Ox 07/05/20 23:27 38.6 C H 56 L 20 106/51 L 92 L - My Orders Last 24 Hours: My Active Orders 07/05/20 23:38 Saline Lock Insert [OM.PC] Routine 07/05/20 23:52 CULTURE BLOOD [BC] Stat 07/06/20 00:05 Chest 2V [CR] Stat - Assessment/Plan Last 24 Hours: My Active Orders 07/05/20 23:38 Saline Lock Insert [OM.PC] Routine 07/05/20 23:52 CULTURE BLOOD [BC] Stat 07/06/20 00:05 Chest 2V [CR] Stat
[2020-07-05] MEDS ORDERED: Sodium Chloride 0.9% 10 ML Syringe FLUSH PRN (23:38)
--- NOTE | 2020-07-06 01:24 | CRLCT ---
INDICATION: Altered mental status TECHNIQUE: CT head without contrast. COMPARISON: None. FINDINGS: CSF spaces: Within normal limits for age. Brain parenchyma: No intracranial bleed or mass effect. Singletary-white differentiation appears preserved. Skull base and calvarium: The visualized paranasal sinuses and mastoid air cells demonstrate no acute or significant findings. The visualized orbits are grossly unremarkable. No skull fractures. Atherosclerosis. IMPRESSION: Unremarkable noncontrast head CT. No intracranial bleed or mass effect. Please note that all CT scans at this facility use dose modulation, iterative reconstruction, and/or weight-based dosing when appropriate to reduce radiation dose to as low as reasonably achievable. Dictated by Ari Mcconnell MD @ Jul 06 2020 1:17AM Signed by Dr. Ari Mcconnell @ Jul 06 2020 1:23AM
--- NOTE | 2020-07-07 09:37 | CR ---
CHEST: 2 view CLINICAL HISTORY:Dyspnea and confusion COMPARISON:September 2019 FINDINGS: There is chronic elevation of the right hemidiaphragm. Heart is enlarged. Pulmonary vascularity is cephalized. The lung markings are generally increased with some lower lobe infiltrate bilaterally. Some of this is chronic. Impression: Cardiomegaly with vascular cephalization and bilateral interstitial and alveolar infiltrates left greater than right. Some element of CHF superimposed over some chronic lung changes is suspected
== END 2020-07-06 00:52 | disposition left against medical advice (07) ==
LOC: JP.ED 22:39
DX: F31.9 Bipolar disorder, unspecified (principal); E11.22 Type 2 diabetes mellitus with diabetic chronic kidney disease; N18.30 Chronic kidney disease, stage 3 unspecified; R50.9 Fever, unspecified; I50.9 Heart failure, unspecified; D63.1 Anemia in chronic kidney disease; E11.21 Type 2 diabetes mellitus with diabetic nephropathy; F41.9 Anxiety disorder, unspecified; E11.40 Type 2 diabetes mellitus with diabetic neuropathy, unspecified; J44.9 Chronic obstructive pulmonary disease, unspecified; E78.5 Hyperlipidemia, unspecified; Z88.1 Allergy status to other antibiotic agents; Z88.2 Allergy status to sulfonamides; Z79.4 Long term (current) use of insulin; Z79.82 Long term (current) use of aspirin; Z79.899 Other long term (current) drug therapy
CPT/HCPCS: 36415; 70450; 71046; 71046-26; 80053; 81001; 83605; 84484; 85025; 85379; 86140; 87040; 99283; 99285-25

== ENCOUNTER 2020-07-08 18:02 | Emergency (ER) | payer MEDICARE, BC ==
[2020-07-08] MEDS ORDERED: Sodium Chloride 0.9% 10 ML Syringe FLUSH PRN (18:25)
[2020-07-08] MEDS ORDERED: Acetaminophen 500 MG Tab PO ONE (18:27)
--- NOTE | 2020-07-08 18:36 | EDM.PDOC ---
ED HPI GENERAL MEDICAL PROBLEM - General Chief Complaint: Respiratory Problem Stated Complaint: FALL.CONFUSION Time Seen by Provider: 07/08/20 18:20 Source of Information: Reports: Patient, EMS, Old Records, RN History Limitations: Reports: No Limitations - History of Present Illness INITIAL COMMENTS - FREE TEXT/NARRATIVE: 70 yo male was here 2 days ago for mild SOB, mild confusion and a low grade fever. His work up was suspicious for Covid, but he was not specifically tested for this. Before his work up was completely done on that visit he just walked out. Today a neighbor went to check on him because he had not seen him for a couple days. The neighbor found him on the floor. When EMS arrived he was sitting on the toilet. Has known chronic lung dz and is on oxygen at 2 liters/min/NC normally. It is not clear to his mild confusion how long he was on the floor, if he's taken his meds or eaten? He lives alone. Onset: Unknown/Unsure Duration: Day(s): (3 days minimum based on his medical records), Constant Location: Reports: Generalized Quality: Reports: Other (pain not reported) Severity: Moderate Improves with: Reports: None Worsens with: Reports: Other (? time) Context: Reports: Other (See HPI) Associated Symptoms: Reports: Confusion, Fever/Chills, Shortness of Breath, Weakness. Denies: Chest Pain, Cough, Diaphoresis, Seizure Treatments [employer]: Reports: Other (see below) (none) - Related Data Allergies Allergy/AdvReac Type Severity Reaction Status Date / Time vancomycin Allergy Severe Anaphylactic Verified 07/08/20 18:31 Shock Sulfa (Sulfonamide Allergy Cannot Verified 07/08/20 18:31 Antibiotics) Remember Home Meds: Home Meds Aspirin [Halfprin] 81 mg PO DAILY 08/23/14 [History] Escitalopram [Lexapro] 20 mg PO DAILY 08/23/14 [History] Tamsulosin [Flomax] 0.4 mg PO DAILY 08/23/14 [History] atorvaSTATin [Lipitor] 20 mg PO BEDTIME 08/23/14 [History] traZODone 200 mg PO BEDTIME 08/23/14 [History] Metoprolol Succinate 25 mg PO DAILY 07/04/17 [History] Bilberry Fruit Extract [Bilberry Extract] 375 mg PO DAILY 10/14/19 [History] Bumetanide [Bumex] 4 mg PO DAILY 10/14/19 [History] Cholecalciferol (Vitamin D3) [Vitamin D] 5,000 units PO DAILY 10/14/19 [History] Ferrous Sulfate 325 mg PO DAILY 10/14/19 [History] Folic Acid 400 mcg PO DAILY 10/14/19 [History] Formoterol [Perforomist] 1 vial INH BID 10/14/19 [History] Gabapentin [Neurontin] 600 mg PO QID 10/14/19 [History] Glucosamine Sulfate 500 mg PO DAILY 10/14/19 [History] Insulin Glarg,Human.Rec.Analog [Lantus Solostar] 9 units SUBCUT BEDTIME 10/14/19 [History] Temazepam 60 mg PO BEDTIME PRN 10/14/19 [History] calcitrioL [Rocaltrol] 0.25 mcg PO DAILY 10/14/19 [History] Febuxostat 80 mg PO DAILY 05/26/20 [History] Insulin Detemir [Levemir Flextouch] 25 - 30 unit SQ DAILY 05/26/20 [History] Acetaminophen [Tylenol Extra Strength] 500 mg PO QID PRN 07/05/20 [History] Ascorbic Acid [Vitamin C] 1,000 mg PO DAILY 07/05/20 [History] Lutein 10 mg PO DAILY 07/05/20 [History] metOLazone [Metolazone] 2.5 mg PO WEEKLY 07/05/20 [History] predniSONE [Prednisone] 2.5 mg PO DAILY 07/05/20 [History] Past Medical History HEENT History: Reports: Impaired Vision Cardiovascular History: Reports: Heart Failure, High Cholesterol Respiratory History: Reports: COPD, Intubation, Previous, Sleep Apnea, Other (See Below) Other Respiratory History: home O2 Gastrointestinal History: Reports: GERD Genitourinary History: Reports: BPH, Chronic Renal Insuffiency, Diabetic Nephropathy Musculoskeletal History: Reports: Gout, Osteoarthritis, Other (See Below) Other Musculoskeletal History: growth on the bottom of R foot. States it was placed in a brace 1 month ago to monitor Neurological History: Reports: Neuropathy, Diabetic, Other (See Below) Other Neuro History: tremor Psychiatric History: Reports: Anxiety, Bipolar, Depression, Other (See Below) Other Psychiatric History: insomnia Endocrine/Metabolic History: Reports: Diabetes, Type II Hematologic History: Reports: Anemia Other Hematologic History: hyperlipidemia Immunologic History: Reports: Other (See Below) Other Immunologic History: intubated, unable to obtain Oncologic (Cancer) History: Reports: Other (See Below) Other Oncologic History: intubated unable to obtain Dermatologic History: Reports: Other (See Below) Other Dermatologic History: foot growth with brace in place - Infectious Disease History Infectious Disease History: Reports: Chicken Pox - Past Surgical History GI Surgical History: Reports: Other (See Below) 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 Denies: Wheezing, Pleuritic Chest Pain, Cough, Sputum, Hemoptysis Cardiovascular: Reports: No Symptoms Endocrine: Reports: No Symptoms GI/Abdominal: Reports: No Symptoms : Reports: No Symptoms Musculoskeletal: Reports: No Symptoms Skin: Reports: No Symptoms Neurological: Reports: Confusion (mild). Denies: Headache Psychiatric: Reports: No Symptoms ED EXAM, GENERAL - Physical Exam Exam: See Below Exam Limited By: No Limitations General Appearance: Alert, WD/WN, Mild Distress Eye Exam: Bilateral Eye: Normal Inspection Ears: Normal External Exam, Normal Canal, Hearing Grossly Normal, Normal TMs Ear Exam: Bilateral Ear: Auricle Normal, Canal Normal, TM normal Nose: Normal Inspection, No Blood Throat/Mouth: Normal Inspection, Normal Lips, Normal Oropharynx, Normal Voice, No Airway Compromise Head: Atraumatic, Normocephalic Neck: Normal Inspection Respiratory/Chest: No Respiratory Distress, Lungs Clear, No Accessory Muscle Use, Decreased Breath Sounds. No: Normal Breath Sounds Cardiovascular: Regular Rate, Rhythm, No Edema GI/Abdominal: Normal Bowel Sounds, Soft, Non-Tender, No Distention Back Exam: Normal Inspection. No: CVA Tenderness (R), CVA Tenderness (L) Extremities: Normal Inspection, Normal Range of Motion, Non-Tender, No Pedal Edema Neurological: Alert, CN II-XII Intact, No Motor/Sensory Deficits, Disoriented (only mildly disoriented) Psychiatric: Normal Affect, Normal Mood Skin Exam: Warm, Dry, Intact, Normal Color, No Rash #1 Interpretation EKG Date: 07/08/20 Time: 19:20 Rhythm: NSR Rate (Beats/Min): 65 Gill: Normal P-Wave: Present QRS: RBBB ST-T: Normal QT: Normal (flipped T's anterior and inferior leads) Comparison: No Change Course - Vital Signs Text/Narrative:: Dr. Bauer called @ 2004h, recommends transfer. Called Giovanni Ortiz @ - refused due to no nephrology available called Giovanni Penningtongo @ , acceptance by Dr. Galarza @ Last Recorded V/S: Last Vital Signs Temp 2.7 C L 07/08/20 20:17 Pulse 59 L 07/08/20 20:17 Resp 20 07/08/20 20:17 BP 104/55 L 07/08/20 20:17 Pulse Ox 89 L 07/08/20 20:17 - Orders/Labs/Meds Orders: Active Orders 24 hr Category Date Time Status Cardiac Monitoring [RC] .As Directed Care 07/08/20 18:26 Active EKG Documentation Completion [RC] ASDIRECTED Care 07/08/20 19:07 Active Chest 1V Frontal [CR] Stat Exams 07/08/20 18:39 Taken UA W/MICROSCOPIC [URIN] Stat Lab 07/08/20 19:08 Ordered Dextrose 50% in Water Med 07/08/20 19:07 Active 50 ml IVPUSH ASDIRECTED PRN Glucagon,Human Recombinant [GlucaGen] Med 07/08/20 19:07 Active 1 mg IM ASDIRECTED PRN Lactated Ringers [Ringers, Lactated] 1,000 ml Med 07/08/20 20:30 Active IV ASDIRECTED Sodium Chloride 0.9% [Saline Flush] Med 07/08/20 18:25 Active 10 ml FLUSH ASDIRECTED PRN Saline Lock Insert [OM.PC] Routine Oth 07/08/20 18:25 Ordered EKG 12 Lead [EK] Routine Ther 07/08/20 19:07 Ordered Medication Orders Dextrose/Water (Dextrose 50% In Water) 50 ml IVPUSH ASDIRECTED PRN PRN Reason: Hypoglycemia Glucagon (Glucagen) 1 mg IM ASDIRECTED PRN PRN Reason: Hypoglycemia Lactated Ringer's (Ringers, Lactated) 1,000 mls @ 250 mls/hr IV ASDIRECTED YOAN Last Admin: 07/08/20 20:26 Dose: 250 mls/hr Documented by: EVELIO Sodium Chloride (Saline Flush) 10 ml FLUSH ASDIRECTED PRN PRN Reason: Keep Vein Open Last Admin: 07/08/20 19:19 Dose: 10 ml Documented by: EVELIO Labs: Laboratory Tests 07/08/20 07/08/20 07/08/20 Range/Units 18:31 18:31 18:31 WBC 8.9 (4.5-11.0) K/uL RBC 5.01 (4.30-5.90) M/uL Hgb 14.3 (12.0-15.0) g/dL Hct 44.7 (40.0-54.0) % MCV 89 (80-98) fL MCH 29 (27-31) pg MCHC 32 (32-36) % Plt Count 218 (150-400) K/uL D-Dimer, Quantitative 513 H (0.0-400.0) ng/mL Sodium 137 L (140-148) mmol/L Potassium 3.9 (3.6-5.2) mmol/L Chloride 94 L (100-108) mmol/L Carbon Dioxide 33 H (21-32) mmol/L Anion Gap 13.9 (5.0-14.0) mmol/L BUN 124 H* D (7-18) mg/dL Creatinine 4.4 H* D (0.8-1.3) mg/dL Est Cr Clr Drug Dosing TNP Estimated GFR (MDRD) 13 L (>60) Glucose 360 H (74-106) mg/dL POC Glucose (74-106) MG/DL Calcium 9.0 (8.5-10.1) mg/dL Lactate Dehydrogenase (85-227) U/L Creatine Kinase (39-308) U/L Troponin I 1.006 H* (0.000-0.056) ng/mL C-Reactive Protein (0.0-0.3) mg/dL SARS-CoV-2 RNA (FLAVIO) (NEGATIVE) 07/08/20 07/08/20 07/08/20 Range/Units 18:31 18:33 18:37 WBC (4.5-11.0) K/uL RBC (4.30-5.90) M/uL Hgb (12.0-15.0) g/dL Hct (40.0-54.0) % MCV (80-98) fL MCH (27-31) pg MCHC (32-36) % Plt Count (150-400) K/uL D-Dimer, Quantitative (0.0-400.0) ng/mL Sodium (140-148) mmol/L Potassium (3.6-5.2) mmol/L Chloride (100-108) mmol/L Carbon Dioxide (21-32) mmol/L Anion Gap (5.0-14.0) mmol/L BUN (7-18) mg/dL Creatinine (0.8-1.3) mg/dL Est Cr Clr Drug Dosing Estimated GFR (MDRD) (>60) Glucose (74-106) mg/dL POC Glucose (74-106) MG/DL Calcium (8.5-10.1) mg/dL Lactate Dehydrogenase 323 H (85-227) U/L Creatine Kinase 4074 H (39-308) U/L Troponin I (0.000-0.056) ng/mL C-Reactive Protein 18.22 H (0.0-0.3) mg/dL SARS-CoV-2 RNA (FLAVIO) Positive H (NEGATIVE) 07/08/20 Range/Units 20:18 WBC (4.5-11.0) K/uL RBC (4.30-5.90) M/uL Hgb (12.0-15.0) g/dL Hct (40.0-54.0) % MCV (80-98) fL MCH (27-31) pg MCHC (32-36) % Plt Count (150-400) K/uL D-Dimer, Quantitative (0.0-400.0) ng/mL Sodium (140-148) mmol/L Potassium (3.6-5.2) mmol/L Chloride (100-108) mmol/L Carbon Dioxide (21-32) mmol/L Anion Gap (5.0-14.0) mmol/L BUN (7-18) mg/dL Creatinine (0.8-1.3) mg/dL Est Cr Clr Drug Dosing Estimated GFR (MDRD) (>60) Glucose (74-106) mg/dL POC Glucose 326 H (74-106) MG/DL Calcium (8.5-10.1) mg/dL Lactate Dehydrogenase (85-227) U/L Creatine Kinase (39-308) U/L Troponin I (0.000-0.056) ng/mL C-Reactive Protein (0.0-0.3) mg/dL SARS-CoV-2 RNA (FLAVIO) (NEGATIVE) Meds: Medications Generic Name Dose Route Start Last Admin Trade Name Freq PRN Reason Stop Dose Admin Dextrose/Water 50 ml 07/08/20 19:07 Dextrose 50% In Water IVPUSH ASDIRECTED PRN Hypoglycemia Glucagon 1 mg 07/08/20 19:07 Glucagen IM ASDIRECTED PRN Hypoglycemia Lactated Ringer's 1,000 mls @ 250 mls/hr 07/08/20 20:30 07/08/20 20:26 Ringers, Lactated IV 250 mls/hr ASDIRECTED YOAN Administration Sodium Chloride 10 ml 07/08/20 18:25 07/08/20 19:19 Saline Flush FLUSH 10 ml ASDIRECTED PRN Administration Keep Vein Open Discontinued Medications Generic Name Dose Route Start Last Admin Trade Name Freq PRN Reason Stop Dose Admin Acetaminophen 1,000 mg 07/08/20 18:27 07/08/20 19:21 Tylenol Extra Strength PO 07/08/20 18:28 1,000 mg ONETIME ONE Administration Lactated Ringer's 1,000 mls @ 1,000 mls/hr 07/08/20 19:06 07/08/20 19:15 Ringers, Lactated IV 07/08/20 20:05 1,000 mls/hr BOLUS ONE Administration Insulin Human Regular 16 unit 07/08/20 19:07 07/08/20 19:20 Humulin R SUBCUT 07/08/20 19:08 16 units ONETIME ONE Administration - Radiology Interpretation Free Text/Narrative:: CXR-nothing acute Departure - Departure Time of Disposition: 21:10 Disposition: DC/Tfer to Acute Hospital 02 Condition: Poor Clinical Impression: COVID-19, Dehydration, Elevated CPK, Elevated blood sugar, Elevated troponin Acute on chronic renal failure Qualifiers: Acute renal failure type: unspecified Chronic kidney disease stage: unspecified stage Qualified Code(s): N17.9 - Acute kidney failure, unspecified - Discharge Information Referrals: PCP,None [Primary Care Provider] - Forms: ED Department Discharge Sepsis Event Note (ED) - Focused Exam Vital Signs: Vital Signs Temp Pulse Resp BP Pulse Ox 07/08/20 20:17 2.7 C L 59 L 20 104/55 L 89 L 07/08/20 19:17 3.2 C L 69 26 H 118/64 94 L 07/08/20 18:38 38.2 C H 68 23 H 104/61 96 07/08/20 18:25 68 23 H 104/61 96 07/08/20 18:15 38.2 C H 92 29 H 124/56 L 97 - My Orders Last 24 Hours: My Active Orders 07/08/20 18:25 Sodium Chloride 0.9% [Saline Flush] 10 ml FLUSH ASDIRECTED PRN Saline Lock Insert [OM.PC] Routine 07/08/20 18:26 Cardiac Monitoring [RC] .As Directed 07/08/20 18:39 Chest 1V Frontal [CR] Stat 07/08/20 19:07 EKG Documentation Completion [RC] ASDIRECTED Dextrose 50% in Water 50 ml IVPUSH ASDIRECTED PRN Glucagon,Human Recombinant [GlucaGen] 1 mg IM ASDIRECTED PRN EKG 12 Lead [EK] Routine 07/08/20 19:08 UA W/MICROSCOPIC [URIN] Stat 07/08/20 20:30 Lactated Ringers [Ringers, Lactated] 1,000 ml IV ASDIRECTED - Assessment/Plan Last 24 Hours: My Active Orders 07/08/20 18:25 Sodium Chloride 0.9% [Saline Flush] 10 ml FLUSH ASDIRECTED PRN Saline Lock Insert [OM.PC] Routine 07/08/20 18:26 Cardiac Monitoring [RC] .As Directed 07/08/20 18:39 Chest 1V Frontal [CR] Stat 07/08/20 19:07 EKG Documentation Completion [RC] ASDIRECTED Dextrose 50% in Water 50 ml IVPUSH ASDIRECTED PRN Glucagon,Human Recombinant [GlucaGen] 1 mg IM ASDIRECTED PRN EKG 12 Lead [EK] Routine 07/08/20 19:08 UA W/MICROSCOPIC [URIN] Stat 07/08/20 20:30 Lactated Ringers [Ringers, Lactated] 1,000 ml IV ASDIRECTED
[2020-07-08] MEDS ORDERED: Lactated Ringers 1,000 ML IV ONE (19:06)
[2020-07-08] MEDS ORDERED: Glucagon,Human Recombinant 1 MG Vial IM PRN (19:07)
[2020-07-08] MEDS ORDERED: Insulin Regular, Human 100 Units/ML 3 ML Vial SUBCUT ONE (19:07)
[2020-07-08] MEDS ORDERED: 50% Dextrose in Water 50 ML Syringe IVPUSH PRN (19:07)
[2020-07-08] MEDS ORDERED: Lactated Ringers 1,000 ML IV SCH (20:30)
--- NOTE | 2020-07-09 09:21 | CR ---
CHEST: Portable 07/08/2020 at 7:06 PM CLINICAL HISTORY:SOB COMPARISON:07/06/2020 FINDINGS: Heart is enlarged. Pulmonary vascularity is mildly cephalized but diminished when compared to prior study. Right lung is essentially clear. There is increasing density in the left lower lobe which may be due to infiltrate and effusion. IMPRESSION: Mild pulmonary vascular cephalization Increasing density in the left lower lobe suggest infiltrate and effusion. A 2 view chest were decubitus chest would be helpful.
== END 2020-07-08 22:55 ==
LOC: JP.ED 18:02
DX: U07.1 COVID-19 (principal); N17.9 Acute kidney failure, unspecified; E86.0 Dehydration; R74.8 Abnormal levels of other serum enzymes; E11.65 Type 2 diabetes mellitus with hyperglycemia; R79.89 Other specified abnormal findings of blood chemistry; I50.9 Heart failure, unspecified; J44.9 Chronic obstructive pulmonary disease, unspecified; N18.9 Chronic kidney disease, unspecified; E11.21 Type 2 diabetes mellitus with diabetic nephropathy; E11.40 Type 2 diabetes mellitus with diabetic neuropathy, unspecified; F31.9 Bipolar disorder, unspecified; F41.9 Anxiety disorder, unspecified; N40.0 Benign prostatic hyperplasia without lower urinary tract symptoms; E78.5 Hyperlipidemia, unspecified; M10.9 Gout, unspecified; Z20.828 Contact with and (suspected) exposure to other viral communicable diseases; Z88.1 Allergy status to other antibiotic agents; Z88.2 Allergy status to sulfonamides; Z79.82 Long term (current) use of aspirin; Z79.4 Long term (current) use of insulin; Z79.899 Other long term (current) drug therapy; Z99.81 Dependence on supplemental oxygen
CPT/HCPCS: 36415; 71045; 80048; 82550; 82962; 83615; 84484; 85027; 85379; 86140; 93005; 93010; 99285; A9270; J1815; J7120; U0002